=== PATIENT | female | born 2000 | race Caucasian/White ===

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

== ENCOUNTER 2020-01-07 01:17 | Outpatient (CLI) | payer MEDICAID, SELFPAY ==
[2020-01-07 11:06] LABS: Kit/Specimen SENT
[2020-01-07 11:24] LABS: Abs Immature Grans 0.01 k/cumm (0.0-0.09); Absolute Basophil Count 0.01 k/cumm (0.0-0.2); Absolute Lymphocyte Count 1.28 k/cumm (1.2-3.4); Absolute Monocyte Count 0.81 k/cumm (0.11-0.7); Absolute Neutrophil Count 5.24 k/cumm (1.2-6.7); Basophils % 0.1; Eosinophils % 1.3; HCT 38.6 % (36.0-46.0); HGB 13.1 g/dL (12.0-15.5); Immature Grans % 0.1 %; Lymphocytes % 17.2; Mean Corp. HGB Concentration 33.9 g/dL (32.0-36.0); Mean Corpuscular Hemoglobin 32.7 pg (27.0-33.0); Mean Corpuscular Volume 96.3 fL (80-95); Mean Platelet Volume 10.6 fL (8.0-11.0); Monocytes % 10.9; Neutrophils % 70.4; Platelet Count 256 x1000/uL (130-400); RBC 4.01 m/cumm (4.00-5.20); RBC Distribution Width 11.5 % (11.7-14.6); White Blood Cell Count 7.45 k/cumm (4.4-10.8)
[2020-01-07 12:25] LABS: TSH (W/Ref FT4) 0.54 uIU/mL (0.52-4.13)
[2020-01-08 09:24] LABS: Hepatitis B Surface Ag Negative (Negative)
[2020-01-08 10:00] LABS: HIV-1/2 Ag & Ab Screen Negative (Negative)
[2020-01-08 10:25] LABS: Varicella IgG Antibody Positive (See Note)
[2020-01-08 10:30] LABS: Rubella IgG Ab (UVM) Positive (See Note)
[2020-01-08 10:47] LABS: Hepatitis C Ab w Rflx HCV PCR Negative (Negative)
[2020-01-09 16:10] LABS: Syphilis Total Ab w/Reflex Nonreactive (Nonreactive)
[2020-01-14 15:17] LABS: Specimen WB Whole Blood
== END 2020-01-07 01:37 ==
PROVIDERS: PCP Pediatrics; Visit Provider Advanced Practice Midwife
DX: Z34.91 Encounter for supervision of normal pregnancy, unspecified, first trimester (principal); Z36.89 Encounter for other specified antenatal screening; Z11.4 Encounter for screening for human immunodeficiency virus [HIV]; Z11.59 Encounter for screening for other viral diseases; Z01.84 Encounter for antibody response examination
CPT/HCPCS: 36415; 80307; 86787; 86803; 86850; 86900; 86901; 87340; 87389; 87491; 87591; 81220; 84443; 85025; 86762; 86780

== ENCOUNTER 2020-01-07 13:06 | Outpatient (REF) | payer MEDICAID, SELFPAY ==
[2020-01-07 14:02] LABS: *AMPHETAMINES SCREEN URINE Negative (Negative); *BARBITURATES SCREEN URINE Negative (Negative); *BENZODIAZEPINES SCREEN URINE Negative (Negative); Cannabinoids THC POSITIVE (Negative); Cocaine Screen,Urine Negative (Negative); METHADONE URINE SCREEN Negative (Negative); OPIATES URINE SCREEN Negative (Negative)
[2020-01-07 14:03] LABS: Tricyclic Antidepressants Negative (Negative)
[2020-01-08 15:16] LABS: Chlamydia Result Negative (Negative); GC Result Negative (Negative)
[2020-01-13 10:20] LABS: Buprenorphine Negative; Norbuprenorphine Negative
== END 2020-01-07 13:26 ==
LOC: LBN 13:06
PROVIDERS: PCP Pediatrics; Visit Provider Advanced Practice Midwife
DX: Z34.91 Encounter for supervision of normal pregnancy, unspecified, first trimester (principal); N89.8 Other specified noninflammatory disorders of vagina; Z11.3 Encounter for screening for infections with a predominantly sexual mode of transmission
CPT/HCPCS: 80307; 87491; 87591; 87086; 87480; 87510; 87660

== ENCOUNTER 2020-01-15 09:45 | Emergency (ER) | payer MEDICAID, SELFPAY ==
[2020-01-15] VITALS (12 sets, daily range): BP systolic 109–120; BP diastolic 51–72; PULSE 53–78; RESP 14–20; TEMP 36.6–36.7; O2SAT 99–100
--- NOTE | 2020-01-15 10:09 | ED.GENADUL_ITS ---
Discharge Plan Disposition Patient Disposition: HOME Condition: Improving Discharge Details Chief Complaint: Nausea/Vomit/Diar Clinical Impression: Nausea and vomiting during prior to 22 weeks gestation, Chronic abdominal pain Primary Care Provider: Reena Del Angel V ED Provider: Salud Bonner Home Meds and New Rx's Prescriptions: Continued PrePlus 27 mg iron- 1 mg tablet 1 tab PO DAILY Qty: 90 RF: 4 famotidine 40 mg tablet 40 mg PO BID Qty: 60 RF: 2 pantoprazole [Protonix] 20 mg tablet,delayed release (DR/EC) 20 mg PO DAILY Qty: 30 RF: 3 sucralfate [Carafate] 1 gram tablet 1 gm PO BID Qty: 60 RF: 0 alum-mag hydroxide-simeth [Mylanta Maximum Strength] 400-400-40 mg/5 mL Suspension 5 ml PO PRN PRNRF: 0 metoclopramide HCl [Reglan] 10 mg tablet 10 mg PO Q6H PRN (Reason: nausea and vomiting) Qty: 30 RF: 1 Discharge Instructions Instructions: Nausea and Vomiting in (ED), Hyperemesis Gravidarum (ED) Additional Instructions: Take your medication that you have for nausea and pain as directed. Follow-up with your next scheduled appointment with women's wellness. Return to the emergency department if you develop any worsening or new con cerning symptoms. Discharge Data Discharge Date/Time-TO BE ENTERED AT DEPARTURE: 01/15/20 13:03 Discharge Physician: Salud Bonner Medical Decision Making 1000 -- 19-year-old female G1, P0 at 11w6d w/ TAIWO 07/30/20 presents for nausea, vomiting and abdominal pain for the past several weeks, worse this morning. She took her Protonix this morning. She had an ultrasound at 6 weeks confirming single IUP. She has been here multiple times recently for similar complaints. Vitals within normal limits. Abdomen soft nontender. She is crying and irritable and states I just need a fucking IV and meds to take this fucking pain away. Review of [facility] records note that patient has had a lot of stress throughout this as it has been unplanned and she is unsure of the father between 2 different men. She has been treated with Zofran, Reglan, Protonix and Carafate with relief at times. IV, screening labs, urinalysis and give bolus IV fluids and Zofran. Will discuss with pharmacy whether GI cocktail appropriate. 1235 --labs reviewed. Potassium 3.3 which was repleted. Urinalysis notes 3-5 WBCs and trace leukocyte esterase. Dr. Wilson from OB came to evaluate patient at bedside. heart tones 150s. She is well familiar with patient and she has been seen multiple times for similar complaints. Lab results discussed with Dr. Wilson and recommends to hold on antibiotics for urinalysis pending urine culture results. Dr. Wilson agreed with plan for GI cocktail versus Carafate. Patient had also inquired about a recent intravaginal cream she received from the pharmacy and was unclear for what. This was also discussed with Dr. Wilson states it was MetroGel for BV and she is stating that patient does not need to start treatment for this as it may cause worsening nausea and vomiting. Patient reassessed and she feels much better and requesting to go home. She was given a refill for her Reglan. Advised to follow-up with her scheduled appointment with women's wellness next month. Insert return precautions Medical Records Medical records reviewed: Yes I reviewed the patient's medical records. Imaging Data Radiologic Study: Radiologist's impression: US First Trimester and US , Transvaginal Exam date and time: 12/07/2019 9:34 AM Age: 19 years old Clinical indication: Lmp October 27 . gestational age (in weeks): 5 weeks 5 days. TAIWO August 03; Other: + preg test, abd pain/nausea; TECHNIQUE: Imaging protocol: Real-time transabdominal obstetrical ultrasound of the maternal pelvis and a first trimester with image documentation. Exam performed for nuchal lucency measurement. COMPARISON: CT ABDOMEN PELVIS W 07/17/2019 7:37 PM FINDINGS: Other findings: Left ovary 3.3 x 1.4 x 2.5 cm; Right ovary 2.8 x 1.7 x 1.8 cm; Peak systolic velocity right ovary 13 cm/s GESTATION: Gestation: Single intrauterine Heart rate: Heart rate 114 bpm. Abdomen: Right kidney measures 11.2 cm. No hydronephrosis Left kidney 11.1 cm. No hydronephrosis BIOMETRY: Estimated gestational age: Gestational age by ultrasound 6 weeks 2 days. Estimated due date: TAIWO July 30. [place] length: Corresponds to 6 weeks 2 days MATERNAL: Uterus: Uterus measures 7.4 x 4.3 x 5.1 cm Intraperitoneal: Mild free fluid in the cul-de-sac IMPRESSION: 1. Gestational age by ultrasound 6 weeks 2 days. 2. TAIWO July 30. 3. Heart rate 114 bpm. Lab Data Lab results reviewed: Yes I reviewed the patient's lab results. Labs: 01/15/20 11:20 Urine - Reflex from Ua Urine Culture - Preliminary Gram Positive Josefina,Mixed Laboratory Tests Range/Units 01/15/20 01/15/20 01/15/20 10:00 10:00 10:00 WBC (4.4-10.8) k/cumm 7.48 RBC (4.00-5.20) m/cumm 4.46 Hgb (12.0-15.5) g/dL 14.5 Hct (36.0-46.0) % 42.8 MCV (80-95) fL 96.0 H MCH (27.0-33.0) pg 32.5 MCHC (32.0-36.0) g/dL 33.9 RDW (11.7-14.6) % 11.7 Plt Count (130-400) x1000/uL 223 MPV (8.0-11.0) fL 10.2 Immature Gran % % 0.1 Neutrophils % 78.0 Lymphocytes % 12.6 Monocytes % 8.8 Eosinophils % 0.4 Basophils % 0.1 Absolute Neutrophils (1.2-6.7) k/cumm 5.83 Absolute Lymphocytes (1.2-3.4) k/cumm 0.94 L Absolute Monocytes (0.11-0.7) k/cumm 0.66 Absolute Eosinophils (0.0-0.7) k/cumm 0.03 Absolute Basophils (0.0-0.2) k/cumm 0.01 Sodium (136-145) mmol/L 135 L Potassium (3.5-5.1) mmol/L 3.3 L Chloride (98-107) mmol/L 99 Carbon Dioxide (21.0-32.0) mmol/L 26.8 Anion Gap (3-11) mmol/L 9.2 BUN (7-18) mg/dL 9 Creatinine (0.55-1.02) mg/dL 0.56 Estimated GFR/1.73 m2 (mL/min/1.73m2) >= 60.00 Glucose (74-106) mg/dL 84 Calcium (8.5-10.1) mg/dL 9.3 Total Bilirubin (0.2-1.0) mg/dL 0.5 AST (15-37) U/L 15 ALT (14-59) U/L 15 Alkaline Phosphatase (46-116) U/L 54 Total Protein (6.4-8.2) g/dL 8.0 Albumin (3.4-5.0) g/dL 4.2 Lipase (73-393) U/L 132 Urine Color (Yellow) Urine Clarity (Clear) Urine pH (5-8) Ur Specific [place] (1.005-1.025) Urine Protein (Negative) mg/dL Urine Ketones (Negative) mg/dL Urine Blood (Negative) Urine Nitrite (Negative) Urine Bilirubin (Negative) Urine Urobilinogen (Up TO 0.2) EU/dL Ur Leukocyte Esterase (Negative) Urine RBC (0-2) HPF Urine WBC (0-5) HPF Ur Epithelial Cells (Negative) HPF Urine Crystals (Negative) HPF Urine Bacteria (Negative) HPF Urine Casts (Negative) LPF Urine Mucus (Negative) Ur Culture Indicated? Urine Glucose (Negative) mg/dL Range/Units 01/15/20 11:20 WBC (4.4-10.8) k/cumm RBC (4.00-5.20) m/cumm Hgb (12.0-15.5) g/dL Hct (36.0-46.0) % MCV (80-95) fL MCH (27.0-33.0) pg MCHC (32.0-36.0) g/dL RDW (11.7-14.6) % Plt Count (130-400) x1000/uL MPV (8.0-11.0) fL Immature Gran % % Neutrophils % Lymphocytes % Monocytes % Eosinophils % Basophils % Absolute Neutrophils (1.2-6.7) k/cumm Absolute Lymphocytes (1.2-3.4) k/cumm Absolute Monocytes (0.11-0.7) k/cumm Absolute Eosinophils (0.0-0.7) k/cumm Absolute Basophils (0.0-0.2) k/cumm Sodium (136-145) mmol/L Potassium (3.5-5.1) mmol/L Chloride (98-107) mmol/L Carbon Dioxide (21.0-32.0) mmol/L Anion Gap (3-11) mmol/L BUN (7-18) mg/dL Creatinine (0.55-1.02) mg/dL Estimated GFR/1.73 m2 (mL/min/1.73m2) Glucose (74-106) mg/dL Calcium (8.5-10.1) mg/dL Total Bilirubin (0.2-1.0) mg/dL AST (15-37) U/L ALT (14-59) U/L Alkaline Phosphatase (46-116) U/L Total Protein (6.4-8.2) g/dL Albumin (3.4-5.0) g/dL Lipase (73-393) U/L Urine Color (Yellow) Yellow Urine Clarity (Clear) Cloudy Urine pH (5-8) 7.5 Ur Specific [place] (1.005-1.025) 1.020 Urine Protein (Negative) mg/dL 30 H Urine Ketones (Negative) mg/dL >=160 H Urine Blood (Negative) Trace-intact H Urine Nitrite (Negative) Negative Urine Bilirubin (Negative) Negative Urine Urobilinogen (Up TO 0.2) EU/dL 1.0 H Ur Leukocyte Esterase (Negative) Trace H Urine RBC (0-2) HPF 0-2 Urine WBC (0-5) HPF 3-5 Ur Epithelial Cells (Negative) HPF Few Urine Crystals (Negative) HPF Few amorphous Urine Bacteria (Negative) HPF Few Urine Casts (Negative) LPF Negative Urine Mucus (Negative) Moderate Ur Culture Indicated? Yes Urine Glucose (Negative) mg/dL Negative HPI General Mode of arrival: ambulatory . Date/Time Provider Initiated Documentation: 01/15/20 09:50 . Limitations to Documentation: no limitations . Information obtained by: patient . HPI Narrative: Patient is a 19-year-old female G1, P0 at 11 weeks and 2 days presents for nausea, vomiting and abdominal pain for the past several weeks, worse this morning. She states she vomited 10 times within the last 24 hours. She states the vomit has mainly been bile but states she vomited blood this morning. She quantifies the amount of blood as half a cup. She had a normal bowel movement yesterday. She describes her pain is intermittent, crampy and diffuse. She last had similar abdominal pain 1 month ago. She had an ultrasound at 6 weeks confirming a single IUP. She has been seen here multiple times recently for the same complaint and has been prescribed Reglan, Zofran, Protonix and Carafate. She called OB this morning and they advised her to come here for further evaluation. She denies any fever, urinary symptoms or vaginal bleeding. Related Data Home Medications Medication Instructions Recorded Confirmed pantoprazole [Protonix] 20 mg PO DAILY #30 tab 12/08/19 01/15/20 vitamin with calcium 1 tab PO DAILY #90 tab 12/10/19 01/15/20 no.72-iron 27 mg-folic acid 1 mg tablet sucralfate [Carafate] 1 gm PO BID #60 tab 12/23/19 01/15/20 famotidine 40 mg tablet 40 mg PO BID #60 tab 12/24/19 01/15/20 alum-mag hydroxide-simeth [Mylanta 5 ml PO PRN PRN 01/15/20 01/15/20 Maximum Strength] metoclopramide HCl [Reglan] 10 mg PO Q6H PRN #30 tab 01/15/20 Previous Rx's Medication Instructions Recorded pantoprazole [Protonix] 20 mg PO DAILY #30 tab 12/08/19 vitamin with calcium 1 tab PO DAILY #90 tab 12/10/19 no.72-iron 27 mg-folic acid 1 mg tablet sucralfate [Carafate] 1 gm PO BID #60 tab 12/23/19 famotidine 40 mg tablet 40 mg PO BID #60 tab 12/24/19 metoclopramide HCl [Reglan] 10 mg PO Q6H PRN #30 tab 01/15/20 Allergies Allergy/AdvReac Type Severity Reaction Status Date / Time diphenhydramine AdvReac Hyperactivi Unverified 01/15/20 09:53 ty General Stated Complaint: Nausea/Vomit/Diar JARED: 3 Review of Systems All systems reviewed & are unremarkable except as noted in HPI and below Constitutional Constitutional: Reports as per HPI, Denies chills and Denies fever(s) Eyes Eyes: Denies blurry vision ENT Ears, Nose, Mouth, and Throat: Denies dizziness, Denies sore throat and Denies throat swelling Cardiovascular Cardiovascular: Denies chest pain and Denies dyspnea Respiratory Respiratory: Denies cough and Denies dyspnea Gastrointestinal Gastrointestinal: Reports abdominal pain, Denies diarrhea and Reports vomiting Genitourinary Genitourinary: Denies hematuria and Denies dysuria Musculoskeletal Musculoskeletal: Denies back pain and Denies numbness Integumentary/Breasts Skin/Breast: Denies lesions and Denies rash Neurologic Neurologic: Denies dizziness, Denies localized weakness and Denies numbness Allergic/Immunologic Allergic/Immunologic: Denies throat swelling [facility] Medical History (Updated 01/15/20 @ 12:38 by Salud Bonner DO) Abnormal electroencephalogram (Resolved 12/21/11) Anxiety disorder 9 month inpatient care [place] contraception (Inactive 03/20/16) started 04/08 for menorragia control Depression (Resolved) Eating disorder (Resolved 03/18/14) Encounter for Depo-Provera contraception (Inactive 12/05/16) Fracture of left radius (Resolved 11/07/08) Hyperemesis gravidarum (Inactive) Infection due to Chlamydia species (Resolved 08/21/17) Major depressive disorder, single episode, severe, with psychotic behavior (Resolved 03/18/14) Pediatric body mass index (BMI) of 5th percentile to less than 85th percentile for age (Resolved 02/15/16) Suicidal ideation (Inactive) Social History Smoking/Tobacco Use Status: Former Tobacco Use Quit Date: 12/03/19 Counseling given: other Alcohol Intake: former Year quit: Thou Details: Stop 12/03/2019 with positive UPT Drug use: Current Sobriety Substance use type: marijuana Details: HX daily marijuana use--stopped due to it makes me sick Household members: family and other Details: Lives with her parents. 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 Do you feel safe at home: Yes Do you feel safe in your relationship?: Yes History History 1 Para 0 Hx # Term Pregnancies 0 Multiple births 0 Hx # Pregnancies 0 Ectopic pregnancies 0 AB induced 0 Hx Number of Living Children 0 AB spontaneous 0 Exam Const General: cooperative, healthy appearing and other (tearful, crying) Orientation: alert, awake and oriented x3 [facility] Head: normal to inspection Face and sinus: normal facial exam Eyes General: appearance normal, both eyes and all related structures EOM: EOM intact bilaterally Neck Neck: normal visual inspection and No submandibular swelling Lymphatic: no lymphadenopathy noted Chest Chest: normal inspection of the chest and no tenderness Resp Effort & Inspection: normal respiratory effort and able to speak in complete sentences Auscultation: clear to auscultation bilaterally Cardio Rate: regular rate Rhythm: regular rhythm GI Inspection: normal to inspection Palpation: soft, not firm, not rigid and nontender Auscultation: normal bowel sounds Back/Spine/Pelvis Thoracic/Lumbar Spine: thoracic and lumbar spine normal to inspection Skin General skin exam: no rashes or lesions noted Neuro General: patient alert, patient awake and patient oriented x3 Cognition: normal cognition Speech: speech normal Motor: muscle tone normal throughout Sensory Exam: no sensory deficits noted Extrem General: normal to inspection, full ROM, capillary refill normal, no calf tenderness bilaterally and no edema Psych Appearance: grossly normal Mental Status: mental status grossly normal Speech and Movement: speech and movement normal Mood: irritable mood Affect: irritable affect and other (tearful, crying) Thought Process: normal Insight: insight good Course Vital Signs Vital signs: Vital Signs Temperature 98.1 F 01/15/20 09:48 Pulse 78 01/15/20 09:48 Respiratory Rate 14 01/15/20 09:48 Blood Pressure 120/72 01/15/20 09:48 Pulse Oximetry 100 01/15/20 09:48 Temperature 98.1 F 01/15/20 09:48 Temperature Source Skin 01/15/20 09:48 Pulse 78 01/15/20 09:48 Respiratory Rate 14 01/15/20 09:48 Respiratory Effort 01/15/20 09:59 Blood Pressure 120/72 01/15/20 09:48 Blood Pressure Position Sitting 01/15/20 09:48 Pulse Oximetry 100 01/15/20 09:48 Oxygen Delivery Method Room Air 01/15/20 09:48 Oxygen Flow Rate 0 01/15/20 09:48 Pain Level 4 01/15/20 09:48
[2020-01-15 10:20] LABS: Abs Immature Grans 0.01 k/cumm (0.0-0.09); Absolute Basophil Count 0.01 k/cumm (0.0-0.2); Absolute Eosinophil Count 0.03 k/cumm (0.0-0.7); Absolute Lymphocyte Count 0.94 k/cumm (1.2-3.4); Absolute Monocyte Count 0.66 k/cumm (0.11-0.7); Absolute Neutrophil Count 5.83 k/cumm (1.2-6.7); Basophils % 0.1; Eosinophils % 0.4; HCT 42.8 % (36.0-46.0); HGB 14.5 g/dL (12.0-15.5); Immature Grans % 0.1 %; Lymphocytes % 12.6; Mean Corp. HGB Concentration 33.9 g/dL (32.0-36.0); Mean Corpuscular Hemoglobin 32.5 pg (27.0-33.0); Mean Platelet Volume 10.2 fL (8.0-11.0); Monocytes % 8.8; Platelet Count 223 x1000/uL (130-400); RBC 4.46 m/cumm (4.00-5.20); RBC Distribution Width 11.7 % (11.7-14.6); White Blood Cell Count 7.48 k/cumm (4.4-10.8)
[2020-01-15 10:40] LABS: ALT 15 U/L (14-59); AST 15 U/L (15-37); Albumin 4.2 g/dL (3.4-5.0); Alkaline Phosphatase 54 U/L (46-116); Anion Gap 9.2 mmol/L (3-11); BUN 9 mg/dL (7-18); Bilirubin, Total 0.5 mg/dL (0.2-1.0); CO2 26.8 mmol/L (21.0-32.0); CREATININE 0.56 mg/dL (0.55-1.02); Calcium 9.3 mg/dL (8.5-10.1); Chloride 99 mmol/L (98-107); Glucose 84 mg/dL (74-106); Potassium 3.3 mmol/L (3.5-5.1); Sodium 135 mmol/L (136-145)
[2020-01-15] MEDS: Ondansetron 4 MG/2 ML VIAL IVP (10:53)
[2020-01-15] MEDS: Normal Saline 1,000 ML 1000 ML IV (10:53)
[2020-01-15 10:59] LABS: Lipase 132 U/L (73-393)
[2020-01-15] MEDS: Potassium Chloride 20 MEQ TABCR 40 MEQ PO (11:14)
[2020-01-15 11:28] LABS: Bilirubin Negative (Negative); Blood Trace-intact (Negative); Clarity Cloudy (Clear); Glucose Negative (Negative); Ketones >=160 mg/dL (Negative); Leukocyte Esterase Trace (Negative); Nitrite Negative (Negative); pH 7.5 (5-8)
[2020-01-15 11:39] LABS: Bacteria Few HPF (Negative); C & S Indicated? Yes; Casts Negative LPF (Negative); Crystals Few Amorphous HPF (Negative); Epithelial Cells Few HPF (Negative); Mucus Moderate (Negative); RBC 0-2 HPF (0-2)
== END 2020-01-15 13:03 | disposition home or self-care (01) ==
PROVIDERS: Emergency Provider Physician Assistant; PCP Pediatrics
DX: O21.0 Mild hyperemesis gravidarum (principal); O26.891 Other specified pregnancy related conditions, first trimester; Z3A.11 11 weeks gestation of pregnancy; G89.29 Other chronic pain
CPT/HCPCS: 36415; 80053; 83690; 96361; 96374; 99284; 81003; 81015; 85025; 87086; J2405

== ENCOUNTER 2020-01-27 06:40 | Emergency (ER) | payer MEDICAID, SELFPAY ==
[2020-01-27 06:45] VITALS: PULSE 90; RESP 18; TEMP 36.5; O2SAT 98
--- NOTE | 2020-01-27 06:50 | ED.GENADUL_ITS ---
Discharge Plan Disposition Patient Disposition: HOME Condition: Stable Discharge Details Chief Complaint: Nausea/Vomit/Diar Clinical Impression: Nausea and vomiting during prior to 22 weeks gestation Primary Care Provider: Reena Del Angel V ED Provider: Kulwinder Arreguin Home Meds and New Rx's Prescriptions: Continued PrePlus 27 mg iron- 1 mg tablet 1 tab PO DAILY Qty: 90 RF: 4 famotidine 40 mg tablet 40 mg PO BID Qty: 60 RF: 2 pantoprazole [Protonix] 20 mg tablet,delayed release (DR/EC) 20 mg PO DAILY Qty: 30 RF: 3 sucralfate [Carafate] 1 gram tablet 1 gm PO BID Qty: 60 RF: 0 alum-mag hydroxide-simeth [Mylanta Maximum Strength] 400-400-40 mg/5 mL Suspension 5 ml PO PRN PRNRF: 0 metoclopramide HCl [Reglan] 10 mg tablet 10 mg PO Q6H PRN (Reason: nausea and vomiting) Qty: 30 RF: 1 Discharge Instructions Instructions: Nausea and Vomiting in (ED) Additional Instructions: follow up as scheduled with your kitchen supervisor/obgyn provider try to drink fluids to stay hydrated if you feel more ill, have severe worsening pain or persistent vomit return to the emergency department Medical Decision Making <Gene Lima DO - Last Filed: 01/27/20 08:25> This is a 19-year-old female who is a G1, P0 at 13w w/ TAIWO 07/30/20 who unfortunately has had multiple issues with vomiting and abdominal pain during this . Pain seems to be associated with vomiting and gastritis. She presents today with 24 hours of vomiting. She has had multiple episodes, but no hematemesis. She denies any fever or chills. She has tried taking Zofran but this is come up immediately. She denies any new foods or spicy foods. She admits to pain being in the epigastric region. She denies any diarrhea, vaginal discharge or pelvic pain. No other complaints at this time. No other modifying factors. Physical exam demonstrates epigastric tenderness, no signs of an acute surgical abdomen, vital signs stable. Signs and symptoms appear consistent with hyperemesis gravidarum, will treat with medications that have worked well for her in her recent visits. Will give Zofran and Reglan fluids GI cocktail Carafate. No indication for emergent imaging at this time. Will check heart tones. 8:25 AM Patient signed out to my colleague Dr. Kulwinder Arreguin for reassessment after co mplete fluid administration. Patient remained stable, laboratory work-up unremarkable. Suspect hyperemesis gravidarum with dehydration. <Kulwinder Arreguin MD - Last Filed: 01/27/20 09:04> pt feeling better and has no abdominal tenderness, labs reassuring and she is tolerating PO and is comfortable with d/c and outpatient kitchen supervisor f/u. She has antiemetics already at home and return precautions given Lab Data Lab results reviewed: Yes I reviewed the patient's lab results. HPI <Gene Lima DO - Last Filed: 01/27/20 08:25> General Date/Time Provider Initiated Documentation: 01/27/20 06:42 . HPI Narrative: This is a 19-year-old female who is a G1, P0 at 13w w/ TAIWO 07/30/20 who unfortunately has had multiple issues with vomiting and abdominal pain during this . Pain seems to be associated with vomiting and gastritis. She presents today with 24 hours of vomiting. She has had multiple episodes, but no hematemesis. She denies any fever or chills. She has tried taking Zofran but this is come up immediately. She denies any new foods or spicy foods. She admits to pain being in the epigastric region. She denies any diarrhea, vaginal discharge or pelvic pain. No other complaints at this time. No other modifying factors. Related Data Home Medications Medication Instructions Recorded Confirmed pantoprazole [Protonix] 20 mg PO DAILY #30 tab 12/08/19 01/27/20 vitamin with calcium 1 tab PO DAILY #90 tab 12/10/19 01/27/20 no.72-iron 27 mg-folic acid 1 mg tablet sucralfate [Carafate] 1 gm PO BID #60 tab 12/23/19 01/27/20 famotidine 40 mg tablet 40 mg PO BID #60 tab 12/24/19 01/27/20 alum-mag hydroxide-simeth [Mylanta 5 ml PO PRN PRN 01/15/20 01/27/20 Maximum Strength] metoclopramide HCl [Reglan] 10 mg PO Q6H PRN #30 tab 01/15/20 01/27/20 Previous Rx's Medication Instructions Recorded pantoprazole [Protonix] 20 mg PO DAILY #30 tab 12/08/19 vitamin with calcium 1 tab PO DAILY #90 tab 12/10/19 no.72-iron 27 mg-folic acid 1 mg tablet sucralfate [Carafate] 1 gm PO BID #60 tab 12/23/19 famotidine 40 mg tablet 40 mg PO BID #60 tab 12/24/19 metoclopramide HCl [Reglan] 10 mg PO Q6H PRN #30 tab 01/15/20 Allergies Allergy/AdvReac Type Severity Reaction Status Date / Time diphenhydramine AdvReac Hyperactivi Unverified 01/27/20 07:07 ty General Stated Complaint: Nausea/Vomit/Diar JARED: 3 Review of Systems <Gene Lima DO - Last Filed: 01/27/20 08:25> All systems reviewed & are unremarkable except as noted in HPI and below PFSH <Gene Lima DO - Last Filed: 01/27/20 08:25> Medical History Abnormal electroencephalogram (Resolved 12/21/11) Anxiety disorder 9 month inpatient care [place] contraception (Inactive 03/20/16) started 04/08 for menorragia control Depression (Resolved) Eating disorder (Resolved 03/18/14) Encounter for Depo-Provera contraception (Inactive 12/05/16) Fracture of left radius (Resolved 11/07/08) Hyperemesis gravidarum (Inactive) Infection due to Chlamydia species (Resolved 08/21/17) Major depressive disorder, single episode, severe, with psychotic behavior (R esolved 03/18/14) Pediatric body mass index (BMI) of 5th percentile to less than 85th percentile for age (Resolved 02/15/16) Suicidal ideation (Inactive) Family History Father Hepatitis B Substance abuse HIV (human immunodeficiency virus infection) Mother No problems noted. Other Diabetes pat aunt Essential hypertension MGF Personal history of malignant neoplasm MGM-breast Heart disease MGF Hyperlipidemia MGF Mental disorder PGM-anxiety/depression Myocardial infarction MGF Stroke MGF Brother Alcohol abuse Social History Smoking/Tobacco Use Status: Former Tobacco Use Quit Date: 12/03/19 Counseling given: other Alcohol Intake: former Year quit: Thou Details: Stop 12/03/2019 with positive UPT Drug use: Current Sobriety Substance use type: marijuana Details: HX daily marijuana use--stopped due to it makes me sick Household members: family and other Details: Lives with her parents. 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 3.ENT: Atraumatic external nose and ears. Notably dry MM. Neck: Symmetric, trachea midline, No thyromegaly. 4.CVS: +S1/S2, No murmurs or gallops. Peripheral pulses 2+ and equal in all extremities. Brisk capillary refill in all extremities. 5.RESP: Unlabored respiratory effort. Clear to auscultation bilaterally. No wheezes rales or rhonchi 6.GI: Soft, nondistended, mild epigastric tenderness, no signs of an acute surgical abdomen currently. No pelvic or suprapubic tenderness. 7.MSK: Normocephalic/Atraumatic, Extremities w/o deformity or ttp No cyanosis or clubbing, Normal movement of all extremities 8.Skin: Warm, Dry. No rashes or lesions. 9.Neuro: logistics lead II-XII grossly intact. Sensation grossly intact, no focal neurologic deficits. 10.Psych: (AAO) x3. Appropriate mood and affect Course <Gene Lima DO - Last Filed: 01/27/20 08:25> Vital Signs Vital signs: Vital Signs Temperature 36.5 C 01/27/20 06:45 Pulse 90 01/27/20 06:45 Respiratory Rate 18 01/27/20 06:45 Pulse Oximetry 98 01/27/20 06:45 Temperature 36.5 C 01/27/20 06:45 Temperature Source Temporal Artery Scan 01/27/20 06:45 Pulse 90 01/27/20 06:45 Respiratory Rate 18 01/27/20 06:45 Respiratory Effort 01/27/20 06:48 Blood Pressure Position Sitting 01/27/20 06:45 Pulse Oximetry 98 01/27/20 06:45 Oxygen Delivery Method Room Air 01/27/20 06:45 Oxygen Flow Rate 0 01/27/20 06:45 Pain Level 10 01/27/20 06:45 Sign Out <Gene Lima DO - Last Filed: 01/27/20 08:25> Sign Out Data: Sign Out Comment: Pending reassessment after fluids Last updated by Gene Lima DO at 01/27/20 08:27
[2020-01-27] MEDS: Ondansetron 4 MG/2 ML VIAL IVP (06:59)
[2020-01-27] MEDS: Normal Saline 1,000 ML 1000 ML IV ×2 (06:59→07:37)
[2020-01-27 07:07] LABS: Abs Immature Grans 0.05 10^3/uL (0.0-0.06); Absolute Eosinophil Count 0.01 10^3/uL (0.0-0.7); Absolute Monocyte Count 0.63 10^3/uL (0.1-0.8); Absolute Neutrophil Count 12.15 10^3/uL (1.2-6.7); Basophils % 0.1; Eosinophils % 0.1; HGB 14.6 g/dL (11.2-15.7); Immature Grans % 0.4; Lymphocytes % 7.9; MCH 32.7 pg (27.0-33.0); MCV 96.4 fL (80-95); MPV 10.5 fL (8.0-11.0); Monocytes % 4.5; Platelet Count 261 10^3/uL (130-400); RBC 4.46 10^6/uL (3.93-5.22); RDW 11.3 % (11.7-14.6); RDW-SD 40.2 fL; WBC 13.97 10^3/uL (4.4-10.8)
[2020-01-27 07:11] LABS: Absolute Basophil Count 0.01 10^3/uL (0.0-0.2)
[2020-01-27] MEDS: Metoclopramide 10 MG/2 ML VIAL IVP (07:11)
[2020-01-27 07:12] VITALS: BP 116/72; PULSE 88; RESP 20; O2SAT 98
[2020-01-27 07:23] LABS: ALT 25 U/L (14-59); AST 21 U/L (15-37); Albumin 4.4 g/dL (3.4-5.0); Alkaline Phosphatase 61 U/L (46-116); Anion Gap 11.9 mmol/L (3-11); BUN 11 mg/dL (7-18); Bilirubin, Total 0.4 mg/dL (0.2-1.0); CO2 27.1 mmol/L (21.0-32.0); CREATININE 0.71 mg/dL (0.55-1.02); Calcium 10.2 mg/dL (8.5-10.1); Chloride 98 mmol/L (98-107); Glucose 108 mg/dL (74-106); Lipase 108 U/L (73-393); Magnesium 1.7 mg/dL (1.8-2.4); Potassium 3.5 mmol/L (3.5-5.1); Sodium 137 mmol/L (136-145); Total Protein 8.5 g/dL (6.4-8.2)
[2020-01-27] MEDS: Sucralfate 1 GM TAB PO (07:31)
[2020-01-27 09:05] VITALS: BP 97/54; PULSE 74; RESP 14; TEMP 36.6; O2SAT 98
[2020-01-27 09:10] VITALS: BP 97/54; PULSE 74; RESP 14; O2SAT 98
--- NOTE | 2020-02-01 12:00 | NUR.NOTE ---
Nursing Note: Received a request from [facility] to renew [id number] sucralfate by Dr. Lima. I got the PCP name and faxed back to them to contact PCP, Susan Ocampo
== END 2020-01-27 09:30 | disposition home or self-care (01) ==
PROVIDERS: Student in an Organized Health Care Education/Training Program; Emergency Provider Emergency Medicine; PCP Pediatrics
DX: O21.1 Hyperemesis gravidarum with metabolic disturbance (principal); O26.892 Other specified pregnancy related conditions, second trimester; E86.0 Dehydration; Z3A.13 13 weeks gestation of pregnancy; R10.13 Epigastric pain
CPT/HCPCS: 36415; 80053; 83690; 96361; 96374; 96375; 99284; 83735; 85025; J2405; J2765

== ENCOUNTER 2020-03-03 01:08 | Outpatient (CLI) | payer MEDICAID, SELFPAY ==
--- NOTE | 2020-03-03 07:00 | DI.US_ITS ---
EXAM: US OB 2-3 TRIMESTER CLINICAL HISTORY: ,Z34.90. TECHNIQUE: Transabdominal obstetrical ultrasound performed. COMPARISON: US US OB TRANSVAGINAL from 12/07/2019 FINDINGS:: Sonographic images demonstrate a single intrauterine gestation in variable position. Placenta:Posterior and low lying. The tip of the placenta measures 1.5 cm from the os. Predicted gestational age: 19+ 1 weeks Estimated date of delivery 03 August 2020: heart rate motion is Dopplered at: 140 BPM. BPD: 43mm = 19+ 1 weeks HC: 166mm = 19+ 2 weeks AC: 139mm = 19+ 2 weeks FL: 30mm = 19+ 1 weeks Sonographically assessed composite gestational age: 19+ 2 weeks Estimated date of delivery based on this ultrasound is: 26 July 2020 Amniotic fluid: Amount of fluid is visually within normal limits. anatomic survey: No abnormalities are identified. IMPRESSION: survey is within normal limits. The placenta is low lying. DATA REPOSITORY:
== END 2020-03-03 01:28 ==
PROVIDERS: PCP Pediatrics; Visit Provider Advanced Practice Midwife
DX: Z34.92 Encounter for supervision of normal pregnancy, unspecified, second trimester (principal); O44.42 Low lying placenta NOS or without hemorrhage, second trimester
CPT/HCPCS: 76805

== ENCOUNTER 2020-03-09 00:29 | Outpatient (CLI) | payer MEDICAID, SELFPAY ==
--- NOTE | 2020-03-09 06:45 | DI.US_ITS ---
EXAM: US OB F/U FACIAL/LVOT/RVOT CLINICAL HISTORY: ? cleft palate on anatomy screen,Z34.90 TECHNIQUE: Ultrasound performed using standard protocol. COMPARISON: US US OB 2-3 TRIMESTER from 03/03/2020 FINDINGS: Today's ultrasound was performed to attempt further evaluation of the palate due to questionable abno rmality identified on prior study of March 03. On today's examination position is subopti mal for evaluation of the palate and again the findings are indeterminate although no definite gross defect is seen. Repeat scan recommended. IMPRESSION: DATA REPOSITORY:
[2020-03-11 11:54] LABS: AFP 51.7 ng/mL; Calculated age at EDD 20 years; Cigarette smoking status non-Smoker; GA used in risk estimate Dates estimate; IVF Pregnancy No; Initial or repeat testing Initial testing; Insulin dependent diabetes No; Maternal Weight 133 lbs; Number of Fetuses 1; Prev Pregnancy w/NTD No; RECOMMENDED FOLLOW UP None.; Results Summary Normal risk
== END 2020-03-09 00:49 ==
PROVIDERS: Advanced Practice Midwife; PCP Pediatrics; Visit Provider Advanced Practice Midwife
DX: Z34.92 Encounter for supervision of normal pregnancy, unspecified, second trimester (principal); Z3A.19 19 weeks gestation of pregnancy; O28.3 Abnormal ultrasonic finding on antenatal screening of mother
CPT/HCPCS: 36415; 76815; 82105

== ENCOUNTER 2020-04-27 03:37 | Outpatient (CLI) | payer MEDICAID, SELFPAY ==
[2020-04-27 15:24] LABS: Glucose,1 Hr (Glucola) 88 mg/dL (80-140)
[2020-04-27 15:30] LABS: HCT 35.5 % (36.0-46.0); HGB 11.9 g/dL (11.2-15.7); MCH 33.1 pg (27.0-33.0); MCHC 33.5 % (32.0-36.0); MCV 98.9 fL (80-95); MPV 10.4 fL (8.0-11.0); Platelet Count 241 10^3/uL (130-400); RBC 3.59 10^6/uL (3.93-5.22); RDW 11.9 % (11.7-14.6); WBC 11.04 10^3/uL (4.4-10.8)
== END 2020-04-27 03:57 ==
PROVIDERS: PCP Pediatrics; Visit Provider Advanced Practice Midwife
DX: Z34.92 Encounter for supervision of normal pregnancy, unspecified, second trimester (principal); Z3A.26 26 weeks gestation of pregnancy; Z01.84 Encounter for antibody response examination
CPT/HCPCS: 82950; 85027; 86850; 90384

== ENCOUNTER 2020-05-07 03:33 | Outpatient (CLI) | payer MEDICAID, SELFPAY ==
[2020-03-31 15:20] VITALS: O2SAT 98
--- NOTE | 2020-05-07 07:45 | DI.US_ITS ---
EXAM: US OB F/U FACIAL/LVOT/RVOT CLINICAL HISTORY: f/u low lying placenta. TECHNIQUE: Transabdominal obstetrical ultrasound performed. COMPARISON: US US OB F/U FACIAL/LVOT/RVOT from 03/09/2020 FINDINGS: Transabdominal obstetrical ultrasound performed. FINDINGS: Number of fetuses: One. position: Cephalic. Placental location: Posterior. No evidence of a low-lying placenta or placenta previa. The tip of th e placenta lies greater than 4.8 cm from the internal os. Heart Rate: 150BPM IMPRESSION: 1. Single live intrauterine gestation as above. 2. No evidence of a low-lying placenta or placenta previa. DATA REPOSITORY:
== END 2020-05-07 03:53 ==
PROVIDERS: PCP Pediatrics; Visit Provider Advanced Practice Midwife
DX: Z34.93 Encounter for supervision of normal pregnancy, unspecified, third trimester (principal)
CPT/HCPCS: 76815

== ENCOUNTER 2020-05-08 03:46 | Emergency (ER) | payer MEDICAID, SELFPAY ==
[2020-03-31 15:20] VITALS: O2SAT 98
[2020-05-08 03:52] VITALS: BP 115/73; PULSE 93; RESP 20; TEMP 37; O2SAT 97
--- NOTE | 2020-05-08 03:52 | ED.GENADUL_ITS ---
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 Details Clinical Impression: Nausea and vomiting, Primary Care Provider: Reena Del Angel V ED Provider: Matias Maxwell Meds and New Rx's Prescriptions: Continued ondansetron HCl 4 mg tablet 4 mg PO Q8H Qty: 30 RF: 4 Discharge Instructions Instructions: Acute Nausea and Vomiting (ED) Additional Instructions: Please take it easy over the weekend. Zofran as necessary. Clear liquid/bland diet for today. Contact your providers on L&D if any further issues over the weekend. Return to ED if problems. Referrals: [facility] [Provider Group] Medical Decision Making Patient presenting with acute onset of vomiting with associated epigastric/chest pain that she describes as burning. Similar episodes in the past. She is 28 weeks . ultrasound on the was fine. Will place IV and give fluids, promethazine, famotidine. Check labs. Check heart rate. Discussed with OB. Patient felt much better after promethazine and famotidine. Initial labs reported sodium of 125 which seemed erroneous given she had only been vomiting short period of time. Repeat lytes were normal. heart rate around 140. Baby very active. Nausea started to come back and she was given Zofran. Feeling much better and would like to go home. Discussed with OB, Dr. Wilson. Given no cramping, contractions, bleeding, fluid leakage patient okay to go without evaluation on L&D. Discussed with patient to take it easy the rest of the weekend. Contact [facility] [employer] [facility] if any issues over the weekend. Medical Records Medical records reviewed: Yes I reviewed the patient's medical records. Lab Data Lab results reviewed: Yes I reviewed the patient's lab results. HPI General Mode of arrival: ambulatory . Date/Time Provider Initiated Documentation: 05/08/20 03:47 . Limitations to Documentation: no limitations . Information obtained by: patient, RN notes reviewed and old records reviewed . HPI Narrative: Patient presents to ED with acute onset of nausea/vomiting with associated burning in her chest. Patient is 28 weeks . She has intermittently had problems with vomiting and reflux previously. She reports waking up about 60 to 90 minutes ago vomiting and has been unable to stop since. She denies any vaginal bleeding, pelvic pain, contractions, fluid drainage. She was well when she went to bed tonight. She had ultrasound and OB telehealth visit yesterday which was fine. She denies fever, cough, shortness of breath. She did not try taking her Zofran at home that she was not able to stop vomiting long enough to do so. Related Data Home Medications Medication Instructions Recorded Confirmed ondansetron HCl 4 mg tablet 4 mg PO Q8H #30 tab 02/04/20 05/08/20 Previous Rx's Medication Instructions Recorded ondansetron HCl 4 mg tablet 4 mg PO Q8H #30 tab 02/04/20 Allergies Allergy/AdvReac Type Severity Reaction Status Date / Time diphenhydramine AdvReac Hyperactivi Unverified 05/08/20 03:57 ty General JARED: 3 Review of Systems Narrative: As documented in HPI otherwise negative as below. Const: no fever, chills, weakness Resp: no cough, SOB, pleuritic pain CV: no diaphoresis, edema, syncope GI: no diarrhea Neuro: no headache, numbness, focal weakness, confusion PFSH Medical History Abnormal electroencephalogram (12/21/11) Anxiety disorder 9 month inpatient care [place] Chronic constipation Depot contraception (03/20/16) started 04/08 for menorragia control Depression Eating disorder (03/18/14) bulemia Encounter for Depo-Provera contraception (12/05/16) Fracture of left radius (11/07/08) Hyperemesis gravidarum Infection due to Chlamydia species (08/21/17) Major depressive disorder, single episode, severe, with psychotic behavior (03/18/14) Pediatric body mass index (BMI) of 5th percentile to less than 85th percentile for age (02/15/16) Suicidal ideation Family History Father Hepatitis B Substance abuse HIV (human immunodeficiency virus infection) Mother No problems noted. Other Diabetes pat aunt Essential hypertension MGF Personal history of malignant neoplasm MGM-breast Heart disease MGF Hyperlipidemia MGF Mental disorder PGM-anxiety/depression Myocardial infarction MGF Stroke MGF Brother Alcohol abuse Social History Smoking/Tobacco Use Status: Former Tobacco Use Quit Date: 12/03/19 Counseling given: other Smoking risk assessment performed?: Yes Alcohol Intake: former Year quit: Thou Details: Stop 12/03/2019 with positive UPT Drug use: Current Sobriety Substance use type: marijuana Details: HX daily marijuana use--currently using marijuana. 28 weeks gestation. Household members: family and other Details: Lives with her parents. 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 HEENT: NC/AT. Normal facial exam. Eyes: Normal conjunctiva and sclera. Neck: Supple. Trachea midline. Lungs: Normal respiratory effort. Lungs are clear. Cor: RRR without murmur/gallop. Good radial pulses. GI: Soft. Gravid. Mild epigastric tenderness. Neuro: A+O x 3. Normal speech, mentation, gait. Cranial nerves II - XII grossly intact. No gross motor or sensory deficit. Ext: No C/C/E. Skin: Warm and dry without rash.
[2020-05-08] MEDS: Lactated Ringers 1,000 ML 1000 ML IV (04:25)
[2020-05-08] MEDS: FAMOTIDINE 20 MG/50 ML BAG 100 MG IVPB (04:25)
[2020-05-08 05:09] LABS: ALT 23 U/L (14-59); AST 20 U/L (15-37); Albumin 3.2 g/dL (3.4-5.0); Alkaline Phosphatase 77 U/L (46-116); Anion Gap 4.2 mmol/L (3-11); BUN 8 mg/dL (7-18); Bilirubin, Total 0.2 mg/dL (0.2-1.0); CO2 24.8 mmol/L (21.0-32.0); CREATININE 0.58 mg/dL (0.55-1.02); Calcium 8.8 mg/dL (8.5-10.1); Chloride 96 mmol/L (98-107); Glucose 87 mg/dL (74-106); Lipase 131 U/L (73-393); Potassium 3.2 mmol/L (3.5-5.1); Sodium 125 mmol/L (136-145); Total Protein 6.6 g/dL (6.4-8.2)
[2020-05-08 05:28] LABS: Abs Immature Grans 0.09 10^3/uL (0.0-0.06); Absolute Eosinophil Count 0.19 10^3/uL (0.0-0.7); Absolute Monocyte Count 1.06 10^3/uL (0.1-0.8); Basophils % 0.3; Eosinophils % 1.6; HCT 33.9 % (36.0-46.0); HGB 11.9 g/dL (11.2-15.7); Immature Grans % 0.8; Lymphocytes % 18.8; MCH 34.9 pg (27.0-33.0); MCHC 35.1 % (32.0-36.0); MCV 99.4 fL (80-95); MPV 10.8 fL (8.0-11.0); Monocytes % 8.9; Neutrophils % 69.6; Nucleated RBC 0 %; Platelet Count 232 10^3/uL (130-400); RBC 3.41 10^6/uL (3.93-5.22); RDW 11.9 % (11.7-14.6); RDW-SD 42.5 fL; WBC 11.89 10^3/uL (4.4-10.8)
[2020-05-08 06:09] LABS: Absolute Basophil Count 0.04 10^3/uL (0.0-0.2); Absolute Lymphocyte Count 2.24 10^3/uL (1.2-3.4); Absolute Neutrophil Count 8.28 10^3/uL (1.2-6.7)
[2020-05-08 06:19] LABS: Anion Gap 9.5 mmol/L (3-11); CO2 24.5 mmol/L (21.0-32.0); Chloride 104 mmol/L (98-107); Potassium 3.9 mmol/L (3.5-5.1); Sodium 138 mmol/L (136-145)
[2020-05-08] MEDS: Ondansetron 4 MG/2 ML VIAL IVP (06:22)
[2020-05-08 06:38] VITALS: BP 103/62; PULSE 78; RESP 14; TEMP 36.8; O2SAT 97
[2020-05-08 06:46] VITALS: BP 103/62; PULSE 78; RESP 14; TEMP 36.8; O2SAT 97
== END 2020-05-08 06:53 | disposition home or self-care (01) ==
LOC: ER 06:46
PROVIDERS: Emergency Provider Emergency Medicine; PCP Pediatrics
DX: O21.2 Late vomiting of pregnancy (principal); O99.613 Diseases of the digestive system complicating pregnancy, third trimester; Z3A.28 28 weeks gestation of pregnancy; O99.323 Drug use complicating pregnancy, third trimester; F12.10 Cannabis abuse, uncomplicated
CPT/HCPCS: 36415; 80051; 80053; 83690; 96361; 96365; 96368; 96375; 99284; 85025; J2405

== ENCOUNTER 2020-05-14 03:20 | Inpatient (IN) | payer MEDICAID, SELFPAY ==
[2020-03-31 15:20] VITALS: O2SAT 98
[2020-05-14] VITALS (7 sets, daily range): BP systolic 100–131; BP diastolic 57–88; PULSE 68–127; RESP 16–20; TEMP 36.5–37.3; O2SAT 95–99
--- NOTE | 2020-05-14 | DI.US_ITS ---
EXAM: US ABDOMEN CLINICAL HISTORY: epigastric pain, RUQ pain, GERD, nausea, vomiting, 29 weeks . TECHNIQUE: Ultrasound abdomen performed using standard protocol. COMPARISON: CT CT ABDOMEN PELVIS W from 07/17/2019 US US OB F/U FACIAL/LVOT/RVOT from 05/07/2020 FINDINGS: LIVER: Normal size and echogenicity. No focal liver lesions are seen.. GALLBLADDER: No evidence of cholelithiasis. Small amount of sludge is seen. No evidence of wall thi ckening. No pericholecystic fluid identified. SOLIS'S SIGN: Negative. BILIARY SYSTEM: No intrahepatic or extrahepatic biliary ductal dilation. KIDNEYS: Kidneys are symmetric in size. No evidence of renal calculi. Mild bilateral hydronephrosis c onsistent with gravid state. No renal mass or cyst identified. PANCREAS: Trace amount of fluid near the head of the pancreas. No evidence of a pseudocyst or defini te pancreatic inflammation. SPLEEN: Not enlarged. ABDOMINAL AORTA AND IVC: Visualized portions normal caliber. ASCITES: None seen. IMPRESSION: Mild bilateral hydronephrosis secondary to gravid state. Mild amount of fluid around the head of the pancreas could represent pancreatitis. There is no drainable collection. DATA REPOSITORY:
--- NOTE | 2020-05-14 03:24 | ED.GENADUL_ITS ---
Discharge Plan Disposition Patient Disposition: [facility] IN[facility] Condition: Fair Discharge Details Clinical Impression: Nausea and vomiting, Primary Care Provider: Reena Del Angel V ED Provider: Matias Maxwell Home Meds and New Rx's Prescriptions: No Action ondansetron HCl 4 mg tablet 4 mg PO Q8H Qty: 30 RF: 4 Medical Decision Making Patient presenting with recurrent nausea/vomiting. She is in her third trimester of . heart rate found to be 135 here. Patient complaining of pelvic and vaginal pressure. Will place IV and start saline. Will give dose of Phenergan. BMP sent. Case discussed with OB, Dr. Wilson. Patient to be sent up to labor and delivery for monitoring. HPI General Mode of arrival: ambulatory . Date/Time Provider Initiated Documentation: 05/14/20 03:21 . Limitations to Documentation: no limitations . Information obtained by: patient, RN notes reviewed and old records reviewed . HPI Narrative: Patient presents to ED with nausea vomiting since 8 PM tonight. States that it started after she was smoking marijuana. She is now almost 29 weeks . She was seen by me last week for similar complaints. Epigastric discomfort with associated nausea and vomiting. However tonight she is also having pelvic pressure and vaginal pressure. She has had no fluid leakage or bleeding. She continues to feel the baby move. Related Data Home Medications Medication Instructions Recorded Confirmed ondansetron HCl 4 mg tablet 4 mg PO Q8H #30 tab 02/04/20 05/08/20 Previous Rx's Medication Instructions Recorded ondansetron HCl 4 mg tablet 4 mg PO Q8H #30 tab 02/04/20 Allergies Allergy/AdvReac Type Severity Reaction Status Date / Time diphenhydramine AdvReac Hyperactivi Unverified 05/08/20 03:57 ty General JARED: 3 Review of Systems Narrative: As documented in HPI otherwise negative as below. Const: no fever, chills, weakness Resp: no cough, SOB CV: no CP, syncope GI: no diarrhea Neuro: no headache, numbness, focal weakness, confusion PFSH Medical History Abnormal electroencephalogram (12/21/11) Anxiety disorder 9 month inpatient care [place] Chronic constipation Depot contraception (03/20/16) started 04/08 for menorragia control Depression Eating disorder (03/18/14) bulemia Encounter for Depo-Provera contraception (12/05/16) Fracture of left radius (11/07/08) Hyperemesis gravidarum Infection due to Chlamydia species (08/21/17) Major depressive disorder, single episode, severe, with psychotic behavior (03/18/14) Pediatric body mass index (BMI) of 5th percentile to less than 85th percentile for age (02/15/16) Suicidal ideation Family History Father Hepatitis B Substance abuse HIV (human immunodeficiency virus infection) Mother No problems noted. Other Diabetes pat aunt Essential hypertension MGF Personal history of malignant neoplasm MGM-breast Heart disease MGF Hyperlipidemia MGF Mental disorder PGM-anxiety/depression Myocardial infarction MGF Stroke MGF Brother Alcohol abuse Social History Smoking/Tobacco Use Status: Former Tobacco Use Quit Date: 12/03/19 Counseling given: other Smoking risk assessment performed?: Yes Alcohol Intake: former Year quit: Thou Details: Stop 12/03/2019 with positive UPT Drug use: Current Sobriety Substance use type: marijuana Details: HX daily marijuana use--currently using marijuana. 28 weeks gestation. Household members: family and other Details: Lives with her parents. 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 HEENT: NC/AT. Normal facial exam. Eyes: Normal conjunctiva and sclera. Neck: Supple. Trachea midline. Lungs: Normal respiratory effort. Cor: Good radial pulses. GI: Gravid. movement present. Nontender. Neuro: A+O x 3. Normal speech, mentation. Cranial nerves II - XII grossly intact. No gross motor or sensory deficit. Ext: No C/C/E. Skin: Warm and dry without rash.
[2020-05-14] MEDS: Normal Saline 1,000 ML 1000 ML IV (03:52)
[2020-05-14 04:16] LABS: BUN 10 mg/dL (7-18); CREATININE 0.57 mg/dL (0.55-1.02); Calcium 9.6 mg/dL (8.5-10.1); Chloride 103 mmol/L (98-107); Glucose 105 mg/dL (74-106); Potassium 4.5 mmol/L (3.5-5.1); Sodium 137 mmol/L (136-145)
[2020-05-14] MEDS: Ondansetron 4 MG/2 ML VIAL IVP (04:25)
[2020-05-14] MEDS: Ondansetron O.D.T. 4 MG TABEF 8 MG PO (06:56)
--- NOTE | 2020-05-14 07:12 | HPE_ITS ---
Date of service: 05/14/20 Time of Service: 07:13 Assessment and Plan Assessment and plan (1) 29 weeks gestation of : Status: Acute Assessment and plan: No evidence of labor. No uterine contractions noted and eDrrick denies pelvic discomfort (2) Vomiting affecting : Status: Acute Assessment and plan: Zofran 8 mg ODT was given which Derrick tolerated well. She continues to complain of severe heartburn and she reports that she has had good effect in the past from IV famotidine. This has been ordered. Pelvic exam is deferred and Susie Ray CHAROAylin will be assuming care at 0800. UDS ordered. OB-HPI Labor/Delivery History of Present Illness Reason for Visit: VOMITING Chief Complaint: Other (nausea and vomiting at 29 weeks). TAIWO Calculator Estimated Delivery Date Method Current WG Current Estimate 07/30/20 Ultrasound #1 29w 2d Comments: Derrick was evaluated in the ED for nausea and vomiting. She was treated with phenergan and IV zofran 4 mg at the ED. She was sent to the Center for evaluation and rule out labor. Derrick has experienced nausea and vomiting through out her and has been treated in the past with zofran, reglan, caraate, protonix and famotidine. She was complaining of persistent nausea when she arrived at the center and she was admitted to observation. Medical history is sigificant for bulemia and GERD. She is a marijuana user. History of Present Expected Delivery Route/Plan - CNM FOB - paternity uncertain, lives with boyfrnicholas Mario & his family BB undecided about circ- [place] Specific Issues/Plan 1. Unplanned , uncertain paternity (either Fabiano or Arnaud), source of stress for pt 2. CF & [place] drawn 01/06 2a. 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 Will discuss with pt 2b. [place] WNL - Discussed with patient - paternal testing is not possible at this time due to uncertain paternity. 2c. Desires AFP - drawn 03/09, low risk for NTD 3. Hx teen depression w/sucide attempt age [age], was inpt @ [facility] 3a. states no self harm for over 2 yrs, no meds, no need for therapy, feeling well, declines ref to [facility] 3b. Denies hx of childhood sexual abuse or trauma 3c. Plan to check in with pt every visit on her mood and coping level 4. Undecided about @ initial OB, will consider trying it might be too intimate 5. Daily MJ use for anxiety and sleep, counseled to decrease or even cease use 6. Stopped smoking cig when became , denies ETOH use 7. Rh neg, RhoGam @ 28 wks; done 04/27/20 8. Hyperemesis - Taking Reglan, Protonix, famotidine, carafate. ED admission 01/26- zofran script written 02/03 to use with other medications. 9. Chronic constipation - fiber supplements and colace prescribed daily. 10. Low lying placenta - Repeat US at 28 weeks - done 05/07, placenta is >4 cm away from os, low lie is resolved 11. Referred to [facility] for level 2 sono and MFM consult for possible cleft palate (undetermined at sono 03/09) 11a. [facility] genetics telehealth done 03/11, [facility] sono 03/15: intact lips & palate, no f/up needed 12. Admitted for pancreatitis, gallbladder sludge, vomiting, pain 05/14/20 Review of Systems Gastrointestinal Gastrointestinal: Reports as per HPI, Reports nausea and Reports vomiting Genitourinary Genitourinary: Reports as per HPI [facility] Medical History (Updated 05/16/20 @ 05:59 by Susie Ray) 19 weeks gestation of 26 weeks gestation of Abnormal electroencephalogram (12/21/11) Abnormal ultrasound Anxiety disorder 9 month inpatient care [place] Chronic constipation Depot contraception (03/20/16) started 04/08 for menorragia control Depression Eating disorder (03/18/14) bulemia Encounter for Depo-Provera contraception (12/05/16) Fracture of left radius (11/07/08) Hyperemesis gravidarum Infection due to Chlamydia species (08/21/17) Low lying placenta nos or without hemorrhage, third trimester Major depressive disorder, single episode, severe, with psychotic behavior (03/18/14) Pediatric body mass index (BMI) of 5th percentile to less than 85th percentile for age (02/15/16) Suicidal ideation Family History Father Hepatitis B Substance abuse HIV (human immunodeficiency virus infection) Mother No problems noted. Other Diabetes pat aunt Essential hypertension MGF Personal history of malignant neoplasm MGM-breast Heart disease MGF Hyperlipidemia MGF Mental disorder PGM-anxiety/depression Myocardial infarction MGF Stroke MGF Brother Alcohol abuse Social History Smoking/Tobacco Use Status: Former Tobacco Use Quit Date: 12/03/19 Counseling given: other Smoking risk assessment performed?: Yes Alcohol Intake: former Year quit: Thou Details: Stop 12/03/2019 with positive UPT Drug use: Current Sobriety Substance use type: marijuana Details: HX daily marijuana use--currently using marijuana. 28 weeks gestation. Household members: family and other Details: Lives with her parents. 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 Do you feel safe at home: Yes Do you feel safe in your relationship?: Yes History History 1 Para 0 Hx # Term Pregnancies 0 Multiple births 0 Hx # Pregnancies 0 Ectopic pregnancies 0 AB induced 0 Hx Number of Living Children 0 AB spontaneous 0 Meds Home Medications and Allergies Home Medications Medication Instructions Recorded Confirmed Type ondansetron HCl 4 mg tablet 4 mg PO Q8H #30 tab 02/04/20 05/15/20 Rx famotidine 20 mg tablet 20 mg PO BID #30 tab 05/14/20 05/15/20 Rx Allergies Allergy/AdvReac Type Severity Reaction Status Date / Time diphenhydramine AdvReac Hyperactivi Unverified 05/08/20 03:57 ty Exam Physical Exam Vital signs: Temp Pulse Resp BP Pulse Ox 97.9 F 74 16 110/62 99 05/14/20 03:26 05/14/20 04:44 05/14/20 04:44 05/14/20 04:44 05/14/20 04:44 Vital Signs Reviewed: Yes Constitutional Constitutional: mild distress (sleeping frequently) and thin Detailed Labor and Delivery Exam Eller Score: Cervical Points Exam 0 1 2 3 Dilation Closed 1-2cm 3-4 cm 5-6cm Effacement 0-30% 40-50% 60-70% 80% Consistency Firm Medium Soft Station -3 -2 -1,0 +1,+2 Position Posterior Mid Anterior Amniotic Membrane Status: Intact Fetus A Heart Rate Baseline: 140 Monitor Accelerations: 15 X 15 Monitor Decelerations: None Variability: Moderate (6-25 BPM) Presentation: Cephalic Categories: Category I Results Results Group Beta Strep: N/A Blood Type: A- Rubella Status: Immune Varicella Immunity: Immune Risk Assessment Risk for Shoulder Dystocia Historical/Initial OB: NEGATIVE FOR: Pelvic Abnormality, Pre- BMI>30, Previous Shoulder Dystocia or Previous Macrosomia Risk for Pre-Eclampsia Yes, if one or more: NEGATIVE FOR: Hx Pre-E/Gest HTN, Chronic HTN, Multiple Gestation, Pre-gestational DM, Renal Disease, Systemic Lupus or APA Syndrome Yes, if 2 or more: POSITIVE FOR: Nulliparity; NEGATIVE FOR: Age>= 35 yrs, >10yr btwn pregnancies, BMI>30, ethinicty, Mother/Sister w/ Pre-E or Previous IUGR Risk for Post- Hemorrhage Initial: NEGATIVE FOR: Multiple Gestation, Previous PPH, Known Clotting Deficiency, Grand Multiparity or Anticoagulation Risks Reviewed Risks Reviewed Upon Admission: Yes
[2020-05-14] MEDS: FAMOTIDINE 20 MG/50 ML BAG 200 MG IVPB (07:36)
[2020-05-14] MEDS: Lactated Ringers 1,000 ML 150 ML IV ×2 (08:36→15:12)
[2020-05-14] MEDS: Lidocaine 2% Viscous 15 ML CUP PO ×4 (09:08→22:45)
[2020-05-14] MEDS: Mylanta Suspension 30 ML CUP PO ×4 (09:09→22:45)
[2020-05-14 10:01] LABS: *AMPHETAMINES SCREEN URINE Negative (Negative); *BARBITURATES SCREEN URINE Negative (Negative); *BENZODIAZEPINES SCREEN URINE Negative (Negative); Cannabinoids THC POSITIVE (Negative); Cocaine Screen,Urine Negative (Negative); METHADONE URINE SCREEN Negative (Negative); OPIATES URINE SCREEN Negative (Negative)
[2020-05-14 10:05] LABS: Tricyclic Antidepressants Negative (Negative)
--- NOTE | 2020-05-14 12:24 | W.PM.OBHPL1 ---
Date of service: 05/14/20 Time of Service: 08:24 Assessment and Plan Assessment and plan (1) Vomiting affecting : Status: Acute Assessment and plan: A: 19 yo G1 @ 29 wks, no labor, wellbeing verified Chronic pre-existing GERD and GI concerns prior to PMH noted for hx bulemia and depression Dehydration, GERD, heartburn, r/o gastritis, Repeated ED visits for same At home under-treating for condition P: Pt rec'ed NS hydration in ED, Rx'ed Zofran 12 mg, phenergan 12.5 mg IV and famotidine 20 mg IV transferred to for NST (reactive) and observation IVF LR @ 150 ml/hr Consult with Dr. Torrez for plan of care accomplished this morning Begin Solumedrol 16 mg q8 hrs IV x 24-48 hrs Reglan 10 mg IV q6 hrs Continue famotidine 20 mg PO BID Begin predisone taper after 24 hrs and when tolerating PO intake Mylanta 30 ml with 10 ml viscous lidocaine PO q 2 hrs prn pain Plan discharge from observation tomorrow when tolerating PO intake, Solumedrol is d/c'ed, and medications are changed to PO. (2) Marijuana use: Status: Acute Assessment and plan: Pt has been counseled to cease use of MJ during . Plan of Safe Care for the [place] will be completed. (3) 29 weeks gestation of : Status: Acute (4) Gastroesophageal reflux disease: Status: Acute OB-HPI Labor/Delivery History of Present Illness Reason for Visit: VOMITING Chief Complaint: Other (intractable nausea and vomiting, severe heartburn, gastric pain). TAIWO Calculator Estimated Delivery Date Method Current WG Current Estimate 07/30/20 Ultrasound #1 29w 0d Comments: Pt currently taking Zofran 4 mg tabs PO as needed for nausea, does not take regularly, has no other current medications prescribed. Severe pain and vomiting began last night, pt reported to the ED early this morning. History of Present Expected Delivery Route/Plan - CNM FOB - paternity uncertain, lives with redd Mario & his family BB undecided about circ- jose antonio Specific Issues/Plan 1. Unplanned , uncertain paternity (either Fabiano or Arnaud), source of stress for pt 2. CF & [place] drawn 01/06 2a. 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 Will discuss with pt 2b. [place] WNL - Discussed with patient - paternal testing is not possible at this time due to uncertain paternity. 2c. Desires AFP - drawn 03/09, low risk for NTD 3. Hx teen depression w/sucide attempt age [age], was inpt @ [facility] 3a. states no self harm for over 2 yrs, no meds, no need for therapy, feeling well, declines ref to [facility] 3b. Denies hx of childhood sexual abuse or trauma 3c. Plan to check in with pt every visit on her mood and coping level 4. Undecided about @ initial OB, will consider trying it might be too intimate 5. Daily MJ use for anxiety and sleep, counseled to decrease or even cease use 6. Stopped smoking cig when became , denies ETOH use 7. Rh neg, RhoGam @ 28 wks; done 04/27/20 8. Hyperemesis - Taking Reglan, Protonix, famotidine, carafate. ED admission 01/26- zofran script written 02/03 to use with other medications. 9. Chronic constipation - fiber supplements and colace prescribed daily. 10. Low lying placenta - Repeat US at 28 weeks - done 05/07, placenta is >4 cm away from os, low lie is resolved 11. [place] [facility] [place] 2 [place] and MFM consult for possible cleft palate (undetermined at sono 03/09) 11a. [facility] [place] done 03/11, [facility] [place] 03[place]15: intact lips & palate, no f/up needed Review of Systems All systems reviewed & are unremarkable except as noted in HPI and below Constitutional Constitutional: Reports system reviewed and no additional complaints, except as documented ENT Ears, Nose, Mouth, and Throat: Reports system reviewed and no additional complaints, except as documented and Reports odynophagia Cardiovascular Cardiovascular: Reports as per HPI Respiratory Respiratory: Reports as per HPI Gastrointestinal Gastrointestinal: Reports as per HPI, Reports abdominal pain, Reports belching, Reports dyspepsia, Reports heartburn, Reports diarrhea, Reports nausea, Reports odynophagia, Reports vomiting and Reports hematemesis Comments: nml BM today, has recent hx of diarrhea, PMH noted for constipation Genitourinary Genitourinary: Reports as per HPI Psychiatric Psychiatric: Reports system reviewed and no additional complaints, except as documented and Reports change in appetite PFSH Medical History (Updated 05/14/20 @ 08:28 by Susie Ray) 19 weeks gestation of 26 weeks gestation of Abnormal electroencephalogram (12/21/11) Anxiety disorder 9 month inpatient care [facility] Chronic constipation Depot contraception (03/20/16) started 04/08 for menorragia control Depression Eating disorder (03/18/14) bulemia Encounter for Depo-Provera contraception (12/05/16) Fracture of left radius (11/07/08) Hyperemesis gravidarum Infection due to Chlamydia species (08/21/17) Low lying placenta nos or without hemorrhage, third trimester Major depressive disorder, single episode, severe, with psychotic behavior (03/18/14) Pediatric body mass index (BMI) of 5th percentile to less than 85th percentile for age (02/15/16) Suicidal ideation Family History Father Hepatitis B Substance abuse HIV (human immunodeficiency virus infection) Mother No problems noted. Other Diabetes pat aunt Essential hypertension MGF Personal history of malignant neoplasm MGM-breast Heart disease MGF Hyperlipidemia MGF Mental disorder PGM-anxiety/depression Myocardial infarction MGF Stroke MGF Brother Alcohol abuse Social History Smoking/Tobacco Use Status: Former Tobacco Use Quit Date: 12/03/19 Counseling given: other Smoking risk assessment performed?: Yes Alcohol Intake: former Year quit: Thou Details: Stop 12/03/2019 with positive UPT Drug use: Current Sobriety Substance use type: marijuana Details: HX daily marijuana use--currently using marijuana. 28 weeks gestation. Household members: family and other Details: Lives with her parents. 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 Do you feel safe at home: Yes Do you feel safe in your relationship?: Yes History History 1 Para 0 Hx # Term Pregnancies 0 Multiple births 0 Hx # Pregnancies 0 Ectopic pregnancies 0 AB induced 0 Hx Number of Living Children 0 AB spontaneous 0 Meds Home Medications and Allergies Home Medications Medication Instructions Recorded Confirmed Type ondansetron HCl 4 mg tablet 4 mg PO Q8H #30 tab 02/04/20 05/08/20 Rx Allergies Allergy/AdvReac Type Severity Reaction Status Date / Time diphenhydramine AdvReac Hyperactivi Unverified 05/08/20 03:57 ty Exam Physical Exam Vital signs: Temp Pulse Resp BP Pulse Ox 97.9 F 74 18 110/62 99 05/14/20 03:26 05/14/20 04:44 05/14/20 06:55 05/14/20 04:44 05/14/20 04:44 Vital Signs Reviewed: Yes Constitutional Constitutional: moderate distress, thin and cooperative Fetus A Heart Rate Baseline: 145 Monitor Accelerations: 10 X 10 Monitor Decelerations: None Variability: Moderate (6-25 BPM) Categories: Category I HEENT Exam HEENT Exam: Normal Neck Exam Neck Exam: Normal Chest/Brest/Axilla Exam Chest Exam: Normal Breast Exam Breast Exam: Not Done Respiratory Exam Respiratory Exam: Normal Cardiovascular Exam Cardiovascular Exam: Normal Abdominal Exam Abdominal Exam: Normal (gravid, 29 wks, S=D) Rectal Exam Rectal Exam: Not Done Exam Exam: Not Done Extremities Exam Extremities Exam: Normal Back/Spine/Pelvis Exam Back Exam: Normal Skin Exam Skin Exam: Normal Neurological Exam Neurological Exam: Normal Psychiatric Exam Psychiatric Exam: Normal Results Results Group Beta Strep: N/A Blood Type: A- Rubella Status: Immune Varicella Immunity: Immune Abnormal Lab Findings: Abnormal Labs 05/14/20 09:15 Ur THC Screen Positive A Risk Assessment Risk for Shoulder Dystocia Historical/Initial OB: NEGATIVE FOR: Pelvic Abnormality, Pre- BMI>30, Previous Shoulder Dystocia or Previous Macrosomia Risk for Pre-Eclampsia Yes, if one or more: NEGATIVE FOR: Hx Pre-E/Gest HTN, Chronic HTN, Multiple Gestation, Pre-gestational DM, Renal Disease, Systemic Lupus or APA Syndrome Yes, if 2 or more: POSITIVE FOR: Nulliparity; NEGATIVE FOR: Age>= 35 yrs, >10yr btwn pregnancies, BMI>30, ethinicty, Mother/Sister w/ Pre-E or Previous IUGR Risk for Post- Hemorrhage Initial: NEGATIVE FOR: Multiple Gestation, Previous PPH, Known Clotting Deficiency, Grand Multiparity or Anticoagulation Risks Reviewed Risks Reviewed Upon Admission: Yes
[2020-05-14] MEDS: methylPREDNISolone SUCC 40 MG VIAL 16 MG IVP ×2 (12:46→20:05)
[2020-05-14] MEDS: Metoclopramide 10 MG/2 ML VIAL IVP ×3 (12:46→23:48)
--- NOTE | 2020-05-14 18:46 | NUR.NOTE ---
Nursing Note: Pt vomited 400 ml mucousy/bile emesis after eating only 3 bites of cheerios. Unable to tolerate solids. PRN lidocaine/mylanta given with scheduled IV reglan. CNM notified of emesis. No changes in orders at this time. Pt given aqua k lucio for comfort as she is complaining of severe burning and pain to epigastric area and esophagus. States it feels like there is something stuck in her throat.
--- NOTE | 2020-05-14 20:05 | W.PM.PROGNOT ---
Date of Service Date of service: 05/14/20 Time of Service: 20:05 Assessment and Plan Assessment and plan (1) Vomiting affecting : Status: Acute Assessment and plan: A: 19 yo G1 @ 29 wks, no labor chronic nausea, vomiting, heartburn, GERD r/o gastritis, r/o gallbladder pain, r/o pancreatitis P: Consult with Dr. Torrez: Continue LR @ 125 ml/hr Continue SoluMedrol 16 mg q8 hrs IV Continue Reglan 10 mg q6 hrs IV Add Zofran 8 mg q 8 hrs IV discontinue famotidine, start Protonix 40 mg q 12 hrs IV Labs: CBC, CMP, lipase, amylase Plan internal medicine consult and RUQ abd ultrasound tonight NPO with sips of water (2) Gastroesophageal reflux disease: Status: Acute (3) Nausea and vomiting: Status: Acute (4) 29 weeks gestation of : Status: Acute Subjective Subjective Patient reports: still having pain, nausea and vomiting Interval history since last seen: At 1800 pt stated she was feeling much better, had no more abd or heartburn pain, denied nausea, desired discharge to home. I explained to pt that her treatment was not complete, she had more doses of steroids and Reglan IV to be given and had not yet eaten solid food without vomiting. Pt began to cry saying she couldn't stay here alone, I encouraged her to call her boyfriend to come stay with her, and to delay discharge until at least after 1999 when she would have had 2nd doses of IV medications and a chance to eat. Pt denied feeling hungry but ordered some breakfast foods. After eating cereal, she vomited 400 ml and reported increased heartburn pain once again. Objective Last Vital Signs Temp 98.1 F 05/14/20 16:09 Pulse 83 05/14/20 16:09 Resp 20 05/14/20 16:09 BP 105/61 05/14/20 16:09 Pulse Ox 95 05/14/20 16:09 Laboratory Results - last 24 hr 05/14/20 05/14/20 03:42 09:15 Sodium 137 Potassium 4.5 Chloride 103 Carbon Dioxide 23.0 Anion Gap 11.0 BUN 10 Creatinine 0.57 Estimated GFR/1.73 m2 >= 60.00 Glucose 105 Calcium 9.6 Urine Opiates Screen Negative Urine Methadone Screen Negative Ur Barbiturates Screen Negative Ur Tricyclics Screen Negative Ur Amphetamines Screen Negative U Benzodiazepines Scrn Negative Urine Cocaine Screen Negative Ur THC Screen Positive A Reviewed Pertinent PMH: Yes Objective Narrative Objective Narrative: Pt slept most of the day after getting relief from heartburn and vomiting, tolerating sips of water PO Received SoluMedrol 16 mg IV, Reglan 10 mg IV, and Mylanta/viscous lidocaine PO prn At 1800 pt requested discharge home stating she felt well though denied any appetite or interest in food Attempted to eat cheerios @ 1930, vomited and heartburn pain re-started. Emesis appears green/bileous, no visible blood, then pt had a nose bleed from continuing vomiting. Afebrile, normotensive. Pt increasingly upset with heartburn pain, crying, also reporting pain at IV access site Consultation by phone with Dr. Torrez regarding r/o gastritis, medication & lab orders received
[2020-05-14] MEDS: Ondansetron 4 MG/2 ML VIAL 8 MG IVP ×2 (20:49→21:25)
[2020-05-14 21:11] LABS: Abs Immature Grans 0.19 10^3/uL (0.0-0.06); Basophils % 0.2; Eosinophils % 0.1; HCT 36.1 % (36.0-46.0); HGB 12.4 g/dL (11.2-15.7); Lymphocytes % 10.6; MCH 33.3 pg (27.0-33.0); MCHC 34.3 % (32.0-36.0); MPV 10.5 fL (8.0-11.0); Monocytes % 5.6; Neutrophils % 82.5; Nucleated RBC 0 %; Platelet Count 279 10^3/uL (130-400); RBC 3.72 10^6/uL (3.93-5.22); RDW 11.9 % (11.7-14.6); RDW-SD 42.6 fL
[2020-05-14 21:13] LABS: Absolute Basophil Count 0.04 10^3/uL (0.0-0.2); Absolute Eosinophil Count 0.02 10^3/uL (0.0-0.7); Absolute Lymphocyte Count 2.11 10^3/uL (1.2-3.4); Absolute Monocyte Count 1.11 10^3/uL (0.1-0.8); Absolute Neutrophil Count 16.42 10^3/uL (1.2-6.7)
[2020-05-14 21:23] LABS: ALT 21 U/L (14-59); AST 19 U/L (15-37); Albumin 3.6 g/dL (3.4-5.0); Alkaline Phosphatase 95 U/L (46-116); Amylase 126 U/L (25-115); BUN 9 mg/dL (7-18); Bilirubin, Total 0.6 mg/dL (0.2-1.0); CREATININE 0.63 mg/dL (0.55-1.02); Calcium 9.2 mg/dL (8.5-10.1); Chloride 101 mmol/L (98-107); Glucose 93 mg/dL (74-106); Lipase 965 U/L (73-393); Potassium 3.7 mmol/L (3.5-5.1); Sodium 136 mmol/L (136-145); Total Protein 7.3 g/dL (6.4-8.2)
[2020-05-14] MEDS: Pantoprazole 40 MG VIAL IVP (21:25)
--- NOTE | 2020-05-14 22:04 | W.PM.PROGNOT ---
Date of Service Date of service: 05/14/20 Time of Service: 22:04 Assessment and Plan Assessment and plan (1) Vomiting affecting : Status: Acute Assessment and plan: A: differential: pancreatitis vs gallstone vs GERD/hyperemesis gravidarium obstetrically stable P: Await ultrasound result Collaborative management at this time with Hospitalist and Dr. Torrez Plan sedation through the night, continue current medications, sips/chips Objective Last Vital Signs Temp 99.1 F 05/14/20 20:30 Pulse 68 05/14/20 20:30 Resp 18 05/14/20 20:30 BP 131/88 05/14/20 20:30 Pulse Ox 99 05/14/20 20:30 Laboratory Results - last 24 hr 05/14/20 05/14/20 05/14/20 03:42 09:15 21:05 WBC RBC Hgb Hct MCV MCH MCHC RDW Plt Count MPV Immature Gran % Neutrophils % Lymphocytes % Monocytes % Eosinophils % Basophils % Nucleated RBC % Absolute Neutrophils Absolute Lymphocytes Absolute Monocytes Absolute Eosinophils Absolute Basophils Sodium 137 136 Potassium 4.5 3.7 Chloride 103 101 Carbon Dioxide 23.0 24.0 Anion Gap 11.0 11.0 BUN 10 9 Creatinine 0.57 0.63 Estimated GFR/1.73 m2 >= 60.00 >= 60.00 Glucose 105 93 Calcium 9.6 9.2 Total Bilirubin 0.6 AST 19 ALT 21 Alkaline Phosphatase 95 Total Protein 7.3 Albumin 3.6 Amylase 126 H Lipase 965 H Urine Opiates Screen Negative Urine Methadone Screen Negative Ur Barbiturates Screen Negative Ur Tricyclics Screen Negative Ur Amphetamines Screen Negative U Benzodiazepines Scrn Negative Urine Cocaine Screen Negative Ur THC Screen Positive A 05/14/20 21:05 WBC 19.90 H RBC 3.72 L Hgb 12.4 Hct 36.1 MCV 97.0 H MCH 33.3 H MCHC 34.3 RDW 11.9 Plt Count 279 MPV 10.5 Immature Gran % 1.0 Neutrophils % 82.5 Lymphocytes % 10.6 Monocytes % 5.6 Eosinophils % 0.1 Basophils % 0.2 Nucleated RBC % 0 Absolute Neutrophils 16.42 H Absolute Lymphocytes 2.11 Absolute Monocytes 1.11 H Absolute Eosinophils 0.02 Absolute Basophils 0.04 Sodium Potassium Chloride Carbon Dioxide Anion Gap BUN Creatinine Estimated GFR/1.73 m2 Glucose Calcium Total Bilirubin AST ALT Alkaline Phosphatase Total Protein Albumin Amylase Lipase Urine Opiates Screen Urine Methadone Screen Ur Barbiturates Screen Ur Tricyclics Screen Ur Amphetamines Screen U Benzodiazepines Scrn Urine Cocaine Screen Ur THC Screen Reviewed Pertinent PMH: Yes Objective Narrative Objective Narrative: Consultation with Hospitalist on phone, pt hx, medications and current tx reviewed. Elevated lipase, amylase, and WBC results noted, pt to ultrasound this evening. Dr. Torrez updated on pt status Pt stopped vomiting and became drowsy, reported slight nausea remains after Zofran dose infused
--- NOTE | 2020-05-14 22:52 | W.PM.PROGNOT ---
Date of Service Date of service: 05/14/20 Time of Service: 22:52 Assessment and Plan Assessment and plan (1) Pancreatitis: Status: Chronic Assessment and plan: A: pancreatitis suggested by lab and ultrasound findings P: NPO with sips/chips Continue all current medications & IVF Tigan 200 mg IM q [address] Daria Mcdowell 5 mg PO hs PRN Dilaudid 2 mg PO q 4 hrs as needed Repeat labs in the morning Qualifiers: Chronicity: acute Pancreatitis type: unspecified pancreatitis type Acute pancreatitis complication: no infection or necrosis Qualified Code(s): K85.90 - Acute pancreatitis without necrosis or infection, unspecified Subjective Subjective Patient reports: pain is less and nausea Objective Objective Narrative Objective Narrative: Pt has returned from ultrasound Findings are suggestive of pancreatitis (free fluid, thickening), GB sludge noted by sono tech, no stones of obstruction Sono report reviewed with Dr.'s Bolaños
[2020-05-14] MEDS: Lactated Ringers 1,000 ML 125 ML IV (22:53)
--- NOTE | 2020-05-14 23:04 | DI.VRAD_ITS ---
PROCEDURE INFORMATION: Exam: US Abdomen Complete Exam date and time: 05/14/2020 9:32 PM Age: 19 years old Clinical indication: Pain; Other: Ruq, epigastric, and cp. ; Patient HX: PT is 29 weeks . PT C/O severe burning in chest, gerd, nausea and vomiting. Elevated wbc, lipase, and amylase. TECHNIQUE: Imaging protocol: Real-time ultrasound of the abdomen with image documentation. COMPARISON: CT ABDOMEN PELVIS W 07/17/2019 7:37 PM FINDINGS: Liver: Normal liver echogenicity and size. Gallbladder: Mild sludge. No stones are noted. Gallbladder wall is 2 mm. Negative sonographic [place] sign. Common bile duct: Common bile duct is 4 mm. Pancreas: No laurent pancreatic edema. No pancreatic enlargement. No cyst or mass. Minor free fluid adjacent to the pancreas extending into the region of the mark hepatis. Right kidney: Right kidney is 9.2 x 4.9 x 4.8 cm. Minor hydronephrosis likely related to the patient's known intrauterine gestation. No mass or calculus. Left kidney: Left kidney is 11.6 x 5.8 x 4.5 cm. Mild related hydronephrosis. No calculi. Spleen: Normal. No splenomegaly. Aorta: Normal. No aneurysm. Inferior vena cava: Normal. IMPRESSION: 1. Mild fluid adjacent to the pancreas may represent findings of acute pancreatitis. No laurent pancreatic edema. No cyst, mass, or abscess evident. 2. Gallbladder sludge. No gallstones. No biliary ductal dilatation. 3. Minor bilateral hydronephrosis likely related to the patient's . No calculi evident. Dictated and Authenticated by: Maximino Reyes MD. Ordering:YOSELIN Richards MD
--- NOTE | 2020-05-14 23:06 | NUR.NOTE ---
Nursing Note: Patient brought to radiology for abdominal ultrasound accompanied by RN. Off Center at 2140. Returned to Center 2235.
[2020-05-14] MEDS: Zolpidem 10 MG TAB 5 MG PO (23:46)
[2020-05-14] MEDS: Trimethobenzamide 200 MG/2 ML VIAL IM (23:49)
[2020-05-15] MEDS: methylPREDNISolone SUCC 40 MG VIAL 16 MG IVP (04:10)
[2020-05-15 05:29] LABS: Abs Immature Grans 0.13 10^3/uL (0.0-0.06); Absolute Basophil Count 0.02 10^3/uL (0.0-0.2); Absolute Eosinophil Count 0.02 10^3/uL (0.0-0.7); Basophils % 0.1; Eosinophils % 0.1; HCT 30.1 % (36.0-46.0); HGB 10.2 g/dL (11.2-15.7); Immature Grans % 0.7; Lymphocytes % 10.5; MCH 33.2 pg (27.0-33.0); MCHC 33.9 % (32.0-36.0); MPV 10.7 fL (8.0-11.0); Monocytes % 6.5; Neutrophils % 82.1; Nucleated RBC 0 %; Platelet Count 210 10^3/uL (130-400); RBC 3.07 10^6/uL (3.93-5.22); RDW 11.9 % (11.7-14.6); RDW-SD 42.3 fL; WBC 17.47 10^3/uL (4.4-10.8)
[2020-05-15 05:33] LABS: Absolute Lymphocyte Count 1.83 10^3/uL (1.2-3.4); Absolute Monocyte Count 1.14 10^3/uL (0.1-0.8); Absolute Neutrophil Count 14.34 10^3/uL (1.2-6.7)
[2020-05-15 05:44] LABS: ALT 17 U/L (14-59); AST 19 U/L (15-37); Albumin 2.8 g/dL (3.4-5.0); Alkaline Phosphatase 76 U/L (46-116); Anion Gap 8.8 mmol/L (3-11); BUN 9 mg/dL (7-18); Bilirubin, Total 0.5 mg/dL (0.2-1.0); CO2 23.2 mmol/L (21.0-32.0); CREATININE 0.47 mg/dL (0.55-1.02); Calcium 8.4 mg/dL (8.5-10.1); Chloride 103 mmol/L (98-107); Glucose 87 mg/dL (74-106); Lipase 191 U/L (73-393); Potassium 3.7 mmol/L (3.5-5.1); Sodium 135 mmol/L (136-145); Total Protein 5.8 g/dL (6.4-8.2)
[2020-05-15] MEDS: Metoclopramide 10 MG/2 ML VIAL IVP ×2 (06:02→12:08)
[2020-05-15] MEDS: Lactated Ringers 1,000 ML 125 ML IV (06:27)
[2020-05-15] MEDS: Mylanta Suspension 30 ML CUP PO (07:33)
[2020-05-15] MEDS: Lidocaine 2% Viscous 15 ML CUP PO (07:33)
[2020-05-15] MEDS: Ondansetron 4 MG/2 ML VIAL 8 MG IVP (07:34)
[2020-05-15] MEDS: HYDROmorphone 2 MG TAB PO (07:35)
[2020-05-15] MEDS: Normal Saline Flush 10 ML SYR IVP ×2 (07:35→12:08)
[2020-05-15 07:46] VITALS: BP 116/78; PULSE 77; RESP 18; TEMP 36.7; O2SAT 98
--- NOTE | 2020-05-15 08:19 | PGE_ITS ---
Date of Service Date of service: 05/15/20 Time of Service: 08:19 Assessment and Plan Assessment and plan (1) Pancreatitis: Status: Chronic Assessment and plan: A: G1 @ 29 wks, likely pancreatitis, GERD, chronic severe heartburn No labor, obstetrically stable P: Continue current meds Graduate from sips/chips to clear liquids Dr.'s Torrez and Daria to see pt Pt will be counseled on MJ use and increased nausea/vomiting Qualifiers: Chronicity: acute Pancreatitis type: unspecified pancreatitis type Acute pancreatitis complication: no infection or necrosis Qualified Code(s): K8 5.90 - Acute pancreatitis without necrosis or infection, unspecified Subjective Subjective Patient reports: pain is less and nausea Interval history since last seen: Slept fitfully even after taking Ambien because she felt uncomfortable, no vomiting. Took first Dilaudid 2 mg tab at 0800 with good response, pt states her substernal pain and epigastric pain improved, nausea minimal Requesting apple juice or flat gingerale Exam Const General: cooperative and no acute distress Nutritional Appearance: thin Orientation: alert, awake and oriented x3 HENMT Head: normal to inspection Chest Chest: normal inspection of the chest Breast inspection: normal inspection of the breasts Resp Effort & Inspection: normal respiratory effort Cardio Rate: regular rate Rhythm: regular rhythm GI Inspection: normal to inspection Palpation: soft, no hepatosplenomegaly and tender in the epigastrum Auscultation: normal bowel sounds Skin General skin exam: no rashes or lesions noted Extrem General: normal to inspection and full ROM Objective Last Vital Signs Temp 98.1 F 05/15/20 07:46 Pulse 77 05/15/20 07:46 Resp 18 05/15/20 07:46 BP 116/78 05/15/20 07:46 Pulse Ox 98 05/15/20 07:46 Laboratory Results - last 24 hr 05/14/20 05/14/20 05/14/20 09:15 21:05 21:05 WBC 19.90 H RBC 3.72 L Hgb 12.4 Hct 36.1 MCV 97.0 H MCH 33.3 H MCHC 34.3 RDW 11.9 Plt Count 279 MPV 10.5 Immature Gran % 1.0 Neutrophils % 82.5 Lymphocytes % 10.6 Monocytes % 5.6 Eosinophils % 0.1 Basophils % 0.2 Nucleated RBC % 0 Absolute Neutrophils 16.42 H Absolute Lymphocytes 2.11 Absolute Monocytes 1.11 H Absolute Eosinophils 0.02 Absolute Basophils 0.04 Sodium 136 Potassium 3.7 Chloride 101 Carbon Dioxide 24.0 Anion Gap 11.0 BUN 9 Creatinine 0.63 Estimated GFR/1.73 m2 >= 60.00 Glucose 93 Calcium 9.2 Total Bilirubin 0.6 AST 19 ALT 21 Alkaline Phosphatase 95 Total Protein 7.3 Albumin 3.6 Amylase 126 H Lipase 965 H Urine Opiates Screen Negative Urine Methadone Screen Negative Ur Barbiturates Screen Negative Ur Tricyclics Screen Negative Ur Amphetamines Screen Negative U Benzodiazepines Scrn Negative Urine Cocaine Screen Negative Ur THC Screen Positive A 05/15/20 05/15/20 05:15 05:15 WBC 17.47 H RBC 3.07 L Hgb 10.2 L D Hct 30.1 L MCV 98.0 H MCH 33.2 H MCHC 33.9 RDW 11.9 Plt Count 210 MPV 10.7 Immature Gran % 0.7 Neutrophils % 82.1 Lymphocytes % 10.5 Monocytes % 6.5 Eosinophils % 0.1 Basophils % 0.1 Nucleated RBC % 0 Absolute Neutrophils 14.34 H Absolute Lymphocytes 1.83 Absolute Monocytes 1.14 H Absolute Eosinophils 0.02 Absolute Basophils 0.02 Sodium 135 L Potassium 3.7 Chloride 103 Carbon Dioxide 23.2 Anion Gap 8.8 BUN 9 Creatinine 0.47 L Estimated GFR/1.73 m2 >= 60.00 Glucose 87 Calcium 8.4 L Total Bilirubin 0.5 AST 19 ALT 17 Alkaline Phosphatase 76 Total Protein 5.8 L Albumin 2.8 L Amylase Lipase 191 Urine Opiates Screen Urine Methadone Screen Ur Barbiturates Screen Ur Tricyclics Screen Ur Amphetamines Screen U Benzodiazepines Scrn Urine Cocaine Screen Ur THC Screen Reviewed Pertinent PMH: Yes Objective Narrative Objective Narrative: No vomiting through the night, drowsy this morning Current meds: SoluMedrol 16 mg IV q8 hrs Zofran 8 mg IV q8 hrs Reglan 10 mg IV q6 hrs Protonix 40 mg IV q24 hrs Dilaudid 2 mg PO prn pain q4 hrs Ambien 5 mg PO hs x1 prn sleep Tigan 200 mg IM prn nausea/vomiting q8 hrs Mylanta 30 ml/viscous lidocaine 15 ml PO prn heartburn pain q2 hrs NPO with sips/chips Labs repeated, results as noted. Lipase down to 191, WBC 17 Afebrile, normotensive NST this morning is reactive, SVE done and cvx is closed, no presenting parts in pelvis, intact membranes
[2020-05-15 08:39] VITALS: BP 116/78; PULSE 77; TEMP 36.7
[2020-05-15 09:26] LABS: Bilirubin Negative (Negative); Blood Negative (Negative); Clarity Clear (Clear); Glucose Negative (Negative); Ketones >=160 mg/dL (Negative); Leukocyte Esterase Negative (Negative); Nitrite Negative (Negative); Specific Gravity >= 1.030 (1.005-1.025); Urobilinogen 0.2 EU/dL (Up TO 0.2); pH 6.5 (5-8)
--- NOTE | 2020-05-15 10:29 | W.GYNCONSULT ---
Date of service: 05/15/20 Time of Service: 10:29 Assessment and Plan Assessment and plan (1) Pancreatitis: Status: Chronic Qualifiers: Chronicity: acute Pancreatitis type: unspecified pancreatitis type Acute pancreatitis complication: no infection or necrosis Qualified Code(s): K85.90 - Acute pancreatitis without necrosis or infection, unspecified (2) 29 weeks gestation of : Status: Acute Assessment and plan: I discussed the expected clinical course with pancreatitis. We discussed a referral to general surgery to discuss possible cholecystectomy. Will advance diet slowly with clears today and low fat meals thereafter. Will continue to manage symptoms with antiemetics and by tomorrow if doing well will consider discharge home. I do not feel that there is a need for parenteral nutrition at this time. Taper solumedrol over the next 24 hours to discontinue. History of Present Illness History of Present Illness Chief Complaint: Pancreatitis during Narrative: 19 year old at 29.1 weeks presented with intractable nausea and vomiting. She has had difficulty with hyperemesis throughout the and symptoms became acutely worse this week. She was found to have an elevated Amylase and Lipase and an ultrasound showing fluid around the pancreas both suggestive of pancreatitis. In addition gallbladder sludge was noted. She was managed with antiemetics, IV solumedrol and dilaudid for pain management. An internal medicine consult was also ordered. Today she is clinically improved particularly after restriction of diet and management of pain. Review of Systems All systems reviewed & are unremarkable except as noted in HPI and below [facility] Medical History (Updated 05/14/20 @ 22:58 by Susie Ray) 19 weeks gestation of 26 weeks gestation of Abnormal electroencephalogram (12/21/11) Abnormal ultrasound Anxiety disorder 9 month inpatient care [place] Chronic constipation Depot contraception (03/20/16) started 04/08 for menorragia control Depression Eating disorder (03/18/14) bulemia Encounter for Depo-Provera contraception (12/05/16) Fracture of left radius (11/07/08) Hyperemesis gravidarum Infection due to Chlamydia species (08/21/17) Low lying placenta nos or without hemorrhage, third trimester Major depressive disorder, single episode, severe, with psychotic behavior (03/18/14) Pediatric body mass index (BMI) of 5th percentile to less than 85th percentile for age (02/15/16) Suicidal ideation Family History Father Hepatitis B Substance abuse HIV (human immunodeficiency virus infection) Mother No problems noted. Other Diabetes pat aunt Essential hypertension MGF Personal history of malignant neoplasm MGM-breast Heart disease MGF Hyperlipidemia MGF Mental disorder PGM-anxiety/depression Myocardial infarction MGF Stroke MGF Brother Alcohol abuse Social History Smoking/Tobacco Use Status: Former Tobacco Use Quit Date: 12/03/19 Counseling given: other Smoking risk assessment performed?: Yes Alcohol Intake: former Year quit: Thou Details: Stop 12/03/2019 with positive UPT Drug use: Current Sobriety Substance use type: marijuana Details: HX daily marijuana use--currently using marijuana. 28 weeks gestation. Household members: family and other Details: Lives with her parents. 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 Do you feel safe at home: Yes Do you feel safe in your relationship?: Yes History History 1 Para 0 Hx # Term Pregnancies 0 Multiple births 0 Hx # Pregnancies 0 Ectopic pregnancies 0 AB induced 0 Hx Number of Living Children 0 AB spontaneous 0 Results Last Vital Signs Temp 98.1 F 05/15/20 07:46 Pulse 77 05/15/20 07:46 Resp 18 05/15/20 07:46 BP 116/78 05/15/20 07:46 Pulse Ox 98 05/15/20 07:46 Labs Result diagrams: 05/15/20 05:15 05/15/20 05:15 Labs: Laboratory Results - last 24 hr 05/14/20 05/14/20 05/15/20 21:05 21:05 05:15 WBC 19.90 H RBC 3.72 L Hgb 12.4 Hct 36.1 MCV 97.0 H MCH 33.3 H MCHC 34.3 RDW 11.9 Plt Count 279 MPV 10.5 Immature Gran % 1.0 Neutrophils % 82.5 Lymphocytes % 10.6 Monocytes % 5.6 Eosinophils % 0.1 Basophils % 0.2 Nucleated RBC % 0 Absolute Neutrophils 16.42 H Absolute Lymphocytes 2.11 Absolute Monocytes 1.11 H Absolute Eosinophils 0.02 Absolute Basophils 0.04 Sodium 136 135 L Potassium 3.7 3.7 Chloride 101 103 Carbon Dioxide 24.0 23.2 Anion Gap 11.0 8.8 BUN 9 9 Creatinine 0.63 0.47 L Estimated GFR/1.73 m2 >= 60.00 >= 60.00 Glucose 93 87 Calcium 9.2 8.4 L Total Bilirubin 0.6 0.5 AST 19 19 ALT 21 17 Alkaline Phosphatase 95 76 Total Protein 7.3 5.8 L Albumin 3.6 2.8 L Amylase 126 H Lipase 965 H 191 Urine Color Urine Clarity Urine pH Ur Specific [place] Urine Protein Urine Ketones Urine Blood Urine Nitrite Urine Bilirubin Urine Urobilinogen Ur Leukocyte Esterase Urine Glucose 05/15/20 05/15/20 05:15 09:07 WBC 17.47 H RBC 3.07 L Hgb 10.2 L D Hct 30.1 L MCV 98.0 H MCH 33.2 H MCHC 33.9 RDW 11.9 Plt Count 210 MPV 10.7 Immature Gran % 0.7 Neutrophils % 82.1 Lymphocytes % 10.5 Monocytes % 6.5 Eosinophils % 0.1 Basophils % 0.1 Nucleated RBC % 0 Absolute Neutrophils 14.34 H Absolute Lymphocytes 1.83 Absolute Monocytes 1.14 H Absolute Eosinophils 0.02 Absolute Basophils 0.02 Sodium Potassium Chloride Carbon Dioxide Anion Gap BUN Creatinine Estimated GFR/1.73 m2 Glucose Calcium Total Bilirubin AST ALT Alkaline Phosphatase Total Protein Albumin Amylase Lipase Urine Color Yellow Urine Clarity Clear Urine pH 6.5 Ur Specific [place] >= 1.030 H Urine Protein Negative Urine Ketones >=160 H Urine Blood Negative Urine Nitrite Negative Urine Bilirubin Negative Urine Urobilinogen 0.2 Ur Leukocyte Esterase Negative Urine Glucose Negative
[2020-05-15] MEDS: methylPREDNISolone SUCC 40 MG VIAL 8 MG IVP (12:07)
--- NOTE | 2020-05-15 13:05 | NUR.NOTE ---
Pt called RN to room, states I want to go home. Explained to patient that due to her pancreatitis both the SCOTT and suggested she stay until at least tomorrow to continue treatment plan, and be seen by hospitalist. SCOTT and MD paged and notified. Both Susie Ray CNM, and Heri Torrez MD state that pt should not be discharged but she may sign out AMA if she chooses. Pt counseled on plan of care and risks of leaving AMA. She verbalized understanding and states she wants to leave AMA. Willingly signed AMA paperwork. Dr. Torrez, Susie Ray CNM, and hospitalist Dr. Grullon notified. Nursing Note:
[2020-05-15 16:25] LABS: COVID-19 RT-PCR UVMMC Result Negative (Negative)
--- NOTE | 2020-05-16 05:59 | PGE_ITS ---
Date of Service Date of service: 05/16/20 Time of Service: 13:34 Assessment and Plan Assessment and plan (1) Left against medical advice: Start date: 05/15/20 Start time: 13:34 Status: Acute Assessment and plan: A: Pancreatitis @ 29 wks Condition stable since last night, pt more comfortable, no vomiting for 12 hrs Limited PO fluid intake thus far, IVF hydration, PPI and antiemetics being given Morning UA showed ketonuria and concentrated urine indicating need for increased fluids and calories P: Plan for SoluMedrol taper per Dr. Torrez and cautious advancement of diet Discussed w/pt possibility of ultrasound for size/fluid tomorrow or early in the week Diagnosis and plan of care explained to pt, questions answered Anticipated discharge to home tomorrow pending tolerance of PO intake At 1300 pt decided she wanted to go home. It was explained to pt that treatment was not complete, high likelihood of recurrence of symptoms Pt chose to leave AMA, signed forms witnessed by RN, IV access removed, pt departed the unit Objective Last Vital Signs Temp 98.1 F 05/15/20 07:46 Pulse 77 05/15/20 07:46 Resp 18 05/15/20 07:46 BP 116/78 05/15/20 07:46 Pulse Ox 98 05/15/20 07:46 Laboratory Results - last 24 hr 05/14/20 05/15/20 00:00 09:07 Urine Color Yellow Urine Clarity Clear Urine pH 6.5 Ur Specific [place] >= 1.030 H Urine Protein Negative Urine Ketones >=160 H Urine Blood Negative Urine Nitrite Negative Urine Bilirubin Negative Urine Urobilinogen 0.2 Ur Leukocyte Esterase Negative Urine Glucose Negative COVID-19 PCR Negative Nasopharyn COVID-19 PCR Not Applicable Ref Test Perform Site [facility]
--- NOTE | 2020-05-16 06:19 | W.OBNST ---
Date of service: 05/15/20 Time of Service: 09:20 NST Evaluation Reason for NST Reasons for Nonstress Test: OTHER, SEE COMMENT Reason for NST Other: vomiting, pancreatitis Gestational Age Gestational Age in Weeks and Days: 29 Weeks and 1Days Test and Monitor Explained Test/Monitor Explained: Test Explained, Monitor Explained and Patient Verbalized Understanding Vital Signs Blood Pressure: 116/78 Pulse: 77 Temperature: 98.1 F NST Information Date on Monitor: 05/15/20 Time on Monitor: 08:32 Date off Monitor: 05/15/20 Time off Monitor: 08:56 Total Time on Monitor: 24 NST Interventions: None NST Evaluation Patient States Movement: Present FHR Baseline: 135 Variability: Moderate 6-25 bpm Accelerations: 15x15 Decelerations: None NST Results: Reactive Note NST Note NST Reviewed and Verified by: Susie Ray
[2020-05-16 06:20] VITALS: BP 116/78; PULSE 77; TEMP 36.7
--- NOTE | 2020-05-16 06:22 | W.OBNST ---
Date of service: 05/14/20 Time of Service: 08:23 NST Evaluation Reason for NST Reasons for Nonstress Test: OTHER, SEE COMMENT Reason for NST Other: vomiting, dehydration Gestational Age Gestational Age in Weeks and Days: 29 Weeks and 1Days Test and Monitor Explained Test/Monitor Explained: Test Explained, Monitor Explained and Patient Verbalized Understanding Vital Signs Blood Pressure: 116/78 Pulse: 77 Temperature: 98.1 F NST Information Time on Monitor: 06:32 Date off Monitor: 05/14/20 Time off Monitor: 07:56 NST Interventions: None NST Evaluation Patient States Movement: Present FHR Baseline: 135 Variability: Moderate 6-25 bpm Accelerations: 15x15 Decelerations: None NST Results: Reactive Note NST Note NST Reviewed and Verified by: Susie Ray
[2020-05-16 06:23] VITALS: BP 116/78; PULSE 77; TEMP 36.7
[2020-05-21 09:22] LABS: Buprenorphine Negative
== END 2020-05-15 13:19 | disposition left against medical advice (07) | DRG 831 ==
LOC: ER 03:55 → OBS 08:13
PROVIDERS: Advanced Practice Midwife; Admitting Provider Obstetrics & Gynecology; Emergency Provider Emergency Medicine; PCP Pediatrics; Visit Provider Obstetrics & Gynecology
DX: O99.613 Diseases of the digestive system complicating pregnancy, third trimester (principal); K85.90 Acute pancreatitis without necrosis or infection, unspecified; E86.0 Dehydration; Z3A.29 29 weeks gestation of pregnancy; Z53.29 Procedure and treatment not carried out because of patient's decision for other reasons; O99.323 Drug use complicating pregnancy, third trimester; F12.10 Cannabis abuse, uncomplicated; K21.9 Gastro-esophageal reflux disease without esophagitis
CPT/HCPCS: 36415; 59025; 80048; 80053; 80307; 83690; 96360; 96361; 96365; 96375; 99226; 99232; 99253; 99285; U0003; 76700; 81003; 82150; 85025; 99284; G0378; J2405; J2765

== ENCOUNTER 2020-05-20 05:38 | Observation (INO) | payer MEDICAID, SELFPAY ==
[2020-03-31 15:20] VITALS: O2SAT 98
[2020-05-20] MEDS: Lactated Ringers 1,000 ML 500 ML IV (06:30)
[2020-05-20] MEDS: Ondansetron 4 MG/2 ML VIAL 8 MG IVP ×2 (06:30→22:29)
[2020-05-20 06:39] VITALS: BP 127/83; PULSE 78; RESP 16; TEMP 36.6
[2020-05-20 07:09] LABS: Abs Immature Grans 0.14 10^3/uL (0.0-0.06); Absolute Basophil Count 0.04 10^3/uL (0.0-0.2); Absolute Monocyte Count 0.84 10^3/uL (0.1-0.8); Basophils % 0.3; Eosinophils % 0.4; HCT 32.2 % (36.0-46.0); HGB 11.3 g/dL (11.2-15.7); Lymphocytes % 9.6; MCH 33.5 pg (27.0-33.0); MCHC 35.1 % (32.0-36.0); MCV 95.5 fL (80-95); MPV 10.4 fL (8.0-11.0); Monocytes % 6.3; Neutrophils % 82.4; Nucleated RBC 0 %; Platelet Count 229 10^3/uL (130-400); RBC 3.37 10^6/uL (3.93-5.22); RDW 12.3 % (11.7-14.6); RDW-SD 42.5 fL; WBC 13.37 10^3/uL (4.4-10.8)
[2020-05-20 07:20] LABS: Absolute Eosinophil Count 0.05 10^3/uL (0.0-0.7); Absolute Lymphocyte Count 1.28 10^3/uL (1.2-3.4); Absolute Neutrophil Count 11.02 10^3/uL (1.2-6.7)
[2020-05-20 07:27] VITALS: BP 127/83; PULSE 78
--- NOTE | 2020-05-20 07:32 | HPE_ITS ---
Date of service: 05/20/20 Time of Service: 07:32 Assessment and Plan Assessment and plan (1) Pancreatitis: Status: Chronic Qualifiers: Chronicity: acute Pancreatitis type: unspecified pancreatitis type Acute pancreatitis complication: no infection or necrosis Qualified Code(s): K85.90 - Acute pancreatitis without necrosis or infection, unspecified (2) Vomiting affecting : Status: Acute Assessment and plan: Derrick was admitted to the Center for observation. Labs were ordered and are pending including lipase, amylase, CBC with diff and CMP. An I.V. bolus of LR was given followed by 250 cc/hr. Zofran 8 mg I.V. was given. I discussed Derrick's staus with Dr. Tressa Leon ho is the covering book canvasser and she will assume her care (3) 29 weeks gestation of : Status: Acute (4) Gastroesophageal reflux disease: Status: Acute (5) Hydronephrosis: Status: Acute OB-HPI Labor/Delivery History of Present Illness Reason for Visit: VOMITING Chief Complaint: Other (nausea and vomiting at 29 weeks and 6 days, pancreatitis, gallbladder sludge, bilateral hydronephrosis. GERD history.). TAIWO Calculator Estimated Delivery Date Method Current WG Current Estimate 07/30/20 Ultrasound #1 29w 6d Comments: [facility] called at 0530 with a recurrence of nausea and vomiting. She was hospitalized 05/14 with nausea, vomiting and abdominal pain and was treated with IV antiemetics and solu-medrol. An abdominal US shows acute pancreatitis, gallbladder sludge and mild bilateral hydronephrosis. She felt better after receiving the solumedrol and signed out of the hospital A.M.A. I called her yesterday afternoon and she said she was feeling great. She has had no weight gain during this . She was instructed to come to the Center. She vomited on arrival, emesis with dark coffee ground apearance. History of Present Expected Delivery Route/Plan - CNM FOB - paternity uncertain, lives with redd Mario & his family BB undecided about circ- [place] Specific Issues/Plan 1. Unplanned , uncertain paternity (either Fabiano or Arnaud), source of stress for pt 2. CF & [place] drawn 01/06 2a. 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 Will discuss with pt 2b. [place] WNL - Discussed with patient - paternal testing is not possible at this time due to uncertain paternity. 2c. Desires AFP - drawn 03/09, low risk for NTD 3. Hx teen depression w/sucide attempt age [age], was inpt @ [facility] 3a. states no self harm for over 2 yrs, no meds, no need for therapy, feeling well, declines ref to [facility] 3b. Denies hx of childhood sexual abuse or trauma 3c. Plan to check in with pt every visit on her mood and coping level 4. Undecided about @ initial OB, will consider trying it might be too intimate 5. Daily MJ use for anxiety and sleep, counseled to decrease or even cease use 6. Stopped smoking cig when became , denies ETOH use 7. Rh neg, RhoGam @ 28 wks; done 04/27/20 8. Hyperemesis - Taking Reglan, Protonix, famotidine, carafate. ED admission 01/26- zofran script written 02/03 to use with other medications. 9. Chronic constipation - fiber supplements and colace prescribed daily. 10. Low lying placenta - Repeat US at 28 weeks - done 05/07, placenta is >4 cm away from os, low lie is resolved 11. Referred to [facility] for level 2 sono and MFM consult for possible cleft palate (undetermined at sono 03/09) 11a. [facility] genetics telehealth done 03/11, [facility] sono 03/15: intact lips & palate, no f/up needed 12. Admitted for pancreatitis, gallbladder sludge, vomiting, pain 05/14/20. Left AMA on 05/15/20 Review of Systems Gastrointestinal Gastrointestinal: Reports coffee ground emesis, Reports dyspepsia, Reports nausea and Reports vomiting [facility] Medical History (Updated 05/20/20 @ 07:41 by Lesa Flor CNM) 19 weeks gestation of 26 weeks gestation of Abnormal electroencephalogram (12/21/11) Abnormal ultrasound Anxiety disorder 9 month inpatient care [place] Chronic constipation Depot contraception (03/20/16) started 04/08 for menorragia control Depression Eating disorder (03/18/14) bulemia Encounter for Depo-Provera contraception (12/05/16) Fracture of left radius (11/07/08) Hyperemesis gravidarum Infection due to Chlamydia species (08/21/17) Low lying placenta nos or without hemorrhage, third trimester Major depressive disorder, single episode, severe, with psychotic behavior (03/18/14) Pediatric body mass index (BMI) of 5th percentile to less than 85th percentile for age (02/15/16) Suicidal ideation Family History Father Hepatitis B Substance abuse HIV (human immunodeficiency virus infection) Mother No problems noted. Other Diabetes pat aunt Essential hypertension MGF Personal history of malignant neoplasm MGM-breast Heart disease MGF Hyperlipidemia MGF Mental disorder PGM-anxiety/depression Myocardial infarction MGF Stroke MGF Brother Alcohol abuse Social History Smoking/Tobacco Use Status: Former Tobacco Use Quit Date: 12/03/19 Counseling given: other Smoking risk assessment performed?: Yes Alcohol Intake: former Year quit: Thou Details: Stop 12/03/2019 with positive UPT Drug use: Current Sobriety Substance use type: marijuana Details: HX daily marijuana use--currently using marijuana. 28 weeks gestation. Household members: family and other Details: Lives with her parents. 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 Do you feel safe at home: Yes Do you feel safe in your relationship?: Yes History History 1 Para 0 Hx # Term Pregnancies 0 Multiple births 0 Hx # Pregnancies 0 Ectopic pregnancies 0 AB induced 0 Hx Number of Living Children 0 AB spontaneous 0 Meds Home Medications and Allergies Home Medications Medication Instructions Recorded Confirmed Type ondansetron HCl 4 mg tablet 4 mg PO Q8H #30 tab 02/04/20 05/20/20 Rx famotidine 20 mg tablet 20 mg PO BID #30 tab 05/14/20 05/20/20 Rx Allergies Allergy/AdvReac Type Severity Reaction Status Date / Time diphenhydramine AdvReac Hyperactivi Unverified 05/08/20 03:57 ty Exam Physical Exam Vital signs: Temp Pulse Resp BP 97.9 F 78 16 127/83 05/20/20 06:39 05/20/20 06:39 05/20/20 06:39 05/20/20 06:39 Detailed Labor and Delivery Exam Eller Score: Cervical Points Exam 0 1 2 3 Dilation Closed 1-2cm 3-4 cm 5-6cm Effacement 0-30% 40-50% 60-70% 80% Consistency Firm Medium Soft Station -3 -2 -1,0 +1,+2 Position Posterior Mid Anterior Results Abnormal Lab Findings: Abnormal Labs 05/20/20 06:55 WBC 13.37 H RBC 3.37 L Hct 32.2 L MCV 95.5 H MCH 33.5 H Absolute Neutrophils 11.02 H Absolute Monocytes 0.84 H Risk Assessment Risk for Shoulder Dystocia Historical/Initial OB: NEGATIVE FOR: Pelvic Abnormality, Pre- BMI>30, Previous Shoulder Dystocia or Previous Macrosomia Risk for Pre-Eclampsia Yes, if one or more: NEGATIVE FOR: Hx Pre-E/Gest HTN, Chronic HTN, Multiple Gestation, Pre-gestational DM, Renal Disease, Systemic Lupus or APA Syndrome Yes, if 2 or more: POSITIVE FOR: Nulliparity; NEGATIVE FOR: Age>= 35 yrs, >10yr btwn pregnancies, BMI>30, ethinicty, Mother/Sister w/ Pre-E or Previous IUGR Risk for Post- Hemorrhage Initial: NEGATIVE FOR: Multiple Gestation, Previous PPH, Known Clotting Deficiency, Grand Multiparity or Anticoagulation At Risk?: No Risks Reviewed Risks Reviewed Upon Admission: Yes
[2020-05-20 07:39] LABS: ALT 28 U/L (14-59); AST 25 U/L (15-37); Albumin 3.2 g/dL (3.4-5.0); Alkaline Phosphatase 81 U/L (46-116); Amylase 125 U/L (25-115); BUN 8 mg/dL (7-18); Bilirubin, Total 0.3 mg/dL (0.2-1.0); CREATININE 0.48 mg/dL (0.55-1.02); Calcium 8.9 mg/dL (8.5-10.1); Chloride 104 mmol/L (98-107); Glucose 102 mg/dL (74-106); Lipase 749 U/L (73-393); Potassium 3.8 mmol/L (3.5-5.1); Sodium 136 mmol/L (136-145); Total Protein 6.6 g/dL (6.4-8.2)
[2020-05-20] MEDS: Lactated Ringers 1,000 ML 250 ML IV ×5 (08:56→23:31)
--- NOTE | 2020-05-20 08:57 | NUR.NOTE ---
After assessment of pt by MD Leon, [facility] will be consulted for plan moving forward. Nursing Note:
--- NOTE | 2020-05-20 09:33 | W.PM.HP.N ---
Date of service: 05/20/20 Time of Service: 09:33 Assessment and Plan Assessment and plan (1) Pancreatitis: Status: Chronic Assessment and plan: Admit patient for vigorous IV hydration and antiemetics with pain control as needed. No plans for transfer to tertiary care center at this time. Will obtain hospitalist consult for recommendations about other diagnostic modalities if needed. Qualifiers: Chronicity: acute Pancreatitis type: idiopathic Acute pancreatitis complication: no infection or necrosis Qualified Code(s): K85.00 - Idiopathic acute pancreatitis without necrosis or infection (2) 29 weeks gestation of : Status: Acute (3) Vomiting affecting : Status: Acute History of Present Illness History of Present Illness Chief Complaint: Nausea vomiting Narrative: Patient is a 19-year-old G1 female with estimated date of delivery of 07/30/2020 currently 29 weeks 6 days EGA who was admitted to the center on 05/14/2020 with nausea vomiting and pancreatitis it on laboratory findings. She received antiemetics and Dilaudid for symptom relief and a dose of Solu-Medrol and started on a prednisone taper. By hospital day 2 her symptoms had improved and her lipase normalized and she left AMA. She returned to the place on 05/17/2020 and had a reactive NST and stated her GI symptoms were stable. Evening should be came nauseated developed emesis that became intractable and was instructed to present to the center. Review of Systems All systems reviewed & are unremarkable except as noted in HPI and below Constitutional Constitutional: Denies fever(s), Reports headache(s) and Reports lethargy ENT Ears, Nose, Mouth, and Throat: Reports headache(s) and Reports odynophagia (Secondary to emesis) Cardiovascular Cardiovascular: Reports system reviewed and no additional complaints, except as documented Gastrointestinal Gastrointestinal: Reports abdominal pain (Left upper quadrant and cramping), Reports belching, Reports nausea and Reports vomiting Genitourinary Genitourinary: Reports system reviewed and no additional complaints, except as documented Musculoskeletal Musculoskeletal: Reports system reviewed and no additional complaints, except as documented Integumentary/Breasts Skin/Breast: Reports system reviewed and no additional complaints, except as documented Neurologic Neurologic: Reports headache(s) Psychiatric Psychiatric: Reports anxiety [facility] Medical History (Updated 05/20/20 @ 09:53 by Tressa Leon MD) Abnormal electroencephalogram (12/21/11) Abnormal ultrasound Anxiety disorder 9 month inpatient care [facility] Chronic constipation Depot contraception (03/20/16) started 04/08 for menorragia control Depression Eating disorder (03/18/14) bulemia Encounter for Depo-Provera contraception (12/05/16) Fracture of left radius (11/07/08) Hyperemesis gravidarum Infection due to Chlamydia species (08/21/17) Low lying placenta nos or without hemorrhage, third trimester Major depressive disorder, single episode, severe, with psychotic behavior (03/18/14) Pediatric body mass index (BMI) of 5th percentile to less than 85th percentile for age (02/15/16) Suicidal ideation Family History Father Hepatitis B Substance abuse HIV (human immunodeficiency virus infection) Mother No problems noted. Other Diabetes pat aunt Essential hypertension MGF Personal history of malignant neoplasm MGM-breast Heart disease MGF Hyperlipidemia MGF Mental disorder PGM-anxiety/depression Myocardial infarction MGF Stroke MGF Brother Alcohol abuse Social History Smoking/Tobacco Use Status: Former Tobacco Use Quit Date: 12/03/19 Counseling given: other Smoking risk assessment performed?: Yes Alcohol Intake: former Year quit: Th Details: Stop 12/03/2019 with positive UPT Drug use: Current Sobriety Substance use type: marijuana Details: HX daily marijuana use--currently using marijuana. 28 weeks gestation. Household members: family and other Details: Lives with her parents. 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 Do you feel safe at home: Yes Do you feel safe in your relationship?: Yes History History 1 Para 0 Hx # Term Pregnancies 0 Multiple births 0 Hx # Pregnancies 0 Ectopic pregnancies 0 AB induced 0 Hx Number of Living Children 0 AB spontaneous 0 Meds Home Medications and Allergies Home Medications Medication Instructions Recorded Confirmed Type ondansetron HCl 4 mg tablet 4 mg PO Q8H #30 tab 02/04/20 05/20/20 Rx famotidine 20 mg tablet 20 mg PO BID #30 tab 05/14/20 05/20/20 Rx Allergies Allergy/AdvReac Type Severity Reaction Status Date / Time diphenhydramine AdvReac Hyperactivi Unverified 05/08/20 03:57 ty Exam Narrative Exam Narrative: Patient was admitted to the center IV hydration was initiated and labs obtained. Amylase and lipase are once again elevated with otherwise normal electrolytes. WBC elevated 13. I consulted with Dr. Perlita PEREZ at [facility] and reviewed her ultrasound and lab findings. She recommended supportive measures for pain control IV hydration and antiemetics. Const General: ill appearing Nutritional Appearance: average body habitus Orientation: alert, awake and oriented x3 (Drowsy but easily arousable) Resp Effort & Inspection: normal respiratory effort Auscultation: no rales, no rhonchi and wheezes (Expiratory wheezes bilaterally) Cardio Rate: regular rate Rhythm: regular rhythm GI Inspection: normal to inspection (Gravid) Palpation: soft and tender (No focal right or left upper quadrant tenderness) Other: heart rate obtained at the time of admission. General: deferred OB/External & Speculum: other (Abdomen gravid, no focal uterine tenderness) Skin General skin exam: pallor Extrem General: normal to inspection Psych Appearance: other (Sitting in bed semi-Fowlers position with face towel over her eyes) Mental Status: mental status grossly normal Speech and Movement: slowed movement (Patient has been medicated for nausea) Mood: other (Unable to assess mood at this time) Affect: blunted (Secondary to medications given upon arrival) Results Labs Result diagrams: 05/20/20 06:55 05/20/20 06:55 Labs: Laboratory Results - last 24 hr 05/20/20 05/20/20 06:55 06:55 WBC 13.37 H RBC 3.37 L Hgb 11.3 Hct 32.2 L MCV 95.5 H MCH 33.5 H MCHC 35.1 RDW 12.3 Plt Count 229 MPV 10.4 Immature Gran % 1.0 Neutrophils % 82.4 Lymphocytes % 9.6 Monocytes % 6.3 Eosinophils % 0.4 Basophils % 0.3 Nucleated RBC % 0 Absolute Neutrophils 11.02 H Absolute Lymphocytes 1.28 Absolute Monocytes 0.84 H Absolute Eosinophils 0.05 Absolute Basophils 0.04 Sodium 136 Potassium 3.8 Chloride 104 Carbon Dioxide 24.0 Anion Gap 8.0 BUN 8 Creatinine 0.48 L Estimated GFR/1.73 m2 >= 60.00 Glucose 102 Calcium 8.9 Total Bilirubin 0.3 AST 25 ALT 28 Alkaline Phosphatase 81 Total Protein 6.6 Albumin 3.2 L Amylase 125 H Lipase 749 H Last Vital Signs Temp 97.9 F 05/20/20 06:39 Pulse 78 05/20/20 06:39 Resp 16 05/20/20 06:39 BP 127/83 05/20/20 06:39 COVID-19 Screening Have you, or household traveled for leisure in last 14 days?: No Recent travel in the [place] within the last 14 days?: No Recent out of the country travel within the last 14 days?: No Exposure or possible exposure to illness during travel?: No Had IN PERSON contact w/suspected or confirmed C-19 person: No Have you had the following symptoms in the past few days?: No Medical treatment received for symptoms/illness related to travel?: [id number] negative test results
[2020-05-20] MEDS: Pantoprazole 40 MG VIAL IVP (10:01)
[2020-05-20] MEDS: HYDROmorphone 2 MG/ML VIAL 1 MG IVP ×2 (10:10→14:50)
[2020-05-20] MEDS: Normal Saline Flush 10 ML SYR ×5 (10:12→17:58)
[2020-05-20] MEDS: Metoclopramide 10 MG/2 ML VIAL IVP (14:50)
[2020-05-20 15:12] VITALS: BP 110/61; PULSE 79
[2020-05-20 15:13] VITALS: BP 110/61; PULSE 79; RESP 16; TEMP 36.7; O2SAT 99
--- NOTE | 2020-05-20 16:20 | MCONE_ITS ---
Date of service: 05/20/20 Time of Service: 16:21 Assessment and Plan Assessment and plan (1) Pancreatitis: Status: Chronic Assessment and plan: Agree with current management plan including chronic analgesics and antiemetics along with aggressive IV fluid hydration. I would repeat her CMP and lipase in the morning. I would advance her diet in the morning as tolerated if she seems to be recovering from the pancreatitis. I think the pancreatitis is most likely due to the although I cannot exclude biliary disease given the signs of biliary sludge in her gallbladder previous ultrasound. However it was reassuring that there is no gallbladder wall thickening and no pericholecystic fluid and no evidence of pancreatic stones. I think that her symptoms will all resolve once she delivers the baby however if she continues to have symptoms referable to pancreatitis or biliary disease she should be referred for hepatobiliary scan with CCK and if there is evidence of biliary dyskinesia or if she has evidence of cholecystitis then she should consider cholecystectomy. However at this time there is no evidence of such and I think she should be treated conservatively with fluids and narcotics and antiemetics. Qualifiers: Chronicity: acute Pancreatitis type: idiopathic Acute pancreatitis complication: no infection or necrosis Qualified Code(s): K85.00 - Idiopathic acute pancreatitis without necrosis or infection (2) Gastroesophageal reflux disease: Status: Acute Assessment and plan: Prior to her the patient had GI symptoms of GERD and gastritis although she has not had a formal EGD. I think she should continue on H2 blockers and/or PPI agents as you are doing however I would also add sucralfate because the patient does give a history of some hematemesis as evidenced by some black coffee ground type emesis. The fact that she has gotten some significant relief with combination of antacids and viscous Xylocaine suggest that she may respond to sucralfate as well. After she delivers the baby she should be referred to a GI specialist to have an EGD as well as for further evaluation of her gallbladder. Qualifiers: Esophagitis presence: with esophagitis Esophagitis bleeding: unspecified whether hemorrhage Qualified Code(s): K21.00 - Gastro-esophageal reflux disease with esophagitis, without bleeding (3) Esophagitis: Status: Suspected Assessment and plan: As above (4) Gastritis: Status: Suspected Assessment and plan: As above Qualifiers: Gastritis type: unspecified gastritis Chronicity: chronic Gastritis bleeding: presence of bleeding unspecified Qualified Code(s): K29.50 - Unspecified chronic gastritis without bleeding History of Present Illness History of Present Illness Chief Complaint: Nausea vomiting, hematemesis Narrative: 19-year-old 1 para 0 female who is 29 weeks, 6 days EGA who presented to the hospital to the [facility] last night with acute onset of nausea and vomiting beginning yesterday evening associated with some hematemesis and chest pain. Patient was recently hospitalized in the OB department May 14, 2020 with similar symptoms and was found to have acute pancreatitis. Patient's had longstanding history consistent with GERD and/or peptic ulcer disease. Patient reportedly had been evaluated at [facility] prior to her she says she was told that she had peptic ulcer although she denies having had an EGD but thinks that she may have had esophagogastric barium study. Nevertheless during her most recent hospitalization she was found to have acute pancreatitis diagnosed by elevated lipase levels as well as abdominal ultrasound that showed peripancreatic fluid around the pancreatic head as well as gallbladder sludge but no evidence for acute cholecystitis. Patient responded to IV fluids and antiemetics requiring Reglan and Phenergan as well as Tigan and was given corticosteroids. Since admission last night she has been aggressively hydrated with IV fluids and again given antiemetics including Phenergan and Reglan and because of symptoms that s ound like esophagitis including burning chest discomfort along with some hematemesis as evidenced by black looking flecks of blood with her emesis she has been put on Mylanta with viscous Xylocaine. She is feeling better this afternoon denies any abdominal or chest pain. Her pain was treated with some IV Dilaudid. I have been asked to consult on the case to provide further recommendations of work-up and treatment. I have reviewed the chart including previous laboratory studies and her current lab studies as well as previous abdominal ultrasound. CBC on admission demonstrated mild leukocytosis of 13,000, hemoglobin 11.3 g, CMP that showed no electrolyte abnormalities normal renal function, normal transaminases and normal bilirubin but elevated amylase of 125 and a lipase of 749. Review of Systems All systems reviewed & are unremarkable except as noted in HPI and below Cardiovascular Cardiovascular: Reports chest pain Gastrointestinal Gastrointestinal: Reports coffee ground emesis, Reports constipation, Reports dyspepsia, Reports heartburn, Reports nausea and Reports vomiting [facility] Medical History Abnormal electroencephalogram (12/21/11) Abnormal ultrasound Anxiety disorder 9 month inpatient care [facility] Chronic constipation Depot contraception (03/20/16) started 04/08 for menorragia control Depression Eating disorder (03/18/14) bulemia Encounter for Depo-Provera contraception (12/05/16) Fracture of left radius (11/07/08) Hyperemesis gravidarum Infection due to Chlamydia species (08/21/17) Low lying placenta nos or without hemorrhage, third trimester Major depressive disorder, single episode, severe, with psychotic behavior () Pediatric body mass index (BMI) of 5th percentile to less than 85th percentile for age (02/15/16) Suicidal ideation Family History Father Hepatitis B Substance abuse HIV (human immunodeficiency virus infection) Mother No problems noted. Other Diabetes pat aunt Essential hypertension MGF Personal history of malignant neoplasm MGM-breast Heart disease MGF Hyperlipidemia MGF Mental disorder PGM-anxiety/depression Myocardial infarction MGF Stroke MGF Brother Alcohol abuse Social History Smoking/Tobacco Use Status: Former Tobacco Use Quit Date: 12/03/19 Counseling given: other Smoking risk assessment performed?: Yes Alcohol Intake: former Year quit: Thou Details: Stop 12/03/2019 with positive UPT Drug use: Current Sobriety Substance use type: marijuana Details: HX daily marijuana use--currently using marijuana. 28 weeks gestation. Household members: family and other Details: Lives with her parents. 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 Lungs are clear to auscultation Heart regular rate and rhythm. Abdomen is very gravid with palpable movement of the fetus. Normal bowel s ounds. Unable to assess for organomegaly to the gravid uterus. Results Last Vital Signs Temp 36.7 C 05/20/20 15:13 Pulse 79 05/20/20 15:13 Resp 16 05/20/20 15:13 BP 110/61 05/20/20 15:13 Pulse Ox 99 05/20/20 15:13 Labs Result diagrams: 05/20/20 06:55 05/20/20 06:55 Labs: Laboratory Results - last 24 hr 05/20/20 05/20/20 06:55 06:55 WBC 13.37 H RBC 3.37 L Hgb 11.3 Hct 32.2 L MCV 95.5 H MCH 33.5 H MCHC 35.1 RDW 12.3 Plt Count 229 MPV 10.4 Immature Gran % 1.0 Neutrophils % 82.4 Lymphocytes % 9.6 Monocytes % 6.3 Eosinophils % 0.4 Basophils % 0.3 Nucleated RBC % 0 Absolute Neutrophils 11.02 H Absolute Lymphocytes 1.28 Absolute Monocytes 0.84 H Absolute Eosinophils 0.05 Absolute Basophils 0.04 Sodium 136 Potassium 3.8 Chloride 104 Carbon Dioxide 24.0 Anion Gap 8.0 BUN 8 Creatinine 0.48 L Estimated GFR/1.73 m2 >= 60.00 Glucose 102 Calcium 8.9 Total Bilirubin 0.3 AST 25 ALT 28 Alkaline Phosphatase 81 Total Protein 6.6 Albumin 3.2 L Amylase 125 H Lipase 749 H
[2020-05-20] MEDS: Sucralfate 1 GM TAB PO ×2 (16:45→22:28)
[2020-05-20] MEDS: Trimethobenzamide 200 MG/2 ML VIAL IM (18:58)
[2020-05-20 20:00] VITALS: BP 122/63; PULSE 72; TEMP 36.7
--- NOTE | 2020-05-20 21:59 | W.PM.PROGNOT ---
Date of Service Date of service: 05/20/20 Time of Service: 21:59 Assessment and Plan Assessment and plan (1) Gastritis: Status: Suspected Assessment and plan: Carafate PO Q6hrs initiated. Qualifiers: Gastritis type: unspecified gastritis Chronicity: chronic Gastritis bleeding: presence of bleeding unspecified Qualified Code(s): K29.50 - Unspecified chronic gastritis without bleeding (2) Esophagitis: Status: Suspected (3) Pancreatitis: Status: Chronic Assessment and plan: Continue IV hydration and recheck labs in am. Hospitalist consult greatly appreciated. Qualifiers: Chronicity: acute Pancreatitis type: idiopathic Acute pancreatitis complication: no infection or necrosis Qualified Code(s): K85.00 - Idiopathic acute pancreatitis without necrosis or infection (4) Vomiting affecting : Status: Acute Assessment and plan: Pt did not require any PO antiemetics during day. Had additional dose of Phenergan 12.5mg IV this evening. Continue current med regime and continue NPO Subjective Subjective Patient reports: still having pain (more comfortable with PRN Dilaudid), no bowel movement (had BM yesterday.), vomiting (None during day, one episode this evening.) and afebrile Interval history since last seen: Hospitalist consult appreciated. Will continue to follow labs and sx. Sucrafate 1gm PO Q6hr added to regime. Exam Narrative Exam Narrative: Deferred. Objective Last Vital Signs Temp 98.1 F 05/20/20 20:00 Pulse 72 05/20/20 20:00 Resp 16 05/20/20 15:13 BP 122/63 05/20/20 20:00 Pulse Ox 99 05/20/20 15:13 Laboratory Results - last 24 hr 05/20/20 05/20/20 06:55 06:55 WBC 13.37 H RBC 3.37 L Hgb 11.3 Hct 32.2 L MCV 95.5 H MCH 33.5 H MCHC 35.1 RDW 12.3 Plt Count 229 MPV 10.4 Immature Gran % 1.0 Neutrophils % 82.4 Lymphocytes % 9.6 Monocytes % 6.3 Eosinophils % 0.4 Basophils % 0.3 Nucleated RBC % 0 Absolute Neutrophils 11.02 H Absolute Lymphocytes 1.28 Absolute Monocytes 0.84 H Absolute Eosinophils 0.05 Absolute Basophils 0.04 Sodium 136 Potassium 3.8 Chloride 104 Carbon Dioxide 24.0 Anion Gap 8.0 BUN 8 Creatinine 0.48 L Estimated GFR/1.73 m2 >= 60.00 Glucose 102 Calcium 8.9 Total Bilirubin 0.3 AST 25 ALT 28 Alkaline Phosphatase 81 Total Protein 6.6 Albumin 3.2 L Amylase 125 H Lipase 749 H
[2020-05-21] MEDS: Lactated Ringers 1,000 ML 250 ML IV ×2 (03:01→06:38)
[2020-05-21 07:15] LABS: Abs Immature Grans 0.07 10^3/uL (0.0-0.06); Absolute Basophil Count 0.01 10^3/uL (0.0-0.2); Absolute Eosinophil Count 0.04 10^3/uL (0.0-0.7); Absolute Monocyte Count 0.81 10^3/uL (0.1-0.8); Absolute Neutrophil Count 7.22 10^3/uL (1.2-6.7); Basophils % 0.1; Eosinophils % 0.4; HCT 28.7 % (36.0-46.0); HGB 9.9 g/dL (11.2-15.7); Immature Grans % 0.7; Lymphocytes % 16.4; MCH 33.3 pg (27.0-33.0); MCHC 34.5 % (32.0-36.0); MCV 96.6 fL (80-95); MPV 10.4 fL (8.0-11.0); Monocytes % 8.3; Neutrophils % 74.1; Nucleated RBC 0 %; Platelet Count 193 10^3/uL (130-400); RBC 2.97 10^6/uL (3.93-5.22); RDW 12.1 % (11.7-14.6); RDW-SD 42.6 fL; WBC 9.75 10^3/uL (4.4-10.8)
[2020-05-21 07:28] LABS: ALT 23 U/L (14-59); AST 23 U/L (15-37); Albumin 2.7 g/dL (3.4-5.0); Alkaline Phosphatase 70 U/L (46-116); Amylase 70 U/L (25-115); Anion Gap 7.9 mmol/L (3-11); BUN 5 mg/dL (7-18); Bilirubin, Total 0.5 mg/dL (0.2-1.0); CO2 24.1 mmol/L (21.0-32.0); Calcium 8.3 mg/dL (8.5-10.1); Chloride 102 mmol/L (98-107); Glucose 66 mg/dL (74-106); Lipase 174 U/L (73-393); Potassium 3.6 mmol/L (3.5-5.1); Sodium 134 mmol/L (136-145); Total Protein 5.6 g/dL (6.4-8.2)
[2020-05-21] MEDS: Sucralfate 1 GM TAB PO (07:54)
[2020-05-21] MEDS: Normal Saline Flush 10 ML SYR (07:55)
[2020-05-21] MEDS: Pantoprazole 40 MG VIAL IVP (07:55)
[2020-05-21 08:00] VITALS: BP 114/65; PULSE 67; RESP 14; TEMP 36.8; O2SAT 97
--- NOTE | 2020-05-21 10:09 | W.PM.DS.N ---
Date of service: 05/21/20 Time of Service: 10:09 DS: Diagnosis Discharge Diagnosis (1) Gastritis: Status: Suspected (2) Esophagitis: Status: Suspected (3) Pancreatitis: Status: Chronic (4) Vomiting affecting : Status: Acute Discharge Plan Disposition Patient Disposition: HOME Condition: Fair Discharge Details Reason For Visit: VOMITING Admit Date/Time: 05/20/20 05:38 Admit Provider: Lesa Flor Attending Provider: Lesa Flor Primary Care Provider: Reena Del Angel V Hospital Course Hospital Course: Pt currently 29+ W EGA readmitted 05/20/20 for recurrent N/V and elevated Lipase. Her ondansetron prescription had run out so she was without the medication for approximate 24 hours. While hospitalized on the center she received antiemetics, IV hydration for 24 hours and her symptoms lipase normalized. Patient had a similar event approximately week ago and was hospitalized for antiemetics and IV hydration with a diagnosis of pancreatitis. Medication she left AGAINST MEDICAL ADVICE after she felt better and similar to last admission she requested to be discharged today. Since her labs have normalized and her nausea and vomiting has resolved I have agreed to discharge her to home. She has a follow-up visit with the CNM service early next week and I have given her prescription for ondansetron 4 mg every 6 hours as needed number 90 tablets. She will also be given a prescription for Carafate 1 g every 6 hours as needed. Home Meds and New Rx's Prescriptions: No Action ondansetron HCl 4 mg tablet 4 mg PO Q8H Qty: 30 RF: 4 famotidine 20 mg tablet 20 mg PO BID Qty: 30 RF: 2 ondansetron HCl 4 mg tablet 4 mg PO Q6H PRN (Reason: nausea and vomiting) Qty: 90 RF: 2 Discharge Instructions Additional Instructions: Take your ondansetron as needed and your Carafate and famotidine as prescribed. Call Dr. Leon through the hospital reheat furnace operator if you began experiencing nausea and vomiting not controlled with the medication. Keep your appointment with the midwives next week. Eat small meals and stay hydrated. Activity:: Activity as Tolerated Equipment/Supplies:: No Equipment Needed Diet:: As Tolerated Discharge Orders Discharge Orders: Discharge Order (Routine); Ordered 05/21/20 Ordered By: Tressa Leon DS: Summary Status at Discharge Functional status at discharge: independent ambulation Overall status at discharge: patient is back to baseline Mental Status: mental status grossly normal Speech and Movement: speech and movement normal Mood: congruent mood Affect: normal affect (Reports anxiety this morning and requests to be discharged home) Exam Const General: comfortable and no acute distress Nutritional Appearance: average body habitus Orientation: alert, awake and oriented x3 Cardio Rate: regular rate Rhythm: regular rhythm General: deferred Skin General skin exam: no rashes or lesions noted (Multiple tattoos) Extrem General: normal to inspection Psych Appearance: grossly normal Mental Status: mental status grossly normal Speech and Movement: speech and movement normal Mood: congruent mood Affect: normal affect (Reports anxiety this morning and requests to be discharged home) Attitude: cooperative Thought Process: normal Thought Content: normal Insight: insight good Judgment: judgment good DS: Data Vitals/I&O Vitals and I&O: Vital Signs Temperature 98.2 F 05/21/20 08:00 Pulse 67 05/21/20 08:00 Pulse Rhythm Regular 05/21/20 08:00 Respiratory Rate 14 05/21/20 08:00 Blood Pressure 114/65 05/21/20 08:00 Blood Pressure Mean 81 05/21/20 08:00 Pulse Oximetry 97 05/21/20 08:00 Pain Level 0 05/21/20 08:00 Intake & Output 05/20/20 05/20/20 05/21/20 11:59 23:59 11:59 Intake Total 1883.833 / 7646.833 5763.000 / 7646.833 1999 Output Total 600 / 2400 1800 / 2400 1000 / 1000 Balance 1283.833 / 5246.833 3963.000 / 5246.833 1000 / 1000 Weight 134 lb Intake: IV 783.833 / 4546.833 3763.000 / 4546.833 1999 Other 1100 / 3100 2000 / 3100 0 / 0 Output: Urine 1500 / 1500 1000 / 1000 Emesis 600 / 900 300 / 900 Other: Urine Color Pale Yellow Emesis Description Retching Retching Coffee Grounds Blood Tinged Data Completed and Pending Labs on day of discharge: Labs from last 24 hours 05/21/20 05/21/20 05/20/20 07:00 07:00 20:15 WBC 9.75 RBC 2.97 L Hgb 9.9 L Hct 28.7 L MCV 96.6 H MCH 33.3 H MCHC 34.5 RDW 12.1 Plt Count 193 MPV 10.4 Immature Gran % 0.7 Neutrophils % 74.1 Lymphocytes % 16.4 Monocytes % 8.3 Eosinophils % 0.4 Basophils % 0.1 Nucleated RBC % 0 Absolute Neutrophils 7.22 H Absolute Lymphocytes 1.60 Absolute Monocytes 0.81 H Absolute Eosinophils 0.04 Absolute Basophils 0.01 Sodium 134 L Potassium 3.6 Chloride 102 Carbon Dioxide 24.1 Anion Gap 7.9 BUN 5 L Creatinine 0.40 L Estimated GFR/1.73 m2 >= 60.00 Glucose 66 L Calcium 8.3 L Total Bilirubin 0.5 AST 23 ALT 23 Alkaline Phosphatase 70 Total Protein 5.6 L Albumin 2.7 L Amylase 70 Lipase 174 Urine Opiates Screen Pending Urine Methadone Screen Pending Ur Barbiturates Screen Pending Ur Tricyclics Screen Pending Ur Amphetamines Screen Pending U Benzodiazepines Scrn Pending Urine Cocaine Screen Pending Ur THC Screen Pending [facility] Medical History Abnormal electroencephalogram (12/21/11) Abnormal ultrasound Anxiety disorder 9 month inpatient care [facility] Chronic constipation Depot contraception (03/20/16) started 04/08 for menorragia control Depression Eating disorder (03/18/14) bulemia Encounter for Depo-Provera contraception (12/05/16) Fracture of left radius (11/07/08) Hyperemesis gravidarum Infection due to Chlamydia species (08/21/17) Low lying placenta nos or without hemorrhage, third trimester Major depressive disorder, single episode, severe, with psychotic behavior (03/18/14) Pediatric body mass index (BMI) of 5th percentile to less than 85th percentile for age (02/15/16) Suicidal ideation Family History Father Hepatitis B Substance abuse HIV (human immunodeficiency virus infection) Mother No problems noted. Other Diabetes pat aunt Essential hypertension MGF Personal history of malignant neoplasm MGM-breast Heart disease MGF Hyperlipidemia MGF Mental disorder PGM-anxiety/depression Myocardial infarction MGF Stroke MGF Brother Alcohol abuse Social History Smoking/Tobacco Use Status: Former Tobacco Use Quit Date: 12/03/19 Counseling given: other Smoking risk assessment performed?: Yes Alcohol Intake: former Year quit: Thou Details: Stop 12/03/2019 with positive UPT Drug use: Current Sobriety Substance use type: marijuana Details: HX daily marijuana use--currently using marijuana. 28 weeks gestation. Household members: family and other Details: Lives with her parents. 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
== END 2020-05-21 10:45 | disposition home or self-care (01) ==
PROVIDERS: Internal Medicine; Admitting Provider Advanced Practice Midwife; PCP Pediatrics; Visit Provider Advanced Practice Midwife
DX: O99.613 Diseases of the digestive system complicating pregnancy, third trimester (principal); O99.891 Other specified diseases and conditions complicating pregnancy; O21.9 Vomiting of pregnancy, unspecified; K85.90 Acute pancreatitis without necrosis or infection, unspecified; N13.30 Unspecified hydronephrosis; O36.0930 Maternal care for other rhesus isoimmunization, third trimester, not applicable or unspecified; O26.613 Liver and biliary tract disorders in pregnancy, third trimester; O99.323 Drug use complicating pregnancy, third trimester; F12.90 Cannabis use, unspecified, uncomplicated; Z3A.29 29 weeks gestation of pregnancy; K83.8 Other specified diseases of biliary tract; K59.09 Other constipation
CPT/HCPCS: 36415; 80053; 80307; 83690; 96360; 96361; 99222; 99238; 99253; NC; 82150; 85025; G0378; J2405; J2765

== ENCOUNTER 2020-05-27 00:57 | Outpatient (CLI) | payer MEDICAID, SELFPAY ==
[2020-03-31 15:20] VITALS: O2SAT 98
--- NOTE | 2020-05-27 06:15 | DI.US_ITS ---
EXAM: US OB AUDI WEIGHT CLINICAL HISTORY: SIZE LESS THAN DATES,Z34.90. COMPARISON: US US OB F/U FACIAL/LVOT/RVOT from 05/07/2020 US US OB F/U FACIAL/LVOT/RVOT from 05/07/2020 US US ABDOMEN from 05/14/2020 TECHNIQUE: Transabdominal obstetrical ultrasound performed. FINDINGS: Sonographic images demonstrate a single intrauterine gestation in laurent breech position. Placenta:Posterior. No evidence of previa. Predicted gestational age: Unknown. Estimated date of delivery 30 weeks 6 days: heart rate motion is Dopplered at: 132 BPM. BPD: 80 mm = 31+ 6 weeks HC: 293mm = 32+2 weeks AC: 270mm = 31+1 weeks FL: 60mm = 30 1+3 weeks EFW: 1755 Grams = 56 % Sonographically assessed composite gestational age: 31+5 weeks Estimated date of delivery based on this ultrasound is: 24 July 2020 Amniotic fluid index: 13.3 cm. Amount of fluid is within normal limits. IMPRESSION: size and weight are within the expected range . DATA REPOSITORY:
== END 2020-05-27 01:17 ==
PROVIDERS: PCP Pediatrics; Visit Provider Advanced Practice Midwife
DX: Z34.93 Encounter for supervision of normal pregnancy, unspecified, third trimester (principal)
CPT/HCPCS: 76816

== ENCOUNTER 2020-06-24 02:22 | Outpatient (RCR) | payer MEDICAID, SELFPAY ==
[2020-03-31 15:20] VITALS: O2SAT 98
[2020-06-10] MEDS: Normal Saline Flush 10 ML SYR IVP (11:12)
[2020-06-10] MEDS: IRON SUCROSE COMPLEX 200 MG in Normal Saline 100 ML 440 MG IVPB (11:12)
[2020-06-24 11:04] LABS: HCT 34.8 % (36.0-46.0); HGB 11.8 g/dL (11.2-15.7)
[2020-06-24] MEDS: Normal Saline Flush 10 ML SYR IVP (11:10)
[2020-06-24] MEDS: IRON SUCROSE COMPLEX 200 MG in Normal Saline 100 ML 440 MG IVPB (11:10)
== END 2020-06-24 23:59 | disposition home or self-care (01) ==
LOC: INF 02:22
PROVIDERS: PCP Pediatrics; Visit Provider Advanced Practice Midwife
DX: O99.013 Anemia complicating pregnancy, third trimester (principal); D64.9 Anemia, unspecified; Z3A.29 29 weeks gestation of pregnancy
CPT/HCPCS: 36415; 96365; 85014; 85018; J1756

== ENCOUNTER 2020-06-27 05:20 | Emergency (ER) | payer MEDICAID, SELFPAY ==
[2020-03-31 15:20] VITALS: O2SAT 98
[2020-06-27 05:24] VITALS: BP 145/69; PULSE 91; RESP 16; TEMP 36.6; O2SAT 96
--- NOTE | 2020-06-27 05:30 | ED.GENADUL_ITS ---
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 Clinical Impression: Acute pancreatitis, , Acute dehydration Primary Care Provider: Reena Del Angel V ED Provider: Gene Lima Home Meds and New Rx's Prescriptions: No Action famotidine 20 mg tablet 20 mg PO BID Qty: 30 RF: 2 ondansetron HCl 4 mg tablet 4 mg PO Q6H PRN (Reason: nausea and vomiting) Qty: 90 RF: 2 sucralfate [Carafate] 100 mg/mL suspension 10 ml PO QACHS Qty: 200 RF: 4 Medical Decision Making This is a 20-year-old female who is a G1, P0 currently 36 weeks with an unfortunate prepregnancy history of notable gastritis and vomiting, which was significantly exacerbated during with multiple visits secondary to recurrent vomiting gastritis. She has home Zofran, unfortunately she just ran out yesterday, and because of the weekend has been unable to fill her prescription. This evening she has not been able to keep anything down, and she has also noticed a small amount of coffee grounds in her emesis just in the last few hours. She denies any significant bright red blood. She denies any other change in medication or habits. She has been noticing continued good movement with baby. She has no other complaints at this time. Physical exam demonstrates a nontender nonsurgical abdomen, appropriate movement of the baby. Mucous membranes are dry. We will give IV famotidine, IV Zofran, and oral Carafate. Will rehydrate evaluate for significant lab or electrolyte abnormality and reassess. 6:45 AM Laboratory work-up has returned, no signs of anemia, decrease in her hemoglobin of significance, electrolyte abnormality or renal dysfunction. Lipase is notably elevated at 1288, however this is also in the setting of a normal AST, ALT and bilirubin. Symptoms inconsistent with gallstone pancreatitis, cholecystitis, or ascending cholangitis. Patient is actually feeling much better after famotidine, Zofran, and Carafate. Her vomiting has stopped. Discussed the case with Sarah (nurse furnace tender) and Dr. Wilson. They both agree on plan for admission to the OB unit for nonstress test, continued fluids, continued management. I have extensively reviewed the treatment plan with the patient. I have addressed all patient concerns at this time. I have also discussed the plan with the admitting physician and they agree with the current assessment and plan and have agreed to assume responsibility for the patient. All parties demonstrate verbal understanding and agreement with our assessment and plan at this time. HPI General Date/Time Provider Initiated Documentation: 06/27/20 05:21 . HPI Narrative: This is a 20-year-old female who is a G1, P0 currently 36 weeks with an unfortunate prepregnancy history of notable gastritis and vomiting, which was significantly exacerbated during with multiple visits secondary to recurrent vomiting gastritis. She has home Zofran, unfortunately she just ran out yesterday, and because of the weekend has been unable to fill her prescription. This evening she has not been able to keep anything down, and she has also noticed a small amount of coffee grounds in her emesis just in the last few hours. She denies any significant bright red blood. She denies any other change in medication or habits. She has been noticing continued good movement with baby. She has no other complaints at this time. Related Data Home Medications Medication Instructions Recorded Confirmed famotidine 20 mg tablet 20 mg PO BID #30 tab 05/14/20 06/27/20 ondansetron HCl 4 mg tablet 4 mg PO Q6H PRN #90 tab 05/20/20 06/27/20 sucralfate 100 mg/mL oral 10 ml PO QACHS #200 ml 05/21/20 06/27/20 suspension Previous Rx's Medication Instructions Recorded famotidine 20 mg tablet 20 mg PO BID #30 tab 05/14/20 ondansetron HCl 4 mg tablet 4 mg PO Q6H PRN #90 tab 05/20/20 sucralfate 100 mg/mL oral 10 ml PO QACHS #200 ml 05/21/20 suspension Allergies Allergy/AdvReac Type Severity Reaction Status Date / Time diphenhydramine AdvReac Hyperactivi Unverified 06/27/20 05:28 ty General 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: 3 Review of Systems All systems reviewed & are unremarkable except as noted in HPI and below PFSH Medical History Abnormal electroencephalogram (12/21/11) Abnormal ultrasound Anxiety disorder 9 month inpatient care [facility] Chronic constipation Depot contraception (03/20/16) started 04/08 for menorragia control Depression Eating disorder (03/18/14) bulemia Encounter for Depo-Provera contraception (12/05/16) Fracture of left radius (11/07/08) Hyperemesis gravidarum Infection due to Chlamydia species (08/21/17) Low lying placenta nos or without hemorrhage, third trimester Major depressive disorder, single episode, severe, with psychotic behavior (03/18/14) Pediatric body mass index (BMI) of 5th percentile to less than 85th percentile for age (02/15/16) Suicidal ideation Family History Father Hepatitis B Substance abuse HIV (human immunodeficiency virus infection) Mother No problems noted. Other Diabetes pat aunt Essential hypertension MGF Personal history of malignant neoplasm MGM-breast Heart disease MGF Hyperlipidemia MGF Mental disorder PGM-anxiety/depression Myocardial infarction MGF Stroke MGF Brother Alcohol abuse Social History Smoking/Tobacco Use Status: Former Tobacco Use tobacco type: cigarettes Quit Date: 12/03/19 Counseling given: other Smoking risk assessment performed?: Yes Alcohol Intake: former Year quit: Thou Details: Stop 12/03/2019 with positive UPT Drug use: Current Sobriety Substance use type: marijuana Details: HX daily marijuana use--currently using marijuana. 28 weeks gestation. Household members: family and other Details: Lives with her parents. 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 3.ENT: Atraumatic external nose and ears. Moist MM. Neck: Symmetric, trachea midline, No thyromegaly. 4.CVS: +S1/S2, No murmurs or gallops. Peripheral pulses 2+ and equal in all extremities. Brisk capillary refill in all extremities. 5.RESP: Unlabored respiratory effort. Clear to auscultation bilaterally. No wheezes rales or rhonchi 6.GI: Soft, Nontender/Nondistended, appropriately gravid abdomen no hepato splenomegaly. No guarding or rebound. 7.MSK: Normocephalic/Atraumatic, Extremities w/o deformity or ttp No cyanosis or clubbing, Normal movement of all extremities 8.Skin: Warm, Dry. No rashes or lesions. 9.Neuro: environmental compliance officer II-XII grossly intact. Sensation grossly intact, no focal neurologic deficits. 10.Psych: (AAO) x3. Appropriate mood and affect Course Vital Signs Vital signs: Vital Signs Temperature 36.6 C 06/27/20 05:24 Pulse 91 H 06/27/20 05:24 Respiratory Rate 16 06/27/20 05:24 Blood Pressure 145/69 H 06/27/20 05:24 Pulse Oximetry 96 06/27/20 05:24 Temperature 36.6 C 06/27/20 05:24 Pulse 91 H 06/27/20 05:24 Respiratory Rate 16 06/27/20 05:24 Respiratory Effort Non-Labored 06/27/20 05:28 Blood Pressure 145/69 H 06/27/20 05:24 Pulse Oximetry 96 06/27/20 05:24
[2020-06-27] MEDS: Normal Saline 1,000 ML 1000 ML IV (05:56)
[2020-06-27] MEDS: FAMOTIDINE 20 MG/50 ML BAG 200 MG IVPB (05:56)
[2020-06-27] MEDS: Ondansetron 4 MG/2 ML VIAL IVP (05:56)
[2020-06-27 06:09] LABS: Abs Immature Grans 0.08 10^3/uL (0.0-0.06); Absolute Basophil Count 0.03 10^3/uL (0.0-0.2); Absolute Monocyte Count 0.92 10^3/uL (0.1-0.8); Basophils % 0.2; Eosinophils % 0.1; HGB 12.6 g/dL (11.2-15.7); Immature Grans % 0.6; Lymphocytes % 12.2; MCH 33.3 pg (27.0-33.0); MCHC 34.1 % (32.0-36.0); MCV 97.9 fL (80-95); MPV 11.3 fL (8.0-11.0); Monocytes % 6.9; Nucleated RBC 0 %; Platelet Count 238 10^3/uL (130-400); RBC 3.78 10^6/uL (3.93-5.22); RDW 12.7 % (11.7-14.6); RDW-SD 45.3 fL; WBC 13.39 10^3/uL (4.4-10.8)
[2020-06-27 06:10] LABS: Absolute Eosinophil Count 0.01 10^3/uL (0.0-0.7); Absolute Lymphocyte Count 1.63 10^3/uL (1.2-3.4); Absolute Neutrophil Count 10.71 10^3/uL (1.2-6.7)
[2020-06-27 06:18] LABS: Magnesium 1.9 mg/dL (1.8-2.4)
[2020-06-27 06:20] LABS: Lipase 1288 U/L (73-393)
[2020-06-27 06:22] LABS: ALT 20 U/L (14-59); AST 22 U/L (15-37); Albumin 3.4 g/dL (3.4-5.0); Alkaline Phosphatase 138 U/L (46-116); Anion Gap 8.7 mmol/L (3-11); BUN 12 mg/dL (7-18); Bilirubin, Total 0.4 mg/dL (0.2-1.0); CO2 26.3 mmol/L (21.0-32.0); CREATININE 0.58 mg/dL (0.55-1.02); Calcium 9.2 mg/dL (8.5-10.1); Chloride 103 mmol/L (98-107); Glucose 88 mg/dL (74-106); Potassium 3.7 mmol/L (3.5-5.1); Sodium 138 mmol/L (136-145); Total Protein 6.9 g/dL (6.4-8.2)
[2020-06-27] MEDS: Sucralfate 1 GM TAB PO (06:42)
[2020-06-27 23:07] LABS: COVID-19 RT-PCR UVMMC Result Negative (Negative)
== END 2020-06-27 07:15 | disposition short-term general hospital (02) ==
PROVIDERS: Emergency Provider Student in an Organized Health Care Education/Training Program; PCP Pediatrics
DX: O99.63 Diseases of the digestive system complicating the puerperium (principal); K85.80 Other acute pancreatitis without necrosis or infection; O26.893 Other specified pregnancy related conditions, third trimester; E86.0 Dehydration
CPT/HCPCS: 36415; 80053; 83690; 96361; 96365; 96375; 99285; U0003; 83735; 85025; 99284; J2405

== ENCOUNTER 2020-06-27 09:00 | Observation (INO) | payer MEDICAID, SELFPAY ==
[2020-03-31 15:20] VITALS: O2SAT 98
[2020-06-27] MEDS: Lactated Ringers 1,000 ML 250 ML IV (07:56)
[2020-06-27 08:06] VITALS: BP 124/66; PULSE 69; TEMP 36.9
[2020-06-27] MEDS: Ondansetron 4 MG/2 ML VIAL (08:30)
--- NOTE | 2020-06-27 11:30 | HPE_ITS ---
Date of service: 06/27/20 Time of Service: 11:30 Assessment and Plan Assessment and plan (1) Acute pancreatitis: Status: Acute Assessment and plan: Admit to Center. Comfort measures. Covid- [address] Wilson who recommended continuing the current IV at 250cc per hour and slow the next IV to 125 cc/hr. Continue to assess. Zofran 4 mg IV was given after Enoc complained of mild nausea. She has had no vomiting since her arrival. Plan is to continue to asses and repeat lipase with Amylase at 1400. Await results. Susie Ray will be assuming her care. (2) Acute dehydration: Status: Acute (3) Gastritis: Status: Suspected Qualifiers: Gastritis type: unspecified gastritis Chronicity: chronic Gastritis bleeding: presence of bleeding unspecified Qualified Code(s): K29.50 - Unspecified chronic gastritis without bleeding (4) Diarrhea: Status: Acute OB-HPI Labor/Delivery History of Present Illness Reason for Visit: NST Chief Complaint: Other (nausea and vomiting at 35 weeks gestation, history of pancreatitis. ). TAIWO Calculator Estimated Delivery Date Method Current WG Current Estimate 07/30/20 Ultrasound #1 35w 2d Comments: Derrick reports vomiting since 10 PM last night with hourly epidoses of vomiting. She had diarrhea a few times at 0300 and 0400, She was seen in ED and received IV hydration x 1 liter of NS. She recieved pepcid and zofran 4 mg IV. Her IV was switched to LR at 250cc/hr. Michelle choi was feeling well when she arrived at the center. No nausea, mild epigastric pain. Lipase was elevated at the ED. History of Present Expected Delivery Route/Plan - CNM FOB - paternity uncertain, lives with boyrafael Mario & his family BB undecided about circ- [place] Specific Issues/Plan 1. Unplanned , uncertain paternity (either Fabiano or Arnaud), source of stress for pt 2. CF & [place] drawn 01/06 2a. 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 Will discuss with pt 2b. [place] WNL - Discussed with patient - paternal testing is not possible at this time due to uncertain paternity. 2c. Desires AFP - drawn 03/09, low risk for NTD 3. Hx teen depression w/sucide attempt age [age], was inpt @ [facility] 3a. states no self harm for over 2 yrs, no meds, no need for therapy, feeling well, declines ref to [facility] 3b. Denies hx of childhood sexual abuse or trauma 3c. Plan to check in with pt every visit on her mood and coping level 4. Undecided about @ initial OB, will consider trying it might be too intimate 5. Daily MJ use for anxiety and sleep, counseled to decrease or even cease use 5a. pos THC at 29 weeks POSC 6. Stopped smoking cig when became , denies ETOH use 7. Rh neg, RhoGam @ 28 wks; done 04/27/20 8. Hyperemesis - Taking Reglan, Protonix, famotidine, carafate. ED admission 01/26- zofran script written 02/03 to use with other medications. 9. Chronic constipation - fiber supplements and colace prescribed daily. 10. Low lying placenta - Repeat US at 28 weeks - done 05/07, placenta is >4 cm away from os, low lie is resolved 11. Referred to [facility] for level 2 sono and MFM consult for possible cleft palate (undetermined at sono 03/09) 11a. [facility] genetics telehealth done 03/11, [facility] sono 03/15: intact lips & palate, no f/up needed 12. Admitted for pancreatitis, gallbladder sludge, vomiting, pain 05/14/20. Left AMA on 05/15/20 12a. Re-admitted 05/20 with recurrence of symptoms. 13. Bilateral mild hydronephrosis by US 05/14 Review of Systems Gastrointestinal Gastrointestinal: Reports coffee ground emesis, Reports diarrhea, Reports nausea and Reports vomiting [facility] Medical History Abnormal electroencephalogram (12/21/11) Abnormal ultrasound Anxiety disorder 9 month inpatient care [facility] Chronic constipation Depot contraception (03/20/16) started 04/08 for menorragia control Depression Eating disorder (03/18/14) bulemia Encounter for Depo-Provera contraception (12/05/16) Fracture of left radius (11/07/08) Hyperemesis gravidarum Infection due to Chlamydia species (08/21/17) Low lying placenta nos or without hemorrhage, third trimester Major depressive disorder, single episode, severe, with psychotic behavior (03/18/14) Pediatric body mass index (BMI) of 5th percentile to less than 85th percentile for age (02/15/16) Suicidal ideation Family History Father Hepatitis B Substance abuse HIV (human immunodeficiency virus infection) Mother No problems noted. Other Diabetes pat aunt Essential hypertension MGF Personal history of malignant neoplasm MGM-breast Heart disease MGF Hyperlipidemia MGF Mental disorder PGM-anxiety/depression Myocardial infarction MGF Stroke MGF Brother Alcohol abuse Social History Smoking/Tobacco Use Status: Former Tobacco Use tobacco type: cigarettes Quit Date: 12/03/19 Counseling given: other Smoking risk assessment performed?: Yes Alcohol Intake: former Year quit: Thou Details: Stop 12/03/2019 with positive UPT Drug use: Current Sobriety Substance use type: marijuana Details: HX daily marijuana use--currently using marijuana. 28 weeks gestation. Household members: family and other Details: Lives with her parents. 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 Do you feel safe at home: Yes Do you feel safe in your relationship?: Yes History History 1 Para 0 Hx # Term Pregnancies 0 Multiple births 0 Hx # Pregnancies 0 Ectopic pregnancies 0 AB induced 0 Hx Number of Living Children 0 AB spontaneous 0 Meds Home Medications and Allergies Home Medications Medication Instructions Recorded Confirmed Type famotidine 20 mg tablet 20 mg PO BID #30 tab 05/14/20 06/27/20 Rx ondansetron HCl 4 mg tablet 4 mg PO Q6H PRN #90 tab 05/20/20 06/27/20 Rx sucralfate 100 mg/mL oral 10 ml PO QACHS #200 ml 05/21/20 06/27/20 Rx suspension Allergies Allergy/AdvReac Type Severity Reaction Status Date / Time diphenhydramine AdvReac Hyperactivi Unverified 06/27/20 05:28 ty Exam Physical Exam Vital Signs Reviewed: Yes Constitutional Constitutional: mild distress Detailed Labor and Delivery Exam Eller Score: Cervical Points Exam 0 1 2 3 Dilation Closed 1-2cm 3-4 cm 5-6cm Effacement 0-30% 40-50% 60-70% 80% Consistency Firm Medium Soft Station -3 -2 -1,0 +1,+2 Position Posterior Mid Anterior Amniotic Membrane Status: Intact Contraction Frequency(min): every 3-4 minutes, Contraction Intensity: Mild Fetus A Heart Rate Baseline: 140 Monitor Accelerations: 15 X 15 Monitor Decelerations: None Variability: Moderate (6-25 BPM) Presentation: Vertex Categories: Category I Results Results Group Beta Strep: N/A Blood Type: A- Rubella Status: Immune Varicella Immunity: Immune Risk Assessment Risk for Shoulder Dystocia Historical/Initial OB: NEGATIVE FOR: Pelvic Abnormality, Pre- BMI>30, Previous Shoulder Dystocia or Previous Macrosomia 40 Weeks: NEGATIVE FOR: EFW> 4500 gms or Maternal Weight Gain >40lb Risk for Pre-Eclampsia Yes, if one or more: NEGATIVE FOR: Hx Pre-E/Gest HTN, Chronic HTN, Multiple G estation, Pre-gestational DM, Renal Disease, Systemic Lupus or APA Syndrome Yes, if 2 or more: POSITIVE FOR: Nulliparity; NEGATIVE FOR: Age>= 35 yrs, >10yr btwn pregnancies, BMI>30, ethinicty, Mother/Sister w/ Pre-E or Previous IUGR Risk for Post- Hemorrhage Initial: NEGATIVE FOR: Multiple Gestation, Previous PPH, Known Clotting Deficiency, Grand Multiparity or Anticoagulation At Risk?: No Risks Reviewed Risks Reviewed Upon Admission: Yes
[2020-06-27 14:40] LABS: Amylase 108 U/L (25-115); Lipase 322 U/L (73-393)
[2020-06-27] MEDS: Mylanta Suspension 30 ML CUP PO ×2 (14:53→21:08)
[2020-06-27] MEDS: Lidocaine 2% Viscous 15 ML CUP PO (14:53)
[2020-06-27] MEDS: DEXTROSE 5%-LACTATED RINGERS 1,000 ML 150 ML IV ×2 (14:55→21:08)
[2020-06-27 16:09] VITALS: BP 116/69; PULSE 63; RESP 16; TEMP 36.7; O2SAT 97
[2020-06-27 18:02] VITALS: BP 124/66; PULSE 69; TEMP 36.9
--- NOTE | 2020-06-27 18:02 | W.OBNST ---
Date of service: 06/27/20 Time of Service: 18:02 NST Evaluation Reason for NST Reasons for Nonstress Test: OTHER, SEE COMMENT Reason for NST Other: hyperemesis gravidarum, pancreatitis Gestational Age Gestational Age in Weeks and Days: 35 Weeks and 2Days Test and Monitor Explained Test/Monitor Explained: Test Explained and Patient Verbalized Understanding Vital Signs Blood Pressure: 124/66 Pulse: 69 Temperature: 98.4 F NST Information Date on Monitor: 06/27/20 Time on Monitor: 07:30 Date off Monitor: 06/27/20 Time off Monitor: 08:20 Total Time on Monitor: 50 NST Interventions: IV Fluids NST Evaluation Patient States Movement: Present FHR Baseline: 115 Variability: Moderate 6-25 bpm Accelerations: 15x15 Decelerations: None NST Results: Reactive Note NST Note NST Reviewed and Verified by: Susie Ray
--- NOTE | 2020-06-27 18:04 | W.PM.PROGNOT ---
Date of Service Date of service: 06/27/20 Time of Service: 18:04 Assessment and Plan Assessment and plan (1) : Status: Acute (2) Acute dehydration: Status: Acute (3) Pancreatitis: Status: Chronic Assessment and plan: A: G1 @ 35 wks, no labor, chronic intermittent pancreatitis Admitted for OBS on the after treatment in the ED Lipase/amylase levels normalizing, IV re-hydration in progress P: Discussed pt status and treatment plan with Dr. Wilson Continue D5LR @ 150 ml/hr until ketones are cleared then change to LR Change from NPO to light regular diet with slow advance Zofran 8 mg IV q 8 hrs Reglan 10 mg IV q 6 hrs Famotidine 20 mg PO BID Carafate 1gm PO Q AC & HS Mylanta 30 ml/viscous lidocaine 10 ml PO Q2 hrs prn Vistaril 75 mg PO hs prn sleep Plan for discharge in the morning if condition is stable & tolerates PO intake Discussed referral to [facility] with pt and she declines Qualifiers: Chronicity: acute Pancreatitis type: idiopathic Acute pancreatitis complication: no infection or necrosis Qualified Code(s): K85.00 - Idiopathic acute pancreatitis without necrosis or infection (4) Vomiting affecting : Status: Acute (5) Gastroesophageal reflux disease: Status: Acute Qualifiers: Esophagitis presence: with esophagitis Esophagitis bleeding: unspecified whether hemorrhage Qualified Code(s): K21.00 - Gastro-esophageal reflux disease with esophagitis, without bleeding Subjective Subjective Patient reports: pain is less and vomiting Interval history since last seen: Has been NPO except for sips and chips. Emesis at 1800 with no visible blood, first time since 0800, reports heartburn, nausea. Also states she is feeling sad and stressed. Wishes her boyfriend would come be with her in the hospital but he won't come since she is not in labor. Exam Const General: cooperative, in distress, anxious and frail appearing Nutritional Appearance: average body habitus Orientation: alert, awake and oriented x3 HENMT Head: normal to inspection Neck Neck: normal visual inspection Resp Effort & Inspection: normal respiratory effort Cardio Palpation: normal PMI Rate: regular rate GI Inspection: normal to inspection Palpation: soft Auscultation: normal bowel sounds Extrem General: normal to inspection and full ROM Objective Last Vital Signs Temp 98.1 F 06/27/20 16:09 Pulse 63 06/27/20 16:09 Resp 16 06/27/20 16:09 BP 116/69 06/27/20 16:09 Pulse Ox 97 06/27/20 16:09 Laboratory Results - last 24 hr 06/27/20 14:15 Amylase 108 Lipase 322
[2020-06-27] MEDS: Metoclopramide 10 MG/2 ML VIAL IVP (18:36)
[2020-06-27] MEDS: Ondansetron 4 MG/2 ML VIAL 8 MG IVP (18:36)
[2020-06-27 21:00] VITALS: BP 115/59; PULSE 81; RESP 15; TEMP 36.6; O2SAT 99
[2020-06-27] MEDS: hydrOXYzine PAMOATE 25 MG CAP 75 MG PO (21:15)
[2020-06-27] MEDS: Sucralfate 1 GM TAB PO (21:15)
[2020-06-27] MEDS: Famotidine 20 MG TAB PO (21:15)
[2020-06-28 06:00] VITALS: BP 101/65; PULSE 88; RESP 15; TEMP 36.7; O2SAT 99
[2020-06-28] MEDS: Metoclopramide 10 MG/2 ML VIAL IVP (06:41)
[2020-06-28] MEDS: Ondansetron 4 MG/2 ML VIAL 8 MG IVP (06:42)
[2020-06-28 07:40] VITALS: BP 102/58; PULSE 69; RESP 16; TEMP 36.5
[2020-06-28] MEDS: Sucralfate 1 GM TAB PO (07:48)
[2020-06-28] MEDS: Famotidine 20 MG TAB PO (08:33)
--- NOTE | 2020-06-28 09:01 | W.PM.DS.N ---
Date of service: 06/28/20 Time of Service: 09:01 DS: Diagnosis Discharge Diagnosis (1) : Status: Acute (2) Acute dehydration: Status: Acute (3) Pancreatitis: Status: Chronic (4) Vomiting affecting : Status: Acute (5) Gastroesophageal reflux disease: Status: Acute 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 Details Reason For Visit: 35 WKS, PANCREATITIS Admit Date/Time: 06/27/20 09:00 Admit Provider: Susie Ray Attending Provider: Susie Ray Primary Care Provider: Reena Del Angel V Hospital Course Hospital Course: 24 hours on BC after treatement in ED, IV hydration and medication Home Meds and New Rx's Prescriptions: No Action famotidine 20 mg tablet 20 mg PO BID Qty: 30 RF: 2 ondansetron HCl 4 mg tablet 4 mg PO Q6H PRN (Reason: nausea and vomiting) Qty: 90 RF: 2 sucralfate [Carafate] 100 mg/mL suspension 10 ml PO QACHS Qty: 200 RF: 4 Discharge Instructions Additional Instructions: Continue your regular medications of zofran, pepcid and carafate, be careful to eat previously recommended foods to avoid stomach upset, keep your next scheduled appt with the rn stars. report pancreatitis symptoms if they recur. Stand Alone Forms: Center Observation Activity:: Activity as Tolerated Equipment/Supplies:: No Equipment Needed Diet:: pancreatitis diet as previously instructed Discharge Orders Discharge Orders: Discharge Order (Routine); Ordered 06/28/20 Ordered By: Susie Ray DS: Summary Status at Discharge Functional status at discharge: independent ambulation Overall status at discharge: patient is back to baseline Mental Status: mental status grossly normal Speech and Movement: speech and movement normal and speech clear Mood: congruent mood Affect: normal affect Exam Const General: cooperative, in distress and anxious Nutritional Appearance: average body habitus Orientation: alert, awake and oriented x3 HENMT Head: normal to inspection Neck Neck: normal visual inspection Resp Effort & Inspection: normal respiratory effort Cardio Palpation: normal PMI Rate: regular rate GI Inspection: normal to inspection Palpation: soft Auscultation: normal bowel sounds Extrem General: normal to inspection and full ROM Psych Mental Status: mental status grossly normal Speech and Movement: speech and movement normal and speech clear Mood: congruent mood Affect: normal affect DS: Data Vitals/I&O Vitals and I&O: Vital Signs Temperature 97.7 F 06/28/20 07:40 Temperature Source Oral 06/28/20 07:40 Pulse 69 06/28/20 07:40 Pulse Rhythm Regular 06/28/20 07:40 Respiratory Rate 16 06/28/20 07:40 Respiratory Effort 06/28/20 07:40 Respiratory Depth Normal 06/28/20 07:40 Respiratory Pattern Normal 06/28/20 07:40 Blood Pressure 102/58 L 06/28/20 07:40 Blood Pressure Mean 77 06/27/20 21:00 Pulse Oximetry 99 06/28/20 06:00 Oxygen Delivery Method Room Air 06/28/20 07:40 Oxygen Flow Rate 0 06/28/20 07:40 Pain Level 0 06/28/20 06:00 Intake & Output 06/27/20 06/27/20 06/28/20 11:59 23:59 11:59 Intake Total 1182.5 / 1182.5 Output Total 500 / 500 600 / 600 Balance 682.5 / 682.5 -600 / -600 Intake: IV 1182.5 / 1182.5 Output: Urine 250 / 250 600 / 600 Emesis 250 / 250 Other: Urine Color Yellow Yellow Dark Stacey Urine Appearance Clear Clear Cloudy Urine Odor None None Strong Voiding Methods Toilet Toilet Data Completed and Pending Labs on day of discharge: Labs from last 24 hours 06/27/20 14:15 Amylase 108 Lipase 322 [facility] Medical History Abnormal electroencephalogram (12/21/11) Abnormal ultrasound Anxiety disorder 9 month inpatient care [place] Chronic constipation Depot contraception (03/20/16) started 04/08 for menorragia control Depression Eating disorder (03/18/14) bulemia Encounter for Depo-Provera contraception (12/05/16) Fracture of left radius (11/07/08) Hyperemesis gravidarum Infection due to Chlamydia species (08/21/17) Low lying placenta nos or without hemorrhage, third trimester Major depressive disorder, single episode, severe, with psychotic behavior (03/18/14) Pediatric body mass index (BMI) of 5th percentile to less than 85th percentile for age (02/15/16) Suicidal ideation Family History Father Hepatitis B Substance abuse HIV (human immunodeficiency virus infection) Mother No problems noted. Other Diabetes pat aunt Essential hypertension MGF Personal history of malignant neoplasm MGM-breast Heart disease MGF Hyperlipidemia MGF Mental disorder PGM-anxiety/depression Myocardial infarction MGF Stroke MGF Brother Alcohol abuse Social History Smoking/Tobacco Use Status: Former Tobacco Use tobacco type: cigarettes Quit Date: 12/03/19 Counseling given: other Smoking risk assessment performed?: Yes Alcohol Intake: former Year quit: Thou Details: Stop 12/03/2019 with positive UPT Drug use: Current Sobriety Substance use type: marijuana Details: HX daily marijuana use--currently using marijuana. 28 weeks gestation. Household members: family and other Details: Lives with her parents. 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
== END 2020-06-28 09:30 | disposition home or self-care (01) ==
LOC: OBS 18:04 → BCD 18:06 → OBS 18:11
PROVIDERS: Admitting Provider Advanced Practice Midwife; PCP Pediatrics; Visit Provider Advanced Practice Midwife
DX: O99.613 Diseases of the digestive system complicating pregnancy, third trimester (principal); O26.613 Liver and biliary tract disorders in pregnancy, third trimester; O21.1 Hyperemesis gravidarum with metabolic disturbance; K21.00 Gastro-esophageal reflux disease with esophagitis, without bleeding; Z3A.35 35 weeks gestation of pregnancy; K85.90 Acute pancreatitis without necrosis or infection, unspecified; K29.50 Unspecified chronic gastritis without bleeding; O36.0930 Maternal care for other rhesus isoimmunization, third trimester, not applicable or unspecified; O99.323 Drug use complicating pregnancy, third trimester; F12.90 Cannabis use, unspecified, uncomplicated; O99.343 Other mental disorders complicating pregnancy, third trimester; F41.8 Other specified anxiety disorders
CPT/HCPCS: 36415; 59025; 83690; 96360; 96361; 82150; G0378; J2405; J2765

== ENCOUNTER 2020-07-07 16:35 | Outpatient (REF) | payer MEDICAID, SELFPAY ==
[2020-07-07 09:52] VITALS: O2SAT 98
[2020-07-07 15:03] LABS: *AMPHETAMINES SCREEN URINE Negative (Negative); *BARBITURATES SCREEN URINE Negative (Negative); *BENZODIAZEPINES SCREEN URINE Negative (Negative); Cannabinoids THC POSITIVE (Negative); Cocaine Screen,Urine Negative (Negative); METHADONE URINE SCREEN Negative (Negative); OPIATES URINE SCREEN Negative (Negative)
[2020-07-07 15:08] LABS: Tricyclic Antidepressants Negative (Negative)
[2020-07-13 11:58] LABS: Buprenorphine Negative; Norbuprenorphine Negative
== END 2020-07-07 16:55 ==
LOC: LBN 16:35
PROVIDERS: PCP Pediatrics; Visit Provider Advanced Practice Midwife
DX: Z34.93 Encounter for supervision of normal pregnancy, unspecified, third trimester (principal); Z36.85 Encounter for antenatal screening for Streptococcus B
CPT/HCPCS: 80307; 87081

== ENCOUNTER 2020-07-14 02:00 | Outpatient (CLI) | payer MEDICAID, SELFPAY ==
--- NOTE | 2020-07-14 07:15 | DI.US_ITS ---
EXAM: US OB AUDI WEIGHT CLINICAL HISTORY: size less than dates, low weight gain,Z34.90. TECHNIQUE: Transabdominal obstetrical ultrasound performed. COMPARISON: US US OB AUDI WEIGHT from 05/27/2020 FINDINGS: Transabdominal obstetrical ultrasound performed. FINDINGS: Number of fetuses: One. position: Cephalic. Placental location: Posterior. No evidence of previa. BIOMETRIC DATA: EFW: 3005 grms 33% Composite Age: 37 weeks 4 days EDC: 07/31/2020 Heart Rate: 123BPM Amniotic fluid index: 19.4 cm. Visually, amount of fluid is within normal limits. IMPRESSION: 1. Single live intrauterine gestation as above. 2. Estimated weight is 3005gms. 3. Amniotic fluid index is 19.4 cm. Visually within normal limits. DATA REPOSITORY:
== END 2020-07-14 02:20 ==
PROVIDERS: PCP Pediatrics; Visit Provider Advanced Practice Midwife
DX: O36.5913 Maternal care for other known or suspected poor fetal growth, first trimester, fetus 3; O26.13 Low weight gain in pregnancy, third trimester
CPT/HCPCS: 76816

== ENCOUNTER 2020-07-19 11:41 | Outpatient (CLI) | payer MEDICAID, SELFPAY ==
[2020-07-19 12:07] VITALS: BP 106/56; PULSE 77; TEMP 36.9
[2020-07-19 12:12] VITALS: BP 106/56; PULSE 77
--- NOTE | 2020-07-19 13:40 | W.OBNST ---
Date of service: 07/19/20 Time of Service: 13:40 NST Evaluation Reason for NST Reasons for Nonstress Test: DECREASED MOVEMENT Gestational Age Gestational Age in Weeks and Days: 38 Weeks and 3Days Test and Monitor Explained Test/Monitor Explained: Test Explained, Monitor Explained and Patient Verbalized Understanding Vital Signs Blood Pressure: 106/56 Pulse: 77 Temperature: 98.4 F NST Information Date on Monitor: 07/19/20 Time on Monitor: 12:07 Date off Monitor: 07/19/20 Time off Monitor: 12:29 Total Time on Monitor: 22 NST Interventions: PO Hydration and Reposition Patient NST Evaluation Patient States Movement: Present FHR Baseline: 110 Variability: Moderate 6-25 bpm Accelerations: 15x15 Decelerations: None NST Results: Reactive Note NST Note Note: Reactive NST with baseline 110. RTO 2/1 for IOL. Frequent painless contractions. Signs of labor reviewed NST Reviewed and Verified by: Lesa Flor
[2020-07-19 13:41] VITALS: BP 106/56; PULSE 77; TEMP 36.9
== END 2020-07-19 12:33 | disposition home or self-care (01) ==
LOC: BCD 11:54 → OBS 12:01
PROVIDERS: PCP Pediatrics; Visit Provider Advanced Practice Midwife
DX: O36.8130 Decreased fetal movements, third trimester, not applicable or unspecified (principal); Z3A.38 38 weeks gestation of pregnancy
CPT/HCPCS: 59025

== ENCOUNTER 2020-07-26 08:00 | Inpatient (IN) | payer MEDICAID, SELFPAY ==
[2020-07-26] VITALS (44 sets, daily range): BP systolic 99–152; BP diastolic 58–80; PULSE 53–132; RESP 18–20; TEMP 36.6–37.2; O2SAT 97–100
--- NOTE | 2020-07-26 13:50 | W.PM.OBHPL1 ---
Date of service: 07/26/20 Time of Service: 13:50 Assessment and Plan Assessment and plan (1) Acute pancreatitis: Start date: 07/26/20 Start time: 14:17 Status: Acute Assessment and plan: 07/26/20 1400 labs and IV hydration and plan to induced, method to be determined by SANDRA (2) : Start date: 07/26/20 Start time: 14:17 Status: Acute Assessment and plan: G1 at 39w3d IOL for pancreatitis GBS neg RH neg bradycardia for baseline but tracing otherwise reassuring and reactive, reviewed wtih Dr. Wilson and will start induction after IV bolus per MD. OB-HPI Labor/Delivery History of Present Illness Reason for Visit: TERM , EPISODIC PANCREATITIS Chief Complaint: Scheduled Induction of Labor Indication for Induction: Other (pancreatitis, per MD consult). TAIWO Calculator Estimated Delivery Date Method Current WG Current Estimate 07/30/20 Ultrasound #1 39w 3d Comments: CYNTHIA presents for scheduled IOL secondary to pancreatitis complicating . She has no complaints today. Last PO intake 1330. History of Present Expected Delivery Route/Plan - CNM FOB - paternity uncertain, lives with redd Mario & his family BB undecided about circ- [place] GBS negative IOL for pancreatitis, 07/26 at noon Specific Issues/Plan 1. Unplanned , uncertain paternity (either Fabiano or Arnaud), source of stress for pt 2. CF & Gibson drawn 01/06 2a. 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 Will discuss with pt 2b. Gibson WNL - Discussed with patient - paternal testing is not possible at this time due to uncertain paternity. 2c. Desires AFP - drawn 03/09, low risk for NTD 3. Hx teen depression w/sucide attempt age [age], was inpt @ [facility] 3a. states no self harm for over 2 yrs, no meds, no need for therapy, feeling well, declines ref to [facility] 3b. Denies hx of childhood sexual abuse or trauma 3c. Plan to check in with pt every visit on her mood and coping level 4. Undecided about @ initial OB, will consider trying it might be too intimate 5. Daily MJ use for anxiety and sleep, counseled to decrease or even cease use 5a. pos THC at 29 weeks, POSC has been done 6. Stopped smoking cig when became , denies ETOH use 7. Rh neg, RhoGam @ 28 wks; done 04/27/20 8. Hyperemesis - Taking Reglan, Protonix, famotidine, carafate. ED admission 01/26- zofran script written 02/03 to use with other medications. 9. Chronic constipation - fiber supplements and colace prescribed daily. 10. Low lying placenta - Repeat US at 28 weeks - done 05/07, placenta is >4 cm away from os, low lie is resolved 11. Referred to [facility] for level 2 sono and M consult for possible cleft palate (undetermined at sono 03/09) 11a. [facility] genetics telehealth done 03/11, [facility] sono 03/15: intact lips & palate, no f/up needed 12. Admitted for pancreatitis, gallbladder sludge, vomiting, pain 05/14/20. Left AMA on 05/15/20 12a. Re-admitted 05/20 with recurrence of symptoms. 12b. offer 39 week induction of labor 13. Bilateral mild hydronephrosis by US 05/14 Assessment: History Reviewed & Current Informed Consent Informed Consent: Induction of Labor (will obtain once method of induction is identified.KH) and Risk,Benefits,Alternatives Discussed Review of Systems All systems reviewed & are unremarkable except as noted in HPI and below PFSH Medical History Abnormal electroencephalogram (12/21/11) Abnormal ultrasound Anxiety disorder 9 month inpatient care [place] Chronic constipation Depot contraception (03/20/16) started 04/08 for menorragia control Depression Eating disorder (03/18/14) bulemia Encounter for Depo-Provera contraception (12/05/16) Fracture of left radius (11/07/08) Hyperemesis gravidarum Infection due to Chlamydia species (08/21/17) Low lying placenta nos or without hemorrhage, third trimester Major depressive disorder, single episode, severe, with psychotic behavior (03/18/14) Pediatric body mass index (BMI) of 5th percentile to less than 85th percentile for age (02/15/16) Suicidal ideation Family History Father Hepatitis B Substance abuse HIV (human immunodeficiency virus infection) Mother No problems noted. Other Diabetes pat aunt Essential hypertension MGF Personal history of malignant neoplasm MGM-breast Heart disease MGF Hyperlipidemia MGF Mental disorder PGM-anxiety/depression Myocardial infarction MGF Stroke MGF Brother Alcohol abuse Social History Smoking/Tobacco Use Status: Former Tobacco Use tobacco type: cigarettes Quit Date: 12/03/19 Tobacco: How many years used: 4 Counseling given: other Smoking risk assessment performed?: Yes Alcohol Intake: former Year quit: Thou Details: Stop 12/03/2019 with positive UPT Drug use: Current Sobriety Substance use type: marijuana Details: HX daily marijuana use--currently using marijuana. 28 weeks gestation. Household members: family and other Details: Lives with her parents. 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 Do you feel safe at home: Yes Do you feel safe in your relationship?: Yes History History 1 Para 0 Hx # Term Pregnancies 0 Multiple births 0 Hx # Pregnancies 0 Ectopic pregnancies 0 AB induced 0 Hx Number of Living Children 0 AB spontaneous 0 Meds Home Medications and Allergies Home Medications Medication Instructions Recorded Confirmed Type ondansetron HCl 4 mg tablet 4 mg PO Q6H PRN #90 tab 05/20/20 07/14/20 Rx sucralfate 100 mg/mL oral 10 ml PO QACHS #200 ml 05/21/20 07/14/20 Rx suspension famotidine 40 mg tablet 40 mg PO BID #30 tab 07/22/20 Rx Allergies Allergy/AdvReac Type Severity Reaction Status Date / Time diphenhydramine AdvReac Hyperactivi Unverified 07/14/20 11:14 ty Exam Physical Exam Vital signs: Temp Pulse Resp BP Pulse Ox 99.0 F 84 20 99/63 L 97 07/26/20 13:21 07/26/20 13:36 07/26/20 13:21 07/26/20 13:25 07/26/20 13:36 Vital Signs Reviewed: Yes Narrative: VS WNL.KH Constitutional Constitutional: no acute distress Detailed Labor and Delivery Exam Dilation: 0.5 Effacement (%): 80 station: -1 Position: BEENA Cervix position: posterior Consistency: medium Interiano Score: Cervical Points Exam 0 1 2 3 Dilation Closed 1-2cm 3-4 cm 5-6cm Effacement 0-30% 40-50% 60-70% 80% Consistency Firm Medium Soft Station -3 -2 -1,0 +1,+2 Position Posterior Mid Anterior INTERIANO Score(Cervical Ripeness Score): 6 Amniotic Membrane Status: Intact Monitor Mode: External Contraction Frequency(min): irregular Contraction Duration(sec): mild, patient unaware of them Contraction Intensity: Mild Fetus A Heart Rate Baseline: 100 Monitor Accelerations: 15 X 15 Monitor Decelerations: None Variability: Moderate (6-25 BPM) Presentation: Cephalic Categories: Category I Est. Weight: 6 lb 6 oz Assessment Note: Tracing evaluated by CNAylin and Dr. Wilson, baseline low on admission in 90's improved to 100's with IV hydration. Overall reassuring. HEENT Exam HEENT Exam: Normal Neck Exam Neck Exam: Normal Chest/Brest/Axilla Exam Chest Exam: Normal Breast Exam Breast Exam: Normal Respiratory Exam Respiratory Exam: Normal Cardiovascular Exam Cardiovascular Exam: Normal Abdominal Exam Abdominal Exam: Normal Rectal Exam Rectal Exam: Not Done Exam Exam: Normal Extremities Exam Extremities Exam: Normal Back/Spine/Pelvis Exam Back Exam: Normal Skin Exam Skin Exam: Normal Neurological Exam Neurological Exam: Normal DetailedPsychiatric Exam Psychiatric: Present normal affect, normal thought process, cooperative and good judgment Results Results Group Beta Strep: Negative Blood Type: A- Rubella Status: Immune Varicella Immunity: Immune H&P: Quality AMI Clinical Trial Participant: No Risk Assessment Risk for Shoulder Dystocia Historical/Initial OB: NEGATIVE FOR: Pelvic Abnormality, Pre- BMI>30, Previous Shoulder Dystocia or Previous Macrosomia 40 Weeks: NEGATIVE FOR: EFW> 4500 gms or Maternal Weight Gain >40lb Increased Risk?: No Date/Initial: 07/26/20 Delivery Plan @ 40 wks: IOL due to pancreatitis Risk for Pre-Eclampsia Daily Dose ASA Indicated: No Date Initiated/Initials: 07/26/20 Yes, if one or more: NEGATIVE FOR: Hx Pre-E/Gest HTN, Chronic HTN, Multiple Gestation, Pre-gestational DM, Renal Disease, Systemic Lupus or APA Syndrome Yes, if 2 or more: POSITIVE FOR: Nulliparity; NEGATIVE FOR: Age>= 35 yrs, >10yr btwn pregnancies, BMI>30, ethinicty, Mother/Sister w/ Pre-E or Previous IUGR Risk for Post- Hemorrhage Initial: NEGATIVE FOR: Multiple Gestation, Previous PPH, Known Clotting Deficiency, Grand Multiparity or Anticoagulation At Risk?: No Counseled re: Active Management: Yes Date/Initials: 07/26/20KH Risks Reviewed Risks Reviewed Upon Admission: Yes
[2020-07-26] MEDS: Lactated Ringers 1,000 ML 1000 ML IV (14:00)
--- NOTE | 2020-07-26 14:08 | OBCE_ITS ---
Date of service: 07/26/20 Time of Service: 14:09 History of Present Illness Narrative: Currently asked to evaluate patient by the artificial flowers starcher service due to low heart rate baseline. Patient is here for scheduled induction at term due to chronic pancreatitis. On initial presentation, heart rate tracing revealed a heart rate baseline in the 90s with moderate variability and accelerations. She had irregular contractions approximately every 5 to 8 minutes which she does not appreciate significantly. Due to low baseline, recommendation was for IV fluid bolus and continued monitoring. This was discussed with the patient and her partner. I would anticipate proceeding with induction as scheduled in the near future. MD service available as needed. [facility] Medical History Abnormal electroencephalogram (12/21/11) Abnormal ultrasound Anxiety disorder 9 month inpatient care [place] Chronic constipation Depot contraception (03/20/16) started 04/08 for menorragia control Depression Eating disorder (03/18/14) bulemia Encounter for Depo-Provera contraception (12/05/16) Fracture of left radius (11/07/08) Hyperemesis gravidarum Infection due to Chlamydia species (08/21/17) Low lying placenta nos or without hemorrhage, third trimester Major depressive disorder, single episode, severe, with psychotic behavior ( 03/18/14) Pediatric body mass index (BMI) of 5th percentile to less than 85th percentile for age (02/15/16) Suicidal ideation Family History Father Hepatitis B Substance abuse HIV (human immunodeficiency virus infection) Mother No problems noted. Other Diabetes pat aunt Essential hypertension MGF Personal history of malignant neoplasm MGM-breast Heart disease MGF Hyperlipidemia MGF Mental disorder PGM-anxiety/depression Myocardial infarction MGF Stroke MGF Brother Alcohol abuse Social History Smoking/Tobacco Use Status: Former Tobacco Use tobacco type: cigarettes Quit Date: 12/03/19 Counseling given: other Smoking risk assessment performed?: Yes Alcohol Intake: former Year quit: Thou Details: Stop 12/03/2019 with positive UPT Drug use: Current Sobriety Substance use type: marijuana Details: HX daily marijuana use--currently using marijuana. 28 weeks gestation. Household members: family and other Details: Lives with her parents. 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
[2020-07-26 14:54] LABS: HGB 12.1 g/dL (11.2-15.7); MCH 32.4 pg (27.0-33.0); MCHC 33.6 % (32.0-36.0); MCV 96.3 fL (80-95); MPV 12.1 fL (8.0-11.0); Platelet Count 161 10^3/uL (130-400); RBC 3.74 10^6/uL (3.93-5.22); RDW-SD 45.4 fL; WBC 10.46 10^3/uL (4.4-10.8)
--- NOTE | 2020-07-26 15:00 | W.PM.OBNL1 ---
Date of service: 07/26/20 Time of Service: 15:00 Informed Consent Informed Consent: Induction of Labor (will obtain once method of induction is identified.LEE) and Risk,Benefits,Alternatives Discussed Assessment and Plan Assessment and plan (1) : Status: Acute Assessment and plan: will give Cytotec 25 mcg per request of Susie Ray CNM as tracing is CAT I Objective Abnormal lab results 07/26/20 Range/Units 14:35 RBC 3.74 L (3.93-5.22) 10^6/uL MCV 96.3 H (80-95) fL MPV 12.1 H (8.0-11.0) fL Temp Pulse Resp BP Pulse Ox 99.0 F 84 20 99/63 L 97 07/26/20 13:21 07/26/20 13:36 07/26/20 13:21 07/26/20 13:25 07/26/20 13:36 Laboratory Results WBC 10.46 10^3/uL (4.4-10.8) 07/26/20 14:35 RBC 3.74 10^6/uL (3.93-5.22) L 07/26/20 14:35 Hgb 12.1 g/dL (11.2-15.7) 07/26/20 14:35 Hct 36.0 % (36.0-46.0) 07/26/20 14:35 MCV 96.3 fL (80-95) H 07/26/20 14:35 MCH 32.4 pg (27.0-33.0) 07/26/20 14:35 MCHC 33.6 % (32.0-36.0) 07/26/20 14:35 RDW 13.0 % (11.7-14.6) 07/26/20 14:35 Plt Count 161 10^3/uL (130-400) 07/26/20 14:35 MPV 12.1 fL (8.0-11.0) H 07/26/20 14:35 Subjective Patient Reports: No new Complaints Interval history since last seen: conventional mortgage underwriter has done consult with and SCOTT covering patient. Will give cytotec as long as tracing is CAT I. Results Hemoglobin/Hematocrit: Hgb 12.1 g/dL (11.2-15.7) 07/26/20 14:35 Hct 36.0 % (36.0-46.0) 07/26/20 14:35 Abnormal Lab Findings: Abnormal Labs 07/26/20 14:35 RBC 3.74 L MCV 96.3 H MPV 12.1 H
[2020-07-26 15:08] LABS: Amylase 49 U/L (25-115); Lipase 106 U/L (73-393)
[2020-07-26] MEDS: miSOPROStol 25 MCG TAB PO (15:36)
[2020-07-26] MEDS: Lactated Ringers 1,000 ML 125 ML IV (15:56)
--- NOTE | 2020-07-26 16:29 | W.PM.OBNL1 ---
Date of service: 07/26/20 Time of Service: 16:29 Informed Consent Informed Consent: Induction of Labor (IOL via cervical ripening, will initiate misoprostel guidelines) and Risk,Benefits,Alternatives Discussed Pelvic Exam Dilation: 1 Effacement (%): 80 station: -1 Cervix Position: posterior Consistency: soft Vaginal Exam Presentation: Cephalic Contractions Monitor Mode: External Contraction Frequency(min): irregular Intensity: Mild Fetus A Monitor: External (US) Heart Rate Baseline: 100 Presentation: Cephalic Variability: Moderate (6-25 BPM) Categories: Category I Accelerations: 15 X 15 Decelerations: None Amniotic Membrane Status: Intact Assessment Note: Baseline initially upon admission to at 80-95, 500 ml bolus IVF given, baseline since then 95-110 bpm Assessment and Plan Assessment and plan (1) 39 weeks gestation of : Status: Acute Assessment and plan: A: Primipara, 39 wks, IOL for episodic chronic pancreatitis Received hand-off from SCOTT Bucio Category 1 tracing with low baseline resolved after 500 ml IVF bolus Low risk for SD and PPH, GBS negative Pt plans for regional anesthesia, 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 Wilson consulting Anticipate (2) Pancreatitis: Status: Chronic Qualifiers: Chronicity: acute Pancreatitis type: idiopathic Acute pancreatitis complication: no infection or necrosis Qualified Code(s): K85.00 - Idiopathic acute pancreatitis without necrosis or infection Objective Abnormal lab results 07/26/20 Range/Units 14:35 RBC 3.74 L (3.93-5.22) 10^6/uL MCV 96.3 H (80-95) fL MPV 12.1 H (8.0-11.0) fL Temp Pulse Resp BP Pulse Ox 99.0 F 64 20 112/60 97 07/26/20 13:21 07/26/20 15:54 07/26/20 13:21 07/26/20 15:54 07/26/20 13:36 Laboratory Results WBC 10.46 10^3/uL (4.4-10.8) 07/26/20 14:35 RBC 3.74 10^6/uL (3.93-5.22) L 07/26/20 14:35 Hgb 12.1 g/dL (11.2-15.7) 07/26/20 14:35 Hct 36.0 % (36.0-46.0) 07/26/20 14:35 MCV 96.3 fL (80-95) H 07/26/20 14:35 MCH 32.4 pg (27.0-33.0) 07/26/20 14:35 MCHC 33.6 % (32.0-36.0) 07/26/20 14:35 RDW 13.0 % (11.7-14.6) 07/26/20 14:35 Plt Count 161 10^3/uL (130-400) 07/26/20 14:35 MPV 12.1 fL (8.0-11.0) H 07/26/20 14:35 Amylase 49 U/L (25-115) 07/26/20 14:35 Lipase 106 U/L (73-393) 07/26/20 14:35 Patient ABO/Rh A Negative 07/26/20 14:35 Antibody Screen Negative 07/26/20 14:35 Vital Signs Reviewed: Yes Subjective Patient Reports: No new Complaints Results Abnormal Lab Findings: Procedure Procedures: Cervical Ripening Cervical Ripening: Misoprostol
--- NOTE | 2020-07-26 20:05 | W.PM.OBNL1 ---
Date of service: 07/26/20 Time of Service: 20:05 Pelvic Exam Dilation: 3 Effacement (%): 90 station: -1 Cervix Position: mid Consistency: soft Vaginal Exam Presentation: Cephalic Contractions Monitor Mode: External Contraction Frequency(min): every 204 minutes Intensity: Moderate Fetus A Monitor: External (US) Heart Rate Baseline: 110 Presentation: Cephalic Variability: Moderate (6-25 BPM) Categories: Category I Accelerations: 15 X 15 Decelerations: None Amniotic Membrane Status: Intact Assessment and Plan Assessment and plan (1) 39 weeks gestation of : Status: Acute Assessment and plan: A: IOL via cervical ripening primipara, early labor P: hold misoprostel expectant management IV Zofran and IV famotidine regional anesthesia when pt desires (2) Pancreatitis: Status: Chronic Qualifiers: Chronicity: acute Pancreatitis type: idiopathic Acute pancreatitis complication: no infection or necrosis Qualified Code(s): K85.00 - Idiopathic acute pancreatitis without necrosis or infection Objective afebrile, normotensive increasingly uncomfortable since initial dose of misoprostel nausea and vomiting x1 category 1 tracing Subjective Interval history since last seen: feeling painful contractions, vaginal pressure, abd tightness, nausea and vomiting
[2020-07-26] MEDS: Ondansetron 4 MG/2 ML VIAL 8 MG IVP (20:12)
--- NOTE | 2020-07-26 21:15 | W.PM.OBNL1 ---
Date of service: 07/26/20 Time of Service: 21:15 Informed Consent Informed Consent: Regional Anesthesia and Risk,Benefits,Alternatives Discussed Pelvic Exam Dilation: 5 Effacement (%): 100 station: 0 Cervix Position: mid Consistency: soft Vaginal Exam Presentation: Cephalic Fetus A Monitor: External (US) Heart Rate Baseline: 100 Presentation: Cephalic Variability: Moderate (6-25 BPM) Categories: Category I Accelerations: 15 X 15 Decelerations: None Amniotic Membrane Status: Intact Assessment and Plan Assessment and plan (1) 39 weeks gestation of : Status: Acute Assessment and plan: A: active labor, intact membranes P: regional anesthesia monitor for further labor progression anticipate (2) Pancreatitis: Status: Chronic Qualifiers: Chronicity: acute Pancreatitis type: idiopathic Acute pancreatitis complication: no infection or necrosis Qualified Code(s): K85.00 - Idiopathic acute pancreatitis without necrosis or infection Objective Vital Signs Reviewed: Yes Objective Narrative Objective Narrative: Pt has been out of bed, using the physioball, ambulating, nausea continues and occasional emesis. 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
[2020-07-26] MEDS: fentaNYL 100 MCG/2 ML VIAL EP (22:38)
--- NOTE | 2020-07-26 22:59 | W.PM.OBNL1 ---
Date of service: 07/26/20 Time of Service: 22:59 Pelvic Exam Dilation: 7 Effacement (%): 100 station: +1 Cervix Position: mid Consistency: soft Vaginal Exam Presentation: Cephalic Contractions Monitor Mode: External Contraction Frequency(min): every 2-3 minutes Contraction Duration(sec): 60 -90 seconds Intensity: Moderate/Strong Fetus A Monitor: External (US) Heart Rate Baseline: 100 Presentation: Cephalic Variability: Moderate (6-25 BPM) Categories: Category I Characteristics: Normal Accelerations: 15 X 15 Decelerations: Early Amniotic Membrane Status: Ruptured Rupture Method: Artifical Amniotic Fluid: Clear Amount: moderate, FSE placed Date of Membrane Rupture: 07/26/20 Time of Membrane Rupture: 22:24 Assessment and Plan Assessment and plan (1) 39 weeks gestation of : Status: Acute Assessment and plan: A: epidural placed, tolerated well pt reports relief from abd pain though vaginal discomfort remains clear fluid, category 1 per FSE active labor with progression P: Anticipate (2) Pancreatitis: Status: Chronic Qualifiers: Chronicity: acute Pancreatitis type: idiopathic Acute pancreatitis complication: no infection or necrosis Qualified Code(s): K85.00 - Idiopathic acute pancreatitis without necrosis or infection Objective Vital Signs Reviewed: Yes Objective Narrative Objective Narrative: Immediately after epidural induction, FHT's deceled to 70's, SVE 6/100% vtx 0 station, AROM for clear fluid, FSE placed FHT's then stabilized at previously noted low baseline 95-110, moderate variability and accels noted for category 1 tracing overall Maternal BP stable at 120's over 70's, maternal HR 55-65 Pt states her abd pain is gone, vaginal pressure and discomfort is increasing, moving legs equally Pt positioned in semifowlers with RLP tilt Subjective Interval history since last seen: epidural placed with some relief, reporting increasing vaginal pressure Results Abnormal Lab Findings:
[2020-07-26] MEDS: Bupivacaine 0.25% Pres-Free 10 ML VIAL EP (23:02)
[2020-07-26] MEDS: FentaNYL/ROPIvacaine 2 mcg/ml and 0.1% 200 ML CADD Cassette EP (23:02)
[2020-07-27] MEDS: Oxytocin/Normal Saline 30 UNIT/500 ML BAG 167 UNITS IV (00:20)
--- NOTE | 2020-07-27 00:47 | OBVDS_ITS ---
Date of service: 07/27/20 Time of Service: 00:47 OB Labor/ Delivery Information Baby A Delivery Delivery Method: Spontaneaous Presentation: Cephalic Cephalic Position: Vertex Vertex Position: Left Occipital Anterior Breech Position: N/A Cord Description-Baby A: 3 Vessels and Other (nuchal hand) Amniotic Fluid: Clear Estimated Blood Loss: 350 Delivery Outcome: Liveborn Transferred: Remains with Mother Note: After epidural placement, pt progressed rapidly to complete dilation with descent to +3, 2nd stage huddle completed, coached pushing for less than an hour resulted in of vigorous male infant, nuchal hand noted. directly to mother's arms, pitocin IV infusion begun, cord ceased pulsations and clamped then cut by mother, cord blood collected, [place] placenta intact with 3VC. 2nd degree vaginal/perineal laceration repaired with 3.0 Vicryl, perineal lac edges are bruised and edematous but well approximated with repair. Excellent mother/infant bonding observed, apgars 9/9, weight 3310 gms Providers Nurse Private Client Advisor: Susie Ray Nurse: Chloe Overton Nurse: Nithin Hinds Labor/Delivery Information Steroids Given: None Group Beta Strep: Negative Rubella Status: Immune Blood Type: A- Varicella Immunity: Immune Maternal Complications: None Shoulder Dystocia: No Stages of Labor Onset of Labor Date: 07/26/20 Onset of Labor Time: 16:00 Complete Dilatation Date: 07/26/20 Complete Dilatation Time: 23:17 Labor - Stage 1 Duration: 0 minutes ROM Baby A: 07/26/20 ROM Baby A: 22:24 Infant Delivery Date-Baby A: 07/27/20 Delivery Time-Baby A: 00:17 Labor Stage 2 Duration: 1 hours and 0 minutes Placenta Delivery Date-Baby A: 07/27/20 Placenta Delivery Time-Baby A: 00:30 Labor-Stage 3 Duration: 13 minutes Total Length of Labor-Baby A: 8 hours and 17 minutes Placenta Status: Delivered Baby A Gender: Male Gestational Status: Term (39-41.6 wks) Gestational Age in Weeks/Days: 39 Weeks and 4 Days weight: 7 lb 4.757 oz Weight Comment: 3310 gms Score-1 Minute Interval(Baby A) Heart Rate-1 minute: 100 BPM or Greater Respiratory Effort- 1 minute: Spontaneous/Strong Cry Muscle Tone-1 minute: Active Movement Reflex Response-1 minute: Prompt Response Color-1 minute: Bluish Hands or Feet Score-5 Minute Interval(Baby A) Heart Rate- 5 minute: 100 BPM or Greater Respiratory Effort-5 minute: Spontaneous/Strong Cry Muscle Tone-5 minute: Active Movement Reflex Response-5 minute: Prompt Response Color-5 minute: Bluish Hands or Feet Procedure Procedures: Cord Blood Collection Interventions Repair of Laceration Type: Perineal , Laceration Extension: Second Degree . Sponge Count Correct: Yes , Sharp Count Correct: Yes . Laceration Repair Note: 3.0 Vicryl used to repair lac under epidural anesthesia
[2020-07-27 00:49] VITALS: BP 119/56; PULSE 72
[2020-07-27] MEDS: Ibuprofen 600 MG TAB PO ×3 (00:53→19:34)
[2020-07-27] MEDS: Acetaminophen 325 MG TAB (00:53)
[2020-07-27 01:19] VITALS: BP 110/63; PULSE 74
[2020-07-27 01:22] LABS: COVID-19 RT-PCR UVMMC Result Negative (Negative)
[2020-07-27 02:00] VITALS: BP 126/73; PULSE 72; RESP 18; TEMP 36.7
[2020-07-27 04:04] VITALS: BP 102/64; PULSE 61; RESP 18; TEMP 36.7
[2020-07-27 08:00] VITALS: BP 109/68; PULSE 68; RESP 14; TEMP 37.2
[2020-07-27] MEDS: Acetaminophen 325 MG TAB 650 MG PO ×2 (09:04→19:35)
[2020-07-27] MEDS: Famotidine 20 MG TAB PO (09:05)
[2020-07-27] MEDS: Docusate Sodium 100 MG CAP PO ×2 (09:05→19:37)
[2020-07-27] MEDS: Sucralfate 1 GM TAB PO (11:21)
--- NOTE | 2020-07-27 12:35 | W.PM.OBPNV1 ---
Date of service: 07/27/20 Time of Service: 12:36 Subjective Subjective Interval history: Has not slept since baby was born but otherwise doing well. States she has tenderness at perineal laceration site. Patient comments: Tolerating diet Patient's Mood: appropriate [place] baby status: Doing well, Nursing well, Rooming in and Strong Bonding Observed feeding status: Exclusively breast feeding Narrative: S) feels proud of her delivery. only concern is perineal laceration edema and discomfort with moving in an out of bed as well as walking. O) VS stable Alert and oriented times 3, speech clear and appropriate, steady gait when out of bed Breasts normal/ nipples intact Fundus firm less than U Small lochia Perineum edematous, soft to touch, no ecchymosis A) DOD NVD with 2 degree perineal laceration repaired Lactating Mother P) Continue present management, will give tylenol #3 for discomfort not covered by ibuprofen Sitz bath ordered Undecided on circ. encouraged patient to decide today Will reassess in morning or prn .KH Exam Physical Exam Vital signs: Temp Pulse Resp BP Pulse Ox 99.0 F 68 14 109/68 98 07/27/20 08:00 07/27/20 08:00 07/27/20 08:00 07/27/20 08:00 07/26/20 23:44 Results Hemoglobin/Hematocrit: Hgb 12.1 g/dL (11.2-15.7) 07/26/20 14:35 Hct 36.0 % (36.0-46.0) 07/26/20 14:35 Abnormal Lab Findings: Abnormal Labs 07/26/20 14:35 RBC 3.74 L MCV 96.3 H MPV 12.1 H Progress Note: Quality AMI Clinical Trial Participant: No
[2020-07-27 15:35] VITALS: BP 115/77; PULSE 69; RESP 14; TEMP 36.6; O2SAT 98
--- NOTE | 2020-07-27 19:35 | W.PM.OBDISCH ---
Date of service: 07/27/20 Time of Service: 19:35 DS: Diagnosis Discharge Diagnosis (1) 39 weeks gestation of : Status: Acute (2) Pancreatitis: Status: Chronic (3) care following vaginal delivery: Start date: 07/27/20 Start time: 19:36 Status: Acute Asessment and Plan: Patient requesting discharge to [facility] as she feels she needs to go outside to smoke. Is aware that [facility] is smoke free and that she is able to be discharged with plan to return to be with baby as border baby. She is also aware that she is not able to be medicated or treated upon her return and continues to desire discharge. Discharge Plan Disposition Patient Disposition: HOME Condition: Stable Discharge Details Reason For Visit: induction of labor Admit Date/Time: 07/26/20 08:00 Admit Provider: Susie Ray Attending Provider: Susie Ray Primary Care Provider: Reena Del Angel V Hospital Course Hospital Course: IOL for pancreatitis, cytotec 25 mcg oral with good response, NVD with 2nd degree perineal laceration which was repaired. Live male child. Stable PP course. Home Meds and New Rx's Prescriptions: No Action ondansetron HCl 4 mg tablet 4 mg PO Q6H PRN (Reason: nausea and vomiting) Qty: 90 RF: 2 sucralfate [Carafate] 100 mg/mL suspension 10 ml PO QACHS Qty: 200 RF: 4 famotidine 40 mg tablet 40 mg PO BID Qty: 30 RF: 2 Discharge Instructions Instructions: Vaginal Delivery (DC) Additional Instructions: to be seen at 2 weeks by telehealth visit and then at 6 weeks for PP visit and Depo Provera per patient request. Activity:: no sexual activity Equipment/Supplies:: No Equipment Needed Diet:: As Tolerated Discharge Orders Discharge Orders: Discharge Order (Routine); Ordered 07/27/20 Ordered By: Lesa Bucio Discharge Data Discharge Date/Time-TO BE ENTERED AT DEPARTURE: 07/27/20 19:44 OB:DS Summary Summary Vaginal Delivery Method: Spontaneaous Laceration Description: Perineal Laceration Extension: Second Degree Contraception Discussed Contraception Discussed: Yes (Plans depo at 6 week PP visit.LEE), Gender-Baby A: Male weight: 7 lb 4.757 oz Status at Discharge Functional status at discharge: independent ambulation Overall status at discharge: patient is back to baseline Mental Status: mental status grossly normal Speech and Movement: speech and movement normal Mood: irritable mood (related to desire to smoke, declines nicotine patch, desires discharge.) Affect: irritable affect Quality: AMI Clinical Trial Participant: No Exam Physical Exam Vital signs: Temp Pulse Resp BP Pulse Ox 97.9 F 69 14 115/77 98 07/27/20 15:35 07/27/20 15:35 07/27/20 15:35 07/27/20 15:35 07/27/20 15:35 Vital Signs Reviewed: Yes Constitutional Constitutional: no acute distress HEENT Exam HEENT Exam: Normal Neck Exam Neck Exam: Not Done Breast Exam normal: Breast Exam: Normal Nipple Exam: Normal Respiratory Exam Respiratory Exam: Normal Cardiovascular Exam Cardiovascular Exam: Normal Abdominal Exam Comments: normal abd. exam Fundal Exam Fundus: Below Umbilicus Rectal Exam Rectal Exam: Not Done Exam Perineum: Edematous (softly edematous, less than previously today, voiding well.) Extremities Exam Extremity Exam: Normal Back/Spine/Pelvis Exam Back Exam: Normal Skin Exam Skin Exam: Normal Neurological Exam Neurological Exam: Normal Psychiatric Exam Psychiatric Exam: Normal [facility] Medical History Abnormal electroencephalogram (12/21/11) Abnormal ultrasound Anxiety disorder 9 month inpatient care [place] Chronic constipation Depot contraception (03/20/16) started 04/08 for menorragia control Depression Eating disorder (03/18/14) bulemia Encounter for Depo-Provera contraception (12/05/16) Fracture of left radius (11/07/08) Hyperemesis gravidarum Infection due to Chlamydia species (08/21/17) Low lying placenta nos or without hemorrhage, third trimester Major depressive disorder, single episode, severe, with psychotic behavior (03/18/14) Pediatric body mass index (BMI) of 5th percentile to less than 85th percentile for age (02/15/16) Suicidal ideation Family History Father Hepatitis B Substance abuse HIV (human immunodeficiency virus infection) Mother No problems noted. Other Diabetes pat aunt Essential hypertension MGF Personal history of malignant neoplasm MGM-breast Heart disease MGF Hyperlipidemia MGF Mental disorder PGM-anxiety/depression Myocardial infarction MGF Stroke MGF Brother Alcohol abuse Social History Smoking/Tobacco Use Status: Former Tobacco Use tobacco type: cigarettes Quit Date: 12/03/19 Tobacco: How many years used: 4 Counseling given: other Smoking risk assessment performed?: Yes Alcohol Intake: former Year quit: Thou Details: Stop 12/03/2019 with positive UPT Drug use: Current Sobriety Substance use type: marijuana Details: HX daily marijuana use--currently using marijuana. 28 weeks gestation. Household members: family and other Details: Lives with her parents. 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 Do you feel safe at home: Yes Do you feel safe in your relationship?: Yes History History 1 Para 0 Hx # Term Pregnancies 0 Multiple births 0 Hx # Pregnancies 0 Ectopic pregnancies 0 AB induced 0 Hx Number of Living Children 0 AB spontaneous 0 DS: Data Vitals/I&O Vitals and I&O: Vital Signs Temperature 97.9 F 07/27/20 15:35 Pulse 69 07/27/20 15:35 Pulse Rhythm Regular 07/27/20 15:35 Respiratory Rate 14 07/27/20 15:35 Blood Pressure 115/77 07/27/20 15:35 Blood Pressure Mean 89 07/27/20 15:35 Pulse Oximetry 98 07/27/20 15:35 Oxygen Delivery Method Room Air 07/26/20 13:21 Oxygen Flow Rate 0 07/26/20 13:21 Pain Level 6 07/27/20 19:35 Intake & Output 07/26/20 07/27/20 07/27/20 23:59 11:59 23:59 Intake Total 120 / 120 2603.5 / 2603.5 Output Total 1250 / 1250 975 / 1375 400 / 1375 Balance -1130 / -1130 1628.5 / 1228.5 -400 / 1228.5 Weight 141 lb Intake: IV 2483.5 / 2483.5 Oral 120 / 120 120 / 120 Output: Urine 550 / 550 975 / 1375 400 / 1375 Emesis 700 / 700 Other: Urine Color Pale Yellow Yellow Data Completed and Pending Labs on day of discharge: Labs from last 24 hours 07/27/20 07/26/20 07/26/20 07:13 15:25 14:35 SARS-CoV-2 (PCR) Negative Nasopharyn COVID-19 PCR Not Applicable Ref Test Perform Site [facility] lab Screen Cancelled Unit Expiration Date Cancelled Product Lot # Cancelled
== END 2020-07-27 19:44 | disposition home or self-care (01) | DRG 805 ==
PROVIDERS: Advanced Practice Midwife; Admitting Provider Advanced Practice Midwife; PCP Pediatrics; Visit Provider Advanced Practice Midwife
DX: O99.62 Diseases of the digestive system complicating childbirth (principal); K85.00 Idiopathic acute pancreatitis without necrosis or infection; Z37.0 Single live birth; O36.0930 Maternal care for other rhesus isoimmunization, third trimester, not applicable or unspecified; Z3A.39 39 weeks gestation of pregnancy; O99.324 Drug use complicating childbirth; F12.90 Cannabis use, unspecified, uncomplicated; O99.344 Other mental disorders complicating childbirth; F41.8 Other specified anxiety disorders; O70.1 Second degree perineal laceration during delivery
CPT/HCPCS: 36415; 83690; 85027; 85461; 86850; 86900; 86901; 99252; U0003; 82150; J2405; J3010; J3490

== ENCOUNTER 2020-07-29 21:32 | Emergency (ER) | payer MEDICAID, SELFPAY ==
[2020-07-29 21:38] VITALS: BP 142/87; PULSE 90; TEMP 36.5; O2SAT 98
--- NOTE | 2020-07-29 22:05 | W.ED.GENAD ---
Discharge Plan Disposition Patient Disposition: HOME Condition: Stable Discharge Details Clinical Impression: Dysuria Primary Care Provider: Reena Del Angel V ED Provider: Sabrina Edwards Home Meds and New Rx's Prescriptions: No Action ondansetron HCl 4 mg tablet 4 mg PO Q6H PRN (Reason: nausea and vomiting) Qty: 90 RF: 2 sucralfate [Carafate] 100 mg/mL suspension 10 ml PO QACHS Qty: 200 RF: 4 famotidine 40 mg tablet 40 mg PO BID Qty: 30 RF: 2 Discharge Instructions Instructions: Perineal Care (DC), Dysuria (ED) Additional Instructions: Keep your women's wellness appointment as previously scheduled tomorrow. Continue using peribottle and anesthetic spray they were given, use ice packs. Return to the ED for any fever, vomiting, diarrhea. Please take Tylenol or Ibuprofen with food every 4-6 hours as needed for pain and swelling. Referrals: Reena Del Angel MD [Primary Care Provider] - Discharge Data Discharge Date/Time-TO BE ENTERED AT DEPARTURE: 07/29/20 22:40 Medical Decision Making 20-year-old female presents to the ED with chief complaint of dysuria she is to days status post vaginal delivery of 39-week baby. She is breast-feeding. She did obtain a second-degree labial tear with delivery which was sutured, she does report that she is not having any significant worsened vaginal bleeding, she does report mild bilateral flank pain. She did have history of pancreatitis while being and had mild hydronephrosis noted on an ultrasound which was consistent with gravidarum. She denies any fever, vomiting, abdominal pain. Urinalysis shows squamous contamination which would be expected 2 days . At this time will not treat for UTI, I would recommend obtaining another line cleaner catch urine sample to confirm no UTI. At this time I do feel that this is normal healing and macy-pain related to vaginal and labial tear. I did provide some encouragement and home care teaching about using peribottle with every urination, applying ice packs, taking Tylenol and/or ibuprofen as needed for pain, patient does have an appointment with women's wellness tomorrow and I encouraged her to keep that appointment. Patient was given 2 ice packs from labor and delivery to take home discussed home care and strict return instructions, patient verbalized understanding. HPI General Mode of arrival: ambulatory. Date/Time Provider Initiated Documentation: 07/29/20 21:44. Limitations to Documentation: no limitations. Information obtained by: patient. HPI Narrative: 20-year-old female presents to the ED with chief complaint of dysuria she is to days status post vaginal delivery of 39-week baby. She is breast-feeding. She did obtain a second-degree labial tear with delivery which was sutured, she does report that she is not having any significant worsened vaginal bleeding, she does report mild bilateral flank pain. She did have history of pancreatitis while being and had mild hydronephrosis noted on an ultrasound which was consistent with gravidarum. She denies any fever, vomiting, abdominal pain. Related Data Home Medications Medication Instructions Recorded Confirmed ondansetron HCl 4 mg tablet 4 mg PO Q6H PRN #90 tab 05/20/20 07/26/20 sucralfate 100 mg/mL oral 10 ml PO QACHS #200 ml 05/21/20 07/26/20 suspension famotidine 40 mg tablet 40 mg PO BID #30 tab 07/22/20 07/26/20 Previous Rx's Medication Instructions Recorded ondansetron HCl 4 mg tablet 4 mg PO Q6H PRN #90 tab 05/20/20 sucralfate 100 mg/mL oral 10 ml PO QACHS #200 ml 05/21/20 suspension famotidine 40 mg tablet 40 mg PO BID #30 tab 07/22/20 Allergies Allergy/AdvReac Type Severity Reaction Status Date / Time diphenhydramine AdvReac Hyperactivi Unverified 07/29/20 21:58 ty General Stated Complaint: Urinary JARED: 3 Review of Systems Narrative: Constitutional: Negative for weight loss, alert and oriented, well groomed, normal body habitus, appears comfortable. HEENT: Denies trauma, headaches, blurry vision, nasal discharge, sore throat, trouble swallowing. Chest: Denies chest pain, palpitations, irregular rhythm, hypertension. Respiratory: Denies Shortness of breath, cough, hemoptysis. GI: Denies abdominal pain, nausea, vomiting, diarrhea, constipation. : Denies hematuria, rectal bleeding. Positive dysuria. Pain mild bilateral flank pain Neuro: Denies dizziness, blurry vision, weakness, syncope, headache or facial numbness. Hematologic: Denies easy bruising, intolerance to heat or cold, hair loss. [facility] Medical History Abnormal electroencephalogram (12/21/11) Abnormal ultrasound Anxiety disorder 9 month inpatient care [facility] Chronic constipation Depot contraception (03/20/16) started 04/08 for menorragia control Depression Eating disorder (03/18/14) bulemia Encounter for Depo-Provera contraception (12/05/16) Fracture of left radius (11/07/08) Hyperemesis gravidarum Infection due to Chlamydia species (08/21/17) Low lying placenta nos or without hemorrhage, third trimester Major depressive disorder, single episode, severe, with psychotic behavior (03/18/14) Pediatric body mass index (BMI) of 5th percentile to less than 85th percentile for age (02/15/16) Suicidal ideation Family History Father Hepatitis B Substance abuse HIV (human immunodeficiency virus infection) Mother No problems noted. Other Diabetes pat aunt Essential hypertension MGF Personal history of malignant neoplasm MGM-breast Heart disease MGF Hyperlipidemia MGF Mental disorder PGM-anxiety/depression Myocardial infarction MGF Stroke MGF Brother Alcohol abuse Social History Smoking/Tobacco Use Status: Former Tobacco Use tobacco type: cigarettes Quit Date: 12/03/19 Tobacco: How many years used: 4 Counseling given: other Smoking risk assessment performed?: Yes Alcohol Intake: former Year quit: Thou Details: Stop 12/03/2019 with positive UPT Drug use: Current Sobriety Substance use type: marijuana Details: HX daily marijuana use--currently using marijuana. 28 weeks gestation. Household members: family and other Details: Lives with her parents. 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 Appears stated age. Normal body habitus. Head: Normocephalic, no trauma. Eyes: Pupils PERRLA, Red reflex noted, EOM's intact. Eyelids symmetrical without lesions, discharge, or swelling. ENT: Bilateral TM's WNL, External ear normal to inspection, no mastoid TTP, swelling, or erythema, Nasal turbinates WNL, no nasal discharge. Normal dentition, Posterior pharynx WNL, no exudate. Chest: RRR, Normal S1, S2, distal pulses intact. Resp: Lungs clear to auscultation bilaterally, no wheezes, rales, or rhonchi. Abdominal: Soft, nontender to palpation all 4 quadrants. No CVA tenderness. Musculoskeletal: Normal gait, 5/5 strength to all four extremities. Skin: No suspicious rashes or lesions. Capillary refill less than 2 sec. Neurologic: Cranial nerves II-XII intact. Alert and oriented x 3. DTR's intact. Hematologic/Lymphatic: No ecchymosis, no lymphadenopathy. Course Vital Signs Vital signs: Vital Signs Temperature 36.5 C 07/29/20 21:38 Pulse 90 07/29/20 21:38 Blood Pressure 142/87 H 07/29/20 21:38 Pulse Oximetry 98 07/29/20 21:38 Temperature 36.5 C 07/29/20 21:38 Temperature Source Temporal Artery Scan 07/29/20 21:38 Pulse 90 07/29/20 21:38 Respiratory Effort Non-Labored 07/29/20 21:46 Blood Pressure 142/87 H 07/29/20 21:38 Blood Pressure Position Sitting 07/29/20 21:38 Pulse Oximetry 98 07/29/20 21:38 Oxygen Delivery Method Room Air 07/29/20 21:38 Oxygen Flow Rate 0 07/29/20 21:38 Pain Level 8 07/29/20 21:50
[2020-07-29 22:16] LABS: Bilirubin Small (Negative); Blood Large (Negative); Clarity Clear (Clear); Glucose Negative (Negative); Ketones Negative (Negative); Leukocyte Esterase Trace (Negative); Nitrite Negative (Negative); Specific Gravity >= 1.030 (1.005-1.025); pH 6.5 (5-8)
[2020-07-29 22:22] LABS: Bacteria Moderate HPF (Negative); Epithelial Cells Many HPF (Negative); RBC >50 HPF (0-2); WBC >50 HPF (0-5)
[2020-07-29 22:23] LABS: C & S Indicated? No/Sq. Contamination; Casts Negative LPF (Negative); Crystals Negative HPF (Negative); Mucus Negative (Negative)
== END 2020-07-29 22:40 | disposition home or self-care (01) ==
PROVIDERS: Emergency Provider Registered Nurse Emergency; PCP Pediatrics
DX: O99.893 Other specified diseases and conditions complicating puerperium (principal); R30.0 Dysuria
CPT/HCPCS: 99282; 81003; 81015; 99283

== ENCOUNTER 2020-09-07 16:26 | Outpatient (REF) | payer MEDICAID, SELFPAY | END 2020-09-07 16:27 | disposition home or self-care (01) | LOC: LBN 16:26 | PROVIDERS: PCP Pediatrics; Visit Provider Advanced Practice Midwife | DX: N89.8 Other specified noninflammatory disorders of vagina (principal) | CPT/HCPCS: 87480; 87510; 87660 ==

== ENCOUNTER 2021-03-18 20:30 | Outpatient (REF) | payer MEDICAID, SELFPAY ==
[2021-03-21 15:07] LABS: Chlamydia Result Negative (Negative); GC Result Negative (Negative)
== END 2021-03-18 20:31 | disposition home or self-care (01) ==
LOC: LBN 20:30
PROVIDERS: Visit Provider Physician Assistant Medical
DX: Z11.3 Encounter for screening for infections with a predominantly sexual mode of transmission (principal)
CPT/HCPCS: 87491; 87591; 87480; 87510; 87660

== ENCOUNTER 2021-04-16 09:28 | Emergency (ER) | payer MEDICAID, SELFPAY ==
[2021-04-16 09:31] VITALS: BP 133/85; PULSE 79; RESP 18; TEMP 36.8; O2SAT 98
--- NOTE | 2021-04-16 09:44 | ED.GENADUL_ITS ---
Discharge Plan Disposition Patient Disposition: HOME Condition: Stable Discharge Details Clinical Impression: Dental infection Primary Care Provider: Aleida,Local ED Provider: Radha Anguiano Home Meds and New Rx's Prescriptions: Continued medroxyprogesterone [Depo-Provera] 150 mg/mL syringe 150 mg IM [id number] Qty: 1 RF: 4 metronidazole 500 mg tablet 500 mg PO BID Qty: 14 RF: 0 amoxicillin 500 mg tablet 500 mg PO DAILY RF: 0 Discharge Instructions Instructions: Dental Abscess (ED) Additional Instructions: Please encourage hydration. You may continue with Tylenol and/or ibuprofen as needed for discomfort. The dental block you received here today should last next 6 to 8 hours. Please continue the antibiotics as prescribed by your dentist. Please double check the dosing recommendations on the bottle. If you develop swelling, fever/chills, sweating of pain or other new/worsening symptoms please seek care urgently once again. Otherwise, you will need definitive care with your dentist, please keep appointment but if you get on a waiting list for sooner appointment. Medical Decision Making Patient is a pleasant 20-year-old female presented with chief complaint of left lower dental pain. States this began yesterday. Pain has progressively been increasing. States that she took Tylenol this morning with minimal relief. Patient was prescribed amoxicillin by her dentist to begin the morning. Denies any fevers or chills. States that initially the pain was very much located in the region of the #17 tooth that it has gotten writing and states that it feels like upper jaw as well now. On exam, patient appears uncomfortable. She appears nontoxic. She is afebrile. She has pain with palpation along the lingual and buccal side of the #72. No significant swelling, no area of fluctuance. No swelling of the tongue. Po sterior oropharynx is without abnormality. Handling secretions well, breathing comfortably and unlabored. We will augment the patient's Tylenol with ibuprofen. Patient I discussed with/benefits as well as expected procedural steps associated with a dental block. She voiced understanding and wishes to proceed. Please see procedure note. Patient tolerated this well. Had immediate relief of her discomfort. She will continue with the antibiotics as prescribed by her dentist. I advised that she try to get a sooner appointment, she is scheduled for an appointment in May. I advised that she will need to pursue definitive treatment even if pain improves from the antibiotic to rarely. Return precautions were discussed. All of her questions and concerns were addressed and she is agreement this plan HPI General Mode of arrival: ambulatory . Date/Time Provider Initiated Documentation: 04/16/21 09:44 . Limitations to Documentation: no limitations . Information obtained by: patient and RN notes reviewed . History of Present Illness 20 year old F presents to the emergency department with the chief complaint of left lower dental pain, described as severe, with intensity rated at 10. Quality is described as sharp, and is localized to the mouth. Patient reports no radiation. Patient started experiencing this day(s) (1) and it has been constant. No relieving factors improve symptom(s), No exacerbating factors reported . Patient notes no other symptoms.. Patient did receive the following treatments prior to arrival, other (tylenol, began amoxicillin this AM) Related Data Home Medications Medication Instructions Recorded Confirmed medroxyprogesterone 150 mg/mL 150 mg IM [id number] #1 ml 08/09/20 04/16/21 intramuscular syringe metronidazole 500 mg tablet 500 mg PO BID #14 tab 09/07/20 09/07/20 amoxicillin 500 mg PO DAILY 04/16/21 04/16/21 Previous Rx's Medication Instructions Recorded medroxyprogesterone 150 mg/mL 150 mg IM [id number] #1 ml 08/09/20 intramuscular syringe metronidazole 500 mg tablet 500 mg PO BID #14 tab 09/07/20 Allergies Allergy/AdvReac Type Severity Reaction Status Date / Time diphenhydramine AdvReac Hyperactivi Unverified 04/16/21 09:34 ty General Stated Complaint: DentalOral JARED: 4 Review of Systems Constitutional Constitutional: Reports as per HPI, Denies chills, Denies fatigue, Denies fever(s), Denies headache(s) and Denies poor appetite ENT Ears, Nose, Mouth, and Throat: Reports as per HPI, Reports dental pain, Denies dysphagia, Denies dizziness, Denies dry mouth, Denies otalgia, Denies facial pain, Denies headache(s), Denies hoarseness, Denies lip swelling, Denies nasal congestion, Denies odynophagia and Denies sore throat Cardiovascular Cardiovascular: Denies dyspnea Respiratory Respiratory: Reports as per HPI, Denies cough and Denies dyspnea Gastrointestinal Gastrointestinal: Reports as per HPI, Denies dysphagia, Denies nausea, Denies odynophagia and Denies vomiting Integumentary/Breasts Skin/Breast: Reports as per HPI, Denies erythema and Denies rash Neurologic Neurologic: Reports as per HPI, Denies dizziness and Denies headache(s) Endocrine Endocrine: Denies fatigue Allergic/Immunologic Allergic/Immunologic: Denies lip swelling [facility] Medical History (Updated 04/16/21 @ 10:48 by ANTONY Verma) 39 weeks gestation of Abnormal electroencephalogram (12/21/11) Abnormal ultrasound Anxiety disorder 9 month inpatient care [facility] Chronic constipation Depot contraception (03/20/16) started 04/08 for menorragia control Depression Dysuria Eating disorder (03/18/14) bulemia Encounter for Depo-Provera contraception (12/05/16) Fracture of left radius (11/07/08) Hyperemesis gravidarum Infection due to Chlamydia species (08/21/17) Low lying placenta nos or without hemorrhage, third trimester Major depressive disorder, single episode, severe, with psychotic behavior (03/18/14) Pediatric body mass index (BMI) of 5th percentile to less than 85th percentile for age (02/15/16) Rh negative state in antepartum period Small for gestational age fetus Suicidal ideation Vomiting affecting Family History Father Hepatitis B Substance abuse HIV (human immunodeficiency virus infection) Mother No problems noted. Other Diabetes pat aunt Essential hypertension MGF Personal history of malignant neoplasm MGM-breast Heart disease MGF Hyperlipidemia MGF Mental disorder PGM-anxiety/depression Myocardial infarction MGF Stroke MGF Brother Alcohol abuse Social History Smoking/Tobacco Use Status: Former Tobacco Use tobacco type: cigarettes Quit Date: 12/03/19 Tobacco: How many years used: 4 Counseling given: other Smoking risk assessment performed?: Yes Alcohol Intake: former Year quit: Thou Details: Stop 12/03/2019 with positive UPT Drug use: Current Sobriety Substance use type: marijuana Details: HX daily marijuana use--currently using marijuana. 28 weeks gestation. Household members: family and other Details: Lives with her parents. 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 Date GA/Weeks # Outcome Route Wgt Sex Labor Lgth Anesthes ia Location Prov Complic 07/27/20 39 No Successful vaginal 3316.894 g Male 8 hrs 17 min [facility] Delivery Date: 07/27/20 2nd degree laceration w/repair; [facility] Exam Const General: cooperative, healthy appearing, uncomfortable, no acute distress, well developed and well groomed Nutritional Appearance: average body habitus and well nourished Orientation: alert and awake [facility] Head: normal to inspection, normocephalic and atraumatic Ears: hearing grossly normal bilaterally, external ears normal and TM's normal bilaterally General nose exam: external nose normal and nares normal Face and sinus: normal facial exam, sinuses nontender and face symmetric Mouth: oral mucosae normal, lip normal, tongue normal, moist mucous membranes, no trismus and No restricted motion Teeth and gingiva: poor dentition (pain maximally near #17 tooth) Throat: posterior oropharynx normal, tonsils normal and uvula midline Eyes General: appearance normal, both eyes and all related structures Neck Neck: normal visual inspection, full ROM, no lymphadenopathy, supple and no anterior neck swelling Resp Effort & Inspection: normal respiratory effort, able to speak in complete sentences and no respiratory distress Auscultation: no rales Cardio Rate: regular rate Rhythm: regular rhythm Skin General skin exam: no rashes or lesions noted Trauma: no lacerations or abrasions Neuro General: patient alert and patient awake Cognition: normal cognition Speech: speech normal Gait: normal gait Psych Appearance: grossly normal and well kempt Mental Status: mental status grossly normal Speech and Movement: speech and movement normal Course Vital Signs Vital signs: Vital Signs Temperature 36.8 C 04/16/21 09:31 Pulse 791 H 04/16/21 09:31 Respiratory Rate 18 04/16/21 09:31 Blood Pressure 133/85 04/16/21 09:31 Pulse Oximetry 98 04/16/21 09:31 Temperature 36.8 C 04/16/21 09:31 Temperature Source Temporal Artery Scan 04/16/21 09:31 Pulse 791 H 04/16/21 09:31 Respiratory Rate 18 04/16/21 09:31 Respiratory Effort Non-Labored 04/16/21 09:35 Blood Pressure 133/85 04/16/21 09:31 Blood Pressure Position Sitting 04/16/21 09:31 Pulse Oximetry 98 04/16/21 09:31 Oxygen Delivery Method Room Air 04/16/21 09:31 Oxygen Flow Rate 0 04/16/21 09:31 Pain Level 10 04/16/21 09:36 Procedures Nerve Block Nerve Block 1: Time out performed: Yes Local Anesthetic: Lidocaine 1% and Bupivicaine 0.5% Amount of anesthesia used (mL): 1.5 Side: left Intraoral Nerve Block: supraperiosteal Procedure Successful: Yes Patient Tolerated Procedure: well and no complications Complications: none
[2021-04-16] MEDS: Ibuprofen 600 MG TAB PO (10:08)
[2021-04-16] MEDS: Benzocaine 20% Gel 30 GM JAR MM (10:38)
[2021-04-16] MEDS: Bupivacaine 0.5% Pres-Free 30 ML VIAL IJ (10:41)
[2021-04-16] MEDS: Lidocaine 1% Pres-Free 5 ML VIAL (10:41)
[2021-04-16 10:55] VITALS: BP 122/62; PULSE 60; RESP 16; O2SAT 100
== END 2021-04-16 11:07 | disposition home or self-care (01) ==
PROVIDERS: Emergency Provider Physician Assistant
DX: K04.7 Periapical abscess without sinus (principal)
CPT/HCPCS: 64400; 81025; J3490

== ENCOUNTER 2021-04-16 20:17 | Emergency (ER) | payer MEDICAID, SELFPAY ==
[2021-04-16 20:21] VITALS: BP 130/56; PULSE 74; RESP 18; TEMP 36.6; O2SAT 98
--- NOTE | 2021-04-16 20:33 | ED.GENADUL_ITS ---
Discharge Plan Disposition Patient Disposition: HOME Condition: Stable Discharge Details Clinical Impression: Pain, dental Primary Care Provider: AleidaLocal ED Provider: Kulwinder Arreguin Home Meds and New Rx's Prescriptions: New lidocaine HCl [Lidocaine Viscous] 2 % solution 1 applic mucous membrane TID PRN (Reason: pain) Qty: 100 RF: 0 gabapentin 300 mg capsule 300 mg PO TID Qty: 20 RF: 0 Continued medroxyprogesterone [Depo-Provera] 150 mg/mL syringe 150 mg IM [id number] Qty: 1 RF: 4 amoxicillin 500 mg tablet 500 mg PO DAILY RF: 0 Discharge Instructions Instructions: Toothache (ED) Additional Instructions: You can take 1000mg tylenol and 600mg ibuprofen every 6 hours as needed follow up with your dentist as soon as possible if you develop difficulty swallowing liquids, difficulty breathing, fevers or feel more ill return to the emergency department Medical Decision Making 20 yo female comes in with left lower posterior tooth pain. She states it started yesterday and her dentist started her on amoxicillin. She was seen earlier this morning and had a dental block with pain relief but pain has returned. She has not had fevers, dyspnea, neck pain, or difficulty swallowing. She localizes the pain to the posterior left lower molar. Has no swelling, no drainable abscess. Has no submandibular swelling, no pain over the hyoid, normal posterior pharynx with midline uvula and no restricted neck movements. She does have some erosion of the tooth enamel which is likely causing the pain. No findings on exam to suggest ludwigs, epiglottitis, pharyngitis, retropharyngeal abscess or periotonsilar abscess. Will try topical lidocaine and gabapentin and reassess. Do not feel repeat dental block would be of benefit given how quickly it went away pt feels significantly better and has no pain after lidocaine. Will d/c and have her f/u with dentist, return precautions given Differential Diagnosis Differential Diagnosis: dental pain, pulpitis, caries HPI General Mode of arrival: ambulatory . Date/Time Provider Initiated Documentation: 04/16/21 20:20 . Limitations to Documentation: no limitations . Information obtained by: patient . History of Present Illness 20 year old F presents to the emergency department with the chief complaint of left lower dental pain, described as moderate, Quality is described as aching, and is localized to the mouth. Patient reports no radiation. Patient started experiencing this day(s) (1) and it has been constant. No relieving factors improve symptom(s), No exacerbating factors reported . Patient notes no other symptoms.. Patient did receive the following treatments prior to arrival, NSAID Related Data Home Medications Medication Instructions Recorded Confirmed medroxyprogesterone 150 mg/mL 150 mg IM [id number] #1 ml 08/09/20 04/16/21 intramuscular syringe amoxicillin 500 mg PO DAILY 04/16/21 04/16/21 gabapentin 300 mg PO TID #20 cap 04/16/21 lidocaine HCl [Lidocaine Viscous] 1 applic MUCOUS MEMBRANE TID PRN 04/16/21 #100 ml Previous Rx's Medication Instructions Recorded medroxyprogesterone 150 mg/mL 150 mg IM [id number] #1 ml 08/09/20 intramuscular syringe gabapentin 300 mg PO TID #20 cap 04/16/21 lidocaine HCl [Lidocaine Viscous] 1 applic MUCOUS MEMBRANE TID PRN 04/16/21 #100 ml Allergies Allergy/AdvReac Type Severity Reaction Status Date / Time diphenhydramine AdvReac Hyperactivi Unverified 04/16/21 09:34 ty General Stated Complaint: DentalOral JARED: 5 Review of Systems All systems reviewed & are unremarkable except as noted in HPI and below Constitutional Constitutional: Denies chills, Denies fever(s) and Denies weakness Cardiovascular Cardiovascular: Denies chest pain and Denies dyspnea Respiratory Respiratory: Denies cough and Denies dyspnea Gastrointestinal Gastrointestinal: Denies abdominal pain, Denies nausea and Denies vomiting Musculoskeletal Musculoskeletal: Denies joint swelling Neurologic Neurologic: Denies weakness [facility] Medical History (Updated 04/16/21 @ 20:37 by Kulwinder Arreguin MD) 39 weeks gestation of Abnormal electroencephalogram (12/21/11) Abnormal ultrasound Anxiety disorder 9 month inpatient care [place] Chronic constipation Depot contraception (03/20/16) started 04/08 for menorragia control Depression Dysuria Eating disorder (03/18/14) bulemia Encounter for Depo-Provera contraception (12/05/16) Fracture of left radius (11/07/08) Hyperemesis gravidarum Infection due to Chlamydia species (08/21/17) Low lying placenta nos or without hemorrhage, third trimester Major depressive disorder, single episode, severe, with psychotic behavior (03/18/14) Pediatric body mass index (BMI) of 5th percentile to less than 85th percentile for age (02/15/16) Rh negative state in antepartum period Small for gestational age fetus Suicidal ideation Vomiting affecting Family History Father Hepatitis B Substance abuse HIV (human immunodeficiency virus infection) Mother No problems noted. Other Diabetes pat aunt Essential hypertension MGF Personal history of malignant neoplasm MGM-breast Heart disease MGF Hyperlipidemia MGF Mental disorder PGM-anxiety/depression Myocardial infarction MGF Stroke MGF Brother Alcohol abuse Social History Smoking/Tobacco Use Status: Current every day Tobacco Type: cigarettes Tobacco: How many years used: 4 Counseling given: other Smoking risk assessment performed?: Yes Alcohol Intake: former Year quit: Thou Details: Stop 12/03/2019 with positive UPT Drug use: Current Sobriety Substance use type: marijuana Details: HX daily marijuana use--currently using marijuana. 28 weeks gestation. Household members: family and other Details: Lives with her parents. 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 Date GA/Weeks # Outcome Route Wgt Sex Labor Lgth Anesthes ia Location [facility] 07/27/20 39 No Successful vaginal 3316.894 g Male 8 hrs 17 min SCOTT Gomes Delivery Date: 07/27/20 2nd degree laceration w/repair; Gabi Pitts Exam Const General: no acute distress Orientation: alert HENMT Head: normal to inspection Ears: external ears normal General nose exam: external nose normal Mouth: moist mucous membranes Eyes General: appearance normal, both eyes and all related structures Neck Neck: normal visual inspection Resp Effort & Inspection: normal respiratory effort and able to speak in complete sentences Cardio Rate: regular rate Skin General skin exam: no rashes or lesions noted Neuro General: patient alert and patient oriented x3 Extrem General: normal to inspection Psych Mental Status: mental status grossly normal Course Vital Signs Vital signs: Vital Signs Temperature 36.6 C 04/16/21 20:21 Pulse 74 04/16/21 20:21 Respiratory Rate 18 04/16/21 20:21 Blood Pressure 130/56 L 04/16/21 20:21 Pulse Oximetry 98 04/16/21 20:21 Temperature 36.6 C 04/16/21 20:21 Temperature Source Skin 04/16/21 20:21 Pulse 74 04/16/21 20:21 Respiratory Rate 18 04/16/21 20:21 Respiratory Effort Non-Labored 04/16/21 20:24 Blood Pressure 130/56 L 04/16/21 20:21 Pulse Oximetry 98 04/16/21 20:21 Pain Level 6 04/16/21 20:24
[2021-04-16] MEDS: Gabapentin 300 MG CAP PO (20:37)
[2021-04-16] MEDS: Lidocaine 2% Viscous 15 ML CUP PO ×2 (20:38→21:11)
== END 2021-04-16 21:17 | disposition home or self-care (01) ==
PROVIDERS: Emergency Provider Emergency Medicine
DX: R68.84 Jaw pain (principal)
CPT/HCPCS: 99283

== ENCOUNTER 2021-05-10 15:00 | Outpatient (REF) | payer MEDICAID, SELFPAY ==
[2021-05-11 14:50] LABS: Chlamydia Result Negative (Negative); GC Result Negative (Negative)
== END 2021-05-10 15:01 | disposition home or self-care (01) ==
LOC: LBN 15:00
PROVIDERS: Visit Provider Nurse Practitioner Family
DX: Z11.3 Encounter for screening for infections with a predominantly sexual mode of transmission (principal)
CPT/HCPCS: 87491; 87591

== ENCOUNTER 2021-09-06 07:27 | Emergency (ER) | payer MEDICAID, SELFPAY ==
[2021-09-06] VITALS (17 sets, daily range): BP systolic 104–134; BP diastolic 59–84; PULSE 50–91; RESP 12–26; TEMP 36.1–36.7; O2SAT 96–99
--- NOTE | 2021-09-06 07:58 | W.ED.GENAD ---
Discharge Plan Disposition Patient Disposition: HOME Condition: Improving Discharge Details Clinical Impression: Abdominal pain, vomiting, and diarrhea Primary Care Provider: Unknown,Unknown ED Provider: Salud Bonner Home Meds and New Rx's Prescriptions: New promethazine 25 mg tablet 25 mg PO TID PRN (Reason: nausea and vomiting) Qty: 7 0RF Discharge Instructions Instructions: Acute Nausea and Vomiting (ED), Acute Diarrhea (ED), Abdominal Pain (ED) Additional Instructions: Your lab work today is reassuring and shows no evidence of acute concerning or significant findings. Drink plenty of fluids and get plenty of rest. Take the Phenergan as needed and directed for nausea and vomiting. Follow-up with your primary care doctor in 1 week. Return to the emergency department with any worsening or new concerning symptoms. Discharge Data Discharge Date/Time-TO BE ENTERED AT DEPARTURE: 09/06/21 12:00 Discharge Physician: Salud Bonner Medical Decision Making 0815 -- 21-year-old female well-known to the emergency department for multiple visits for nausea and vomiting presents with vomiting, diarrhea and epigastric pain since last night. Vitals within normal limits. Patient appears uncomfortable and that she is sitting up and dry heaving at times. She otherwise appears nontoxic. Her abdomen is soft but is tender in the epigastrium. There is no rigidity or guarding. Differential diagnosis includes hyper emesis cannabinoid syndrome, gastroenteritis, viral illness, UTI, etc. We will place an IV, bolus IV fluids, screening labs, Zofran, Pepcid and once able to tolerate p.o. we will give GI cocktail and Carafate. 0845 -- Patient vomiting again, will give a dose of Phenergan IV. Labs reviewed. Normal white blood cell count. Normal electrolytes. Urinalysis negative for infection but notes findings likely with dehydration and not eating. 1020 -- patient reassessed and she feels better and willing to try p.o. meds and attempt to drink. 1125 --patient reassessed and she is able to take p.o. and feels comfortable going home. She denies any abdominal pain so with reassuring labs, do not see an indication for imaging at this time and pt is agreeable. She was given Phenergan to go as well as a prescription. Advised to follow up with the primary care doctor for re-evaluation. Usual and customary return precautions given prior to discharge. Medical Records Medical records reviewed: Yes I reviewed the patient's medical records. Lab Data Lab results reviewed: Yes I reviewed the patient's lab results. Labs: Laboratory Tests Range/Units 09/06/21 09/06/21 09/06/21 07:50 07:50 07:50 WBC (4.4-10.8) 10^3/uL 10.42 RBC (3.93-5.22) 10^6/uL 4.64 Hgb (11.2-15.7) g/dL 15.0 Hct (36.0-46.0) % 43.9 MCV (80-95) fL 94.6 MCH (27.0-33.0) pg 32.3 MCHC (32.0-36.0) % 34.2 RDW (11.7-14.6) % 11.9 Plt Count (130-400) 10^3/uL 221 MPV (8.0-11.0) fL 10.4 Immature Gran % 0.4 Neutrophils % 88.3 Lymphocytes % 7.7 Monocytes % 3.4 Eosinophils % 0.1 Basophils % 0.1 Nucleated RBC % % 0 Absolute Neutrophils (1.2-6.7) 10^3/uL 9.21 H Absolute Lymphocytes (1.2-3.4) 10^3/uL 0.80 L Absolute Monocytes (0.1-0.8) 10^3/uL 0.35 Absolute Eosinophils (0.0-0.7) 10^3/uL 0.01 Absolute Basophils (0.0-0.2) 10^3/uL 0.01 Sodium (136-145) mmol/L 138 Potassium (3.5-5.1) mmol/L 3.8 Chloride (98-107) mmol/L 105 Carbon Dioxide (21.0-32.0) mmol/L 21.7 Anion Gap (3-11) mmol/L 11.3 H BUN (7-18) mg/dL 17 Creatinine (0.55-1.02) mg/dL 0.7 Estimated GFR/1.73 m2 (mL/min/1.73m2) >= 60.00 Glucose (74-106) mg/dL 137 H Calcium (8.5-10.1) mg/dL 9.0 Total Bilirubin (0.2-1.0) mg/dL 0.8 AST (15-37) U/L 18 ALT (14-59) U/L 22 Alkaline Phosphatase (46-116) U/L 95 Total Protein (6.4-8.2) g/dL 7.6 Albumin (3.4-5.0) g/dL 4.2 Lipase (73-393) U/L 125 Urine Color (Yellow) Urine Clarity (Clear) Urine pH (5-8) Ur Specific [place] (1.005-1.025) Urine Protein (Negative) mg/dL Urine Ketones (Negative) mg/dL Urine Blood (Negative) Urine Nitrite (Negative) Urine Bilirubin (Negative) Urine Urobilinogen (Up TO 0.2) EU/dL Ur Leukocyte Esterase (Negative) Urine RBC (0-2) HPF Urine WBC (0-5) HPF Ur Epithelial Cells (Negative) HPF Urine Crystals (Negative) HPF Urine Bacteria (Negative) HPF Urine Casts (Negative) LPF Urine Mucus (Negative) Ur Culture Indicated? Urine Glucose (Negative) mg/dL Ethyl Alcohol (<10) mg/dL < 3.0 Range/Units 09/06/21 09:50 WBC (4.4-10.8) 10^3/uL RBC (3.93-5.22) 10^6/uL Hgb (11.2-15.7) g/dL Hct (36.0-46.0) % MCV (80-95) fL MCH (27.0-33.0) pg MCHC (32.0-36.0) % RDW (11.7-14.6) % Plt Count (130-400) 10^3/uL MPV (8.0-11.0) fL Immature Gran % Neutrophils % Lymphocytes % Monocytes % Eosinophils % Basophils % Nucleated RBC % % Absolute Neutrophils (1.2-6.7) 10^3/uL Absolute Lymphocytes (1.2-3.4) 10^3/uL Absolute Monocytes (0.1-0.8) 10^3/uL Absolute Eosinophils (0.0-0.7) 10^3/uL Absolute Basophils (0.0-0.2) 10^3/uL Sodium (136-145) mmol/L Potassium (3.5-5.1) mmol/L Chloride (98-107) mmol/L Carbon Dioxide (21.0-32.0) mmol/L Anion Gap (3-11) mmol/L BUN (7-18) mg/dL Creatinine (0.55-1.02) mg/dL Estimated GFR/1.73 m2 (mL/min/1.73m2) Glucose (74-106) mg/dL Calcium (8.5-10.1) mg/dL Total Bilirubin (0.2-1.0) mg/dL AST (15-37) U/L ALT (14-59) U/L Alkaline Phosphatase (46-116) U/L Total Protein (6.4-8.2) g/dL Albumin (3.4-5.0) g/dL Lipase (73-393) U/L Urine Color (Yellow) Yellow Urine Clarity (Clear) Clear Urine pH (5-8) 8.5 H Ur Specific [place] (1.005-1.025) 1.020 Urine Protein (Negative) mg/dL 30 H Urine Ketones (Negative) mg/dL >=160 H Urine Blood (Negative) Negative Urine Nitrite (Negative) Negative Urine Bilirubin (Negative) Negative Urine Urobilinogen (Up TO 0.2) EU/dL 0.2 Ur Leukocyte Esterase (Negative) Negative Urine RBC (0-2) HPF 0-2 Urine WBC (0-5) HPF 0-2 Ur Epithelial Cells (Negative) HPF Moderate Urine Crystals (Negative) HPF Negative Urine Bacteria (Negative) HPF Rare Urine Casts (Negative) LPF Negative Urine Mucus (Negative) Moderate Ur Culture Indicated? No Urine Glucose (Negative) mg/dL Negative Ethyl Alcohol (<10) mg/dL HPI General Mode of arrival: ambulatory. Date/Time Provider Initiated Documentation: 09/06/21 07:30. Limitations to Documentation: no limitations. Information obtained by: patient. HPI Narrative: Pt is a 21yo F who is [facility] [place] [facility] and vomiting who presents to the ED with a complaint of vomiting, diarrhea and abdominal pain since last night. She states she has vomited 20+ times which is mainly been clear, spit up and sometimes bile. She states she has had 2 episodes of watery brown diarrhea but denies any rectal bleeding. She states her abdominal pain is mainly in the epigastrium and occurs after vomiting. She states the pain does feel similar to when she has had pancreatitis in the past but states that she has had other episodes of vomiting and diarrhea which this feels similar to. She states she does smoke marijuana daily. She denies regular alcohol use but did drink a few beers last night. She denies any other drug use. She is not vaccinated for COVID and denies any known exposure to coronavirus. She denies any recent travel, sick contacts or recent antibiotics. Related Data Home Medications Medication Instructions Recorded Confirmed promethazine 25 mg tablet 25 mg PO TID PRN #7 tab 09/06/21 Previous Rx's Medication Instructions Recorded promethazine 25 mg tablet 25 mg PO TID PRN #7 tab 09/06/21 Allergies Allergy/AdvReac Type Severity Reaction Status Date / Time diphenhydramine AdvReac Hyperactivi Unverified 04/26/21 10:23 ty General Stated Complaint: Nausea/Vomit/Diar JARED: 3 Review of Systems All systems reviewed & are unremarkable except as noted in HPI and below Constitutional Constitutional: Reports as per HPI, Denies chills, Denies excessive sweating, Denies fatigue and Denies fever(s) Eyes Eyes: Denies blurry vision ENT Ears, Nose, Mouth, and Throat: Denies dizziness, Denies sore throat and Denies throat swelling Cardiovascular Cardiovascular: Denies chest pain and Denies dyspnea Respiratory Respiratory: Denies cough and Denies dyspnea Gastrointestinal Gastrointestinal: Reports abdominal pain, Reports diarrhea and Reports vomiting Genitourinary Genitourinary: Denies hematuria and Denies dysuria Musculoskeletal Musculoskeletal: Denies back pain and Denies numbness Integumentary/Breasts Skin/Breast: Denies lesions and Denies rash Neurologic Neurologic: Denies behavioral changes, Denies confusion, Denies dizziness, Denies localized weakness and Denies numbness Psychiatric Psychiatric: Denies behavioral changes, Denies confusion and Denies depression Endocrine Endocrine: Denies excessive sweating and Denies fatigue Hematologic/Lymphatic Hematologic/Lymphatic: Denies easy bruising and Denies lymphadenopathy Allergic/Immunologic Allergic/Immunologic: Denies throat swelling PFSH All Active Problems (Updated 09/06/21 @ 11:28 by Salud Bonner DO) Abdominal pain, vomiting, and diarrhea (Acute) Dental infection (Acute) Pain, dental (Acute) Vaginal discharge (Acute) care following vaginal delivery (Acute) Anemia (Chronic) iron infusions Hydronephrosis (Acute) Pancreatitis (Chronic) Marijuana use (Acute) Chronic constipation (Acute) Gastroesophageal reflux disease (Acute) Substance abuse (Acute 04/22/14) smoker with pot and alcohol use Nausea and vomiting (Acute 08/07/17) Chronic. Seen by [facility]. Suspect constipation. cleanout ordered and then she is to follow up withthem. if no improvement consider PPI trial/ further evaluation. Generalized anxiety disorder (Acute 03/18/14) Pt reports significant anxiety in early/mid teens. Anxiety has improved but still struggles at times. Not interested in counseling or medication. Medical History (Updated 09/06/21 @ 11:28 by Salud Bonner DO) 39 weeks gestation of Abnormal electroencephalogram (12/21/11) Abnormal ultrasound Anxiety disorder 9 month inpatient care [place] Depot contraception (03/20/16) started 04/08 for menorragia control Depression Dysuria Eating disorder (03/18/14) bulemia Encounter for Depo-Provera contraception (12/05/16) Fracture of left radius (11/07/08) Hyperemesis gravidarum Infection due to Chlamydia species (08/21/17) Low lying placenta nos or without hemorrhage, third trimester Major depressive disorder, single episode, severe, with psychotic behavior (03/18/14) Pediatric body mass index (BMI) of 5th percentile to less than 85th percentile for age (02/15/16) Rh negative state in antepartum period Small for gestational age fetus Suicidal ideation Vomiting affecting Family History Father Hepatitis B Substance abuse HIV (human immunodeficiency virus infection) Mother No problems noted. Other Diabetes pat aunt Essential hypertension MGF Personal history of malignant neoplasm MGM-breast Heart disease MGF Hyperlipidemia MGF Mental disorder PGM-anxiety/depression Myocardial infarction MGF Stroke MGF Brother Alcohol abuse Social History Smoking/Tobacco Use Status: Current every day Tobacco Type: cigarettes Tobacco: How many years used: 4 Counseling given: other Smoking risk assessment performed?: Yes Alcohol Intake: former Year quit: Thou Details: Stop 12/03/2019 with positive UPT Drug use: Current Sobriety Substance use type: marijuana Details: HX daily marijuana use--currently using marijuana. 28 weeks gestation. Household members: family and other Details: Lives with her parents. 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 Date GA/Weeks # Outcome Route Wgt Sex Labor Lgth Anesthesia Location Prov Complic 07/27/20 39 No Successful vaginal 3316.894 g Male 8 hrs 17 min [facility] Gomes Delivery Date: 07/27/20 Last Updated by: Gabi Lucio LPN 2nd degree laceration w/repair; Marito Ding Exam Const General: cooperative, healthy appearing and in distress mild (dry heaving, sitting up, restless at times) Orientation: alert, awake and oriented x3 HENMT Head: normal to inspection Ears: hearing grossly normal bilaterally, external ears normal and TM's normal bilaterally General nose exam: external nose normal Face and sinus: normal facial exam Mouth: oral mucosae normal Teeth and gingiva: dentition normal Throat: posterior oropharynx normal Eyes General: appearance normal, both eyes and all related structures Eyelids: eyelids normal Pupils: PERRL EOM: EOM intact bilaterally Neck Neck: normal visual inspection Lymphatic: no lymphadenopathy noted Chest Chest: normal inspection of the chest Resp Effort & Inspection: normal respiratory effort and able to speak in complete sentences Auscultation: clear to auscultation bilaterally Cardio Rate: regular rate Rhythm: regular rhythm GI Inspection: normal to inspection Palpation: soft, not firm, no guarding, no hepatosplenomegaly, no masses and tender in the epigastrum Auscultation: hypoactive bowel sounds Back/Spine/Pelvis Thoracic/Lumbar Spine: thoracic and lumbar spine normal to inspection Skin General skin exam: no rashes or lesions noted Neuro General: patient alert and patient awake Cognition: normal cognition Speech: speech normal Gait: normal gait Motor: muscle tone normal throughout Sensory Exam: no sensory deficits noted Extrem General: normal to inspection, full ROM and capillary refill normal Psych Appearance: grossly normal Mental Status: mental status grossly normal Speech and Movement: speech and movement normal Affect: normal affect Thought Process: normal Course Vital Signs Vital signs: Vital Signs Temperature 97.0 F L 09/06/21 07:33 Pulse 91 H 09/06/21 07:33 Respiratory Rate 12 09/06/21 07:33 Blood Pressure 132/74 09/06/21 07:33 Pulse Oximetry 97 09/06/21 07:33 Temperature 97.0 F L 09/06/21 07:33 Temperature Source Temporal Artery Scan 09/06/21 07:33 Pulse 91 H 09/06/21 07:33 Respiratory Rate 12 09/06/21 07:33 Respiratory Effort Non-Labored 09/06/21 07:49 Blood Pressure 132/74 09/06/21 07:33 Blood Pressure Position Sitting 09/06/21 07:33 Pulse Oximetry 97 09/06/21 07:33 Oxygen Delivery Method Room Air 09/06/21 07:33 Oxygen Flow Rate 0 09/06/21 07:33 PAWSS Have you Been Recently Intoxicated or Drunk Within the Last 30 days?: No Have you Ever Experienced Previous Episodes of Alcohol Withdrawal?: No Have you ever Experienced Withdrawal Seizures?: No Have you ever Experienced Delirium Tremens(DT)s?: No Have you ever undergone Alcohol Rehabilitation Treatment (i.e, inpt ot outpatient treatment programs)?: No Have you ever Experienced Blackouts?: No Have you ever Combined Alcohol with other Downers within the last 90 days?: No Have you ever Combined Alcohol with any other Substance of Abuse during the last 90 days?: No Positive Blood Alcohol level on Presentation? [PCS.BAL]: No Evidence of Increased Autonomic Activity (i.e. HR>120, tremor, sweating, agitation, nausea)?: No Result: 0
[2021-09-06] MEDS: Normal Saline 1,000 ML 1000 ML IV (08:04)
[2021-09-06] MEDS: Famotidine 20 MG/2 ML VIAL IVP (08:04)
[2021-09-06] MEDS: Ondansetron 4 MG/2 ML VIAL IVP (08:04)
[2021-09-06 08:07] LABS: Abs Immature Grans 0.04 10^3/uL (0.0-0.06); Absolute Basophil Count 0.01 10^3/uL (0.0-0.2); Absolute Eosinophil Count 0.01 10^3/uL (0.0-0.7); Absolute Monocyte Count 0.35 10^3/uL (0.1-0.8); Absolute Neutrophil Count 9.21 10^3/uL (1.2-6.7); Basophils % 0.1; Eosinophils % 0.1; HCT 43.9 % (36.0-46.0); Immature Grans % 0.4; Lymphocytes % 7.7; MCH 32.3 pg (27.0-33.0); MCHC 34.2 % (32.0-36.0); MCV 94.6 fL (80-95); MPV 10.4 fL (8.0-11.0); Monocytes % 3.4; Neutrophils % 88.3; Nucleated RBC 0 %; Platelet Count 221 10^3/uL (130-400); RBC 4.64 10^6/uL (3.93-5.22); RDW 11.9 % (11.7-14.6); RDW-SD 41.3 fL; WBC 10.42 10^3/uL (4.4-10.8)
[2021-09-06 08:29] LABS: ALT 22 U/L (14-59); AST 18 U/L (15-37); Albumin 4.2 g/dL (3.4-5.0); Alkaline Phosphatase 95 U/L (46-116); Anion Gap 11.3 mmol/L (3-11); BUN 17 mg/dL (7-18); Bilirubin, Total 0.8 mg/dL (0.2-1.0); CO2 21.7 mmol/L (21.0-32.0); CREATININE 0.7 mg/dL (0.55-1.02); Chloride 105 mmol/L (98-107); Glucose 137 mg/dL (74-106); Lipase 125 U/L (73-393); Potassium 3.8 mmol/L (3.5-5.1); Sodium 138 mmol/L (136-145); Total Protein 7.6 g/dL (6.4-8.2)
[2021-09-06 08:41] LABS: ETHANOL BLOOD < 3.0 mg/dL (<10)
[2021-09-06 10:10] LABS: Bilirubin Negative (Negative); Blood Negative (Negative); Clarity Clear (Clear); Glucose Negative (Negative); Ketones >=160 mg/dL (Negative); Leukocyte Esterase Negative (Negative); Nitrite Negative (Negative); Urobilinogen 0.2 EU/dL (Up TO 0.2); pH 8.5 (5-8)
[2021-09-06 10:17] LABS: WBC 0-2 HPF (0-5)
[2021-09-06 10:18] LABS: Bacteria Rare HPF (Negative); C & S Indicated? No; Casts Negative LPF (Negative); Crystals Negative HPF (Negative); Epithelial Cells Moderate HPF (Negative); Mucus Moderate (Negative); RBC 0-2 HPF (0-2)
[2021-09-06] MEDS: Sucralfate 1 GM TAB PO (10:34)
== END 2021-09-06 12:00 | disposition home or self-care (01) ==
PROVIDERS: Emergency Provider Physician Assistant
DX: R10.13 Epigastric pain (principal); R11.2 Nausea with vomiting, unspecified; R19.7 Diarrhea, unspecified
CPT/HCPCS: 80053; 81025; 83690; 96361; 96365; 96375; 99284; 80320; 81003; 81015; 85025; 99283; J2405

== ENCOUNTER 2021-09-13 16:21 | Outpatient (REF) | payer MEDICAID, SELFPAY | END 2021-09-13 16:22 | disposition home or self-care (01) | LOC: LBN 16:21 | PROVIDERS: Visit Provider Nurse Practitioner Family | DX: N90.89 Other specified noninflammatory disorders of vulva and perineum (principal) | CPT/HCPCS: 87070; 87205 ==

== ENCOUNTER 2021-11-08 07:37 | Emergency (ER) | payer MEDICAID, SELFPAY ==
[2021-11-08 07:41] VITALS: BP 112/53; PULSE 55; RESP 16; TEMP 36.6; O2SAT 100
--- NOTE | 2021-11-08 07:54 | W.ED.GENAD ---
Discharge Plan Disposition Patient Disposition: STILL A PATIENT Condition: Improving Discharge Details Chief Complaint: Abd Prob Clinical Impression: Vomiting Primary Care Provider: Unknown,Unknown ED Provider: Gene Lima Home Meds and New Rx's Prescriptions: No Action promethazine 25 mg tablet 25 mg PO TID PRN (Reason: nausea and vomiting) Qty: 7 0RF Medical Decision Making This is a 21-year-old female with a past medical history of marijuana use, multiple episodes of vomiting and reflux, as well as fairly severe hyperemesis gravidarum, who presents today for vomiting. Patient just found out that she is . She states that starting last night she began vomiting and has vomited 10-15 times already. She denies seeing any blood in her vomitus lately. She has not taken any medications. She admits to a reflux-like sensation and burning in the epigastric region. She denies any lower abdominal pain. No vaginal discharge. No diarrhea. No other complaints at this time. No other medications. She has not yet seen obstetrics. physical examemonstrates dry mucous membranes, mild tenderness in the epigastrium. Symptoms appear consistent with hyperemesis gravidarum. We will rehydrate, treat with antiemetics and antacids. Monitor closely and reassess. Patient will be signed out to my colleague for follow-up on labs and reassessment. HPI General Date/Time Provider Initiated Documentation: 11/08/21 07:46. HPI Narrative: This is a 21-year-old female with a past medical history of marijuana use, multiple episodes of vomiting and reflux, as well as fairly severe hyperemesis gravidarum, who presents today for vomiting. Patient just found out that she is . She states that starting last night she began vomiting and has vomited 10-15 times already. She denies seeing any blood in her vomitus lately. She has not taken any medications. She admits to a reflux-like sensation and burning in the epigastric region. She denies any lower abdominal pain. No vaginal discharge. No diarrhea. No other complaints at this time. No other medications. She has not yet seen obstetrics. Related Data Home Medications Medication Instructions Recorded Confirmed promethazine 25 mg tablet 25 mg PO TID PRN nausea and 09/06/21 vomiting #7 tabs Previous Rx's Medication Instructions Recorded promethazine 25 mg tablet 25 mg PO TID PRN nausea and 09/06/21 vomiting #7 tabs Allergies Allergy/AdvReac Type Severity Reaction Status Date / Time diphenhydramine AdvReac Hyperactivi Unverified 11/08/21 07:45 ty General Stated Complaint: Abd Prob JARED: 3 Review of Systems All systems reviewed & are unremarkable except as noted in HPI and below PFSH All Active Problems (Updated 11/08/21 @ 07:59 by Gene Lima DO) Vomiting (Acute) Dental infection (Acute) Pain, dental (Acute) Vaginal discharge (Acute) care following vaginal delivery (Acute) Anemia (Chronic) iron infusions Hydronephrosis (Acute) Pancreatitis (Chronic) Marijuana use (Acute) Chronic constipation (Acute) Gastroesophageal reflux disease (Acute) Substance abuse (Acute 04/22/14) smoker with pot and alcohol use Nausea and vomiting (Acute 08/07/17) Chronic. [place] [facility] [place]. cleanout ordered and then she is to follow up withthem. if no improvement consider PPI trial/ further evaluation. Generalized anxiety disorder (Acute 03/18/14) Pt reports significant anxiety in early/mid teens. Anxiety has improved but still struggles at times. Not interested in counseling or medication. Medical History 39 weeks gestation of Abnormal electroencephalogram (12/21/11) Abnormal ultrasound Anxiety disorder 9 month inpatient care [place] contraception (03/20/16) started 04/08 for menorragia control Depression Dysuria Eating disorder (03/18/14) bulemia Encounter for Depo-Provera contraception (12/05/16) Fracture of left radius (11/07/08) Hyperemesis gravidarum Infection due to Chlamydia species (08/21/17) Low lying placenta nos or without hemorrhage, third trimester Major depressive disorder, single episode, severe, with psychotic behavior (03/18/14) Pediatric body mass index (BMI) of 5th percentile to less than 85th percentile for age (02/15/16) Rh negative state in antepartum period Small for gestational age fetus Suicidal ideation Vomiting affecting Family History Father Hepatitis B Substance abuse HIV (human immunodeficiency virus infection) Mother No problems noted. Other Diabetes pat aunt Essential hypertension MGF Personal history of malignant neoplasm MGM-breast Heart disease MGF Hyperlipidemia MGF Mental disorder PGM-anxiety/depression Myocardial infarction MGF Stroke MGF Brother Alcohol abuse Social History Smoking/Tobacco Use Status: Never Tobacco: How many years used: 4 Counseling given: other Smoking risk assessment performed?: Yes Alcohol Intake: current Alcohol Intake frequency: 3 or more drinks per day Details: Stop 12/03/2019 with positive UPT Drug use: Current Sobriety Substance use type: marijuana Details: HX daily marijuana use--currently using marijuana. 28 weeks gestation. Household members: family and other Details: Lives with her parents. 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 Date GA/Weeks # Outcome Route Wgt Sex Labor Lgth Anesthesia Location Prov Complic 07/27/20 39 No Successful vaginal 3316.894 g Male 8 hrs 17 min [facility] Delivery Date: 07/27/20 Last Updated by: Gabi Lucio LPN 2nd degree laceration w/repair; Marito Ding Exam Narrative Exam Narrative: 1.Const: Well-nourished, Well-developed, appearing stated age 2.Eyes: PERRL, no conjunctival injection, and symmetrical lids. 3.ENT: Atraumatic external nose and ears. Notably dry MM. Neck: Symmetric, trachea midline, No thyromegaly. 4.CVS: +S1/S2, No murmurs or gallops. Peripheral pulses 2+ and equal in all extremities. Brisk capillary refill in all extremities. 5.RESP: Unlabored respiratory effort. Clear to auscultation bilaterally. No wheezes rales or rhonchi 6.GI: Soft, Nontender/Nondistended, No hepatosplenomegaly. No guarding or rebound. No pain or McBurney's point. Negative Atwood sign. Mild achiness in the epigastric region. 7.MSK: Normocephalic/Atraumatic, Extremities w/o deformity or ttp No cyanosis or clubbing, Normal movement of all extremities 8.Skin: Warm, Dry. No rashes or lesions. 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 Sensation grossly intact, no focal neurologic deficits. 10.Psych: (AAO) x3. Appropriate mood and affect Course Vital Signs Vital signs: Vital Signs Temperature 36.6 C 11/08/21 07:41 Pulse 55 L 11/08/21 07:41 Respiratory Rate 16 11/08/21 07:41 Blood Pressure 112/53 L 11/08/21 07:41 Pulse Oximetry 100 11/08/21 07:41 Temperature 36.6 C 11/08/21 07:41 Pulse 55 L 11/08/21 07:41 Respiratory Rate 16 11/08/21 07:41 Respiratory Effort 11/08/21 07:46 Blood Pressure 112/53 L 11/08/21 07:41 Pulse Oximetry 100 11/08/21 07:41 Pain Level 5 11/08/21 07:46
[2021-11-08] MEDS: Ondansetron 4 MG/2 ML VIAL IVP ×2 (08:07→10:30)
[2021-11-08] MEDS: Famotidine 20 MG/2 ML VIAL IVP (08:07)
[2021-11-08] MEDS: Normal Saline 50 ML ×2 (08:08→08:21)
[2021-11-08] MEDS: Normal Saline 1,000 ML 1000 ML IV (08:08)
[2021-11-08 08:15] LABS: Abs Immature Grans 0.04 10^3/uL (0.0-0.06); Absolute Basophil Count 0.01 10^3/uL (0.0-0.2); Absolute Lymphocyte Count 1.28 10^3/uL (1.2-3.4); Absolute Monocyte Count 0.61 10^3/uL (0.1-0.8); Basophils % 0.1; Eosinophils % 0.3; HCT 43.4 % (36.0-46.0); HGB 14.6 g/dL (11.2-15.7); Immature Grans % 0.3; Lymphocytes % 11.1; MCH 32.6 pg (27.0-33.0); MCHC 33.6 % (32.0-36.0); MCV 97 fL (80-95); Monocytes % 5.3; Neutrophils % 82.9; Platelet Count 273 10^3/uL (130-400); RBC 4.48 10^6/uL (3.93-5.22); RDW 12.1 % (11.7-14.6); RDW-SD 43.7 fL
[2021-11-08] MEDS: Metoclopramide 10 MG/2 ML VIAL IVP (08:21)
--- NOTE | 2021-11-08 08:21 | NUR.NOTE ---
pt is actively vomitting in room, holding off on PO med until she stops vomitting. OZZY
[2021-11-08 08:22] LABS: Absolute Eosinophil Count 0.03 10^3/uL (0.0-0.7); Absolute Neutrophil Count 9.53 10^3/uL (1.2-6.7)
--- NOTE | 2021-11-08 08:25 | W.EDPROG ---
Date of service: 11/08/21 Time of Service: 08:00 Medical Decision Making 0800 --please see Dr. Lima's note for initial presentation, exam and plan. Case endorsed to follow-up on labs and final disposition. Patient on her side leaning over the bed spitting up clear liquid into vomit bag on my entry to room. Her vitals are within normal limits. She states she started vomiting clear multiple times this morning and then became red-tinged. She denies fever, abdominal pain, diarrhea or vaginal bleeding. Patient has been seen many times before for vomiting syndrome. She states she took several home test a few days ago which have been positive. She has received the IV medications but has not yet taken the oral medications ordered. We will continue to monitor. 1015 --labs reviewed. White blood cell count 11. Normal electrolytes. Lipase within normal limits. Beta quant 5628. Patient was able to swallow pill here. She denies any abdominal pain but does admit to some nausea. She was given additional dose of Zofran. Her abdomen is soft and nontender. Do not see [facility] for OB US as presentation does not appears consisent with ectopic at this time. Patient does feel comfortable going home. Attempted to perform bedside ultrasound but patient with dry heaving and she is declining any further attempts. She is declining any further medication. She states she would rather go home at this time. Based on her LMP of 09/23/2021, she is approximately 6 weeks . She was placed on care management list to arrange for a follow-up appointment with women's wellness for her first appointment for this for dating ultrasound. Prescriptions for Zofran and Reglan sent electronically to her pharmacy. She was advised to try either of those for her symptoms of nausea and vomiting. She was advised to return here immediately if she develops any abdominal pain and for consideration of OB ultrasound at that time or she develops persistent vomiting. Medical Records Medical records reviewed: Yes I reviewed the patient's medical records. Lab Data Lab results reviewed: Yes I reviewed the patient's lab results. Labs: Laboratory Tests Range/Units 11/08/21 11/08/21 11/08/21 08:10 08:10 08:16 WBC (4.4-10.8) 10^3/uL 11.50 H RBC (3.93-5.22) 10^6/uL 4.48 Hgb (11.2-15.7) g/dL 14.6 Hct (36.0-46.0) % 43.4 MCV (80-95) fL 97 H MCH (27.0-33.0) pg 32.6 MCHC (32.0-36.0) % 33.6 RDW (11.7-14.6) % 12.1 Plt Count (130-400) 10^3/uL 273 MPV (8.0-11.0) fL 10.0 Immature Gran % 0.3 Neutrophils % 82.9 Lymphocytes % 11.1 Monocytes % 5.3 Eosinophils % 0.3 Basophils % 0.1 Nucleated RBC % (0.0-0.3) % 0.0 Absolute Neutrophils (1.2-6.7) 10^3/uL 9.53 H Absolute Lymphocytes (1.2-3.4) 10^3/uL 1.28 Absolute Monocytes (0.1-0.8) 10^3/uL 0.61 Absolute Eosinophils (0.0-0.7) 10^3/uL 0.03 Absolute Basophils (0.0-0.2) 10^3/uL 0.01 Sodium (136-145) mmol/L 140 Potassium (3.5-5.1) mmol/L 3.7 Chloride (98-107) mmol/L 104 Carbon Dioxide (21.0-32.0) mmol/L 26.2 Anion Gap (3-11) mmol/L 9.8 BUN (7-18) mg/dL 16 Creatinine (0.55-1.02) mg/dL 0.6 Estimated GFR/1.73 m2 (mL/min/1.73m2) >= 60.00 Glucose (74-106) mg/dL 137 H Calcium (8.5-10.1) mg/dL 8.7 Total Bilirubin (0.2-1.0) mg/dL 0.8 AST (15-37) U/L 14 L ALT (14-59) U/L 18 Alkaline Phosphatase (46-116) U/L 90 Total Protein (6.4-8.2) g/dL 7.9 Albumin (3.4-5.0) g/dL 4.5 Lipase (73-393) U/L 205 Beta HCG, Quant (1-3) mIU/mL 5628 H Sign Out Sign Out Data: Sign Out Comment: Vomiting, new . Follow-up on labs and reassess after rehydration Last updated by Gene Lima DO at 11/08/21 08:00 Discharge Plan Disposition Patient Disposition: HOME Condition: Improving Discharge Details Clinical Impression: Vomiting, Nausea and vomiting in prior to 22 weeks gestation Primary Care Provider: Unknown,Unknown ED Provider: Salud Bonner Home Meds and New Rx's Prescriptions: New ondansetron 4 mg tablet,disintegrating 4 mg PO TID PRN (Reason: nausea and vomiting) Qty: 6 0RF metoclopramide HCl [Reglan] 10 mg tablet 10 mg PO Q6H PRN (Reason: nausea and vomiting) Qty: 7 1RF Continued promethazine 25 mg tablet 25 mg PO TID PRN (Reason: nausea and vomiting) Qty: 7 0RF Discharge Instructions Instructions: Nausea and Vomiting in (ED) Additional Instructions: If your last menstrual period is accurate, you may be around 6 weeks . You have been placed on care management list to arrange for a follow-up appointment with women's wellness for your first obstetrics appointment and for scheduling of a dating ultrasound. Drink plenty of fluids and get plenty of rest. Prescriptions for Zofran and Reglan have been sent electronically to your pharmacy. Take either of these as needed and directed for your nausea and vomiting. Return immediately to the emergency department if you develop any worsening or new concerning symptoms persistent vomiting, abdominal pain or any other concerns. Discharge Data Discharge Physician: Salud Bonner
[2021-11-08 08:30] LABS: ALT 18 U/L (14-59); AST 14 U/L (15-37); Albumin 4.5 g/dL (3.4-5.0); Alkaline Phosphatase 90 U/L (46-116); Anion Gap 9.8 mmol/L (3-11); BUN 16 mg/dL (7-18); Bilirubin, Total 0.8 mg/dL (0.2-1.0); CO2 26.2 mmol/L (21.0-32.0); CREATININE 0.6 mg/dL (0.55-1.02); Calcium 8.7 mg/dL (8.5-10.1); Chloride 104 mmol/L (98-107); Glucose 137 mg/dL (74-106); Lipase 205 U/L (73-393); Potassium 3.7 mmol/L (3.5-5.1); Sodium 140 mmol/L (136-145); Total Protein 7.9 g/dL (6.4-8.2)
[2021-11-08 09:19] LABS: HCG Quant, Pregnancy 5628 mIU/mL (1-3)
[2021-11-08] MEDS: Sucralfate 1 GM TAB PO (09:45)
--- NOTE | 2021-11-08 09:51 | NUR.NOTE ---
pts epigastric pain has decreased, vomitting subsided enough to have some water and take PO med. will recheck on pt shortly.JM
[2021-11-08 11:33] VITALS: BP 122/64; PULSE 72; RESP 16; O2SAT 99
--- NOTE | 2021-11-08 11:58 | NUR.NOTE ---
Nursing Note: Referral faxed to [facility] for first OB appt, within 1 week. JAMES
== END 2021-11-08 11:33 | disposition home or self-care (01) ==
PROVIDERS: Student in an Organized Health Care Education/Training Program; Emergency Provider Physician Assistant
DX: O21.8 Other vomiting complicating pregnancy (principal)
CPT/HCPCS: 36415; 80053; 81025; 83690; 96361; 96374; 96375; 96376; 99284; 84702; 85025; 99283; J2405; J2765

== ENCOUNTER 2021-11-17 17:22 | Emergency (ER) | payer MEDICAID, SELFPAY ==
[2021-11-17] VITALS (7 sets, daily range): BP systolic 124–144; BP diastolic 72–92; PULSE 76–100; RESP 14–25; TEMP 36.7–37; O2SAT 97–98
[2021-11-17 17:55] LABS: Abs Immature Grans 0.03 10^3/uL (0.0-0.06); Absolute Basophil Count 0.03 10^3/uL (0.0-0.2); Absolute Eosinophil Count 0.03 10^3/uL (0.0-0.7); Absolute Lymphocyte Count 1.92 10^3/uL (1.2-3.4); Absolute Monocyte Count 1.15 10^3/uL (0.1-0.8); Basophils % 0.2; Eosinophils % 0.2; HCT 39.6 % (36.0-46.0); HGB 13.7 g/dL (11.2-15.7); Immature Grans % 0.2; MCH 32.3 pg (27.0-33.0); MCHC 34.6 % (32.0-36.0); MCV 93 fL (80-95); MPV 9.7 fL (8.0-11.0); Neutrophils % 75.4; Platelet Count 265 10^3/uL (130-400); RBC 4.24 10^6/uL (3.93-5.22); RDW 11.8 % (11.7-14.6); RDW-SD 40.1 fL; WBC 12.77 10^3/uL (4.4-10.8)
[2021-11-17] MEDS: Normal Saline 1,000 ML 1000 ML IV (17:56)
[2021-11-17] MEDS: Ondansetron 4 MG/2 ML VIAL IVP ×2 (17:57→20:21)
[2021-11-17 18:06] LABS: Lipase 340 U/L (73-393)
[2021-11-17 18:08] LABS: ALT 19 U/L (14-59); AST 14 U/L (15-37); Absolute Neutrophil Count 9.63 10^3/uL (1.2-6.7); Albumin 4.4 g/dL (3.4-5.0); Alkaline Phosphatase 79 U/L (46-116); Anion Gap 9.4 mmol/L (3-11); BUN 13 mg/dL (7-18); CO2 26.6 mmol/L (21.0-32.0); CREATININE 0.6 mg/dL (0.55-1.02); Calcium 9.2 mg/dL (8.5-10.1); Chloride 97 mmol/L (98-107); Glucose 95 mg/dL (74-106); Magnesium 2.2 mg/dL (1.8-2.4); Sodium 133 mmol/L (136-145); Total Protein 7.8 g/dL (6.4-8.2)
[2021-11-17 18:13] LABS: Potassium 2.9 mmol/L (3.5-5.1)
[2021-11-17] MEDS: POTASSIUM CHLORIDE 10 MEQ/100 ML BAG 100 MEQ IVPB ×2 (18:24→21:27)
[2021-11-17 18:36] LABS: Bilirubin Negative (Negative); Blood Trace-intact (Negative); Clarity Clear (Clear); Glucose Negative (Negative); Ketones >=160 mg/dL (Negative); Leukocyte Esterase Negative (Negative); Nitrite Negative (Negative)
[2021-11-17 18:39] LABS: Bacteria Few HPF (Negative); C & S Indicated? No/Sq. Contamination; Casts Negative LPF (Negative); Crystals Negative HPF (Negative); Epithelial Cells Many HPF (Negative); Mucus Moderate (Negative); RBC 0-2 HPF (0-2)
[2021-11-17] MEDS: DEXTROSE 5%-0.9% SALINE 1,000 ML 1000 ML IV (19:14)
[2021-11-17] MEDS: methylPREDNISolone SUCC 40 MG VIAL 16 MG IVP (20:19)
[2021-11-17] MEDS: Mylanta Suspension 30 ML CUP PO (20:39)
--- NOTE | 2021-11-17 21:36 | ED.GENADUL_ITS ---
Discharge Plan Disposition Patient Disposition: HOME Condition: Fair Discharge Details Clinical Impression: Nausea and vomiting in prior to 22 weeks gestation Primary Care Provider: Unknown,Unknown ED Provider: Darvin Giles Home Meds and New Rx's Prescriptions: Continued promethazine 25 mg tablet 25 mg PO TID PRN (Reason: nausea and vomiting) Qty: 7 0RF No Action Bonjesta 20-20 mg tablet,IR,delayed rel,biphasic 1 tab PO BID Qty: 30 0RF promethazine 25 mg tablet 25 mg PO Q6H PRNQty: 10 0RF Discharge Instructions Instructions: Hyperemesis Gravidarum (ED) Additional Instructions: As discussed he may return for reassessment and consideration of admission if yo u continue to not be able to tolerate any p.o. fluids, cannot take your medications, or have any worsening symptoms. Otherwise it is recommended that you call your OB tomorrow for arrangement of follow-up appointment. Referrals: [facility] [Provider Group] Discharge Data Discharge Date/Time-TO BE ENTERED AT DEPARTURE: 11/17/21 22:29 Medical Decision Making Patient presenting to the emergency department for chief complaint of nausea and vomiting. She states she is approximately 7 weeks and for the past 2 days has had persistent uncontrollable vomiting. Patient has been taking promethazine at home with little to no benefit and states no food intake over the last couple days due to extreme nausea and vomiting. She does state that this happened during her last a couple years ago. Patient denies any pain or discomfort fever chills. Physical exam is unremarkable for any acute worrisome findings but given patient's complaint will check on CBC CMP and urinalysis. Pending results we will give patient Zofran and 1L NS. Review of CBC shows a mild leukocytosis with white count of 12.77 which I feel is more reactive to vomiting than acute infection. CMP does show low sodium of 133, potassium 2.9, chloride of 97. Labs otherwise nondiagnostic. Did check patient's lipase due to her stating some pancreatitis with last and lipase is 340 and otherwise appropriate especially given that patient has no abdominal tenderness. Urinalysis does show urine protein, ketones, and trace blood with urobilinogen present. No signs of acute infection. Given ketones in urine we will plan on giving additional liter of NS with D5. Along with 10 mEq of potassium due to hypokalemia. Reassessed patient after finishing 1 L NS and potassium and she does state slight improvement. Will trial with a couple crackers before attempting oral repletion of potassium. Patient developed more nausea and states esophageal discomfort. We will plan on giving patient steroids, additional dose of Zofran, 10 MEQ of potassium and some Mylanta. Reassessed patient and she still states that she feels nauseous but prefers to go home. Did discuss with patient consideration of admission to the unit for further fluids and observation. Again she deferred admission at this time. We will plan on giving patient p.o. potassium to take tomorrow morning with breakfast and patient does state clear understanding to return for any new or worsening symptoms. After discussion of diagnosis and plan of care patient has no further needs, questions, or concerns and states clear understanding to return to the emergency department for any worsening symptoms. Lab Data Lab results reviewed: Yes I reviewed the patient's lab results. Labs: Laboratory Tests Range/Units 11/17/21 11/17/21 11/17/21 17:50 17:50 17:50 WBC (4.4-10.8) 10^3/uL 12.77 H RBC (3.93-5.22) 10^6/uL 4.24 Hgb (11.2-15.7) g/dL 13.7 Hct (36.0-46.0) % 39.6 MCV (80-95) fL 93 MCH (27.0-33.0) pg 32.3 MCHC (32.0-36.0) % 34.6 RDW (11.7-14.6) % 11.8 Plt Count (130-400) 10^3/uL 265 MPV (8.0-11.0) fL 9.7 Immature Gran % 0.2 Neutrophils % 75.4 Lymphocytes % 15.0 Monocytes % 9.0 Eosinophils % 0.2 Basophils % 0.2 Nucleated RBC % (0.0-0.3) % 0.0 Absolute Neutrophils (1.2-6.7) 10^3/uL 9.63 H Absolute Lymphocytes (1.2-3.4) 10^3/uL 1.92 Absolute Monocytes (0.1-0.8) 10^3/uL 1.15 H Absolute Eosinophils (0.0-0.7) 10^3/uL 0.03 Absolute Basophils (0.0-0.2) 10^3/uL 0.03 Sodium (136-145) mmol/L 133 L Potassium (3.5-5.1) mmol/L 2.9 L Chloride (98-107) mmol/L 97 L Carbon Dioxide (21.0-32.0) mmol/L 26.6 Anion Gap (3-11) mmol/L 9.4 BUN (7-18) mg/dL 13 Creatinine (0.55-1.02) mg/dL 0.6 Estimated GFR/1.73 m2 (mL/min/1.73m2) >= 60.00 Glucose (74-106) mg/dL 95 Calcium (8.5-10.1) mg/dL 9.2 Magnesium (1.8-2.4) mg/dL 2.2 Total Bilirubin (0.2-1.0) mg/dL 1.0 AST (15-37) U/L 14 L ALT (14-59) U/L 19 Alkaline Phosphatase (46-116) U/L 79 Total Protein (6.4-8.2) g/dL 7.8 Albumin (3.4-5.0) g/dL 4.4 Lipase (73-393) U/L 340 Urine Color (Yellow) Urine Clarity (Clear) Urine pH (5-8) Ur Specific [place] (1.005-1.025) Urine Protein (Negative) mg/dL Urine Ketones (Negative) mg/dL Urine Blood (Negative) Urine Nitrite (Negative) Urine Bilirubin (Negative) Urine Urobilinogen (Up TO 0.2) EU/dL Ur Leukocyte Esterase (Negative) Urine RBC (0-2) HPF Urine WBC (0-5) HPF Ur Epithelial Cells (Negative) HPF Urine Crystals (Negative) HPF Urine Bacteria (Negative) HPF Urine Casts (Negative) LPF Urine Mucus (Negative) Ur Culture Indicated? Urine Glucose (Negative) mg/dL Range/Units 11/17/21 18:15 WBC (4.4-10.8) 10^3/uL RBC (3.93-5.22) 10^6/uL Hgb (11.2-15.7) g/dL Hct (36.0-46.0) % MCV (80-95) fL MCH (27.0-33.0) pg MCHC (32.0-36.0) % RDW (11.7-14.6) % Plt Count (130-400) 10^3/uL MPV (8.0-11.0) fL Immature Gran % Neutrophils % Lymphocytes % Monocytes % Eosinophils % Basophils % Nucleated RBC % (0.0-0.3) % Absolute Neutrophils (1.2-6.7) 10^3/uL Absolute Lymphocytes (1.2-3.4) 10^3/uL Absolute Monocytes (0.1-0.8) 10^3/uL Absolute Eosinophils (0.0-0.7) 10^3/uL Absolute Basophils (0.0-0.2) 10^3/uL Sodium (136-145) mmol/L Potassium (3.5-5.1) mmol/L Chloride (98-107) mmol/L Carbon Dioxide (21.0-32.0) mmol/L Anion Gap (3-11) mmol/L BUN (7-18) mg/dL Creatinine (0.55-1.02) mg/dL Estimated GFR/1.73 m2 (mL/min/1.73m2) Glucose (74-106) mg/dL Calcium (8.5-10.1) mg/dL Magnesium (1.8-2.4) mg/dL Total Bilirubin (0.2-1.0) mg/dL AST (15-37) U/L ALT (14-59) U/L Alkaline Phosphatase (46-116) U/L Total Protein (6.4-8.2) g/dL Albumin (3.4-5.0) g/dL Lipase (73-393) U/L Urine Color (Yellow) Yellow Urine Clarity (Clear) Clear Urine pH (5-8) 6.0 Ur Specific [place] (1.005-1.025) 1.020 Urine Protein (Negative) mg/dL 30 H Urine Ketones (Negative) mg/dL >=160 H Urine Blood (Negative) Trace-intact H Urine Nitrite (Negative) Negative Urine Bilirubin (Negative) Negative Urine Urobilinogen (Up TO 0.2) EU/dL 1.0 H Ur Leukocyte Esterase (Negative) Negative Urine RBC (0-2) HPF 0-2 Urine WBC (0-5) HPF 3-5 Ur Epithelial Cells (Negative) HPF Many Urine Crystals (Negative) HPF Negative Urine Bacteria (Negative) HPF Few Urine Casts (Negative) LPF Negative Urine Mucus (Negative) Moderate Ur Culture Indicated? No/Sq. Contamination Urine Glucose (Negative) mg/dL Negative HPI General Mode of arrival: ambulatory . Date/Time Provider Initiated Documentation: 11/17/21 17:34 . Limitations to Documentation: no limitations . Information obtained by: patient . History of Present Illness 21 year old F presents to the emergency department with the chief complaint of Nausea/vomitting , described as similar to prior episodes, Quality is described as other (denies pain), Patient started experiencing this day(s) (2) and it has been constant. No relieving factors improve symptom(s), No exacerbating factors reported . Patient notes no other symptoms.. Patient did receive the following treatments prior to arrival, other (promethazine) Related Data Home Medications Medication Instructions Recorded Confirmed promethazine 25 mg tablet 25 mg PO TID PRN nausea and 11/15/21 11/19/21 vomiting #7 tabs doxylamine 20 mg-pyridoxine 20 mg 1 tab PO BID #30 tabs 11/19/21 tablet,immediate and delayed release (Bonjesta) promethazine 25 mg tablet 25 mg PO Q6H PRN #10 tabs 11/19/21 Previous Rx's Medication Instructions Recorded promethazine 25 mg tablet 25 mg PO TID PRN nausea and 11/15/21 vomiting #7 tabs doxylamine 20 mg-pyridoxine 20 mg 1 tab PO BID #30 tabs 11/19/21 tablet,immediate and delayed release (Bonjesta) promethazine 25 mg tablet 25 mg PO Q6H PRN #10 tabs 11/19/21 Allergies Allergy/AdvReac Type Severity Reaction Status Date / Time diphenhydramine AdvReac Hyperactivi Unverified 11/19/21 10:04 ty General Stated Complaint: Nausea/Vomit/Diar JARED: 3 Review of Systems Constitutional Constitutional: Denies chills, Denies fever(s) and Reports poor appetite Cardiovascular Cardiovascular: Denies chest pain and Denies dyspnea Respiratory Respiratory: Denies cough and Denies dyspnea Gastrointestinal Gastrointestinal: Reports as per HPI, Denies abdominal pain, Denies melena, Denies change in bowel habits, Denies constipation, Denies diarrhea, Reports [place] and Reports vomiting Genitourinary Genitourinary: Denies hematuria, Denies urinary incontinence, Denies urinary hesitancy and Denies urinary urgency Integumentary/Breasts Skin/Breast: Denies rash PFSH All Active Problems (Updated 11/20/21 @ 17:10 by ANTONY Quinn) (Acute) Vomiting (Acute) Nausea and vomiting in prior to 22 weeks gestation (Acute) Marijuana use (Acute) Chronic constipation (Acute) Gastroesophageal reflux disease (Acute) Substance abuse (Acute 04/22/14) smoker with pot and alcohol use Generalized anxiety disorder (Acute 03/18/14) Pt reports significant anxiety in early/mid teens. Anxiety has improved but still struggles at times. Not interested in counseling or medication. Medical History 39 weeks gestation of Abnormal electroencephalogram (12/21/11) Anemia iron infusions Anxiety disorder 9 month inpatient care [place] Dental infection Depression Dysuria Eating disorder (03/18/14) bulemia Fracture of left radius (11/07/08) Hyperemesis gravidarum Low lying placenta nos or without hemorrhage, third trimester Major depressive disorder, single episode, severe, with psychotic behavior (03/18/14) Pain, dental Pancreatitis Pediatric body mass index (BMI) of 5th percentile to less than 85th percentile for age (02/15/16) Rh negative state in antepartum period Suicidal ideation Family History Father Hepatitis B Substance abuse HIV (human immunodeficiency virus infection) Mother No problems noted. Other Diabetes pat aunt Essential hypertension MGF Personal history of malignant neoplasm MGM-breast Heart disease MGF Hyperlipidemia MGF Mental disorder PGM-anxiety/depression Myocardial infarction MGF Stroke MGF Brother Alcohol abuse Social History Smoking/Tobacco Use Status: Former Tobacco Use tobacco type: cigarettes Quit Date: 12/03/19 Tobacco: How many years used: 4 Counseling given: other Smoking risk assessment performed?: Yes Alcohol Intake: former Year quit: Thou Details: Stop 12/03/2019 with positive UPT Drug use: Occasionally Substance use type: marijuana Household members: family and other Details: Lives with her parents. 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 Date GA/Weeks # Outcome Route Wgt Sex Labor Lgth Anesthes ia Location Prov Complic 07/27/20 39 No Successful vaginal 3316.894 g Male 8 hrs 17 min [facility] Delivery Date: 07/27/20 Last Updated by: Gabi Lucio LPN 2nd degree laceration w/repair; Marito Ding Exam Const General: cooperative Orientation: alert, awake and oriented x3 Resp Effort & Inspection: normal respiratory effort and able to speak in complete sentences Auscultation: clear to auscultation bilaterally Cardio Rate: regular rate Rhythm: regular rhythm Heart Sounds: S1 normal and S2 normal GI Palpation: soft, no hepatosplenomegaly, not firm, no guarding, no masses, no pulsatile masses, not rigid, no splenomegaly and nontender Auscultation: hypoactive bowel sounds Back/Spine/Pelvis Back: no CVA tenderness Neuro General: patient alert, patient awake, patient oriented x3, gait normal and moves all extremities Course Vital Signs Vital signs: Vital Signs Temperature 36.7 C 11/17/21 17:25 Pulse 91 H 11/17/21 17:25 Respiratory Rate 14 11/17/21 17:25 Blood Pressure 124/77 11/17/21 17:25 Pulse Oximetry 97 11/17/21 17:25 Temperature 37 C 11/17/21 20:19 Temperature Source Skin 11/17/21 20:19 Pulse 87 11/17/21 20:30 Pulse 100 H 11/17/21 20:31 Respiratory Rate 17 11/17/21 20:31 Respiratory Effort 11/17/21 17:34 Blood Pressure 133/79 11/17/21 20:30 Blood Pressure Mean 91 11/17/21 20:30 Blood Pressure Position Sitting 11/17/21 17:25 Pulse Oximetry 98 11/17/21 20:31 Oxygen Delivery Method Room Air 05/26/22 20:19 Oxygen Flow Rate 0 11/17/21 20:19 Pain Level 6 11/17/21 20:39 Lab/Test Results Lab/Test Results: Laboratory Tests Range/Units 11/17/21 11/17/21 11/17/21 17:50 17:50 17:50 WBC (4.4-10.8) 10^3/uL 12.77 H RBC (3.93-5.22) 10^6/uL 4.24 Hgb (11.2-15.7) g/dL 13.7 Hct (36.0-46.0) % 39.6 MCV (80-95) fL 93 MCH (27.0-33.0) pg 32.3 MCHC (32.0-36.0) % 34.6 RDW (11.7-14.6) % 11.8 Plt Count (130-400) 10^3/uL 265 MPV (8.0-11.0) fL 9.7 Immature Gran % 0.2 Neutrophils % 75.4 Lymphocytes % 15.0 Monocytes % 9.0 Eosinophils % 0.2 Basophils % 0.2 Nucleated RBC % (0.0-0.3) % 0.0 Absolute Neutrophils (1.2-6.7) 10^3/uL 9.63 H Absolute Lymphocytes (1.2-3.4) 10^3/uL 1.92 Absolute Monocytes (0.1-0.8) 10^3/uL 1.15 H Absolute Eosinophils (0.0-0.7) 10^3/uL 0.03 Absolute Basophils (0.0-0.2) 10^3/uL 0.03 Sodium (136-145) mmol/L 133 L Potassium (3.5-5.1) mmol/L 2.9 L Chloride (98-107) mmol/L 97 L Carbon Dioxide (21.0-32.0) mmol/L 26.6 Anion Gap (3-11) mmol/L 9.4 BUN (7-18) mg/dL 13 Creatinine (0.55-1.02) mg/dL 0.6 Estimated GFR/1.73 m2 (mL/min/1.73m2) >= 60.00 Glucose (74-106) mg/dL 95 Calcium (8.5-10.1) mg/dL 9.2 Magnesium (1.8-2.4) mg/dL 2.2 Total Bilirubin (0.2-1.0) mg/dL 1.0 AST (15-37) U/L 14 L ALT (14-59) U/L 19 Alkaline Phosphatase (46-116) U/L 79 Total Protein (6.4-8.2) g/dL 7.8 Albumin (3.4-5.0) g/dL 4.4 Lipase (73-393) U/L 340 Urine Color (Yellow) Urine Clarity (Clear) Urine pH (5-8) Ur Specific [place] (1.005-1.025) Urine Protein (Negative) mg/dL Urine Ketones (Negative) mg/dL Urine Blood (Negative) Urine Nitrite (Negative) Urine Bilirubin (Negative) Urine Urobilinogen (Up TO 0.2) EU/dL Ur Leukocyte Esterase (Negative) Urine RBC (0-2) HPF Urine WBC (0-5) HPF Ur Epithelial Cells (Negative) HPF Urine Crystals (Negative) HPF Urine Bacteria (Negative) HPF Urine Casts (Negative) LPF Urine Mucus (Negative) Ur Culture Indicated? Urine Glucose (Negative) mg/dL Range/Units 11/17/21 18:15 WBC (4.4-10.8) 10^3/uL RBC (3.93-5.22) 10^6/uL Hgb (11.2-15.7) g/dL Hct (36.0-46.0) % MCV (80-95) fL MCH (27.0-33.0) pg MCHC (32.0-36.0) % RDW (11.7-14.6) % Plt Count (130-400) 10^3/uL MPV (8.0-11.0) fL Immature Gran % Neutrophils % Lymphocytes % Monocytes % Eosinophils % Basophils % Nucleated RBC % (0.0-0.3) % Absolute Neutrophils (1.2-6.7) 10^3/uL Absolute Lymphocytes (1.2-3.4) 10^3/uL Absolute Monocytes (0.1-0.8) 10^3/uL Absolute Eosinophils (0.0-0.7) 10^3/uL Absolute Basophils (0.0-0.2) 10^3/uL Sodium (136-145) mmol/L Potassium (3.5-5.1) mmol/L Chloride (98-107) mmol/L Carbon Dioxide (21.0-32.0) mmol/L Anion Gap (3-11) mmol/L BUN (7-18) mg/dL Creatinine (0.55-1.02) mg/dL Estimated GFR/1.73 m2 (mL/min/1.73m2) Glucose (74-106) mg/dL Calcium (8.5-10.1) mg/dL Magnesium (1.8-2.4) mg/dL Total Bilirubin (0.2-1.0) mg/dL AST (15-37) U/L ALT (14-59) U/L Alkaline Phosphatase (46-116) U/L Total Protein (6.4-8.2) g/dL Albumin (3.4-5.0) g/dL Lipase (73-393) U/L Urine Color (Yellow) Yellow Urine Clarity (Clear) Clear Urine pH (5-8) 6.0 Ur Specific [place] (1.005-1.025) 1.020 Urine Protein (Negative) mg/dL 30 H Urine Ketones (Negative) mg/dL >=160 H Urine Blood (Negative) Trace-intact H Urine Nitrite (Negative) Negative Urine Bilirubin (Negative) Negative Urine Urobilinogen (Up TO 0.2) EU/dL 1.0 H Ur Leukocyte Esterase (Negative) Negative Urine RBC (0-2) HPF 0-2 Urine WBC (0-5) HPF 3-5 Ur Epithelial Cells (Negative) HPF Many Urine Crystals (Negative) HPF Negative Urine Bacteria (Negative) HPF Few Urine Casts (Negative) LPF Negative Urine Mucus (Negative) Moderate Ur Culture Indicated? No/Sq. Contamination Urine Glucose (Negative) mg/dL Negative
[2021-11-17] MEDS: Potassium Chloride 10 MEQ TABCR 40 MEQ PO (22:19)
--- NOTE | 2021-11-18 15:02 | PDOC.ERCMACT ---
- If Service Date Differs Date of service: 11/18/21 Time of Service: 15:02 Care Management Activity Note Michelle Velásquez presents in the ED for nausea and vomiting. At the request of ED provider, PATRICIA coordinates a referral to Natalya Duggan NP, of [facility], on-call provider, to assist Michelle Velásquez in obtaining a follow up appointment and in establishing care with a PCP. She has Medicaid for insurance.
== END 2021-11-17 22:29 | disposition home or self-care (01) ==
PROVIDERS: Emergency Provider Nurse Practitioner Family
DX: O21.8 Other vomiting complicating pregnancy (principal)
CPT/HCPCS: 36415; 80053; 83690; 96361; 96365; 96366; 96375; 96376; 99284; 81003; 81015; 83735; 85025; J2405; J3480; J7042

== ENCOUNTER 2021-11-18 14:21 | Emergency (ER) | payer MEDICAID, SELFPAY ==
[2021-11-18 14:23] VITALS: BP 126/76; PULSE 72; RESP 16; TEMP 36.7; O2SAT 98
== END 2021-11-18 15:20 ==
LOC: ER 14:23
PROVIDERS: Emergency Provider Physician Assistant
DX: Z53.29 Procedure and treatment not carried out because of patient's decision for other reasons (principal)

== ENCOUNTER 2021-11-18 17:32 | Emergency (ER) | payer MEDICAID, SELFPAY ==
[2021-11-18 17:35] VITALS: BP 127/62; PULSE 88; RESP 18; O2SAT 96
--- NOTE | 2021-11-18 18:09 | W.ED.GENAD ---
Discharge Plan Discharge Details Chief Complaint: Nausea/Vomit/Diar Primary Care Provider: Unknown,Unknown ED Provider: Kaden Solis Home Meds and New Rx's Prescriptions: No Action ondansetron 4 mg tablet,disintegrating 4 mg PO TID PRN (Reason: nausea and vomiting) Qty: 30 2RF promethazine 25 mg suppository 25 mg NV Q6H PRN (Reason: nausea and vomiting) Qty: 12 2RF promethazine 25 mg tablet 25 mg PO TID PRN (Reason: nausea and vomiting) Qty: 7 0RF metoclopramide HCl [Reglan] 10 mg tablet 10 mg PO Q6H PRN (Reason: nausea and vomiting) Qty: 14 1RF Medical Decision Making 21-year-old for semester with nausea vomiting. No active vomiting in the emergency department. Appears well-hydrated. HPI General Date/Time Provider Initiated Documentation: 11/18/21 18:01. HPI Narrative: 21-year-old, 7 weeks , presents to the emergency department chief complaint of nausea and intermittent vomiting. She was seen for the same yesterday. Full work-up revealed normal blood work as well as negative UA. She was treated for hyperemesis gravidarum adequate result in the emergency department. She was found to have multifocal ketonemia that was treated in the ED. She was sent home with some potassium. She admits that she has not been compliant with potassium supplementation provided to her. She has had no fevers no chills. She has been tolerating water and some arturo tono. Related Data Home Medications Medication Instructions Recorded Confirmed ondansetron 4 mg disintegrating 4 mg PO TID PRN nausea and 11/09/21 11/18/21 tablet vomiting #30 tabs metoclopramide HCl 10 mg tablet 10 mg PO Q6H PRN nausea and 11/15/21 11/18/21 (Reglan) vomiting #14 tabs promethazine 25 mg rectal 25 mg NV Q6H PRN nausea and 11/15/21 11/18/21 suppository vomiting #12 ea promethazine 25 mg tablet 25 mg PO TID PRN nausea and 11/15/21 11/18/21 vomiting #7 tabs Previous Rx's Medication Instructions Recorded ondansetron 4 mg disintegrating 4 mg PO TID PRN nausea and 11/09/21 tablet vomiting #30 tabs metoclopramide HCl 10 mg tablet 10 mg PO Q6H PRN nausea and 11/15/21 (Reglan) vomiting #14 tabs promethazine 25 mg rectal 25 mg NV Q6H PRN nausea and 11/15/21 suppository vomiting #12 ea promethazine 25 mg tablet 25 mg PO TID PRN nausea and 11/15/21 vomiting #7 tabs Allergies Allergy/AdvReac Type Severity Reaction Status Date / Time diphenhydramine AdvReac Hyperactivi Unverified 11/18/21 17:40 ty General Stated Complaint: Nausea/Vomit/Diar JARED: 4 Review of Systems Narrative: Negative for fever or chills. Positive fatigue no malaise HEENT negative Cardiovascular no palpitations no chest pain respiratory no cough no shortness of breath GI no abdominal pain. See HPI negative MSK no myalgias arthralgias Skin no rashes Neuro no MOORE pysych - negative hemato negative Constitutional Constitutional: Denies chills, Denies fever(s) and Reports poor appetite Cardiovascular Cardiovascular: Denies chest pain and Denies dyspnea Respiratory Respiratory: Denies cough and Denies dyspnea Gastrointestinal Gastrointestinal: Reports as per HPI, Denies abdominal pain, Denies melena, Denies change in bowel habits, Denies constipation, Denies diarrhea, Reports nausea and Reports vomiting Genitourinary Genitourinary: Denies hematuria, Denies urinary incontinence, Denies urinary hesitancy and Denies urinary urgency Integumentary/Breasts Skin/Breast: Denies rash PFSH All Active Problems (Updated 11/17/21 @ 22:11 by Darvin Giles NP) (Acute) Vomiting (Acute) Nausea and vomiting in prior to 22 weeks gestation (Acute) Marijuana use (Acute) Chronic constipation (Acute) Gastroesophageal reflux disease (Acute) Substance abuse (Acute 04/22/14) smoker with pot and alcohol use Generalized anxiety disorder (Acute 03/18/14) Pt reports significant anxiety in early/mid teens. Anxiety has improved but still struggles at times. Not interested in counseling or medication. Medical History 39 weeks gestation of Abnormal electroencephalogram (12/21/11) Anemia iron infusions Anxiety disorder 9 month inpatient care [place] Dental infection Depression Dysuria Eating disorder (03/18/14) bulemia Fracture of left radius (11/07/08) Hyperemesis gravidarum Low lying placenta nos or without hemorrhage, third trimester Major depressive disorder, single episode, severe, with psychotic behavior (03/18/14) Pain, dental Pancreatitis Pediatric body mass index (BMI) of 5th percentile to less than 85th percentile for age (02/15/16) Rh negative state in antepartum period Suicidal ideation Family History Father Hepatitis B Substance abuse HIV (human immunodeficiency virus infection) Mother No problems noted. Other Diabetes pat aunt Essential hypertension MGF Personal history of malignant neoplasm MGM-breast Heart disease MGF Hyperlipidemia MGF Mental disorder PGM-anxiety/depression Myocardial infarction MGF Stroke MGF Brother Alcohol abuse Social History Smoking/Tobacco Use Status: Former Tobacco Use tobacco type: cigarettes Quit Date: 12/03/19 Tobacco: How many years used: 4 Counseling given: other Smoking risk assessment performed?: Yes Alcohol Intake: current Alcohol Intake frequency: 3 or more drinks per day Details: Stop 12/03/2019 with positive UPT Drug use: Occasionally Substance use type: marijuana Details: HX daily marijuana use--currently using marijuana. 28 weeks gestation. Household members: family and other Details: Lives with her parents. 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 Date GA/Weeks # Outcome Route Wgt Sex Labor Lgth Anesthesia Location Prov Complic 07/27/20 39 No Successful vaginal 3316.894 g Male 8 hrs 17 min [facility] Delivery Date: 07/27/20 Last Updated by: Gabi Lucio LPN 2nd degree laceration w/repair; Marito Ding Exam Narrative Exam Narrative: Awake alert [place] x3, no acute distress pleasant cooperative Anicteric MMM Supple neck Chest with auscultation bilaterally Regular rhythm and rate mild bradycardia no m/r/g slkin- no rashes nornal cap refill neuro grossly intact ext no edema psych mild anxiety Course Vital Signs Vital signs: Vital Signs Pulse 88 11/18/21 17:35 Respiratory Rate 18 11/18/21 17:35 Blood Pressure 127/62 11/18/21 17:35 Pulse Oximetry 96 11/18/21 17:35 Pulse 88 11/18/21 17:35 Respiratory Rate 18 11/18/21 17:35 Respiratory Effort Non-Labored 11/18/21 17:40 Blood Pressure 127/62 11/18/21 17:35 Blood Pressure Position Sitting 11/18/21 17:35 Pulse Oximetry 96 11/18/21 17:35 Oxygen Delivery Method Room Air 11/18/21 17:35 Oxygen Flow Rate 0 11/18/21 17:35
[2021-11-18] MEDS: Ondansetron O.D.T. 4 MG TABEF 8 MG PO (18:14)
== END 2021-11-18 19:34 | disposition home or self-care (01) ==
PROVIDERS: Emergency Provider Emergency Medicine
DX: O21.8 Other vomiting complicating pregnancy (principal)
CPT/HCPCS: 99283

== ENCOUNTER 2021-11-18 22:57 | Emergency (ER) | payer MEDICAID, SELFPAY ==
[2021-11-18 23:09] VITALS: BP 141/80; PULSE 83; RESP 14; TEMP 36.7; O2SAT 95
--- NOTE | 2021-11-18 23:18 | W.ED.GENAD ---
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 Details Clinical Impression: Gastroesophageal reflux disease, Nausea and vomiting in prior to 22 weeks gestation Primary Care Provider: Unknown,Unknown ED Provider: Gene Lima Home Meds and New Rx's Prescriptions: Continued ondansetron 4 mg tablet,disintegrating 4 mg PO TID PRN (Reason: nausea and vomiting) Qty: 30 2RF promethazine 25 mg suppository 25 mg FL Q6H PRN (Reason: nausea and vomiting) Qty: 12 2RF promethazine 25 mg tablet 25 mg PO TID PRN (Reason: nausea and vomiting) Qty: 7 0RF metoclopramide HCl [Reglan] 10 mg tablet 10 mg PO Q6H PRN (Reason: nausea and vomiting) Qty: 14 1RF Discharge Instructions Instructions: GERD (Gastroesophageal Reflux Disease) (ED) Additional Instructions: Please continue to eat a diet rich in potassium. Take your Zofran as needed. Use Maalox to help coat your stomach, please take [id number] Pepcid to help settle the acid production in your stomach. If you notice any worsening of your symptoms, or any new symptoms such as vomiting, diarrhea, fever, chills, shortness of breath, chest pain, numbness, weakness, or fainting , please return immediately to the emergency department for reevaluation. Please follow up with your primary care provider as soon as possible for reassessment and reevaluation. As always, it was a pleasure participating in your medical care today. Medical Decision Making This is a 21-year-old female with a past medical history of marijuana use, multiple episodes of vomiting and reflux, as well as fairly severe hyperemesis gravidarum, who presents today for vomiting. Patient has had nausea and vomiting for the last 4 days. Patient states that she has been trying to take her home Zofran but she immediately vomits it back up. She has consistently been vomiting and has not been able to keep anything down. She has come here 3 times over the last 24 hours without significant improvement. On her last visit her potassium was slightly low at 2.9. She has not been able to take her oral potassium. She denies any hematemesis or coffee-ground emesis. She denies any diarrhea. No dietary changes otherwise. No other complaints at this time. She denies any abdominal pain, headache, or neck pain. Physical exam demonstrates dry mucous membranes, nontender nonsurgical abdomen. Differential is highest for her chronic gastroenteritis compounded by her hyperemesis gravidarum. We will establish an IV, give IV fluids, give some IV potassium, famotidine, GI cocktail, and Zofran. We will monitor closely and reassess. 12:53 AM Patient feeling much better on reassessment. Patient has received a liter of normal saline and supplemental potassium. Vomiting has stopped, nausea has resolved, patient feels well and would like to go home. Recommend continued Pepcid at home, fluids, and Zofran as needed. Discussed red flags for which to return. I have extensively reviewed the treatment plan and discharge instructions with the patient. I have addressed all patient concerns at this time. The patient was made aware of what symptoms to monitor for that would warrant a return to the emergency department. Discussed the plan with the patient, they demonstrate verbal understanding and agreement with our assessment and plan at this time. The documentation in this chart was dictated using [employer] dictation software. Please excuse any dictation errors. HPI General Date/Time Provider Initiated Documentation: 11/18/21 22:59. HPI Narrative: This is a 21-year-old female with a past medical history of marijuana use, multiple episodes of vomiting and reflux, as well as fairly severe hyperemesis gravidarum, who presents today for vomiting. Patient has had nausea and vomiting for the last 4 days. Patient states that she has been trying to take her home Zofran but she immediately vomits it back up. She has consistently been vomiting and has not been able to keep anything down. She has come here 3 times over the last 24 hours without significant improvement. On her last visit her potassium was slightly low at 2.9. She has not been able to take her oral potassium. She denies any hematemesis or coffee-ground emesis. She denies any diarrhea. No dietary changes otherwise. No other complaints at this time. She denies any abdominal pain, headache, or neck pain. Related Data Home Medications Medication Instructions Recorded Confirmed ondansetron 4 mg disintegrating 4 mg PO TID PRN nausea and 11/09/21 11/18/21 tablet vomiting #30 tabs metoclopramide HCl 10 mg tablet 10 mg PO Q6H PRN nausea and 11/15/21 11/18/21 (Reglan) vomiting #14 tabs promethazine 25 mg rectal 25 mg FL Q6H PRN nausea and 11/15/21 11/18/21 suppository vomiting #12 ea promethazine 25 mg tablet 25 mg PO TID PRN nausea and 11/15/21 11/18/21 vomiting #7 tabs Previous Rx's Medication Instructions Recorded ondansetron 4 mg disintegrating 4 mg PO TID PRN nausea and 11/09/21 tablet vomiting #30 tabs metoclopramide HCl 10 mg tablet 10 mg PO Q6H PRN nausea and 11/15/21 (Reglan) vomiting #14 tabs promethazine 25 mg rectal 25 mg FL Q6H PRN nausea and 11/15/21 suppository vomiting #12 ea promethazine 25 mg tablet 25 mg PO TID PRN nausea and 11/15/21 vomiting #7 tabs Allergies Allergy/AdvReac Type Severity Reaction Status Date / Time diphenhydramine AdvReac Hyperactivi Unverified 11/18/21 17:40 ty General Stated Complaint: Nausea/Vomit/Diar JARED: 4 Review of Systems All systems reviewed & are unremarkable except as noted in HPI and below PFSH All Active Problems (Updated 11/19/21 @ 00:52 by Gene Lima DO) (Acute) Vomiting (Acute) Nausea and vomiting in prior to 22 weeks gestation (Acute) Marijuana use (Acute) Chronic constipation (Acute) Gastroesophageal reflux disease (Acute) Substance abuse (Acute 04/22/14) smoker with pot and alcohol use Generalized anxiety disorder (Acute 03/18/14) Pt reports significant anxiety in early/mid teens. Anxiety has improved but still struggles at times. Not interested in counseling or medication. Medical History 39 weeks gestation of Abnormal electroencephalogram (12/21/11) Anemia iron infusions Anxiety disorder 9 month inpatient care [place] Dental infection Depression Dysuria Eating disorder (03/18/14) bulemia Fracture of left radius (11/07/08) Hyperemesis gravidarum Low lying placenta nos or without hemorrhage, third trimester Major depressive disorder, single episode, severe, with psychotic behavior (03/18/14) Pain, dental Pancreatitis Pediatric body mass index (BMI) of 5th percentile to less than 85th percentile for age (02/15/16) Rh negative state in antepartum period Suicidal ideation Family History Father Hepatitis B Substance abuse HIV (human immunodeficiency virus infection) Mother No problems noted. Other Diabetes pat aunt Essential hypertension MGF Personal history of malignant neoplasm MGM-breast Heart disease MGF Hyperlipidemia MGF Mental disorder PGM-anxiety/depression Myocardial infarction MGF Stroke MGF Brother Alcohol abuse Social History Smoking/Tobacco Use Status: Former Tobacco Use tobacco type: cigarettes Quit Date: 12/03/19 Tobacco: How many years used: 4 Counseling given: other Smoking risk assessment performed?: Yes Alcohol Intake: former Year quit: Thou Details: Stop 12/03/2019 with positive UPT Drug use: Occasionally Substance use type: marijuana Household members: family and other Details: Lives with her parents. 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 Date GA/Weeks # Outcome Route Wgt Sex Labor Lgth Anesthesia Location Prov [facility] 07/27/20 39 No Successful vaginal 3316.894 g Male 8 hrs 17 min [facility] Delivery Date: 07/27/20 Last Updated by: Gabi Lucio LPN 2nd degree laceration w/repair; Marito Ding Exam Narrative Exam Narrative: 1.Const: Well-nourished, Well-developed, appearing stated age 2.Eyes: PERRL, no conjunctival injection, and symmetrical lids. 3.ENT: Atraumatic external nose and ears. Dry MM. Neck: Symmetric, trachea midline, No thyromegaly. 4.CVS: +S1/S2, No murmurs or gallops. Peripheral pulses 2+ and equal in all extremities. Brisk capillary refill in all extremities. 5.RESP: Unlabored respiratory effort. Clear to auscultation bilaterally. No wheezes rales or rhonchi 6.GI: Soft, Nontender/Nondistended, No hepatosplenomegaly. No guarding or rebound. No pain or McBurney's point. Negative Atwood sign. 7.MSK: Normocephalic/Atraumatic, Extremities w/o deformity or ttp No cyanosis or clubbing, Normal movement of all extremities 8.Skin: Warm, Dry. No rashes or lesions. 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 Sensation grossly intact, no focal neurologic deficits. 10.Psych: (AAO) x3. Appropriate mood and affect Course Vital Signs Vital signs: Vital Signs Temperature 36.7 C 11/18/21 23:09 Pulse 83 11/18/21 23:09 Respiratory Rate 14 11/18/21 23:09 Blood Pressure 141/80 H 11/18/21 23:09 Pulse Oximetry 95 11/18/21 23:09 Temperature 36.7 C 11/18/21 23:09 Temperature Source Temporal Artery Scan 11/18/21 23:09 Pulse 83 11/18/21 23:09 Respiratory Rate 14 11/18/21 23:09 Respiratory Effort Non-Labored 11/18/21 23:11 Blood Pressure 141/80 H 11/18/21 23:09 Blood Pressure Position Sitting 11/18/21 23:09 Pulse Oximetry 95 11/18/21 23:09 Oxygen Delivery Method Room Air 11/18/21 23:09 Oxygen Flow Rate 0 11/18/21 23:09
[2021-11-18] MEDS: Ondansetron 4 MG/2 ML VIAL IVP (23:37)
[2021-11-18] MEDS: Sucralfate 1 GM TAB PO (23:38)
[2021-11-18] MEDS: POTASSIUM CHLORIDE 10 MEQ/100 ML BAG 100 MEQ IVPB (23:38)
[2021-11-18] MEDS: Lactated Ringers 1,000 ML 1000 ML IV (23:40)
== END 2021-11-19 00:59 | disposition home or self-care (01) ==
PROVIDERS: Emergency Provider Student in an Organized Health Care Education/Training Program
DX: O21.8 Other vomiting complicating pregnancy (principal); K21.9 Gastro-esophageal reflux disease without esophagitis; E87.6 Hypokalemia
CPT/HCPCS: 96361; 96365; 96375; 99284; 99283; J2405; J3480

== ENCOUNTER 2021-11-19 09:48 | Emergency (ER) | payer MEDICAID, SELFPAY ==
[2021-11-19 09:52] VITALS: BP 134/83; PULSE 84; RESP 22; O2SAT 98
[2021-11-19] MEDS: diphenhydrAMINE 50 MG/ML VIAL 25 MG IVP (10:27)
[2021-11-19] MEDS: Metoclopramide 10 MG/2 ML VIAL IVP (10:32)
[2021-11-19] MEDS: Normal Saline 50 ML (10:32)
[2021-11-19] MEDS: Lactated Ringers 1,000 ML 1000 ML IV (10:33)
[2021-11-19 10:38] LABS: Bilirubin Negative (Negative); Blood Negative (Negative); Clarity Sl Cloudy (Clear); Glucose Negative (Negative); Ketones 80 mg/dL (Negative); Leukocyte Esterase Negative (Negative); Nitrite Negative (Negative); Specific Gravity 1.025 (1.005-1.025); Urobilinogen 0.2 EU/dL (Up TO 0.2)
[2021-11-19 10:46] LABS: Bacteria Negative HPF (Negative); C & S Indicated? No; Casts 0-2 Hyaline LPF (Negative); Crystals Moderate Amorphous HPF (Negative); Epithelial Cells Few HPF (Negative); Mucus Moderate (Negative); RBC Negative HPF (0-2); WBC Negative HPF (0-5)
[2021-11-19 10:50] LABS: Anion Gap 10.5 mmol/L (3-11); BUN 9 mg/dL (7-18); CO2 24.5 mmol/L (21.0-32.0); CREATININE 0.6 mg/dL (0.55-1.02); Calcium 8.8 mg/dL (8.5-10.1); Chloride 103 mmol/L (98-107); Glucose 84 mg/dL (74-106); Potassium 3.4 mmol/L (3.5-5.1); Sodium 138 mmol/L (136-145)
--- NOTE | 2021-11-19 12:49 | ED.GENADUL_ITS ---
Discharge Plan Disposition Patient Disposition: HOME Condition: Stable Discharge Details Clinical Impression: Vomiting, Primary Care Provider: Unknown,Unknown ED Provider: Christen Croft Home Meds and New Rx's Prescriptions: New Bonjesta 20-20 mg tablet,IR,delayed rel,biphasic 1 tab PO BID Qty: 30 0RF promethazine 25 mg tablet 25 mg PO Q6H PRNQty: 10 0RF Continued promethazine 25 mg tablet 25 mg PO TID PRN (Reason: nausea and vomiting) Qty: 7 0RF Discontinued ondansetron 4 mg tablet,disintegrating 4 mg PO TID PRN (Reason: nausea and vomiting) Qty: 30 2RF promethazine 25 mg suppository 25 mg UT Q6H PRN (Reason: nausea and vomiting) Qty: 12 2RF metoclopramide HCl [Reglan] 10 mg tablet 10 mg PO Q6H PRN (Reason: nausea and vomiting) Qty: 14 1RF Discharge Instructions Additional Instructions: Eat small amounts of food every 1-2 hours to avoid an empty stomach or a full stomach stay away from very sweet food Please. Low-fat, bland diet or dry. Can be helpful like oyster crackers and saltine, popsicles Fluid 30 minutes prior to and after eating any solid food to minimize empty stomach or full stomach Fluids are better tolerated if close, clear, carbonated, or sour Avoid lying down after eating For any reason the pharmacy does not have the prescription Bonjesta, you may substitute doxylamine 10 mg and pyridoxine 10 mg, take these twice a day Try to stick to a brat diet with bananas, rice, applesauce, and toast You may also try arturo pills Follow-up with the [facility]OR [facility] and your primary care physician on Sunday Referrals: Laverne Paiz MD [ [facility] STAFF PHYSICIAN] - Discharge Data Discharge Date/Time-TO BE ENTERED AT DEPARTURE: 11/19/21 13:54 Medical Decision Making Patient appears well after her Reglan and Benadryl administration Given doxylamine prescription for home Able to tolerate p.o. Patient has prescription for potassium which she will continue to supplement with this, her potassium here is 3.4 Magnesium was stable on labs are improved from prior assessment Patient is stable for discharge home at this time Return precautions discussed and patient expressed understanding Medical Records Medical records reviewed: Yes I reviewed the patient's medical records. Lab Data Lab results reviewed: Yes I reviewed the patient's lab results. HPI General Date/Time Provider Initiated Documentation: 11/19/21 09:58 . HPI Narrative: This 21-year-old female with history of hyperemesis gravidarum presents approximately 8 week without visit established with nausea and vomiting. Denies any abdominal pain or vaginal bleeding. Does have an appointment scheduled with [facility] in 2-week. Denies any weakness or dizziness. Denies any abdominal pain. States she does have some epigastric pain which she attributes to vomiting. Related Data Home Medications Medication Instructions Recorded Confirmed promethazine 25 mg tablet 25 mg PO TID PRN nausea and 11/15/21 11/19/21 vomiting #7 tabs doxylamine 20 mg-pyridoxine 20 mg 1 tab PO BID #30 tabs 11/19/21 tablet,immediate and delayed release (Bonjesta) promethazine 25 mg tablet 25 mg PO Q6H PRN #10 tabs 11/19/21 Previous Rx's Medication Instructions Recorded promethazine 25 mg tablet 25 mg PO TID PRN nausea and 11/15/21 vomiting #7 tabs doxylamine 20 mg-pyridoxine 20 mg 1 tab PO BID #30 tabs 11/19/21 tablet,immediate and delayed release (Bonjesta) promethazine 25 mg tablet 25 mg PO Q6H PRN #10 tabs 11/19/21 Allergies Allergy/AdvReac Type Severity Reaction Status Date / Time diphenhydramine AdvReac Hyperactivi Unverified 11/19/21 10:04 ty General Stated Complaint: Nausea/Vomit/Diar JARED: 3 Review of Systems All systems reviewed & are unremarkable except as noted in HPI and below PFSH All Active Problems (Updated 11/20/21 @ 17:10 by ANTONY Quinn) (Acute) Vomiting (Acute) Nausea and vomiting in prior to 22 weeks gestation (Acute) Marijuana use (Acute) Chronic constipation (Acute) Gastroesophageal reflux disease (Acute) Substance abuse (Acute 04/22/14) smoker with pot and alcohol use Generalized anxiety disorder (Acute 03/18/14) Pt reports significant anxiety in early/mid teens. Anxiety has improved but still struggles at times. Not interested in counseling or medication. Medical History 39 weeks gestation of Abnormal electroencephalogram (12/21/11) Anemia iron infusions Anxiety disorder 9 month inpatient care [place] Dental infection Depression Dysuria Eating disorder (03/18/14) bulemia Fracture of left radius (11/07/08) Hyperemesis gravidarum Low lying placenta nos or without hemorrhage, third trimester Major depressive disorder, single episode, severe, with psychotic behavior (03/18/14) Pain, dental Pancreatitis Pediatric body mass index (BMI) of 5th percentile to less than 85th percentile for age (02/15/16) Rh negative state in antepartum period Suicidal ideation Family History Father Hepatitis B Substance abuse HIV (human immunodeficiency virus infection) Mother No problems noted. Other Diabetes pat aunt Essential hypertension MGF Personal history of malignant neoplasm MGM-breast Heart disease MGF Hyperlipidemia MGF Mental disorder PGM-anxiety/depression Myocardial infarction MGF Stroke MGF Brother Alcohol abuse Social History Smoking/Tobacco Use Status: Former Tobacco Use tobacco type: cigarettes Quit Date: 12/03/19 Tobacco: How many years used: 4 Counseling given: other Smoking risk assessment performed?: Yes Alcohol Intake: former Year quit: Thou Details: Stop 12/03/2019 with positive UPT Drug use: Occasionally Substance use type: marijuana Household members: family and other Details: Lives with her parents. 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 Date GA/Weeks # Outcome Route Wgt Sex Labor Lgth Anesthes ia Location Prov [facility] [address] 07/27/20 39 No Successful vaginal 3316.894 g Male 8 hrs 17 min [facility] Delivery Date: 07/27/20 Last Updated by: Gabi Lucio LPN 2nd degree laceration w/repair; Marito Ding Exam Const General: cooperative Orientation: alert and oriented x3 Resp Effort & Inspection: normal respiratory effort Cardio Rate: regular rate Rhythm: regular rhythm GI Inspection: normal to inspection Other: Mild tenderness of the epigastrium without rebound guarding, no CVA tenderness Skin General skin exam: no rashes or lesions noted Neuro General: patient alert and patient oriented x3 Extrem General: normal to inspection Course Vital Signs Vital signs: Vital Signs Pulse 84 11/19/21 09:52 Respiratory Rate 22 11/19/21 09:52 Blood Pressure 134/83 11/19/21 09:52 Pulse Oximetry 98 11/19/21 09:52 Pulse 84 11/19/21 09:52 Respiratory Rate 22 11/19/21 09:52 Respiratory Effort 11/19/21 10:45 Respiratory Depth Normal 11/19/21 11:10 Blood Pressure 134/83 11/19/21 09:52 Blood Pressure Position Sitting 11/19/21 09:52 Pulse Oximetry 98 11/19/21 09:52 Oxygen Delivery Method Room Air 11/19/21 09:52 Oxygen Flow Rate 0 11/19/21 09:52 Lab/Test Results Lab/Test Results: Laboratory Tests Range/Units 11/19/21 11/19/21 10:12 10:30 Sodium (136-145) mmol/L 138 Potassium (3.5-5.1) mmol/L 3.4 L Chloride (98-107) mmol/L 103 Carbon Dioxide (21.0-32.0) mmol/L 24.5 Anion Gap (3-11) mmol/L 10.5 BUN (7-18) mg/dL 9 Creatinine (0.55-1.02) mg/dL 0.6 Estimated GFR/1.73 m2 (mL/min/1.73m2) >= 60.00 Glucose (74-106) mg/dL 84 Calcium (8.5-10.1) mg/dL 8.8 Magnesium (1.8-2.4) mg/dL 2.0 Urine Color (Yellow) Yellow Urine Clarity (Clear) Sl Cloudy Urine pH (5-8) 7.0 Ur Specific Fults (1.005-1.025) 1.025 Urine Protein (Negative) mg/dL Trace H Urine Ketones (Negative) mg/dL 80 H Urine Blood (Negative) Negative Urine Nitrite (Negative) Negative Urine Bilirubin (Negative) Negative Urine Urobilinogen (Up TO 0.2) EU/dL 0.2 Ur Leukocyte Esterase (Negative) Negative Urine RBC (0-2) HPF Negative Urine WBC (0-5) HPF Negative Ur Epithelial Cells (Negative) HPF Few Urine Crystals (Negative) HPF Moderate Amorphous Urine Bacteria (Negative) HPF Negative Urine Casts (Negative) LPF 0-2 Hyaline Urine Mucus (Negative) Moderate Ur Culture Indicated? No Urine Glucose (Negative) mg/dL Negative
[2021-11-19 13:37] VITALS: PULSE 72; RESP 18; TEMP 36.8
== END 2021-11-19 13:54 | disposition home or self-care (01) ==
PROVIDERS: Emergency Provider Physician Assistant
DX: O21.8 Other vomiting complicating pregnancy (principal)
CPT/HCPCS: 80048; 96361; 96374; 96375; 99284; 81003; 81015; 83735; 99283; J1200; J2765

== ENCOUNTER 2021-12-08 10:34 | Emergency (ER) | payer MEDICAID, SELFPAY ==
[2021-12-08 10:38] VITALS: BP 140/86; PULSE 94; RESP 16; TEMP 36.4; O2SAT 96
--- NOTE | 2021-12-08 10:53 | ED.GENADUL_ITS ---
Discharge Plan Disposition Patient Disposition: HOME Condition: Improving Discharge Details Clinical Impression: Nausea and vomiting in prior to 22 weeks gestation, Acute pancreatitis Primary Care Provider: Unknown,Unknown ED Provider: Krishna Corbett Rangely Meds and New Rx's Prescriptions: New ondansetron 4 mg tablet,disintegrating 4 mg PO Q8H PRN3 Days Qty: 10 0RF promethazine 12.5 mg tablet 12.5 mg PO TID PRNQty: 10 0RF Continued ondansetron 4 mg tablet,disintegrating 4 mg PO Q6H Qty: 20 5RF gummy 1 gummy PO BID Qty: 60 0RF Bonjesta 20-20 mg tablet,IR,delayed rel,biphasic 1 tab PO BID Qty: 30 0RF Discharge Instructions Instructions: Hyperemesis Gravidarum (ED), Pancreatitis (ED) Additional Instructions: Your laboratory values reveal mild pancreatitis but otherwise are unremarkable. You responded nicely to the IV fluid and antiemetics. I have provided you a prescription for both Phenergan and Zofran. As we discussed please watch for new or worsening symptoms, if you are unable to tolerate oral intake and you will likely need to return to the ER for reevaluation and possible admission. Otherwise plenty of fluids to avoid dehydration, clear liquid diet, advance as tolerated. I would like you to contact both your [facility] team as well as your PCP later today or tomorrow to discuss your ER visit and need for outpatient reevaluation. Medical Decision Making This is a 21-year-old female, approximately 10 weeks , past medical history of GERD, anxiety, pancreatitis, presenting to the ER for nausea and vomiting over the past 12-24 hours not controlled by her Zofran and B6 at home, associated with epigastric and lower chest pain when vomiting. Patient states that she has been dealing with this most of her as well as her previous and this feels the same. She has Phenergan at home but did not take this medication. Patient is hoping to address this before symptoms become dramatically worse and she becomes dehydrated. She denies any vaginal bleeding or lower abdominal-pelvic pain. Clinically she appears well, nontoxic. Plan is to obtain IV access, give IV fluid, Zofran, Phenergan, GI cocktail and obtain routine screening laboratory values including a lipase given her history of pancreatitis Upon reevaluation patient patient reports significant improvement of her overall symptoms, denies nausea or pain. No vomiting while under my care. She feels well and is comfortable with discharge. She states that she is running low on her Zofran so I will prescribe both oral Phenergan and Zofran. She has Phenergan suppositories at home if needed. Laboratory values do not reveal any leukocytosis or anemia. Her electrolytes are unremarkable. GFR greater than 60. Lipase is elevated at 801, consistent with mild pancreatitis. Patient states that she feels well and believes that she can be safely discharged in her current condition but we did discuss pancreatitis in and have a low threshold to return to the ER as if she cannot tolerate p.o. intake she will likely need admission. Awaiting urinalysis. In the meantime patient will receive another liter of IV fluid Urinalysis reveals 40 ketones, otherwise unremarkable. Patient continues to report feeling improvement, requesting discharge. Standard discharge and return precautions were provided. Patient understands, is agreeable to this plan, and has no additional questions or concerns upon discharge. This documentation was generated using [employer] dictation system, please disregard any oddities of phrase or misspellings. Medical Records Medical records reviewed: Yes I reviewed the patient's medical records. Lab Data Lab results reviewed: Yes I reviewed the patient's lab results. Labs: Laboratory Tests Range/Units 12/08/21 12/08/21 12/08/21 10:51 10:51 11:58 WBC (4.4-10.8) 10^3/uL 8.99 RBC (3.93-5.22) 10^6/uL 4.07 Hgb (11.2-15.7) g/dL 13.1 Hct (36.0-46.0) % 38.7 MCV (80-95) fL 95 MCH (27.0-33.0) pg 32.2 MCHC (32.0-36.0) % 33.9 RDW (11.7-14.6) % 11.9 Plt Count (130-400) 10^3/uL 230 MPV (8.0-11.0) fL 9.7 Immature Gran % 0.3 Neutrophils % 72.6 Lymphocytes % 19.5 Monocytes % 7.0 Eosinophils % 0.4 Basophils % 0.2 Nucleated RBC % (0.0-0.3) % 0.0 Absolute Neutrophils (1.2-6.7) 10^3/uL 6.52 Absolute Lymphocytes (1.2-3.4) 10^3/uL 1.75 Absolute Monocytes (0.1-0.8) 10^3/uL 0.63 Absolute Eosinophils (0.0-0.7) 10^3/uL 0.04 Absolute Basophils (0.0-0.2) 10^3/uL 0.02 Sodium (136-145) mmol/L 139 Potassium (3.5-5.1) mmol/L 3.7 Chloride (98-107) mmol/L 105 Carbon Dioxide (21.0-32.0) mmol/L 25.1 Anion Gap (3-11) mmol/L 8.9 BUN (7-18) mg/dL 8 Creatinine (0.55-1.02) mg/dL 0.4 L Estimated GFR/1.73 m2 (mL/min/1.73m2) >= 60.00 Glucose (74-106) mg/dL 90 Calcium (8.5-10.1) mg/dL 9.1 Total Bilirubin (0.2-1.0) mg/dL 0.3 AST (15-37) U/L 13 L ALT (14-59) U/L 16 Alkaline Phosphatase (46-116) U/L 62 Total Protein (6.4-8.2) g/dL 7.3 Albumin (3.4-5.0) g/dL 4.0 Lipase (73-393) U/L 801 H Urine Color (Yellow) Yellow Urine Clarity (Clear) Clear Urine pH (5-8) 7.0 Ur Specific [place] (1.005-1.025) 1.025 Urine Protein (Negative) mg/dL Negative Urine Ketones (Negative) mg/dL 40 H Urine Blood (Negative) Negative Urine Nitrite (Negative) Negative Urine Bilirubin (Negative) Negative Urine Urobilinogen (Up TO 0.2) EU/dL 0.2 Ur Leukocyte Esterase (Negative) Negative Urine Glucose (Negative) mg/dL Negative HPI General Mode of arrival: ambulatory . Date/Time Provider Initiated Documentation: 12/08/21 10:35 . Limitations to Documentation: no limitations . Information obtained by: patient and family . History of Present Illness 21 year old F presents to the emergency department with the chief complaint of Nausea and vomiting, described as moderate, with intensity rated at 5. Quality is described as burning, and is localized to the chest and abdomen. Patient reports no radiation. Patient started experiencing this day(s) (1) and it has been intermittent. No relieving factors improve symptom(s), No e xacerbating factors reported . Patient notes chest pain and nausea/vomiting. Patient did receive the following treatments prior to arrival, other (Zofran and B6) Related Data Home Medications Medication Instructions Recorded Confirmed doxylamine 20 mg-pyridoxine 20 mg 1 tab PO BID #30 tabs 22 12/08/21 tablet,immediate and delayed release (Bonjesta) ondansetron 4 mg disintegrating 4 mg PO Q6H #20 tabs 11/29/21 12/08/21 tablet gummy 1 gummy PO BID #60 tabs 11/29/21 12/08/21 ondansetron 4 mg disintegrating 4 mg PO Q8H PRN 3 days #10 tabs 12/08/21 tablet promethazine 12.5 mg tablet 12.5 mg PO TID PRN #10 tabs 12/08/21 Previous Rx's Medication Instructions Recorded doxylamine 20 mg-pyridoxine 20 mg 1 tab PO BID #30 tabs 11/19/21 tablet,immediate and delayed release (Bonjesta) ondansetron 4 mg disintegrating 4 mg PO Q6H #20 tabs 11/29/21 tablet gummy 1 gummy PO BID #60 tabs 11/29/21 ondansetron 4 mg disintegrating 4 mg PO Q8H PRN 3 days #10 tabs 12/08/21 tablet promethazine 12.5 mg tablet 12.5 mg PO TID PRN #10 tabs 12/08/21 General Stated Complaint: Nausea/Vomit/Diar JARED: 3 Review of Systems Constitutional Constitutional: Denies fever(s) and Denies weakness ENT Ears, Nose, Mouth, and Throat: Denies neck pain Cardiovascular Cardiovascular: Reports chest pain (Lower, after vomiting) Respiratory Respiratory: Denies cough Gastrointestinal Gastrointestinal: Reports abdominal pain (Epigastric, after vomiting), Denies constipation, Denies diarrhea, Reports nausea and Reports vomiting Genitourinary Genitourinary: Denies abnormal vaginal bleeding and Denies dysuria Musculoskeletal Musculoskeletal: Denies back pain and Denies neck pain Integumentary/Breasts Skin/Breast: Denies rash Neurologic Neurologic: Denies weakness PFSH All Active Problems (Updated 12/08/21 @ 12:20 by ANTONY Resendez) Acute pancreatitis (Acute) (Acute) Vomiting (Acute) Nausea and vomiting in prior to 22 weeks gestation (Acute) Marijuana use (Acute) Chronic constipation (Acute) Gastroesophageal reflux disease (Acute) Substance abuse (Acute 04/22/14) smoker with pot and alcohol use Generalized anxiety disorder (Acute 03/18/14) Pt reports significant anxiety in early/mid teens. Anxiety has improved but still struggles at times. Not interested in counseling or medication. Medical History 39 weeks gestation of Abnormal electroencephalogram (12/21/11) Anemia iron infusions Anxiety disorder 9 month inpatient care [place] Dental infection Depression Dysuria Eating disorder (03/18/14) bulemia Fracture of left radius (11/07/08) Hyperemesis gravidarum Low lying placenta nos or without hemorrhage, third trimester Major depressive disorder, single episode, severe, with psychotic behavior (03/18/14) Pain, dental Pancreatitis Pediatric body mass index (BMI) of 5th percentile to less than 85th percentile for age (02/15/16) Rh negative state in antepartum period Suicidal ideation Family History Father Hepatitis B Substance abuse HIV (human immunodeficiency virus infection) Mother No problems noted. Other Diabetes pat aunt Essential hypertension MGF Personal history of malignant neoplasm MGM-breast Heart disease MGF Hyperlipidemia MGF Mental disorder PGM-anxiety/depression Myocardial infarction MGF Stroke MGF Brother Alcohol abuse Social History Smoking/Tobacco Use Status: Former Tobacco Use tobacco type: cigarettes Quit Date: 12/03/19 Tobacco: How many years used: 4 Counseling given: other Smoking risk assessment performed?: Yes Alcohol Intake: former Year quit: Thou Details: Stop 12/03/2019 with positive UPT Drug use: Occasionally Substance use type: marijuana Household members: family and other Details: Lives with her parents. 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 Date GA/Weeks # Outcome Route Wgt Sex Labor Lgth Anesthes ia Location Prov Complic 07/27/20 39 No Successful vaginal 3316.894 g Male 8 hrs 17 min laura deanna Gomes, [place] Delivery Date: 07/27/20 Last Updated by: Gabi Lucio LPN 2nd degree laceration w/repair; Marito Ding Exam Const General: cooperative, healthy appearing, comfortable and no acute distress Orientation: alert, awake and oriented x3 HENMT Head: normal to inspection, normocephalic and atraumatic Face and sinus: normal facial exam Mouth: moist mucous membranes Eyes General: appearance normal, both eyes and all related structures Conjunctivae: conjunctivae normal Neck Neck: normal visual inspection, full ROM, trachea midline and supple Resp Effort & Inspection: normal respiratory effort and able to speak in complete sentences Auscultation: clear to auscultation bilaterally Cardio Rate: regular rate Rhythm: regular rhythm GI Inspection: normal to inspection Palpation: soft, not firm, no guarding, no pulsatile masses and nontender Auscultation: normal bowel sounds Back/Spine/Pelvis Back: No back tenderness Skin General skin exam: no rashes or lesions noted Neuro General: patient alert, patient awake, moves all extremities and no focal motor deficits Cognition: normal cognition Speech: speech normal Gait: normal gait Motor: muscle tone normal throughout Sensory Exam: no sensory deficits noted Extrem General: normal to inspection, full ROM and capillary refill normal Psych Appearance: grossly normal Mental Status: mental status grossly normal Course Vital Signs Vital signs: Vital Signs Temperature 36.4 C L 12/08/21 10:38 Pulse 94 H 12/08/21 10:38 Respiratory Rate 12/08/21 10:38 Blood Pressure 140/86 12/08/21 10:38 Pulse Oximetry 96 12/08/21 10:38 Temperature 36.4 C L 12/08/21 10:38 Pulse 94 H 12/08/21 10:38 Respiratory Rate 12/08/21 10:38 Respiratory Effort 12/08/21 10:42 Blood Pressure 140/86 12/08/21 10:38 Pulse Oximetry 96 12/08/21 10:38 Pain Level 9 12/08/21 10:38
[2021-12-08] MEDS: Normal Saline 1,000 ML 1000 ML IV ×2 (10:55→11:57)
[2021-12-08 11:14] LABS: Abs Immature Grans 0.03 10^3/uL (0.0-0.06); Absolute Basophil Count 0.02 10^3/uL (0.0-0.2); Absolute Eosinophil Count 0.04 10^3/uL (0.0-0.7); Absolute Lymphocyte Count 1.75 10^3/uL (1.2-3.4); Absolute Monocyte Count 0.63 10^3/uL (0.1-0.8); Absolute Neutrophil Count 6.52 10^3/uL (1.2-6.7); Basophils % 0.2; Eosinophils % 0.4; HCT 38.7 % (36.0-46.0); HGB 13.1 g/dL (11.2-15.7); Immature Grans % 0.3; Lymphocytes % 19.5; MCH 32.2 pg (27.0-33.0); MCHC 33.9 % (32.0-36.0); MCV 95 fL (80-95); MPV 9.7 fL (8.0-11.0); Neutrophils % 72.6; Platelet Count 230 10^3/uL (130-400); RBC 4.07 10^6/uL (3.93-5.22); RDW 11.9 % (11.7-14.6); RDW-SD 41.2 fL; WBC 8.99 10^3/uL (4.4-10.8)
[2021-12-08] MEDS: Ondansetron 4 MG/2 ML VIAL IVP (11:18)
[2021-12-08 11:25] LABS: ALT 16 U/L (14-59); AST 13 U/L (15-37); Alkaline Phosphatase 62 U/L (46-116); Anion Gap 8.9 mmol/L (3-11); BUN 8 mg/dL (7-18); Bilirubin, Total 0.3 mg/dL (0.2-1.0); CO2 25.1 mmol/L (21.0-32.0); CREATININE 0.4 mg/dL (0.55-1.02); Calcium 9.1 mg/dL (8.5-10.1); Chloride 105 mmol/L (98-107); Glucose 90 mg/dL (74-106); Lipase 801 U/L (73-393); Potassium 3.7 mmol/L (3.5-5.1); Sodium 139 mmol/L (136-145); Total Protein 7.3 g/dL (6.4-8.2)
[2021-12-08 12:15] LABS: Bilirubin Negative (Negative); Blood Negative (Negative); Clarity Clear (Clear); Glucose Negative (Negative); Ketones 40 mg/dL (Negative); Leukocyte Esterase Negative (Negative); Nitrite Negative (Negative); Specific Gravity 1.025 (1.005-1.025); Urobilinogen 0.2 EU/dL (Up TO 0.2)
[2021-12-08 12:45] VITALS: BP 108/58; PULSE 77; RESP 16; TEMP 36.2; O2SAT 98
== END 2021-12-08 12:57 | disposition home or self-care (01) ==
PROVIDERS: Emergency Provider Physician Assistant
DX: O26.891 Other specified pregnancy related conditions, first trimester (principal); O99.611 Diseases of the digestive system complicating pregnancy, first trimester; K85.90 Acute pancreatitis without necrosis or infection, unspecified; Z3A.10 10 weeks gestation of pregnancy; R11.10 Vomiting, unspecified
CPT/HCPCS: 36415; 80053; 83690; 96361; 96365; 96375; 99284; 81003; 85025; J2405

== ENCOUNTER 2021-12-08 14:25 | Observation (INO) | payer MEDICAID, SELFPAY ==
--- NOTE | 2021-12-08 | DI.US_ITS ---
Exam(s) US ABDOMEN EXAM: US ABDOMEN CLINICAL HISTORY: N V, 10 wks preg, elevated Lipase, hx pancreatitis TECHNIQUE: Ultrasound of complete upper abdomen performed using standard protocol. COMPARISON: CT scan of 07/17/2019 was reviewed. FINDINGS: There is no ascites evident. LIVER: There are no hepatic lesions evident nor obvious dilatation of intrahepatic ducts. GALLBLADDER/BILIARY: There are no gallstones. No gallbladder wall edema nor pericholecystic fluid. The common hepatic duct isnot dilated, measuring 3-4mm at the level of mark hepatis. PANCREAS: There is no evidence of pancreatic mass nor dilatation of the pancreatic duct. SPLEEN: The spleen is not enlarged and there are no intrasplenic lesions evident. KIDNEYS:Kidneys exhibit normal size with no evidence of solid mass, calculus, nor hydronephrosis. No cortical cysts evident. ABDOMINAL AORTA: There is no evidence of abdominal aortic aneurysm. IVC: Normal diameter where visualized. IMPRESSION: 1. No evidence of cholelithiasis nor dilatation of the biliary tree. 2. No other significant ultrasound findings in the upper abdomen. 3. There is no ascites. Please note that this patient had abnormal uterine findings on CT scan 07/17/2019. Please see that r eport. May require repeat ultrasound. DATA REPOSITORY:
--- NOTE | 2021-12-08 14:32 | HPE_ITS ---
Date of service: 12/08/21 Time of Service: 14:32 Assessment and Plan Assessment and plan (1) Acute pancreatitis: Status: Acute Assessment and plan: Lipase is elevated, Amylase ordered Ultrasound of abdomen ordered NPO, IVF hydration (2) Nausea and vomiting in prior to 22 weeks gestation: Status: Acute Assessment and plan: A: 21 yo , 10 wks Acute pancreatitis, elevated lipase this morning in ED visit GERD, hyperemesis, dehydration, esophagitis Possible cannabinoid hyperemesis syndrome P: Obs status in BC LR rehydration, change to D5LR if ketonuric Repeat phenergan and zofran, protonix 40 mg IVP US of abd today, amylase added to labs NPO at this time, expect observation overnight Plan slow advance of diet in the morning (3) Marijuana use: Status: Acute Assessment and plan: Pt states she uses a bong (waterpipe) at least twice per day, every day. When she feels particularly nauseous and sick, she gets relief by taking very hot showers, a few times per week. Pt has been advised about the possibility of Cannabinoid Hyperemesis Syndrome in the past Reviewed signs and symptoms today, advised pt to reduce or ideally cease marijuana use Offer to pt made for Rx of anti-depressant or anti-anxiety medication to replace MJ use. Declines at this time. History of Present Illness History of Present Illness Chief Complaint: Abdominal pain, substernal pain and burning, nausea, intractable vomiting, Narrative: Pt has hx bulemia, depression, anxiety, pancreatitis during prior , GERD, nausea and vomiting prior to , hyperemesis with , dehydration, ketonuria, esophagitis, and marijuana abuse. Is currently 10 weeks , has had multiple visits to ED immediately prior to and during this , anti-emetics generally control her pain and vomiting for brief p eriods only. She was seen in the ED this morning, received 2 liters NS IV, phenergan 12.5 and Zofran 4 mg IVPB, was discharged to home. Pt re-presents only 2 hours later with recurring chest and abd discomfort, nausea. Review of Systems Narrative: ROS completed, noncontributory other then HPI Constitutional Constitutional: Reports as per HPI, Reports lethargy, Reports poor appetite, Reports weakness and Reports weight loss Cardiovascular Cardiovascular: Reports system reviewed and no additional complaints, except as documented Respiratory Respiratory: Reports system reviewed and no additional complaints, except as documented Gastrointestinal Gastrointestinal: Reports abdominal pain, Reports belching, Reports constipation, Reports dyspepsia, Reports heartburn, Reports nausea and Reports vomiting Genitourinary Genitourinary: Reports system reviewed and no additional complaints, except as documented Musculoskeletal Musculoskeletal: Reports system reviewed and no additional complaints, except as documented Integumentary/Breasts Skin/Breast: Reports system reviewed and no additional complaints, except as documented Neurologic Neurologic: Reports weakness Psychiatric Psychiatric: Reports anxiety and Reports depression PFSH All Active Problems (Updated 12/08/21 @ 16:25 by Sarah Ray) Cannabinoid hyperemesis syndrome (Acute) Acute pancreatitis (Acute) (Acute) Vomiting (Acute) Nausea and vomiting in prior to 22 weeks gestation (Acute) Marijuana use (Acute) Daily use, multiple times per day Chronic constipation (Acute) Gastroesophageal reflux disease (Acute) Generalized anxiety disorder (Acute 03/18/14) Pt reports significant anxiety in early/mid teens. Anxiety has improved but still struggles at times. Not interested in counseling or medication. Medical History (Updated 12/08/21 @ 16:25 by Sarah Ray) Abnormal electroencephalogram (12/21/11) Anemia iron infusions Anxiety disorder 9 month inpatient care [place] Dental infection Depression Dysuria Eating disorder (03/18/14) bulemia Fracture of left radius (11/07/08) Hyperemesis gravidarum Low lying placenta nos or without hemorrhage, third trimester Major depressive disorder, single episode, severe, with psychotic behavior (03/18/14) Pain, dental Pancreatitis Pediatric body mass index (BMI) of 5th percentile to less than 85th percentile for age (02/15/16) Rh negative state in antepartum period Substance abuse (04/22/14) smoker with pot and alcohol use Suicidal ideation Family History Father Hepatitis B Substance abuse HIV (human immunodeficiency virus infection) Mother No problems noted. Other Diabetes pat aunt Essential hypertension MGF Personal history of malignant neoplasm MGM-breast Heart disease MGF Hyperlipidemia MGF Mental disorder PGM-anxiety/depression Myocardial infarction MGF Stroke MGF Brother Alcohol abuse Social History Smoking/Tobacco Use Status: Former Tobacco Use tobacco type: cigarettes Quit Date: 12/03/19 Tobacco: How many years used: 4 Counseling given: other Smoking risk assessment performed?: Yes Alcohol Intake: former Year quit: Thou Details: Stop 12/03/2019 with positive UPT Drug use: Daily Substance use type: marijuana Household members: family and other Details: Lives with her parents. 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 Date GA/Weeks # Outcome Route Wgt Sex Labor Lgth Anesthes ia Location [facility] 07/27/20 39 No Successful vaginal 7 lb 5 oz Male 8 hrs 17 min reganuj Gomes, [place] Delivery Date: 07/27/20 Last Updated by: Gabi Lucio LPN 2nd degree laceration w/repair; Marito Lovell Allergies and Home Medications Allergies Allergy/AdvReac Type Severity Reaction Status Date / Time No Known Allergies Allergy Verified 12/08/21 14:50 Home Medications Medication Instructions Recorded Confirmed Type doxylamine 20 mg-pyridoxine 20 mg 1 tab PO BID #30 tabs 11/19/21 12/08/21 Rx tablet,immediate and delayed release (Bonjesta) gummy 1 gummy PO BID #60 tabs 11/29/21 12/08/21 Rx ondansetron 8 mg disintegrating 8 mg PO Q8H #20 tabs 12/08/21 Rx tablet pantoprazole 40 mg tablet,delayed 40 mg PO DAILY #30 tabs 12/08/21 Rx release (Protonix) promethazine 25 mg tablet 25 mg PO Q6H PRN nausea and 12/08/21 Rx vomiting #30 tabs Exam Const General: cooperative, in distress and ill appearing Chest Chest: normal inspection of the chest Resp Effort & Inspection: normal respiratory effort and able to speak in complete sentences Cardio Rate: regular rate Rhythm: regular rhythm GI Inspection: normal to inspection Palpation: soft General: deferred Skin General skin exam: no rashes or lesions noted and elasticity normal Extrem General: normal to inspection, full ROM and normal gait Psych Appearance: grossly normal Mental Status: mental status grossly normal Speech and Movement: speech and movement normal and speech clear Affect: normal affect (pt is uncomfortable)
[2021-12-08] MEDS: Lactated Ringers 500 ML 1000 ML IV (15:05)
[2021-12-08] MEDS: Normal Saline Flush 10 ML SYR IVP ×2 (15:06→23:10)
[2021-12-08] MEDS: Ondansetron 4 MG/2 ML VIAL IVP (15:06)
[2021-12-08 16:36] LABS: Amylase 114 U/L (25-115)
[2021-12-08] MEDS: Pantoprazole 40 MG VIAL IVP (16:49)
[2021-12-08] MEDS: DEXTROSE 5%-LACTATED RINGERS 1,000 ML 250 ML IV ×2 (16:50→21:32)
[2021-12-08 17:08] VITALS: BP 117/65; PULSE 94; RESP 14; TEMP 37.1
[2021-12-08 17:15] LABS: Source Nasal/Nares
[2021-12-08] MEDS: diphenhydrAMINE 50 MG/ML VIAL 25 MG IVP (18:43)
[2021-12-08 18:50] LABS: COVID-19 PCR Negative (Negative)
[2021-12-08] MEDS: Zolpidem 5 MG TAB PO (19:05)
--- NOTE | 2021-12-08 20:09 | W.PM.PROGNOT ---
Date of Service Date of service: 12/08/21 Time of Service: 20:09 Assessment and Plan Assessment and plan (1) Cannabinoid hyperemesis syndrome: Status: Acute (2) Acute pancreatitis: Status: Acute (3) Nausea and vomiting in prior to 22 weeks gestation: Status: Acute Assessment and plan: A: hyperemesis, CHS, dehydration, ketonuria, 10 wks stabilizing gradually with IVF, anti-emetics, antacids, antihistamine P: Continue D5LR until ketones are cleared Continue current medication regimen Add 100 mg thiamine IV daily Reassess effectiveness of treatment plan Repeat Lipase/amylase, CMP, CBC in morning Expecting to start clear liquids in AM Subjective Subjective Patient reports: nausea, vomiting and afebrile Interval history since last seen: Since admission to unit, pt has continued with episodes of dry heaves, retching, and spitting. She has complained of substernal pain and burning. Currently pt is now resting/sleeping after a dose of IV Benadryl 25 mg and retaining an Ambien 5 mg PO. Exam Resp Effort & Inspection: normal respiratory effort and able to speak in complete sentences Cardio Rate: regular rate Rhythm: regular rhythm GI Inspection: normal to inspection Palpation: soft Objective Last Vital Signs Temp 98.8 F 12/08/21 17:08 Pulse 94 H 12/08/21 17:08 Resp 14 12/08/21 17:08 BP 117/65 12/08/21 17:08 Laboratory Results - last 24 hr 12/08/21 12/08/21 14:27 16:45 Amylase 114 COVID-19 Source Nasal/Nares SARS-CoV-2 (PCR) Negative Objective Narrative Objective Narrative: Pt received 1 liter LR prior to voiding Large ketonuria noted, IVF changed to D5LR until ketones are cleared Mylanta/lidocaine PO given for heartburn, pt vomited it quickly Took a hot shower in order to control her nausea and dry heaving Declined Carafate 1 gm PO due to nausea and persistent retching In addition to phenergan and Zofran IV, benadryl 25 mg IV was given Phenergan 25 mg IV q6 hrs and Zofran 8 mg q8hrs to continue Protonix 40 mg QD, Benadryl 25 mg IV q6 hrs prn After shower, pt was able to tolerate Ambien 5 mg PO and is now sleeping Partner is at bedside to provide support Vital signs are nml, amylase level was nml, abdominal scan was negative/nml
[2021-12-08] MEDS: THIAMINE 100 MG in Normal Saline 100 ML 200 MG IVPB (21:31)
[2021-12-08] MEDS: Ondansetron 4 MG/2 ML VIAL 8 MG IVP (23:00)
[2021-12-08 23:23] VITALS: BP 124/82; PULSE 83; RESP 18; TEMP 36.9
--- NOTE | 2021-12-09 06:31 | W.PM.PROGNOT ---
Date of Service Date of service: 12/09/21 Time of Service: 06:31 Assessment and Plan Assessment and plan (1) Cannabinoid hyperemesis syndrome: Status: Acute (2) Acute pancreatitis: Status: Acute (3) Nausea and vomiting during prior to 22 weeks gestation: Status: Inactive Assessment and plan: A: Resolving/improving P: Continue meds IV as scheduled & PRN Diet advanced to clear liquids Urgency of ceasing all MJ use immediately to be emphasized to pt Labs this morning now pending If tolerates PO intake, plan for discharge today Subjective Subjective Interval history since last seen: Pt has generally slept through the night, awake to void or for lab draw. No documented vomiting. Objective Last Vital Signs Temp 98.4 F 12/08/21 23:23 Pulse 83 12/08/21 23:23 Resp 18 12/08/21 23:23 BP 124/82 12/08/21 23:23 Laboratory Results - last 24 hr 12/08/21 12/08/21 14:27 16:45 Amylase 114 COVID-19 Source Nasal/Nares SARS-CoV-2 (PCR) Negative Objective Narrative Objective Narrative: Vital signs stable, urine dilute and clear. Has received a total of 3 liters since admission, 2 were D5LR IVF rate of D5LR slowed to 125/hr. Scheduled IV meds: Zofran 8 mg Q8 (ordered for home Rx) Phenergan 25 mg Q6 (ordered for home Rx) Protonix 40 mg QD (ordered for home Rx) Thiamine 100 mg QD PRN meds: Mylanta/Lidocaine PO Benadryl 25 mg IV Ambien 5 mg PO (HS) Carafate was discontinued
[2021-12-09] MEDS: Ondansetron 4 MG/2 ML VIAL 8 MG IVP ×3 (06:41→22:28)
[2021-12-09] MEDS: Normal Saline Flush 10 ML SYR IVP ×2 (06:42→08:49)
[2021-12-09 06:43] LABS: HCT 37.3 % (36.0-46.0); HGB 12.9 g/dL (11.2-15.7); MCH 32.3 pg (27.0-33.0); MCHC 34.6 % (32.0-36.0); MCV 94 fL (80-95); MPV 9.7 fL (8.0-11.0); Platelet Count 233 10^3/uL (130-400); RBC 3.99 10^6/uL (3.93-5.22); RDW 11.4 % (11.7-14.6); RDW-SD 39.4 fL; WBC 12.08 10^3/uL (4.4-10.8)
[2021-12-09 07:12] LABS: ALT 12 U/L (14-59); AST 12 U/L (15-37); Albumin 3.6 g/dL (3.4-5.0); Alkaline Phosphatase 58 U/L (46-116); Amylase 120 U/L (25-115); Anion Gap 10.8 mmol/L (3-11); BUN 2 mg/dL (7-18); Bilirubin, Total 0.4 mg/dL (0.2-1.0); CO2 23.2 mmol/L (21.0-32.0); CREATININE 0.4 mg/dL (0.55-1.02); Calcium 8.8 mg/dL (8.5-10.1); Chloride 106 mmol/L (98-107); Glucose 164 mg/dL (74-106); Lipase 922 U/L (73-393); Potassium 3.4 mmol/L (3.5-5.1); Sodium 140 mmol/L (136-145); Total Protein 6.8 g/dL (6.4-8.2)
[2021-12-09 08:42] VITALS: BP 116/65; PULSE 84; RESP 16; TEMP 37.1
[2021-12-09] MEDS: Pantoprazole 40 MG VIAL IVP (08:49)
[2021-12-09] MEDS: THIAMINE 100 MG in Normal Saline 100 ML 200 MG IVPB (09:10)
[2021-12-09 10:55] VITALS: RESP 20; O2SAT 98
[2021-12-09] MEDS: Metoclopramide 10 MG/2 ML VIAL IVP ×2 (11:46→17:35)
[2021-12-09] MEDS: LORazepam 2 MG/ML VIAL 1 MG IVP (12:40)
[2021-12-09] MEDS: Lactated Ringers 1,000 ML 125 ML IV ×2 (14:55→22:28)
--- NOTE | 2021-12-09 15:29 | PGE_ITS ---
Date of Service Date of service: 12/09/21 Time of Service: 15:29 Assessment and Plan Assessment and plan (1) Cannabinoid hyperemesis syndrome: Status: Acute Assessment and plan: Good results with ativan. Will continue to assess response to medications. Stopping marijuana use was recommended previously by Susie Ray CNM (2) Hyperemesis gravidarum: Status: Acute Assessment and plan: I discussed switching her medication to reglan and Enoc was agreeable to trying that. Phenergan is discontinued at this time and will administer PRN. When I returned to see her she was sitting up and eating a popsicle. She also agreed to try ativan as she expressed a desire to sleep and reported that she had not slept well during the night. I also discussed referral to [facility] for further treatment and she declines, saying that she had been transferred to [facility] and did not receive relief of her symptoms there during her previous . She received ativan 1 mg and Tanja, her nurse reported that she slept well and was requesting some juice after her nap. Will plan to continue to assess PO intake and discharge to home with prescriptions for reglan 10 mg TID, zofran 8 mg TID and protonix. Phenergan PRN either PO or rectal suppository for persistent vomiting. Subjective Subjective Interval history since last seen: Enoc slept last night after taking benadryl, phenergan and ambien. She reports that she did not sleep well and awoke every hour. She was very agitated when I visited her, expressing frustration that she was feeling unwell. She reports tightness in her chest which she has had since yesterday. She reports that it hurts everywhere and she was unable to indicate exactly where the discomfort is. She was taking sis of fluid during the night but reported that she was experiencing extreme nause. I consulted with Dr Paiz regarding her status. I also discussed her status with Estefani So, the hospitalist construction flagger who suggested using reglan to control her nause and ativan for symptoms related to cannabinoid hyperemesis if that was supected. I reviewed the amylase and lipase levels with Dr Jara as well. Exam Resp Auscultation: clear to auscultation bilaterally Cardio Rate: regular rate Rhythm: regular rhythm Heart Sounds: murmur systolic II/ GI Palpation: soft and nontender Skin Lesions: no lesions Extrem Right upper extremity: normal to inspection Left upper extremity: normal to inspection Psych Appearance: disheveled Speech and Movement: agitated and restless Mood: angry Affect: irritable affect Attitude: avoids eye contact Other: Enoc often appears to be sleeping, with her eyes closed. I did not disturb her earlier in the morning. She requested that I come and speak to her, however, when I went to see her, she turned her head away when I was speaking to her. She expressed frustration that everyone who come in to her room asks the same questions Objective Last Vital Signs Temp 98.8 F 12/09/21 08:42 Pulse 84 12/09/21 08:42 Resp 20 12/09/21 10:55 BP 116/65 12/09/21 08:42 Pulse Ox 98 12/09/21 10:55 Laboratory Results - last 24 hr 12/08/21 12/08/21 12/09/21 14:27 16:45 06:30 WBC 12.08 H RBC 3.99 Hgb 12.9 Hct 37.3 MCV 94 MCH 32.3 MCHC 34.6 D RDW 11.4 L Plt Count 233 MPV 9.7 Sodium Potassium Chloride Carbon Dioxide Anion Gap BUN Creatinine Estimated GFR/1.73 m2 Glucose Calcium Total Bilirubin AST ALT Alkaline Phosphatase Total Protein Albumin Amylase 114 Lipase COVID-19 Source Nasal/Nares SARS-CoV-2 (PCR) Negative 12/09/21 12/09/21 06:30 06:30 WBC RBC Hgb Hct MCV MCH MCHC RDW Plt Count MPV Sodium 140 Potassium 3.4 L Chloride 106 Carbon Dioxide 23.2 Anion Gap 10.8 BUN 2 L Creatinine 0.4 L Estimated GFR/1.73 m2 >= 60.00 Glucose 164 H Calcium 8.8 Total Bilirubin 0.4 AST 12 L ALT 12 L Alkaline Phosphatase 58 Total Protein 6.8 Albumin 3.6 Amylase 120 H Lipase 922 H COVID-19 Source SARS-CoV-2 (PCR)
[2021-12-09 23:00] VITALS: BP 120/82; PULSE 85; RESP 18; TEMP 37; O2SAT 98
[2021-12-10] MEDS: Metoclopramide 10 MG/2 ML VIAL IVP (02:53)
[2021-12-10] MEDS: Ondansetron O.D.T. 4 MG TABEF 8 MG PO (06:50)
[2021-12-10 07:05] VITALS: BP 107/70; PULSE 77; RESP 16; TEMP 36.6; O2SAT 97
--- NOTE | 2021-12-10 07:57 | W.PM.DS.N ---
Date of service: 12/10/21 Time of Service: 07:57 DS: Diagnosis Discharge Diagnosis (1) Cannabinoid hyperemesis syndrome: Status: Acute (2) Hyperemesis gravidarum: Status: Acute Asessment and Plan: Derrick had excellent effect from IV ativan yesterday. She was able to sleep and her mood was imroved after she awoke. She has not vomited x 24 hours and continues to take small amounts of clear liquids. . Pos. FHTs last evening. This morning she ate some toast and had no vomiting. She took zofran 8 mg ODT this morning and took a shower. At 0745, she was insistent on immediate discharge and requested to sign herself out of the hospital. I had reviewed discharge instructions last evening and recommended taking zofran 8 mg PO TID and Reglan 10 mg PO TID and protonix daily 40 mg. She also has a prescription for po and DC phenergan to take if vomiting recurs. RTO for IOB visit scheduled 12/15 at [facility]. She was encouraged to take morning dose of Reglan when she gets home. Discharge Plan Disposition Patient Disposition: HOME Condition: Stable Discharge Details Reason For Visit: Pancreatitis,Hyperemesis,First Trimester Admit Date/Time: 12/08/21 14:25 Admit Provider: Sarah Ray Attending Provider: Sarah Ray Primary Care Provider: Unknown,Unknown Home Meds and New Rx's Prescriptions: No Action gummy 1 gummy PO BID Qty: 60 0RF Label Comments: Pt states she was not taking. ondansetron 8 mg tablet,disintegrating 8 mg PO Q8H Qty: 20 4RF promethazine 25 mg tablet 25 mg PO Q6H PRN (Reason: nausea and vomiting) Qty: 30 2RF pantoprazole [Protonix] 40 mg tablet,delayed release (DR/EC) 40 mg PO DAILY Qty: 30 4RF metoclopramide HCl [Reglan] 10 mg tablet 10 mg PO TID PRN (Reason: nausea and vomiting) Qty: 90 3RF Bonjesta 20-20 mg tablet,IR,delayed rel,biphasic 1 tab PO BID Qty: 30 0RF Label Comments: Pt states insurance did not cover and she has not been taking this. Discharge Instructions Activity:: Activity as Tolerated Equipment/Supplies:: No Equipment Needed Diet:: As Tolerated Discharge Orders Discharge Orders: Discharge Order (Routine); Ordered 12/10/21 Ordered By: Lesa Flor DS: Summary Time Spent with Patient providing and/or coordinating discharge services: Less than 30 minutes Status at Discharge Functional status at discharge: independent ambulation Overall status at discharge: patient is back to baseline Mental Status: mental status grossly normal Speech and Movement: speech and movement normal Mood: anxious mood Affect: labile affect Exam Psych Mental Status: mental status grossly normal Speech and Movement: speech and movement normal Mood: anxious mood Affect: labile affect DS: Data Vitals/I&O Vitals and I&O: Vital Signs Temperature 98.6 F 12/09/21 23:00 Temperature Source Oral 12/09/21 23:00 Pulse 85 12/09/21 23:00 Pulse Rhythm Regular 12/09/21 19:35 Respiratory Rate 18 12/09/21 23:00 Blood Pressure 120/82 12/09/21 23:00 Pulse Oximetry 98 12/09/21 23:00 Oxygen Delivery Method Room Air 12/09/21 23:00 Oxygen Flow Rate 0 12/09/21 23:00 Pain Level 0 12/08/21 17:08 Intake & Output 12/09/21 12/09/21 12/10/21 11:59 23:59 11:59 Intake Total 3203 / 4406.75 1203.75 / 4406.75 300 / 300 Output Total 3550 / 4000 450 / 4000 1000 / 1000 Balance -347 / 406.75 753.75 / 406.75 -700 / -700 Intake: IV 3203 / 4156.75 953.75 / 4156.75 Oral 250 / 250 300 / 300 Output: Urine 3550 / 4000 450 / 4000 1000 / 1000 Other: Urine Color Pale Yellow Yellow Yellow Urine Appearance Clear Clear Clear Urine Odor None Normal Voiding Methods Toilet Toilet PFSH All Active Problems (Updated 12/09/21 @ 15:38 by Lesa Flor CNM) Hyperemesis gravidarum (Acute) Cannabinoid hyperemesis syndrome (Acute) Acute pancreatitis (Acute) (Acute) Marijuana use (Acute) Daily use, multiple times per day Chronic constipation (Acute) Gastroesophageal reflux disease (Acute) Generalized anxiety disorder (Acute 03/18/14) Pt reports significant anxiety in early/mid teens. Anxiety has improved but still struggles at times. Not interested in counseling or medication. Medical History (Updated 12/09/21 @ 15:38 by Lsea Flor CNM) Abnormal electroencephalogram (12/21/11) Anemia iron infusions Anxiety disorder 9 month inpatient care [place] Dental infection Depression Dysuria Eating disorder (03/18/14) bulemia Fracture of left radius (11/07/08) Low lying placenta nos or without hemorrhage, third trimester Major depressive disorder, single episode, severe, with psychotic behavior (03/18/14) Pain, dental Pancreatitis Pediatric body mass index (BMI) of 5th percentile to less than 85th percentile for age (02/15/16) Rh negative state in antepartum period Substance abuse (04/22/14) smoker with pot and alcohol use Suicidal ideation Family History Father Hepatitis B Substance abuse HIV (human immunodeficiency virus infection) Mother No problems noted. Other Diabetes pat aunt Essential hypertension MGF Personal history of malignant neoplasm MGM-breast Heart disease MGF Hyperlipidemia MGF Mental disorder PGM-anxiety/depression Myocardial infarction MGF Stroke MGF Brother Alcohol abuse Social History Smoking/Tobacco Use Status: Former Tobacco Use tobacco type: cigarettes Quit Date: 12/03/19 Tobacco: How many years used: 4 Counseling given: other Smoking risk assessment performed?: Yes Alcohol Intake: former Year quit: Thou Details: Stop 12/03/2019 with positive UPT Drug use: Daily Substance use type: marijuana Household members: family and other Details: Lives with her parents. 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 Date GA/Weeks # Outcome Route Wgt Sex Labor Lgth Anesthesia Location Prov Complic 07/27/20 39 No Successful vaginal 7 lb 5 oz Male 8 hrs 17 min [facility] Delivery Date: 02/02/21 Last Updated by: Gabi Lucio LPN 2nd degree laceration w/repair; Marito Ding
== END 2021-12-10 08:04 | disposition home or self-care (01) ==
PROVIDERS: Admitting Provider Advanced Practice Midwife; Visit Provider Advanced Practice Midwife
DX: O99.891 Other specified diseases and conditions complicating pregnancy (principal); K85.90 Acute pancreatitis without necrosis or infection, unspecified; O21.1 Hyperemesis gravidarum with metabolic disturbance; O26.611 Liver and biliary tract disorders in pregnancy, first trimester; Z3A.10 10 weeks gestation of pregnancy; K21.00 Gastro-esophageal reflux disease with esophagitis, without bleeding; E86.0 Dehydration; O99.611 Diseases of the digestive system complicating pregnancy, first trimester; O99.321 Drug use complicating pregnancy, first trimester; F12.10 Cannabis abuse, uncomplicated; O99.341 Other mental disorders complicating pregnancy, first trimester; F41.8 Other specified anxiety disorders; K59.09 Other constipation; Z87.891 Personal history of nicotine dependence; Z20.822 Contact with and (suspected) exposure to COVID-19
CPT/HCPCS: 36415; 80053; 83690; 85027; 87635; 96360; 96361; 96365; 76700; 82150; J1200; J2060; J2405; J2765

== ENCOUNTER → 2022-06-02 00:58 | Outpatient (CLI) | payer MEDICAID, SELFPAY ==
--- NOTE | 2022-06-02 07:30 | DI.US_ITS ---
Exam(s) US PELVIS TRANSVAGINAL EXAM: US PELVIS TRANSVAGINAL CLINICAL HISTORY: PROLONGED BLEEDING S/P MAB AND DMPA, NEW SHARP CRAMPING, N92.0,UPT NEGATIVE. TECHNIQUE: Transabdominal and transvaginal pelvic ultrasound was performed using standard protocol. COMPARISON: US US OB AUDI WEIGHT from 07/14/2020 FINDINGS: UTERUS: Position: Retroverted Size: 6 long by 3.5 AP by 5.0 transverse cm Endometrium: 0.2 cm. Normal for patient's menstrual status. Myometrium: Unremarkable. Cervix: Unremarkable. OVARIES: The left ovary was not visualized on this examination. No left adnexal masses are seen. Right: 4.6 x 1.8 x 4.0 cm Cyst or mass: No suspicious cystic or solid masses. There is a 2.8 x 2.3 x 2.1 cm simple follicular cysts. DOPPLER: Color: Blood flow seen to the right ovary. CUL-DE-SAC: Free fluid: There is a trace amount of free fluid adjacent to the fundus of the uterus. Other: None. IMPRESSION: 1. The left ovary was not visualized on this examination. No left adnexal mass is seen. 2. Normal-appearing uterus with endometrial stripe within normal limits. 3. Unremarkable right ovary. DATA REPOSITORY:
== END ==
PROVIDERS: Visit Provider Advanced Practice Midwife
DX: N92.0 Excessive and frequent menstruation with regular cycle (principal)
CPT/HCPCS: 76830; 76856

== ENCOUNTER 2022-10-29 18:19 | Emergency (ER) | payer MEDICAID, SELFPAY ==
[2022-10-29 18:20] VITALS: BP 120/73; PULSE 116; RESP 14; TEMP 36.6; O2SAT 96
--- NOTE | 2022-10-29 18:40 | ED.GENADUL_ITS ---
Discharge Plan Disposition Patient Disposition: Home Discharge Details Clinical Impression: Upper respiratory infection, viral Primary Care Provider: None,None ED Provider: Aleisha Perkins Home Meds and New Rx's Prescriptions: No Action No Known Home Meds Discharge Instructions Instructions: Upper Respiratory Infection (ED) Additional Instructions: By Zyrtec (runny nose), Sudafed (congestion), and Mucinex DM (cough) to treat your symptoms. Substitute Benadryl 50 mg for the Zyrtec at night. This should get rid of the itchiness in your eyes as well as the red splotches on your face. Rest and drink plenty of fluids. Return to ED for high fever, difficulty breathing, or any other concerns. Recheck with your PCP this week if not better in 2 to 3 days. Discharge Data Discharge Date/Time-TO BE ENTERED AT DEPARTURE: 10/29/22 19:18 Medical Decision Making Patient was reassured that she likely has a viral illness. We discussed specific treatments for runny nose, congestion, cough, and clear eye discharge. She will return to ED for high fever, chest pain, or severe difficulty breathing. HPI General Date/Time Provider Initiated Documentation: 10/29/22 18:27 . HPI Narrative: This 22-year-old female patient presents with a chief complaint of URI symptoms that began several days ago. Her eyes have been itching and she has clear discharge from them. She has been coughing as well. She denies any unusual environmental contacts and has no environmental allergies. She reports that her son was sent home from school on Sunday with a cough and fever. She denies fever or shaking chills. She tried Visine which just made her eyes burn more. They are not red. She also tried some Claritin which did not help her runny nose. She says she feels like she is having a little bit of breathing trouble patient that I suspect is related to her nasal congestion. She has no chest pain. There is no pedal edema or calf pain. She denies fever or shaking chills. She has no chest pain. There is no pedal edema or calf pain. Related Data Home Medications Medication Instructions Recorded Confirmed Unknown [No Known Home Meds] 10/29/22 10/29/22 Allergies Allergy/AdvReac Type Severity Reaction Status Date / Time No Known Allergies Allergy Verified 10/29/22 18:25 General Stated Complaint: RespSymp JARED: 4 Review of Systems Constitutional Constitutional: Denies chills, Denies fever(s), Denies headache(s) and Denies weakness Eyes Eyes: Denies diplopia and Reports other (no redness, has CLEAR D/C) ENT Ears, Nose, Mouth, and Throat: Denies otalgia, Denies headache(s), Reports nasal congestion, Reports nasal discharge, Denies neck pain and Denies sore throat Cardiovascular Cardiovascular: Denies chest pain, Denies palpitations and Reports dyspnea (Nasal congestion) Respiratory Respiratory: Reports cough and Reports dyspnea (Nasal congestion) Gastrointestinal Gastrointestinal: Denies abdominal pain, Denies diarrhea, Denies nausea and Denies vomiting Genitourinary Genitourinary: Denies dysuria Musculoskeletal Musculoskeletal: Denies myalgias, Denies muscle weakness, Denies neck pain, Denies numbness and Reports other (edema) Integumentary/Breasts Skin/Breast: Denies change in pigmentation and Denies rash Neurologic Neurologic: Denies headache(s), Denies numbness and Denies weakness Endocrine Endocrine: Denies palpitations PFSH All Active Problems Upper respiratory infection, viral (Acute) Cannabinoid hyperemesis syndrome (Acute) (Acute) Marijuana use (Acute) Daily use, multiple times per day Chronic constipation (Acute) Gastroesophageal reflux disease (Acute) Generalized anxiety disorder (Acute 03/18/14) Pt reports significant anxiety in early/mid teens. Anxiety has improved but still struggles at times. Not interested in counseling or medication. Medical History Abnormal electroencephalogram (12/21/11) Anemia iron infusions Anxiety disorder 9 month inpatient care [place] Dental infection Depression Dysuria Eating disorder (03/18/14) bulemia Fracture of left radius (11/07/08) Low lying placenta nos or without hemorrhage, third trimester Major depressive disorder, single episode, severe, with psychotic behavior (03/18/14) Pain, dental Pancreatitis Pediatric body mass index (BMI) of 5th percentile to less than 85th percentile for age (02/15/16) Rh negative state in antepartum period Substance abuse (04/22/14) smoker with pot and alcohol use Suicidal ideation Family History Father Hepatitis B Substance abuse HIV (human immunodeficiency virus infection) Mother Breast cancer Other Diabetes pat aunt Essential hypertension MGF Personal history of malignant neoplasm MGM-breast Heart disease MGF Hyperlipidemia MGF Mental disorder PGM-anxiety/depression Myocardial infarction MGF Stroke MGF Brother Alcohol abuse Substance abuse Son No problems noted. Social History Smoking/Tobacco Use Status: Current every day Tobacco Type: cigarettes Tobacco: How many years used: 7 Second Hand Exposure: Yes Counseling given: other Smoking risk assessment performed?: Yes Alcohol Intake: current Alcohol Intake frequency: a few times a month Alcohol type: hard liquor Details: Stop 12/03/2019 with positive UPT Drug use: Occasionally Substance use type: marijuana Caregiver/Support person: No Household members: significant other and children Housing: apartment Number of Children: 0 Communication Needs: None Education Level: high school Do you need help understanding health information?: Rarely 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 Pets and animals: Yes Pets and animals: cat(s) Sexually active: Yes Do you think of yourself as: straight/heterosexual Current gender identity: female What is your relationship status?: living with partner How often do you talk on the phone with friends or family?: three or more times per week How often do you get together with friends or relatives?: three or more times per week How often do you attend yarsanism or sikhism services?: decline to answer Do you belong to any clubs or organized social groups?: no Panel score (0-1 are the most socially isolated patients): 2 What type of physical activity do you participate in: none Frequency: does not exercise Vangie/Synagogue: No preference Special vangie needs: No Seatbelt use: always Helmet use: Yes Helmet use: always Drive intox or ride w/intox 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 Date GA/Weeks # Preg Succ Route Wgt Sex Labor Lgth Anesth esia Location Prov Complic 07/27/20 39 No vaginal 3316.894 g Male 8 hrs 17 min socrates Gomes CNM Delivery Date: 07/27/20 Last Updated by: Gabi Lucio LPN 2nd degree laceration w/repair; Marito Ding Exam Const General: no acute distress, well developed, well groomed and not in acute distress Nutritional Appearance: well nourished Orientation: alert and oriented x3 HENMT Head: normocephalic and atraumatic Ears: external ears normal Face and sinus: abnormal facial exam and sinuses nontender Mouth: oropharynx normal and moist mucous membranes Throat: posterior oropharynx normal Eyes Conjunctivae: conjunctivae normal Other: Has clear discharge from the eyes and mild pinkness beneath her eyes Neck Neck: full ROM and supple Chest Chest: normal inspection of the chest Resp Effort & Inspection: normal respiratory effort Auscultation: clear to auscultation bilaterally Cardio Rate: regular rate Rhythm: regular rhythm Heart Sounds: no murmurs and no rubs GI Inspection: normal to inspection Palpation: soft, nontender and other (non distended) Auscultation: normal bowel sounds Skin General skin exam: no rashes or lesions noted and other (pink, warm, dry) Neuro General: patient alert, patient awake and patient oriented x3 Speech: speech normal Motor: other (MARSHALL) Sensory Exam: no sensory deficits noted Extrem General: normal to inspection, full ROM and pedal edema present Psych Mental Status: mental status grossly normal Speech and Movement: speech and movement normal Affect: normal affect Course Vital Signs Vital signs: Vital Signs Temperature 36.6 C 10/29/22 18:20 Pulse 116 H 10/29/22 18:20 Respiratory Rate 14 10/29/22 18:20 Blood Pressure 120/73 10/29/22 18:20 Pulse Oximetry 96 10/29/22 18:20 Temperature 36.6 C 10/29/22 18:20 Temperature Source Skin 10/29/22 18:20 Pulse 116 H 10/29/22 18:20 Respiratory Rate 14 10/29/22 18:20 Respiratory Effort Normal 10/29/22 18:27 Respiratory Depth Normal 10/29/22 18:27 Blood Pressure 120/73 10/29/22 18:20 Blood Pressure Position Sitting 10/29/22 18:20 Pulse Oximetry 96 10/29/22 18:20 Oxygen Delivery Method Room Air 10/29/22 18:20 Oxygen Flow Rate 0 10/29/22 18:20 Pain Level 5 10/29/22 18:20 Lab/Test Results Lab/Test Results: POC Covid, Flu, RSV neg
== END 2022-10-29 19:18 | disposition home or self-care (01) ==
PROVIDERS: Emergency Provider Emergency Medicine
DX: J06.9 Acute upper respiratory infection, unspecified (principal)
CPT/HCPCS: 87426; 99283

== ENCOUNTER 2022-12-21 13:16 | Outpatient (REF) | payer MEDICAID, SELFPAY ==
[2022-12-22 12:56] LABS: Chlamydia Result Negative (Negative); GC Result Negative (Negative)
[2022-12-25 11:12] LABS: Hepatitis C Ab w Rflx HCV PCR Negative (Negative)
[2022-12-25 11:52] LABS: Hepatitis B Surface Ag Negative (Negative)
[2022-12-25 11:57] LABS: Syphilis Serology (RPR) Negative (Negative)
== END 2022-12-21 13:17 | disposition home or self-care (01) ==
LOC: LBN 13:16
PROVIDERS: Visit Provider Physician Assistant Medical
DX: Z11.3 Encounter for screening for infections with a predominantly sexual mode of transmission (principal)
CPT/HCPCS: 86803; 87340; 87491; 87591; 86592; 87480; 87510; 87660

== ENCOUNTER 2022-12-30 11:23 | Outpatient (REF) | payer MEDICAID, SELFPAY ==
[2023-01-01 13:13] LABS: Chlamydia Result Negative (Negative); GC Result Negative (Negative)
== END 2022-12-30 11:24 | disposition home or self-care (01) ==
LOC: LBN 11:23
PROVIDERS: Visit Provider Physician Assistant Medical
DX: N89.8 Other specified noninflammatory disorders of vagina (principal); N76.0 Acute vaginitis
CPT/HCPCS: 87491; 87591; 87480; 87510; 87660

== ENCOUNTER 2023-07-30 11:27 | Outpatient (REF) | payer MEDICAID, SELFPAY ==
[2023-07-31 14:30] LABS: Chlamydia Result Negative (Negative); GC Result Negative (Negative)
== END 2023-07-30 11:28 | disposition home or self-care (01) ==
LOC: LBN 11:27
PROVIDERS: Visit Provider Nurse Practitioner Family
DX: N76.0 Acute vaginitis (principal); Z11.3 Encounter for screening for infections with a predominantly sexual mode of transmission
CPT/HCPCS: 87491; 87591; 87480; 87510; 87660

== ENCOUNTER 2023-09-20 23:06 | Emergency (ER) | payer MEDICAID, SELFPAY ==
[2023-09-20 23:15] VITALS: BP 134/77; PULSE 111; RESP 18; TEMP 36.8; O2SAT 98
--- NOTE | 2023-09-20 23:15 | RT.EKG_ITS ---
APPROVED REPORT Exam: Resting ECG Reason for Exam: chest pain Patient Location: E HR:75 bpm ECG Measurements Heart Rate 75 AXIS SD 141 P 51 QRSd 86 QRS 53 QT 366 T 59 QTc 409 Conclusion Sinus rhythm..., V-rate 60- [address] segment or T wave abnormalities to suggest occlusive TN
[2023-09-20 23:18] VITALS: RESP 18
[2023-09-20 23:45] LABS: Abs Immature Grans 0.05 10^3/uL (0.0-0.06); Absolute Basophil Count 0.04 10^3/uL (0.0-0.2); Absolute Eosinophil Count 0.07 10^3/uL (0.0-0.7); Absolute Lymphocyte Count 2.21 10^3/uL (1.2-3.4); Absolute Monocyte Count 1.18 10^3/uL (0.1-0.8); Absolute Neutrophil Count 8.78 10^3/uL (1.2-6.7); Basophils % 0.3; Eosinophils % 0.6; HCT 41.1 % (36.0-46.0); HGB 13.9 g/dL (11.2-15.7); Immature Grans % 0.4; Lymphocytes % 17.9; MCH 32.6 pg (27.0-33.0); MCHC 33.8 % (32.0-36.0); MCV 96 fL (80-95); MPV 10.3 fL (8.0-11.0); Monocytes % 9.6; Neutrophils % 71.2; Platelet Count 270 10^3/uL (130-400); RBC 4.27 10^6/uL (3.93-5.22); RDW 11.4 % (11.7-14.6); RDW-SD 39.9 fL; WBC 12.33 10^3/uL (4.4-10.8)
--- NOTE | 2023-09-20 23:45 | ED.GENADUL_ITS ---
Discharge Plan Disposition Patient Disposition: Home Condition: Good Discharge Details Clinical Impression: Panic attack Primary Care Provider: Unknown,Unknown ED Provider: Elli Jalloh Home Meds and New Rx's Prescriptions: New lorazepam [Ativan] 1 mg tablet 1 mg PO BID PRNQty: 7 0RF Discharge Instructions Instructions: Panic Attack (ED) Additional Instructions: Follow up with a primary care doctor; a referral was sent, someone should call you to schedule an appointment for next week. You cant take lorazapam twice a day for symptoms. Do not take this with alcohol and do not drive while taking this medication. Return to the emergency department for new or worsening symptoms including new/different/worse chest pain or difficulty breathing, or if your symptoms do not improve with home treatment HPI General Mode of arrival: ambulatory . Date/Time Provider Initiated Documentation: 09/20/23 23:08 . Limitations to Documentation: no limitations . Information obtained by: patient . HPI Narrative: 23yo F presenting with shortness of breath. Initially came to the ED with her child as the child felt warm to the touch; child was given ibuprofen and discharged. Patient subsequently checked in for shortness of breath; she reports that she felt difficulty breathing and pressure in her chest while taking a shower this evening 2 hours prior. She sat down and felt a little better, however her symptoms then returned. Pain is dull, somewhat worse with deep breathing, and she feels like she can't catch her breath. Has a history of anxiety (not currently on medication), denies any prior panic attacks. No recent trauma, surgery, or travel. No hormone exposure. No family history of sudden unexpected . She is otherwise in her usual state of health with no fevers, chills, rash, nausea, vomiting, abdominal pain, syncope, numbness, tingling, weakness, or other concerns. Related Data Home Medications Medication Instructions Recorded Confirmed lorazepam 1 mg tablet (Ativan) 1 mg PO BID PRN #7 tabs 09/21/23 Previous Rx's Medication Instructions Recorded lorazepam 1 mg tablet (Ativan) 1 mg PO BID PRN #7 tabs 09/21/23 Allergies Allergy/AdvReac Type Severity Reaction Status Date / Time No Known Allergies Allergy Verified 10/29/22 18:25 General Stated Complaint: SOB JARED: 4 Review of Systems Narrative: see HPI Exam Narrative Exam Narrative: General: Alert, well appearing, well nourished, appears anxious Head: Normocephalic, atraumatic Neck: Trachea midline, ?Neck supple. Cardiac: ?RRR, no murmurs appreciated Resp: No respiratory distress. CTAB. Abd: ?Soft, non-distended, nontender Extremities: ?No deformities.? No peripheral edema. Neurologic: GCS 15. ? Moves all extremities freely against gravity Course Vital Signs Vital signs: Vital Signs Temperature 36.8 C 09/20/23 23:15 Pulse 111 H 09/20/23 23:15 Respiratory Rate 18 09/20/23 23:15 Blood Pressure 134/77 09/20/23 23:15 Pulse Oximetry 98 09/20/23 23:15 Temperature 36.8 C 09/20/23 23:15 Temperature Source Temporal Artery Scan 09/20/23 23:15 Pulse 111 H 09/20/23 23:15 Respiratory Rate 18 09/20/23 23:18 Respiratory Effort Short of Breath 09/20/23 23:18 Respiratory Depth Normal 09/20/23 23:18 Respiratory Pattern Normal 09/20/23 23:18 Blood Pressure 134/77 09/20/23 23:15 Pulse Oximetry 98 09/20/23 23:15 Pain Level 0 09/20/23 23:15 Lab/Test Results Lab/Test Results: Laboratory Tests Range/Units 09/20/23 23:30 WBC (4.4-10.8) 10^3/uL 12.33 H RBC (3.93-5.22) 10^6/uL 4.27 Hgb (11.2-15.7) g/dL 13.9 Hct (36.0-46.0) % 41.1 MCV (80-95) fL 96 H MCH (27.0-33.0) pg 32.6 MCHC (32.0-36.0) % 33.8 RDW (11.7-14.6) % 11.4 L Plt Count (130-400) 10^3/uL 270 MPV (8.0-11.0) fL 10.3 Immature Gran % 0.4 Neutrophils % 71.2 Lymphocytes % 17.9 Monocytes % 9.6 Eosinophils % 0.6 Basophils % 0.3 Nucleated RBC % (0.0-0.3) % 0.0 Absolute Neutrophils (1.2-6.7) 10^3/uL 8.78 H Absolute Lymphocytes (1.2-3.4) 10^3/uL 2.21 Absolute Monocytes (0.1-0.8) 10^3/uL 1.18 H Absolute Eosinophils (0.0-0.7) 10^3/uL 0.07 Absolute Basophils (0.0-0.2) 10^3/uL 0.04 Medical Decision Making 23yo F presenting with shortness of breath. Initially came to the ED with her child as the child felt warm to the touch; child was given ibuprofen and discharged. Patient subsequently checked in for shortness of breath; she reports that she felt difficulty breathing and pressure in her chest while taking a shower this evening 2 hours prior. Has a history of anxiety (not currently on medication), denies any prior panic attacks. No recent trauma, surgery, or travel. Slightly tachycardiac, vital signs otherwise reassuring. Well appearing on exam, good air movement with clear lungs, O2 sat 100% on room air, SR on monitor. Anxious on exam currently and per nursing did appear quite anxious while child was being evaluated. Panic disorder possible however serious/life threatening causes also possible including pulmonary embolism, ACS, arythmia, electrolyte abnormalites, anemia, pneumothorax, etc. Denies any infectious symptoms, unlikely sepsis. EKG sinus rhythm, appropriate intervals, no ST segment or T wave abnormalities to suggest occlusive GA. CXR independently reviewed, no focal pneumonia or pneumothorax on my view, agree with radiology read below with hyperinflation; consistent with hyperventilation. No wheezing or diminished air movement on exam and pt with no hx of asthma. Labs reviewed as below, CBC with mild leukocytosis and no anemia, CMP reassuring with no electrolyte abnormalities, dimer negative (would not further pursue pulmonary embolism with CT imaging), troponin negative. HEART score 0; would not further pursue acute coronary syndrome with repeat trop or echocardiogram. On reassessment patient reports feeling improved after the lorazapam. HR normalized. Overall clinical picture most consistent with panic attack; with reassuring workup patient appropriate to followup with PCP. She does not currently have a PCP- referal was sent with plan for her to be seen this week. Discharged with small prescription of ativan. Discharged home; discharge instructions and return precautions were reviewed with patient who verbalized understanding. All questions were answerd and she is in full agreement with the plan. Imaging Data Radiologic Study: Imaging: X-Ray Radiologist's impression: IMPRESSION: Hyperinflation of the lungs. Lab Data Lab results reviewed: Yes I reviewed the patient's lab results. Labs: Laboratory Tests Range/Units 09/20/23 23:30 WBC (4.4-10.8) 10^3/uL 12.33 H RBC (3.93-5.22) 10^6/uL 4.27 Hgb (11.2-15.7) g/dL 13.9 Hct (36.0-46.0) % 41.1 MCV (80-95) fL 96 H MCH (27.0-33.0) pg 32.6 MCHC (32.0-36.0) % 33.8 RDW (11.7-14.6) % 11.4 L Plt Count (130-400) 10^3/uL 270 MPV (8.0-11.0) fL 10.3 Immature Gran % 0.4 Neutrophils % 71.2 Lymphocytes % 17.9 Monocytes % 9.6 Eosinophils % 0.6 Basophils % 0.3 Nucleated RBC % (0.0-0.3) % 0.0 Absolute Neutrophils (1.2-6.7) 10^3/uL 8.78 H Absolute Lymphocytes (1.2-3.4) 10^3/uL 2.21 Absolute Monocytes (0.1-0.8) 10^3/uL 1.18 H Absolute Eosinophils (0.0-0.7) 10^3/uL 0.07 Absolute Basophils (0.0-0.2) 10^3/uL 0.04 D-Dimer (<500) ng/mlFEU 232 Sodium (136-145) mmol/L 141 Potassium (3.5-5.1) mmol/L 3.7 Chloride (98-107) mmol/L 105 Carbon Dioxide (21.0-32.0) mmol/L 24.1 Anion Gap (3-11) mmol/L 11.9 H BUN (7-18) mg/dL 14 Creatinine (0.55-1.02) mg/dL 0.8 Est GFR (CKD-EPI 2020) (mL/min/1.73m2) 106.11 Glucose (74-106) mg/dL 112 H Calcium (8.5-10.1) mg/dL 9.5 Total Bilirubin (0.2-1.0) mg/dL 0.3 AST (15-37) U/L 15 ALT (14-59) U/L 16 Alkaline Phosphatase (46-116) U/L 89 Troponin I (< or =60) ng/L < 50 Total Protein (6.4-8.2) g/dL 7.5 Albumin (3.4-5.0) g/dL 4.2 Beta HCG, Quant (1-3) mIU/mL 1 Quality:SDOH Health Related Social Needs: No Data to Display PFSH All Active Problems (Updated 09/21/23 @ 01:12 by Elli Jalloh MD) Panic attack (Acute) Cannabinoid hyperemesis syndrome (Acute) (Acute) Marijuana use (Acute) Daily use, multiple times per day Chronic constipation (Acute) Gastroesophageal reflux disease (Acute) Generalized anxiety disorder (Acute 03/18/14) Pt reports significant anxiety in early/mid teens. Anxiety has improved but still struggles at times. Not interested in counseling or medication. Medical History Abnormal electroencephalogram (12/21/11) Anemia iron infusions Anxiety disorder 9 month inpatient care [facility] Dental infection Depression Dysuria Eating disorder (03/18/14) bulemia Fracture of left radius (11/07/08) Low lying placenta nos or without hemorrhage, third trimester Major depressive disorder, single episode, severe, with psychotic behavior (03/18/14) Pain, dental Pancreatitis Pediatric body mass index (BMI) of 5th percentile to less than 85th percentile for age (02/15/16) Rh negative state in antepartum period Substance abuse (04/22/14) smoker with pot and alcohol use Suicidal ideation Family History Father Hepatitis B Substance abuse HIV (human immunodeficiency virus infection) Mother Breast cancer Other Diabetes pat aunt Essential hypertension MGF Personal history of malignant neoplasm MGM-breast Heart disease MGF Hyperlipidemia MGF Mental disorder PGM-anxiety/depression Myocardial infarction MGF Stroke MGF Brother Alcohol abuse Substance abuse Son No problems noted. Social History Smoking/Tobacco Use Status: Current every day Tobacco Type: cigarettes Tobacco: How many years used: 7 Second Hand Exposure: Yes Counseling given: other Smoking risk assessment performed?: Yes Alcohol Intake: current Alcohol Intake frequency: a few times a month Alcohol type: hard liquor Details: Stop 12/03/2019 with positive UPT Drug use: Daily Substance use type: marijuana Caregiver/Support person: No Household members: significant other and children Housing: apartment Number of Children: 0 Communication Needs: None Education Level: high school Do you need help understanding health information?: Rarely 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 Pets and animals: Yes Pets and animals: cat(s) Sexually active: Yes Do you think of yourself as: straight/heterosexual Current gender identity: female What is your relationship status?: living with partner How often do you talk on the phone with friends or family?: three or more times per week How often do you get together with friends or relatives?: three or more times per week How often do you attend quaker or church services?: decline to answer Do you belong to any clubs or organized social groups?: no Panel score (0-1 are the most socially isolated patients): 2 What type of physical activity do you participate in: none Frequency: does not exercise Vangie/Mosque: No preference Special vangie needs: No Seatbelt use: always Helmet use: Yes Helmet use: always Drive intox or ride w/intox water truck driver: No Do you feel safe at home: Yes Do you feel safe in your relationship?: Yes History History 1 Para 1 Hx # Term Pregnancies 1 Multiple births 0 Hx # Pregnancies 0 Ectopic pregnancies 0 AB induced 0 Hx Number of Living Children 1 AB spontaneous 0 Past Pregnancies Del. Date GA/Weeks # Preg Succ Route Wgt Sex Labor Lgth Anesth esia Location [facility] 07/27/20 39 No vaginal 3316.894 g Male 8 hrs 17 min regional [facility] Delivery Date: 07/27/20 Last Updated by: Gabi Lucio LPN 2nd degree laceration w/repair; Marito GONSALEZ Have you Been Recently Intoxicated or Drunk Within the Last 30 days?: No Have you Ever Experienced Previous Episodes of Alcohol Withdrawal?: No Have you ever Experienced Withdrawal Seizures?: No Have you ever Experienced Delirium Tremens(DT)s?: No Have you ever undergone Alcohol Rehabilitation Treatment (i.e, inpt ot outpatient treatment programs)?: No Have you ever Experienced Blackouts?: No Have you ever Combined Alcohol with other Downers within the last 90 days?: No Have you ever Combined Alcohol with any other Substance of Abuse during the last 90 days?: No Positive Blood Alcohol level on Presentation? [PCS.BAL]: No Evidence of Increased Autonomic Activity (i.e. HR>120, tremor, sweating, agitation, nausea)?: No Result: 0
[2023-09-20] MEDS: LORazepam 1 MG TAB PO (23:47)
[2023-09-21 00:06] LABS: ALT 16 U/L (14-59); AST 15 U/L (15-37); Albumin 4.2 g/dL (3.4-5.0); Alkaline Phosphatase 89 U/L (46-116); Anion Gap 11.9 mmol/L (3-11); BUN 14 mg/dL (7-18); Bilirubin, Total 0.3 mg/dL (0.2-1.0); CO2 24.1 mmol/L (21.0-32.0); CREATININE 0.8 mg/dL (0.55-1.02); Calcium 9.5 mg/dL (8.5-10.1); Chloride 105 mmol/L (98-107); Estimated GFR 106.11 (mL/min/1.73m2); Glucose 112 mg/dL (74-106); HCG Quant, Pregnancy 1 mIU/mL (1-3); Potassium 3.7 mmol/L (3.5-5.1); Sodium 141 mmol/L (136-145); Total Protein 7.5 g/dL (6.4-8.2)
[2023-09-21 00:08] LABS: Troponin I < 50 ng/L (< or =60)
--- NOTE | 2023-09-21 00:15 | DI.RAD_ITS ---
Exam(s) XR CHEST 2V PA LATERAL EXAM: XR CHEST 2V PA LATERAL CLINICAL HISTORY: chest pain TECHNIQUE: 2D digital imaging was performed of the chest. Two images were obtained. PA and lateral views were obtained. COMPARISON: CR CHEST 2 VIEWS PA,LAT from 01/03/2018 FINDINGS: MEDIASTINUM: Normal. HEART: Normal. PULMONARY VASCULATURE: Normal. LUNGS: There is hyperinflation of the lungs which appears unchanged. No focal infiltrates are seen. PLEURAL SPACE: No pleural effusion or pneumothorax. BONE:Within normal limits for the patient's age. OTHER FINDINGS:Normal. IMPRESSION: No acute pulmonary findings. DATA REPOSITORY: RADIATION DOSE DELIVERED:
[2023-09-21 00:16] VITALS: O2SAT 98
[2023-09-21 00:16] LABS: D-Dimer 232 ng/mlFEU (<500)
[2023-09-21 00:25] VITALS: O2SAT 95
[2023-09-21 00:30] VITALS: O2SAT 98
[2023-09-21 00:32] VITALS: BP 107/68; PULSE 70; O2SAT 98
[2023-09-21 00:40] VITALS: O2SAT 96
--- NOTE | 2023-09-21 00:59 | DI.VRAD_ITS ---
PROCEDURE INFORMATION: Exam: XR Chest Exam date and time: 09/21/2023 12:20 AM Age: 23 years old Clinical indication: Pain; Dyspnea; Chest pressure; Additional info: Chest pain TECHNIQUE: Imaging protocol: Radiologic exam of the chest. Views: 2 views. COMPARISON: CR CHEST 2 VIEWS PA,LAT 01/03/2018 4:20 PM FINDINGS: Lungs: Hyperinflated. No consolidation. Pleural spaces: Unremarkable. No pleural effusion. No pneumothorax. Heart/Mediastinum: Unremarkable. No cardiomegaly. Bones/joints: Unremarkable. IMPRESSION: Hyperinflation of the lungs. Dictated and Authenticated by: Marquez Ochoa MD. Ordering:AMADO Calloway MD
[2023-09-21] MEDS: LORazepam 1 MG TAB PO (01:24)
[2023-09-21 01:25] VITALS: PULSE 67; RESP 18; O2SAT 97
--- NOTE | 2023-09-21 18:06 | NUR.NOTE ---
Nursing Note: PT needs PCP to establish care and to reassess anxiety. Tarah, ED
== END 2023-09-21 01:26 | disposition home or self-care (01) ==
PROVIDERS: Emergency Provider Student in an Organized Health Care Education/Training Program
DX: F41.0 Panic disorder [episodic paroxysmal anxiety] (principal); F17.210 Nicotine dependence, cigarettes, uncomplicated
CPT/HCPCS: 80053; 93005; 99284; 71046; 84484; 84702; 85025; 85379; 93010

== ENCOUNTER 2023-10-20 16:25 | Emergency (ER) | payer MEDICAID, SELFPAY ==
[2023-10-20 16:29] VITALS: BP 115/79; PULSE 70; RESP 15; TEMP 37.1; O2SAT 99
[2023-10-20 16:32] VITALS: BP 115/79; PULSE 70; RESP 15; TEMP 37.1; O2SAT 99
--- NOTE | 2023-10-20 17:00 | DI.CT_ITS ---
Exam(s) CT NECK W EXAM: CT NECK W INDICATION: L neck pain sore throat, consider thrmbophlebitis. COMPARISON: No exams were available for comparison TECHNIQUE: FINDINGS: VISUALIZED PARANASAL SINUSES: There is an anterior wall post inflammatory retention cyst in the right maxillary sinus measuring 1 cm. No associated fluid level. No bone destruction. No other sinus fi ndings. NASOPHARYNX: Unremarkable ORODENTAL: Unremarkable. OROPHARYNX: Unremarkable. No masses evident. HYPOPHARYNX: Unremarkable. Valleculae and epiglottis and aryepiglottic folds appear normal. VOCAL CORDS: Unremarkable. No masses evident. Subglottic airway appears unremarkable. THYROID GLAND: Unremarkable. Normal size and no obvious nodules. SALIVARY GLANDS: Unremarkable. No significant findings in the parotid and submandibular glands. LYMPH NODES: There is no adenopathy evident in the neck and supraclavicular regions. OTHER: VISUALIZED LUNG APICES: No significant findings. IMPRESSION: 1. No significant soft tissues findings in the neck. 2. 1 cm post inflammatory retention cysts noted in the anterior wall the right maxillary sinus. No associated fluid level. RADIATION DOSE DELIVERED: 273.59mGy.cm Total DLP DATA REPOSITORY: All CT scans at this facility are submitted to the National Radiology Data Registry (NRDR) Dose Index Registry (DIR) with the [employer] (A[employer]). RADIATION OPTIMIZATION: All CT scans at this facility use at least one of these dose optimization te chniques: automated exposure control; mA and/or kV adjustment per patient size (includes targeted exa ms where dose is matched to clinical indication); or iterative reconstruction.
--- NOTE | 2023-10-20 17:15 | ED.GENADUL_ITS ---
Discharge Plan Disposition Patient Disposition: Home Condition: Improving Discharge Details Chief Complaint: RespSymp Clinical Impression: Pharyngitis Primary Care Provider: Azucena Florian ED Provider: Denny Mckenna Home Meds and New Rx's Prescriptions: No Action buspirone 5 mg tablet 5 mg PO BID Qty: 60 3RF albuterol sulfate 90 mcg/actuation HFA aerosol inhaler 2 inh inhalation Q6H PRN (Reason: shortness of breath or wheezing) Qty: 18 1RF (DME) BreatheRite MDI Spacer Spacer See Rx Instructions .ROUTE .MEDSUPPLY Qty: 1 0RF Rx Instructions: As directed Discharge Instructions Instructions: Pharyngitis (ED) Additional Instructions: Please follow-up with your primary care physician. Please return to the emergency department for any worsening symptoms HPI General Date/Time Provider Initiated Documentation: 10/20/23 16:27 . HPI Narrative: 23-year-old female presents with severe left-sided neck pain over the past 2 days associate with sore throat, pain worse with swallowing Related Data Home Medications Medication Instructions Recorded Confirmed albuterol sulfate 90 mcg/actuation 2 inh inhalation Q6H PRN shortness 09/25/23 10/20/23 aerosol inhaler of breath or wheezing #18 grams buspirone 5 mg tablet 5 mg PO BID #60 tabs 09/25/23 10/20/23 inhalational spacing device #1 ea 09/25/23 10/20/23 (BreatheRite MDI Spacer) Previous Rx's Medication Instructions Recorded albuterol sulfate 90 mcg/actuation 2 inh inhalation Q6H PRN shortness 09/25/23 aerosol inhaler of breath or wheezing #18 grams buspirone 5 mg tablet 5 mg PO BID #60 tabs 09/25/23 inhalational spacing device #1 ea 09/25/23 (BreatheRite MDI Spacer) Allergies Allergy/AdvReac Type Severity Reaction Status Date / Time No Known Allergies Allergy Verified 10/20/23 16:34 General Stated Complaint: RespSymp JARED: 3 Review of Systems Narrative: Review of Systems Constitutional: negative Eyes: negative ENT: Throat pain, neck pain Cardiovascular: negative Respiratory: negative Gastrointestinal: negative : negative Musculoskeletal: negative Skin: negative Neurologic: negative Psych: negative Exam Narrative Exam Narrative: Physical Examination General: alert, awake, cooperative, tearful HEENT: normocephalic, atraumatic; PERRL, EOM intact, conjunctiva normal; no nasal discharge; moist mucous membranes, oral and pharyngeal mucosa normal, tolerating secretions; midline uvula, no oropharyngeal exudate, normal voice no stridor, patient does have tenderness over the left submandibular region as well as along the lateral aspect of her neck with prominent external jugular vein Neck: supple, trachea midline; full ROM Chest: normal to inspection Respiratory: normal respiratory effort, speaking in full sentences, clear to auscultation, no wheezing, rales or rhonchi Cardiac: regular rate, regular rhythm, S1S2 intact, no murmurs rubs or gallops Skin: no lesions, rashes or trauma appreciated Neuro: AAOx3, normal speech, moving all extremities Psych: Tearful, anxious Course Vital Signs Vital signs: Vital Signs Temperature 37.1 C 10/20/23 16:29 Pulse 70 10/20/23 16:29 Respiratory Rate 15 10/20/23 16:29 Blood Pressure 115/79 10/20/23 16:29 Pulse Oximetry 99 10/20/23 16:29 Temperature 37.1 C 10/20/23 16:32 Temperature Source Tympanic 10/20/23 16:32 Pulse 70 10/20/23 16:32 Respiratory Rate 15 10/20/23 16:32 Respiratory Effort Normal 10/20/23 16:32 Blood Pressure 115/79 10/20/23 16:32 Blood Pressure Position Sitting 10/20/23 16:32 Pulse Oximetry 99 10/20/23 16:32 Oxygen Delivery Method Room Air 10/20/23 16:32 Oxygen Flow Rate 0 10/20/23 16:29 Pain Level 6 10/20/23 16:29 Lab/Test Results Lab/Test Results: 10/20/23 16:55 Tonsil - Not Specified Group A Streptococcus Culture - Pending POC Strep Test-SWAPNIL(Rapid) Start: 10/20/23 16:28 Freq: .Rapid Strep Test Status: Active Protocol: Document 10/20/23 16:55 PS (Rec: 10/20/23 16:55 PS [id number]) Strep test-SWAPNIL(Rapid)-POC POC-Strep test-SWAPNIL (Rapid) Negative POC-Strep test-SWAPNIL (Rapid) Negative Medical Decision Making 23-year-old female presents with 2 days of sore throat now with severe left neck discomfort, oropharynx unremarkable midline uvula, tolerate secretions no stri new, no exudate or erythema noted in oropharynx, tenderness to submandibular region left as well as left lateral neck with prominent external jugular vein on examination, afebrile nontoxic however tearful and very anxious, pain out of proportion to examination must consider septic thrombophlebitis versus lymphadenitis versus viral pharyngitis lower suspicion for peritonsillar abscess or retropharyngeal abscess no evidence of Elijah angina at this time. Trial of analgesia anti-inflammatory anxiolysis, basic labs and CT neck with contrast close reassessment. Strep negative on [id number] 19: 32 resting comfortably feeling much better. No acute distress. Normal voice tolerating secretions no respiratory distress. Labs and imaging unremarkable. Quality:SDOH Health Related Social Needs: No Data to Display PFSH All Active Problems (Updated 10/20/23 @ 19:33 by Denny Mckenna MD) Pharyngitis (Acute) Panic attack (Acute) Cannabinoid hyperemesis syndrome (Acute) (Acute) Marijuana use (Acute) Daily use, multiple times per day Chronic constipation (Acute) Gastroesophageal reflux disease (Acute) Generalized anxiety disorder (Acute 03/18/14) Pt reports significant anxiety in early/mid teens. Anxiety has improved but still struggles at times. Not interested in counseling or medication. Medical History Abnormal electroencephalogram (12/21/11) Anemia iron infusions Anxiety disorder 9 month inpatient care [place] Dental infection Depression Dysuria Eating disorder (03/18/14) bulemia Fracture of left radius (11/07/08) Low lying placenta nos or without hemorrhage, third trimester Major depressive disorder, single episode, severe, with psychotic behavior (03/18/14) Pain, dental Pancreatitis Pediatric body mass index (BMI) of 5th percentile to less than 85th percentile for age (02/15/16) Rh negative state in antepartum period Substance abuse (04/22/14) smoker with pot and alcohol use Suicidal ideation Family History Father Hepatitis B Substance abuse HIV (human immunodeficiency virus infection) Mother Breast cancer Other Diabetes pat aunt Essential hypertension MGF Personal history of malignant neoplasm MGM-breast Heart disease MGF Hyperlipidemia MGF Mental disorder PGM-anxiety/depression Myocardial infarction MGF Stroke MGF Brother Alcohol abuse Substance abuse Son No problems noted. Social History Smoking/Tobacco Use Status: Current every day Tobacco Type: cigarettes Tobacco: How many years used: 7 Second Hand Exposure: Yes Counseling given: other Smoking risk assessment performed?: Yes Alcohol Intake: current Alcohol Intake frequency: a few times a month Alcohol type: hard liquor Details: Stop 12/03/2019 with positive UPT Drug use: Daily Substance use type: marijuana Caregiver/Support person: No Household members: significant other and children Housing: apartment Number of Children: 0 Communication Needs: None Education Level: high school Do you need help understanding health information?: Rarely 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 Pets and animals: Yes Pets and animals: cat(s) Sexually active: Yes Do you think of yourself as: straight/heterosexual Current gender identity: female What is your relationship status?: living with partner How often do you talk on the phone with friends or family?: three or more times per week How often do you get together with friends or relatives?: three or more times per week How often do you attend congregational or zoroastrianism services?: decline to answer Do you belong to any clubs or organized social groups?: no Panel score (0-1 are the most socially isolated patients): 2 What type of physical activity do you participate in: none Frequency: does not exercise Vangie/Sabianism: No preference Special vangie needs: No Seatbelt use: always Helmet use: Yes Helmet use: always Drive intox or ride w/intox regional driver: No Do you feel safe at home: Yes Do you feel safe in your relationship?: Yes History History 1 Para 1 Hx # Term Pregnancies 1 Multiple births 0 Hx # Pregnancies 0 Ectopic pregnancies 0 AB induced 0 Hx Number of Living Children 1 AB spontaneous 0 Past Pregnancies Del. Date GA/Weeks # Preg Succ Route Wgt Sex Labor Lgth Anesth esia Location [facility] 07/27/20 39 No vaginal 3316.894 g Male 8 hrs 17 min socrates Gomes CNM Delivery Date: 07/27/20 Last Updated by: Gabi Lucio LPN 2nd degree laceration w/repair; Marito GONSALEZ Have you Been Recently Intoxicated or Drunk Within the Last 30 days?: No Have you Ever Experienced Previous Episodes of Alcohol Withdrawal?: No Have you ever Experienced Withdrawal Seizures?: No Have you ever Experienced Delirium Tremens(DT)s?: No Have you ever undergone Alcohol Rehabilitation Treatment (i.e, inpt ot outpatient treatment programs)?: No Have you ever Experienced Blackouts?: No Have you ever Combined Alcohol with other Downers within the last 90 days?: No Have you ever Combined Alcohol with any other Substance of Abuse during the last 90 days?: No Positive Blood Alcohol level on Presentation? [PCS.BAL]: No Evidence of Increased Autonomic Activity (i.e. HR>120, tremor, sweating, agitation, nausea)?: No Result: 0
[2023-10-20 17:21] LABS: Abs Immature Grans 0.04 10^3/uL (0.0-0.06); Absolute Basophil Count 0.03 10^3/uL (0.0-0.2); Absolute Eosinophil Count 0.23 10^3/uL (0.0-0.7); Absolute Lymphocyte Count 2.38 10^3/uL (1.2-3.4); Absolute Monocyte Count 0.88 10^3/uL (0.1-0.8); Absolute Neutrophil Count 9.74 10^3/uL (1.2-6.7); Basophils % 0.2; Eosinophils % 1.7; HCT 44.3 % (36.0-46.0); HGB 14.9 g/dL (11.2-15.7); Immature Grans % 0.3; Lymphocytes % 17.9; MCH 32.7 pg (27.0-33.0); MCHC 33.6 % (32.0-36.0); MCV 97 fL (80-95); MPV 10.6 fL (8.0-11.0); Monocytes % 6.6; Neutrophils % 73.3; Platelet Count 261 10^3/uL (130-400); RBC 4.56 10^6/uL (3.93-5.22); RDW 11.8 % (11.7-14.6); RDW-SD 42.2 fL; WBC 13.29 10^3/uL (4.4-10.8)
[2023-10-20] MEDS: LORazepam 2 MG/ML VIAL 0.5 MG IVP (17:32)
[2023-10-20 17:34] LABS: INR 1.1 (0.9-1.1); PTT Activated 28.1 sec (23.6-32.8)
[2023-10-20 17:36] LABS: ALT 20 U/L (14-59); AST 21 U/L (15-37); Albumin 4.9 g/dL (3.4-5.0); Alkaline Phosphatase 93 U/L (46-116); BUN 13 mg/dL (7-18); Bilirubin, Total 0.4 mg/dL (0.2-1.0); CREATININE 0.7 mg/dL (0.55-1.02); Calcium 9.8 mg/dL (8.5-10.1); Chloride 104 mmol/L (98-107); Estimated GFR 124.55 (mL/min/1.73m2); Glucose 93 mg/dL (74-106); Potassium 3.9 mmol/L (3.5-5.1); Sodium 141 mmol/L (136-145); Total Protein 8.4 g/dL (6.4-8.2)
[2023-10-20] MEDS: ACETAMINOPHEN 1,000 MG/100 ML BTL 400 MG IVPB (17:38)
[2023-10-20] MEDS: Normal Saline 1,000 ML 1000 ML IV (17:41)
[2023-10-20] MEDS: Dexamethasone 10 MG/ML VIAL IVP (17:42)
[2023-10-20] MEDS: Normal Saline - Diluent 50 ML VIAL IJ (18:00)
[2023-10-20] MEDS: Omnipaque 350 MG/ML 100 ML BTL IJ (18:01)
[2023-10-20] MEDS: Normal Saline Flush 10 ML SYR IVP (18:06)
[2023-10-20 18:17] VITALS: BP 111/64; PULSE 65; TEMP 36.8; O2SAT 100
--- NOTE | 2023-10-20 18:44 | DI.VRAD_ITS ---
PROCEDURE INFORMATION: Exam: CT Neck With Contrast Exam date and time: 10/20/2023 6:07 PM Age: 23 years old Clinical indication: Other: L neck pain sore throat, consider thrmbophlebitis TECHNIQUE: Imaging protocol: Computed tomography of the neck with contrast. Contrast material: OMNIPAQUE 350; Contrast volume: 85 ml; Contrast route: INTRAVENOUS (IV); COMPARISON: CR CERVICAL SP. LIMITED (TRAUMA) 01/03/2018 4:20 PM FINDINGS: Paranasal sinuses: There is a mucous retention cyst in the right maxillary sinus. Pharynx: Unremarkable. No significant tonsillar enlargement. Larynx: Unremarkable. Epiglottis is normal. Prevertebral and retropharyngeal spaces: Unremarkable. Salivary glands: Normal. Glands are normal in size. Thyroid: Normal. No enlarged or calcified nodules. Lymph nodes: Unremarkable. No lymphadenopathy. Trachea: Visualized trachea is unremarkable. Lungs: Unremarkable as visualized. Bones/joints: Unremarkable. No acute fracture. Soft tissues: Unremarkable. No significant soft tissue swelling. IMPRESSION: No collections or thrombophlebitis. Dictated and Authenticated by: Jason Mauro MD. Ordering:CASH Baldwin MD
== END 2023-10-20 20:05 | disposition home or self-care (01) ==
PROVIDERS: Emergency Provider Emergency Medicine; PCP Nurse Practitioner Family
DX: J02.9 Acute pharyngitis, unspecified (principal)
CPT/HCPCS: 70491; 80053; 81025; 87880; 96361; 96374; 96375; 99285; 85025; 85610; 85730; 87081; J0131; J1100; J2060; J3490

== ENCOUNTER 2023-11-26 22:02 | Outpatient (REF) | payer MEDICAID, SELFPAY | END 2023-11-26 22:03 | disposition home or self-care (01) | LOC: LBN 22:02 | PROVIDERS: PCP Nurse Practitioner Family; Visit Provider Nurse Practitioner Family | DX: J02.9 Acute pharyngitis, unspecified (principal) | CPT/HCPCS: 87070 ==

== ENCOUNTER 2023-12-09 08:48 | Emergency (ER) | payer MEDICAID, SELFPAY ==
[2023-12-09 08:50] VITALS: BP 121/69; PULSE 82; RESP 16; TEMP 36.9; O2SAT 100
[2023-12-09 08:58] VITALS: RESP 16; O2SAT 100
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
[2023-12-09] MEDS: Benzocaine 20% Gel 30 GM JAR MM (09:16)
== END 2023-12-09 09:17 | disposition home or self-care (01) ==
LOC: ER 09:19
PROVIDERS: Emergency Provider Physician Assistant; PCP Nurse Practitioner Family
DX: K12.1 Other forms of stomatitis (principal)
CPT/HCPCS: 99283

== ENCOUNTER 2023-12-10 11:07 | Outpatient (REF) | payer MEDICAID, SELFPAY ==
[2023-12-12 13:08] LABS: Chlamydia Result Negative (Negative); GC Result Negative (Negative)
== END 2023-12-10 11:08 | disposition home or self-care (01) ==
LOC: LBN 11:07
PROVIDERS: PCP Nurse Practitioner Family; Visit Provider Nurse Practitioner Family
DX: R30.0 Dysuria (principal)
CPT/HCPCS: 87491; 87591; 87086; 87480; 87510; 87660

== ENCOUNTER 2023-12-24 18:21 | Outpatient (REF) | payer MEDICAID, SELFPAY | END 2023-12-24 18:22 | disposition home or self-care (01) | LOC: LBN 18:21 | PROVIDERS: PCP Nurse Practitioner Family; Visit Provider Nurse Practitioner Family | DX: N76.0 Acute vaginitis (principal) | CPT/HCPCS: 87480; 87510; 87660 ==

== ENCOUNTER 2024-01-25 08:10 | Emergency (ER) | payer MEDICAID, SELFPAY ==
[2024-01-25] VITALS (25 sets, daily range): BP systolic 87–113; BP diastolic 29–58; PULSE 71–116; RESP 13–23; TEMP 36.9–37.7; O2SAT 96–99
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
[2024-01-25 09:30] LABS: Bilirubin Negative (Negative); Blood Trace-intact (Negative); Clarity Clear (Clear); Glucose Negative (Negative); Ketones Negative (Negative); Leukocyte Esterase Negative (Negative); Nitrite Negative (Negative); Urobilinogen 0.2 mg/dL (Up to 0.2); pH 7.5 (5-8)
--- NOTE | 2024-01-25 09:30 | RT.EKG_ITS ---
APPROVED REPORT Exam: Resting ECG Reason for Exam: tachycardia Patient Location: E HR:102 bpm ECG Measurements Heart Rate 102 AXIS OR 152 P 44 QRSd 85 QRS 51 QT 334 T 72 QTc 434 Conclusion Sinus tachycardia...rate> 99 sinus tach, normal axis, normal intervcals, non ischemic
[2024-01-25 09:36] LABS: Bacteria Negative HPF (Negative); C & S Indicated? No; Casts Negative LPF (Negative); Crystals Negative HPF (Negative); Epithelial Cells Rare HPF (Negative); Mucus Negative (Negative); RBC 0-2 HPF (0-2); WBC Negative HPF (0-5)
--- NOTE | 2024-01-25 09:55 | DI.RAD_ITS ---
Exam(s) XR CHEST 2V PA LATERAL EXAM: XR CHEST 2V PA LATERAL CLINICAL HISTORY: fever TECHNIQUE: 2D digital imaging was performed. Two views. COMPARISON: CR,XR XR CHEST 2V PA LATERAL from 09/21/2023 FINDINGS: HEART: Normal size. Aorta: Not dilated. PULMONARY VASCULATURE: Normal. MEDIASTINUM: Unremarkable. LUNGS: Clear. PLEURAL SPACE: No pleural effusion or pneumothorax. BONE:Unremarkable for age. SOFT TISSUES: Unremarkable. IMPRESSION: No acute abnormality. DATA REPOSITORY: RADIATION DOSE DELIVERED:
[2024-01-25] MEDS: Normal Saline 1,000 ML 1000 ML IV (10:18)
[2024-01-25] MEDS: ACETAMINOPHEN 1,000 MG/100 ML BTL 400 MG IVPB (10:18)
[2024-01-25] MEDS: Ketorolac 15 MG/ML VIAL IVP (10:19)
[2024-01-25 10:21] LABS: COVID-19 PCR Negative (Negative); Influenza A PCR Negative (Negative); Influenza B PCR Negative (Negative); RSV PCR Negative (Negative)
[2024-01-25 10:25] LABS: Source Nasopharynx
[2024-01-25 10:29] LABS: ESR 1 mm/hr (0-20)
[2024-01-25 10:30] LABS: Lactate 0.8 mmol/L (0.6-1.4)
--- NOTE | 2024-01-25 10:30 | DI.MRI_ITS ---
Exam(s) MR LUMBAR SPINE WO/W EXAM: MR LUMBAR SPINE WO/W CLINICAL HISTORY: upper lumbar tenderness, neck stiffness, fever. TECHNIQUE: Multiplanar multisequence MRI of the Lumbar Spine was performed. Additional pre and post gadolinium fat suppressed T1 sagittal and axial sequences were performed. CONTRAST MATERIAL: IV Contrast: 12 mL of Dotarem contrast administered. COMPARISON: CR XR CHEST 2V PA LATERAL from 01/25/2024 FINDINGS: Bones: The last intervertebral disc space is designated the L5/S1 level for the numbering purpose of this examination. The vertebral body heights are well maintained. Alignment is satisfactory. The signal characteristics are unremarkable. Cord: The conus tip ends at the T12 level. It is of normal size and signal intensity. T12-L1: No disc herniations or bulges are present. No central spinal canal or neural foraminal stenos is. L1-2: No disc herniations or bulges are present. No central spinal canal or neural foraminal stenosis . L2-3: No disc herniations or bulges are present. No central spinal canal or neural foraminal stenosis . L3-4: No disc herniations or bulges are present. No central spinal canal or neural foraminal stenosis . L4-5: Partial disc desiccation and minimal disc bulging.. No central spinal canal or neural foramina l stenosis. L5-S1: No disc herniations or bulges are present. No central spinal canal or neural foraminal stenosi s. The visualized SI joints and sacrum are well maintained. Soft tissues: The paraspinal soft tissues are unremarkable. There is no evidence of suspicious enhancement. IMPRESSION: Mild disc bulging at L4-5. No evidence of significant spinal stenosis or neuroforaminal narrowing. Normal marrow signal. No areas of abnormal enhancement. DATA REPOSITORY:
[2024-01-25 10:34] LABS: Abs Immature Grans 0.02 10^3/uL (0.0-0.06); Absolute Basophil Count 0.02 10^3/uL (0.0-0.2); Absolute Eosinophil Count 0.04 10^3/uL (0.0-0.7); Absolute Lymphocyte Count 0.68 10^3/uL (1.2-3.4); Absolute Monocyte Count 0.75 10^3/uL (0.1-0.8); Absolute Neutrophil Count 6.98 10^3/uL (1.2-6.7); Basophils % 0.2 %; Eosinophils % 0.5 %; HGB 14.5 g/dL (11.2-15.7); Immature Grans % 0.2 %; MCH 33.1 pg (27.0-33.0); MCHC 33.7 % (32.0-36.0); MCV 98 fL (80-95); MPV 10.8 fL (8.0-11.0); Monocytes % 8.8 %; Neutrophils % 82.3 %; Platelet Count 206 10^3/uL (130-400); RBC 4.38 10^6/uL (3.93-5.22); RDW 11.3 % (11.7-14.6); RDW-SD 40.7 fL; WBC 8.49 10^3/uL (4.4-10.8)
[2024-01-25 10:55] LABS: ALT 21 U/L (14-59); AST 15 U/L (15-37); Albumin 4.3 g/dL (3.4-5.0); Alkaline Phosphatase 82 U/L (46-116); Anion Gap 9.6 mmol/L (3-11); BUN 9 mg/dL (7-18); Bilirubin, Total 0.54 mg/dL (0.2-1.0); C-Reactive Protein < 0.50 mg/dL (<or=0.5); CO2 26.4 mmol/L (21.0-32.0); CREATININE 0.8 mg/dL (0.55-1.02); Calcium 9.3 mg/dL (8.5-10.1); Chloride 101 mmol/L (98-107); Creatine Kinase 44 U/L (26-192); Estimated GFR 106.11 (mL/min/1.73m2); Glucose 87 mg/dL (74-106); Lipase 21 U/L (16-77); Magnesium 1.6 mg/dL (1.8-2.4); Potassium 3.9 mmol/L (3.5-5.1); Sodium 137 mmol/L (136-145); TSH (W/Ref FT4) 0.79 uIU/mL (0.36-3.74); Total Protein 7.6 g/dL (6.4-8.2); Troponin I < 50 ng/L (< or =60)
[2024-01-25] MEDS: Cyclobenzaprine 10 MG TAB PO (10:56)
[2024-01-25 11:10] LABS: Procalcitonin < 0.1 ng/mL
[2024-01-25] MEDS: MAGNESIUM SULFATE 1 GM/100 ML BAG IVINF (11:38)
[2024-01-25] MEDS: Normal Saline Flush 10 ML SYR IVP (13:06)
[2024-01-25] MEDS: Gadoterate meglumine 20 ML SYRINGE 12 ML IVP (13:07)
[2024-01-25] MEDS: Ketorolac 10 MG TAB PO (15:24)
[2024-01-25] MEDS: Acetaminophen 500 MG TAB 1000 MG PO (15:24)
[2024-01-28 14:35] LABS: Lyme Ab w Rflx to Lyme Confirm Positive (Negative)
[2024-01-28 16:21] LABS: Lyme IgG Ab Negative (Negative); Lyme IgM Ab Negative (Negative)
[2024-01-28 17:24] LABS: Anaplasma phagocytophilum Negative (Negative); B. miyamotoi PCR Negative (Negative); Babesia divergens/MO-1 Negative (Negative); Babesia duncani Negative (Negative); Babesia microti Negative (Negative); Ehrlichia chaffeensis Negative (Negative); Ehrlichia ewingii/canis Negative (Negative); Ehrlichia muris eauclairensis Negative (Negative)
== END 2024-01-25 15:34 | disposition home or self-care (01) ==
PROVIDERS: Emergency Provider Physician Assistant; PCP Nurse Practitioner Family
DX: B34.9 Viral infection, unspecified (principal); Z87.891 Personal history of nicotine dependence
CPT/HCPCS: 36415; 72158; 80053; 81025; 82550; 83690; 84145; 85652; 86617; 87040; 87637; 87798; 93005; 96361; 96365; 96375; 99285; 71046; 81003; 81015; 83605; 83735; 84443; 84484; 85025; 86140; 86618; 93010; 99284; J0131; J1885; J3475

== ENCOUNTER 2024-01-26 02:25 | Emergency (ER) | payer MEDICAID, SELFPAY ==
[2024-01-26] VITALS (83 sets, daily range): BP systolic 87–125; BP diastolic 45–84; PULSE 46–98; RESP 12–26; TEMP 37; O2SAT 52–100
--- NOTE | 2024-01-26 02:15 | RT.EKG_ITS ---
APPROVED REPORT Exam: Resting ECG Reason for Exam: SOB Patient Location: E HR:93 bpm ECG Measurements Heart Rate 93 AXIS DC 142 P 60 QRSd 83 QRS 58 QT 340 T -69 QTc 424 Conclusion Sinus rhythm...normal P axis, V-rate 60- [address] changes - There are no significant changes compared to prior EKG performed on 01/25/2024 at 10:26.
--- NOTE | 2024-01-26 03:30 | DI.CT_ITS ---
Exam(s) CT CHEST PE CTA EXAM: CT CHEST PE CTA CLINICAL HISTORY: tachycardia, SOB, +d-dimer. TECHNIQUE: Imaging Protocol: Axial CT angiography was performed with multi-slice acquisition and mu lti-planar reconstructions as well as axial, coronal and sagittal MIP reconstructions. CONTRAST MATERIAL: Intravenous: Omnipaque 350 Contrast volume:100 ml COMPARISON: CT CT ABDOMEN PELVIS W from 07/17/2019 FINDINGS: Evaluation of distal branches limited by respiratory motion. Pulmonary Arteries: No evidence of filling defect to suggest pulmonary emboli. Tracheobronchial tree: No mucous plugging. Mediastinum and Nancy: No dominant adenopathy or fluid collection. Pulmonary parenchyma: No consolidation or dominant measurable mass. Pleura: No effusion or pneumothorax. Heart: The heart is not dilated. No coronary artery calcifications are seen. Aorta: Thoracic aorta non-dilated. No dissection. Upper abdomen: No acute findings. Bones: Unremarkable for age. Tubes, Catheters, and Lines: None Soft tissues: Unremarkable. IMPRESSION: Limited exam due to respiratory motion. No evidence of pulmonary embolism or other acute abnormality . RADIATION DOSE DELIVERED: Total DLP DATA REPOSITORY: All CT scans at this facility are submitted to the National Radiology Data Registry (NRDR) Dose Index Registry (DIR) with the [employer] (ACR). RADIATION OPTIMIZATION: All CT scans at this facility use at least one of these dose optimization te chniques: automated exposure control; mA and/or kV adjustment per patient size (includes targeted exa ms where dose is matched to clinical indication); or iterative reconstruction.
[2024-01-26 03:36] LABS: D-Dimer 663 ng/mlFEU (<500)
[2024-01-26] MEDS: Lactated Ringers 1,000 ML 1000 ML IV (03:57)
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
[2024-01-26] MEDS: Normal Saline - Diluent 50 ML VIAL IJ (04:14)
[2024-01-26] MEDS: Omnipaque 350 MG/ML 100 ML BTL IJ (04:14)
--- NOTE | 2024-01-26 04:36 | NUR.NOTE ---
Nursing Note: pt reports tingling in her throat and sob. lungs clear, no hives or swelling noted. Reported to
--- NOTE | 2024-01-26 06:41 | DI.VRAD_ITS ---
PROCEDURE INFORMATION: Exam: CTA Chest With Contrast Exam date and time: 01/26/2024 4:13 AM Age: 23 years old Clinical indication: Shortness of breath and other: Tachycardia, SOB, +d-dimer TECHNIQUE: Imaging protocol: Computed tomographic angiography of the chest with contrast. Exam focused on the arteries. 3D rendering (Not supervised by radiologist): MIP and/or 3D reconstructed images were created by the technologist. Contrast material: OMNI 350; Contrast volume: 100 ml; Contrast route: INTRAVENOUS (IV); COMPARISON: CR XR CHEST 2V PA LATERAL 01/25/2024 9:49 AM FINDINGS: Limitations: Respiratory motion artifact. Pulmonary arteries: Somewhat limited evaluation of the segmental pulmonary arteries in the lower lungs due to respiratory motion artifact. No pulmonary arterial filling defects identified. Aorta: Unremarkable. No aortic aneurysm. No aortic dissection. Lungs: Unremarkable. No consolidation. No masses. Pleural spaces: Unremarkable. No pneumothorax. No pleural effusion. Heart: Unremarkable. No cardiomegaly. No pericardial effusion. Coronary arteries: No coronary artery calcification noted. Lymph nodes: Unremarkable. No enlarged lymph nodes. Bones/joints: Unremarkable. No acute fracture. Soft tissues: Unremarkable. IMPRESSION: No evidence of pulmonary embolism. Somewhat limited evaluation of the segmental pulmonary arteries. Dictated and Authenticated by: Tiesha Perez MD. Ordering:SHEY Salcedo MD
== END 2024-01-26 07:05 | disposition home or self-care (01) ==
LOC: ER 06:43 → RED 07:05
PROVIDERS: Emergency Provider Emergency Medicine; PCP Nurse Practitioner Family
DX: R00.2 Palpitations (principal); R06.02 Shortness of breath; F41.9 Anxiety disorder, unspecified; Z87.891 Personal history of nicotine dependence
CPT/HCPCS: 36415; 71275; 93005; 96360; 96361; 99285; 85379; 93010; 99284; J3490

== ENCOUNTER 2024-02-23 14:11 | Emergency (ER) | payer MEDICAID, SELFPAY ==
[2024-02-23 14:21] VITALS: BP 125/92; PULSE 95; RESP 20; TEMP 36; O2SAT 100
[2024-02-23] MEDS: clonazePAM 0.5 MG TAB 0.25 MG PO (14:38)
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
[2024-02-23 16:01] VITALS: RESP 16
[2024-02-23 16:03] VITALS: BP 118/72; PULSE 80; RESP 16; TEMP 36.6; O2SAT 100
== END 2024-02-23 16:04 | disposition home or self-care (01) ==
PROVIDERS: Emergency Provider Emergency Medicine; PCP Nurse Practitioner Family
DX: F41.0 Panic disorder [episodic paroxysmal anxiety]
CPT/HCPCS: 99283; 99284

== ENCOUNTER 2024-02-25 09:49 | Emergency (ER) | payer MEDICAID, SELFPAY ==
--- NOTE | 2024-02-25 09:45 | RT.EKG_ITS ---
APPROVED REPORT Exam: Resting ECG Reason for Exam: SOB Patient Location: E HR:80 bpm ECG Measurements Heart Rate 80 AXIS AL 156 P 49 QRSd 81 QRS 50 QT 361 T 56 QTc 416 Conclusion Sinus rhythm...normal P axis, V-rate 60- 99
[2024-02-25 09:55] VITALS: BP 126/66; PULSE 89; RESP 23; TEMP 36.2; O2SAT 98
[2024-02-25 09:59] VITALS: RESP 20
--- NOTE | 2024-02-25 10:08 | ED.GENADUL_ITS ---
Discharge Plan Disposition Patient Disposition: Home Condition: Stable Discharge Details Clinical Impression: Panic attack Primary Care Provider: Azucena Florian ED Provider: Sabrina Edwards Home Meds and New Rx's Prescriptions: New clonazepam 0.25 mg tablet,disintegrating 0.25 mg PO DAILY PRN (Reason: anxiety) 2 Days Qty: 2 0RF Rx Instructions: Take one tablet twice daily as needed for severe anxiety. No Action lorazepam [Ativan] 0.5 mg tablet 0.5 mg PO DAILY PRN (Reason: anxiety) Qty: 7 0RF Discharge Instructions Instructions: Tips to Help You [place] in Uncertain Times, Panic Attack ED Additional Instructions: Please follow up with [facility] to speak with someone about your anxiety. Take the medication as directed. Follow up with primary care provider in 3-5 days. Return to ED sooner if any worsening or concerns. Referrals: [facility] [Provider Group] - 1 day (Call to speak with someone) Azucena Florian NP [Primary Care Provider] - 3 days Discharge Data Discharge Date/Time-TO BE ENTERED AT DEPARTURE: 02/25/24 10:27 HPI General Mode of arrival: ambulatory . Date/Time Provider Initiated Documentation: 02/25/24 09:52 . Limitations to Documentation: no limitations . Information obtained by: patient, RN notes reviewed and old records reviewed . HPI Narrative: 23-year-old female presents to the ER with a chief complaint of anxiety, she reports that she is out of lorazepam 0.5 mg, this is what she usually takes. She was seen here on Sunday for similar was given 0.25 of clonazepam. She usually gets prescribed Ativan from her PCP. She does have a history of major depressive disorder, anemia pancreatitis, eating disorder and anxiety disorder. She does endorse shortness of breath denies any chest pain cough or fever or chills. Related Data Home Medications ?Medication ?Instructions ?Recorded ?Confirmed lorazepam 0.5 mg tablet (Ativan) 0.5 mg PO DAILY PRN anxiety #7 tabs 02/19/24 02/25/24 clonazepam 0.25 mg disintegrating 0.25 mg PO DAILY PRN anxiety 2 02/25/24 tablet days #2 tabs Previous Rx's ?Medication ?Instructions ?Recorded lorazepam 0.5 mg tablet (Ativan) 0.5 mg PO DAILY PRN anxiety #7 tabs 02/19/24 clonazepam 0.25 mg disintegrating 0.25 mg PO DAILY PRN anxiety 2 02/25/24 tablet days #2 tabs Allergies Allergy/AdvReac Type Severity Reaction Status Date / Time No Known Allergies Allergy Verified 02/25/24 10:10 General Stated Complaint: Anxiety JARED: 4 Review of Systems All systems reviewed & are unremarkable except as noted in HPI and below Constitutional Constitutional: Reports as per HPI Psychiatric Psychiatric: Reports as per HPI and Reports anxiety Exam Narrative Exam Narrative: Constitutional: Alert and oriented x3. Appears stated age. Normal body habitus. Head: Normocephalic, no trauma. Eyes: Pupils PERRL, Red reflex noted, EOM's intact. Eyelids symmetrical without lesions, discharge, or swelling. Chest: RRR, Normal S1, S2, distal pulses intact. Resp: Lungs clear to auscultation bilaterally, no wheezes, rales, or rhonchi. Musculoskeletal: Normal gait, Moves all 4 extremities without difficulty. Skin: No suspicious rashes or lesions. Capillary refill less than 2 sec. Neurologic: Cranial nerves II-XII intact. Alert and oriented x 3. Course Vital Signs Vital signs: Vital Signs Temperature 36.2 C L 02/25/24 09:55 Pulse 89 02/25/24 09:55 Respiratory Rate 23 02/25/24 09:55 Blood Pressure 126/66 02/25/24 09:55 Pulse Oximetry 98 02/25/24 09:55 Temperature 36.2 C L 02/25/24 09:55 Temperature Source Temporal Artery Scan 02/25/24 09:55 Pulse 89 02/25/24 09:55 Respiratory Rate 20 02/25/24 09:59 Respiratory Effort Normal, Non-Labored, Short of Breath 02/25/24 09:59 Respiratory Depth Normal 02/25/24 09:59 Respiratory Pattern Normal 02/25/24 09:59 Blood Pressure 126/66 02/25/24 09:55 Blood Pressure Position Sitting 02/25/24 09:55 Pulse Oximetry 98 02/25/24 09:55 Oxygen Delivery Method Room Air 02/25/24 09:55 Oxygen Flow Rate 0 02/25/24 09:55 Pain Level 0 02/25/24 09:55 Medical Decision Making 23-year-old female presents to the ER with a chief complaint of anxiety, she reports that she is out of lorazepam 0.5 mg, this is what she usually takes. She was seen here on Sunday for similar was given 0.25 of clonazepam. She usually gets prescribed Ativan from her PCP. She does have a history of major d epressive disorder, anemia pancreatitis, eating disorder and anxiety disorder. She does endorse shortness of breath denies any chest pain cough or fever or chills. EKG obtained by research staff member in triage, normal sinus rhythm please see official report. Lungs are clear to auscultation bilaterally. Patient given clonazepam 3 tablets here in the department. Instructed follow-up with PCP. This text was generated using [employer] dictation system, please disregard any oddities of phrase or misspellings. Quality:SDOH Health Related Social Needs: No Data to Display PFSH All Active Problems (Updated 02/25/24 @ 10:11 by Sabrina Edwards NP) Panic attack (Acute) Shortness of breath (Acute) Palpitations (Acute) Bipolar disorder (Acute) reported by pt Depression (Chronic) Cannabinoid hyperemesis syndrome (Acute) Marijuana use (Acute) Daily use, multiple times per day Chronic constipation (Acute) Gastroesophageal reflux disease (Acute) Generalized anxiety disorder (Acute 03/18/14) Pt reports significant anxiety in early/mid teens. Anxiety has improved but still struggles at times. Not interested in counseling or medication. Medical History Major depressive disorder, single episode, severe, with psychotic behavior (03/18/14) Anemia iron infusions Rh negative state in antepartum period Pancreatitis Abnormal electroencephalogram (12/21/11) Eating disorder (03/18/14) bulemia Anxiety disorder 9 month inpatient care [place] Family History Father Hepatitis B HIV (human immunodeficiency virus infection) Substance use disorder Depression Alcohol use disorder Mother Breast cancer Other Diabetes pat aunt Essential hypertension MGF Personal history of malignant neoplasm MGM-breast Heart disease MGF Hyperlipidemia MGF Mental disorder PGM-anxiety/depression Myocardial infarction MGF Stroke MGF Brother Alcohol abuse Substance abuse Maternal Grandmother Breast cancer Social History Smoking/Tobacco Use Status: Former Tobacco Use Quit Date: 10/24/23 Tobacco: How many years used: 7 Quit status: considering quitting Second Hand Exposure: Yes Counseling given: other Smoking risk assessment performed?: Yes Alcohol Intake: current Alcohol Intake frequency: 0-2 drinks per day Alcohol type: beer, wine and hard liquor Drug use: Current Sobriety Adopted: No Caregiver/Support person: No Household members: children Housing: apartment Number of Children: 1 Communication Needs: None Education Level: high school Details: 11th grade Do you need help understanding health information?: Never 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 Sexually active: Yes Do you think of yourself as: straight/heterosexual Current gender identity: female How often do you talk on the phone with friends or family?: twice per week How often do you get together with friends or relatives?: once per week How often do you attend caodaism or sikhism services?: decline to answer Do you belong to any clubs or organized social groups?: no Panel score (0-1 are the most socially isolated patients): 1 What type of physical activity do you participate in: none and regular exercise Duration: 30-45 minutes/day Frequency: does not exercise Vangie/Scientologist: No preference Special vangie needs: No Seatbelt use: always Helmet use: Yes Helmet use: always 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 Date GA/Weeks # Preg Succ Route Wgt Sex Labor Lgth Anesth esia Location [facility] 07/27/20 39 No vaginal 3316.894 g Male 8 hrs 17 min regional [facility] Delivery Date: 07/27/20 Last Updated by: Gabi Lucio LPN 2nd degree laceration w/repair; Marito GONSALEZ Have you Been Recently Intoxicated or Drunk Within the Last 30 days?: No Have you Ever Experienced Previous Episodes of Alcohol Withdrawal?: No Have you ever Experienced Withdrawal Seizures?: No Have you ever Experienced Delirium Tremens(DT)s?: No Have you ever undergone Alcohol Rehabilitation Treatment (i.e, inpt ot outpatient treatment programs)?: No Have you ever Experienced Blackouts?: No Have you ever Combined Alcohol with other Downers within the last 90 days?: No Have you ever Combined Alcohol with any other Substance of Abuse during the last 90 days?: No Positive Blood Alcohol level on Presentation? [PCS.BAL]: No Evidence of Increased Autonomic Activity (i.e. HR>120, tremor, sweating, agitation, nausea)?: No Result: 0
[2024-02-25] MEDS: clonazePAM 0.5 MG TAB 0.25 MG PO (10:22)
== END 2024-02-25 10:27 | disposition home or self-care (01) ==
PROVIDERS: Emergency Provider Registered Nurse Emergency; PCP Nurse Practitioner Family
DX: F41.0 Panic disorder [episodic paroxysmal anxiety] (principal); F32.9 Major depressive disorder, single episode, unspecified; F41.9 Anxiety disorder, unspecified; Z87.891 Personal history of nicotine dependence
CPT/HCPCS: 93005; 99283; 93010

== ENCOUNTER 2024-02-29 21:20 | Outpatient (REF) | payer MEDICAID, SELFPAY ==
[2024-02-29 22:15] LABS: Bacteria Rare HPF (Negative); C & S Indicated? C&S Done As Ordered; Casts Negative LPF (Negative); Crystals Negative HPF (Negative); Epithelial Cells Rare HPF (Negative); Mucus Negative (Negative); Other Cells Rare Renal (Negative); RBC Negative HPF (0-2)
[2024-03-02 14:44] LABS: Chlamydia Result Negative (Negative); GC Result Negative (Negative)
[2024-03-03 09:31] LABS: HIV-1/2 Ag & Ab Screen Negative (Negative)
[2024-03-03 09:40] LABS: Hepatitis C Ab w Rflx HCV PCR Negative (Negative)
[2024-03-03 10:32] LABS: Syphilis Serology (RPR) Negative (Negative)
== END 2024-02-29 21:21 | disposition home or self-care (01) ==
LOC: LBN 21:20
PROVIDERS: PCP Nurse Practitioner Family; Visit Provider Physician Assistant Medical
DX: Z11.3 Encounter for screening for infections with a predominantly sexual mode of transmission (principal); N89.9 Noninflammatory disorder of vagina, unspecified
CPT/HCPCS: 86803; 87389; 87491; 87591; 81015; 86592; 87086; 87480; 87510; 87660

== ENCOUNTER 2024-03-02 13:26 | Emergency (ER) | payer MEDICAID, SELFPAY ==
--- NOTE | 2024-03-02 13:30 | RT.EKG_ITS ---
APPROVED REPORT Exam: Resting ECG Reason for Exam: SOB Patient Location: E HR:82 bpm ECG Measurements Heart Rate 82 AXIS WA 144 P 46 QRSd 85 QRS 50 QT 375 T 63 QTc 440 Conclusion Sinus rhythm 82 normal axis no stemi
[2024-03-02 13:34] VITALS: BP 119/83; PULSE 92; RESP 16; TEMP 36.9; O2SAT 96
--- NOTE | 2024-03-02 14:40 | ED.GENADUL_ITS ---
Discharge Plan Disposition Patient Disposition: Home Condition: Stable Discharge Details Clinical Impression: Panic attack Primary Care Provider: Azucena Florian ED Provider: Erika Dumas Home Meds and New Rx's Prescriptions: No Action lorazepam [Ativan] 0.5 mg tablet 0.5 mg PO DAILY PRN (Reason: anxiety) Qty: 7 0RF Discharge Instructions Instructions: Panic Attack ED Additional Instructions: Please follow-up with your primary care physician for reevaluation of ongoing symptoms HPI General Date/Time Provider Initiated Documentation: 03/02/24 13:57 . Limitations to Documentation: no limitations . Information obtained by: patient . HPI Narrative: 23-year-old female with past medical history of bipolar disorder, anxiety disorder presents for evaluation of a panic attack. She reports that she is having symptoms consistent with prior panic attacks that started about 30 minutes ago. She states that it started after she was eating. She is having chest tightness, eye fuzziness, feeling very scared. She states that she did take her prescribed medication of 0.5 mg lorazepam but did not have resolution of her symptoms. Because of that she came to the emergency department. She denies any drug or alcohol use. She denies any suicidal or homicidal ideation. She reports that the symptoms of panic had increased and are making her feel like she is also having a migraine. She reports some frontal headache, nausea and not being able to focus. Related Data Home Medications ?Medication ?Instructions ?Recorded ?Confirmed lorazepam 0.5 mg tablet (Ativan) 0.5 mg PO DAILY PRN anxiety #7 tabs 02/26/24 03/02/24 Previous Rx's ?Medication ?Instructions ?Recorded lorazepam 0.5 mg tablet (Ativan) 0.5 mg PO DAILY PRN anxiety #7 tabs 02/26/24 Allergies Allergy/AdvReac Type Severity Reaction Status Date / Time No Known Allergies Allergy Verified 03/02/24 13:40 General Stated Complaint: GenMedical JARED: 3 Exam Narrative Exam Narrative: Review of Systems: All systems reviewed & are unremarkable except as noted in HPI and below Well-developed crying PERRL, normal conjunctiva, no nystagmus RRR, no murmur Unlabored respiratory effort, CTAB Course Vital Signs Vital signs: Vital Signs Temperature 36.9 C 03/02/24 13:34 Pulse 92 H 03/02/24 13:34 Respiratory Rate 16 03/02/24 13:34 Blood Pressure 119/83 03/02/24 13:34 Pulse Oximetry 96 03/02/24 13:34 Temperature 36.9 C 03/02/24 13:34 Pulse 92 H 03/02/24 13:34 Respiratory Rate 16 03/02/24 13:34 Respiratory Effort Normal 03/02/24 13:39 Blood Pressure 119/83 03/02/24 13:34 Pulse Oximetry 96 03/02/24 13:34 Oxygen Delivery Method Room Air 03/02/24 13:34 Oxygen Flow Rate 0 03/02/24 13:34 Pain Level 4 03/02/24 13:34 Medical Decision Making Emergent evaluation of panic symptoms. At this time the patient has no SI, HI or concerns for decompensated psychiatric illness requiring further psychiatric care. She does have a longstanding history of anxiety and panic. She did take her medication at home without significant improvement. She is also complaining of some symptoms of migraine being exacerbated by this panic attack. I have reviewed her EKG and independently interpreted, sinus 82, normal axis, no acute ischemic changes. I do not believe that her chest tightness is secondary to any cardiopulmonary etiology is more likely secondary to her panic symptoms. Will give oral medications and reassess. After period of observation in the emergency department, her symptoms have been reevaluated and she does feel much better. At this time she feels comfortable going home. I recommended to continue her medication as prescribed and follow- up with her PCP if she is having ongoing or persistent panic symptoms. Quality:SDOH Health Related Social Needs: No Data to Display PFSH All Active Problems (Updated 03/02/24 @ 15:44 by Erika Dumas MD) Panic attack (Acute) Bipolar disorder (Acute) reported by pt Depression (Chronic) Cannabinoid hyperemesis syndrome (Acute) Marijuana use (Acute) Daily use, multiple times per day Chronic constipation (Acute) Gastroesophageal reflux disease (Acute) Generalized anxiety disorder (Acute 03/18/14) Pt reports significant anxiety in early/mid teens. Anxiety has improved but still struggles at times. Not interested in counseling or medication. Medical History Major depressive disorder, single episode, severe, with psychotic behavior (02/24 10/06) Anemia iron infusions Rh negative state in antepartum period Pancreatitis Abnormal electroencephalogram (12/21/11) Eating disorder (03/18/14) bulemia Anxiety disorder 9 month inpatient care [facility] Family History Father Hepatitis B HIV (human immunodeficiency virus infection) Substance use disorder Depression Alcohol use disorder Mother Breast cancer Other Diabetes pat aunt Essential hypertension MGF Personal history of malignant neoplasm MGM-breast Heart disease MGF Hyperlipidemia MGF Mental disorder PGM-anxiety/depression Myocardial infarction MGF Stroke MGF Brother Alcohol abuse Substance abuse Maternal Grandmother Breast cancer Social History Smoking/Tobacco Use Status: Former Tobacco Use Quit Date: 10/24/23 Tobacco: How many years used: 7 Quit status: considering quitting Second Hand Exposure: Yes Counseling given: other Smoking risk assessment performed?: Yes Alcohol Intake: current Alcohol Intake frequency: 0-2 drinks per day Alcohol type: beer, wine and hard liquor Drug use: Current Sobriety Adopted: No Caregiver/Support person: No Household members: children Housing: apartment Number of Children: 1 Communication Needs: None Education Level: high school Details: 11th grade Do you need help understanding health information?: Never 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 Sexually active: Yes Do you think of yourself as: straight/heterosexual Current gender identity: female How often do you talk on the phone with friends or family?: twice per week How often do you get together with friends or relatives?: once per week How often do you attend temple or jew services?: decline to answer Do you belong to any clubs or organized social groups?: no Panel score (0-1 are the most socially isolated patients): 1 What type of physical activity do you participate in: none and regular exercise Duration: 30-45 minutes/day Frequency: does not exercise Vangie/Jain: No preference Special vangie needs: No Seatbelt use: always Helmet use: Yes Helmet use: always Drive intox or ride w/intox 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 Date GA/Weeks # Preg Succ Route Wgt Sex Labor Lgth Anesth esia Location [facility] 07/27/20 39 No vaginal 3316.894 g Male 8 hrs 17 min regional [facility] Delivery Date: 07/27/20 Last Updated by: Gabi Lucio LPN 2nd degree laceration w/repair; Marito Ding
[2024-03-02] MEDS: Ondansetron O.D.T. 4 MG TABEF PO (14:53)
[2024-03-02] MEDS: Ketorolac 10 MG TAB PO (14:53)
[2024-03-02] MEDS: diazePAM 5 MG TAB PO (14:53)
[2024-03-02 15:53] VITALS: BP 103/77; PULSE 72; RESP 18; O2SAT 100
[2024-03-02 15:54] VITALS: BP 103/77; PULSE 72; RESP 18; O2SAT 100
== END 2024-03-02 15:54 | disposition home or self-care (01) ==
PROVIDERS: Emergency Provider Emergency Medicine; PCP Nurse Practitioner Family
DX: F41.0 Panic disorder [episodic paroxysmal anxiety] (principal); R07.9 Chest pain, unspecified; Z87.891 Personal history of nicotine dependence
CPT/HCPCS: 93005; 99284; 93010; 99283

== ENCOUNTER 2024-03-06 13:25 | Emergency (ER) | payer MEDICAID, SELFPAY ==
[2024-03-06 13:26] VITALS: BP 117/83; PULSE 92; RESP 10; TEMP 37; O2SAT 98
--- NOTE | 2024-03-06 13:38 | PDOC.MHCN ---
Date of service: 03/06/24 Time of Service: 13:39 PHQ-9 Over the last 2 weeks, how often have you been bothered by any of the following problems? 1. Little interest or pleasure in doing things: several days 2. Feeling down, depressed, or hopeless: several days 3. Trouble falling or staying asleep, or sleeping too much: nearly every day 4. Feeling tired or having little energy: not at all 5. Poor appetite or overeating: nearly every day 6. Feeling bad about yourself - or that you are a failure or have let yourself and your family down: several days 7. Trouble concentrating on things, such as reading the newspaper or watching television: several days 8. Moving or speaking so slowly that other people could have noticed? - Or the opposite - being so fidgety or restless that you have been moving around a lot more than usual: several days 9. Thoughts that you would be better off or of hurting yourself in some way: not at all Total score: 11 If you checked off any problems, how difficult have these problems made it for you to do your work, take care of things at home, or get along with other people?: extremely difficult Source: Developed by Drs. Matias Dasilva, Sarah Hall, Mark Anthony Jacinto and colleagues, with an educational nathaniel from [employer]. Suicide Severity Rate CSSRS Have you wished you were or wished you could go to sleep and not wake up?: No Have you actually had any thoughts of killing yourself?: No CSSRS3 Have you ever done anything, started to do anything or prepared to do anything to end your life?: Yes CSSRS4 Was this within the past three months?: No Screening Score Total Score: 2 Screening: Positive Mental Health Emergency Note Release [facility] release signed:: Yes Reason for Visit The client is known to [facility] as she was screened by AMANDA Velazquez on . The client reported she has been hospitalized prior about 10 years ago at [facility]. She is followed only by her PCP, Lorraine Castellon (Azucena Florian). The client outreached this am to AMANDA Velazquez stating she believes she needs to go inpatient based on severe panic attacks that she is experiencing. It is important to note that the client's boyfriend overdosed and in front of her. In the last 2 weeks has the pt presented for ES prior to today?: Unknown Client Information Client is: New Well Housed: Yes Non Suicidal Self Injury Current: No History: No Safety Risk/Harm to Self or Others Current Ideation to Harm Self or Others: No Risk: Does risk to harm exist?: No Risk: Low Risk Duty to warn indicated: No Asssessment/Mental Status Appearance: Well groomed Attitude: Cooperative Behavior: Other (rapid shaking of her leg. ) Speech: Normal Affect: Cogruent with mood Mood: Depressed and Anxious Thought process: Goal directed Hallucinations: No Delusions: No Attention: Unremarkable Perception: Not impaired Orientation: Fully orientated Memory: Intact Insight: Good Judgement: Good Neurovegetative Symptoms Sleep: Decrease Appetitie: Decrease Interests: Decrease Energy: Decrease Libido: Not applicable Substance Use: Do you use nicotine?: No Have you used substances in the last 7 days?: No Additional Issues: Assaultive/Threatening Behavior: No Medical Concerns: No Client engaged in active self harm w/weapon: No Threatening to run away: No Child reported abuse/neglect: No Voluntarily presenting for services: Yes Domestic violence is a concern: No Extreme Psychosis or extreme behavior is present: No Impression The client is a 23-year-old, single, female and single mother of a 3 year old boy. 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 The client uses She/Her pronouns. The client completed the 11th grade. All underrepresented identifiers were honored during this assessment. The client engaged in all screening tools including the CSSRS. No CAMS was required for this assessment. She did report a history of an overdose which she did seek medical attention and this was why she was hospitalized. In addition, following that she was placed in residential placements for many years. The client reported that her ex overdosed and as a result of that overdose in front of her. When he was using she became paranoid that she would get high from contact. She shared that she cannot fill her gas tank because she is afraid a crack head has touched it. Her panic attacks have affected her ability to consume food even and even the action of trying to eat makes her feel like she can't breathe. She even threw out all of her silverware due to this fear of contamination. The client reported that her PCP has tried her on a couple of medications including Lexapro without success of managing her symptoms. She is supposed to see a psychiatrist on 03.17 but does not feel she can wait that long. The client reported a history of daily ETOH and THC use. She denied a history of withdrawals, seizures or blackouts. She has had 4 months of sobriety. The client identified her mother as her natural support. She identified her PCP as her only professional support. The client identified her strengths to be putting her makeup on and being a good mother. She identified her needs as help to feel better. The client denied any history of legal or medical issues. The client reported that she is taking her medication, Ativan as prescribed. She does express though that she feels she is relying on that med too much now. The client reported a family history of substance abuse, and legal issues. She denied a family history of mental lilo issues or suicide. Plan/Disposition Recommended Disposition: Hospitalization facilities contacted. Plan: The client is going home to pack a bag and will be going to [facility] to seek treatment. She will remain at [facility] until placed. Person reported agreement to plan: Yes Facilities contacted if Applicable [facility] Not accepted, Other [facility] Not accepted, Other [facility] Not accepted, Other, [facility] Not accepted, Other [facility] Not accepted, Other Reports/communication Outcome discussed with: ED/Personnel
--- NOTE | 2024-03-06 13:53 | W.ED.GENAD ---
Discharge Plan Discharge Details Chief Complaint: PsychEval Primary Care Provider: Azucena Florian ED Provider: Gene Smith Home Meds and New Rx's Prescriptions: No Action lorazepam [Ativan] 0.5 mg tablet 0.5 mg PO DAILY PRN (Reason: anxiety) Qty: 7 0RF Patient Comments: 0900 fluconazole 150 mg tablet 150 mg PO Q72H Patient Comments: TAKE ONE TABLET BY MOUTH EVERY 72 HOURS metronidazole 500 mg tablet 500 mg PO BID Patient Comments: TAKE ONE TABLET BY MOUTH TWO TIMES A DAY FOR 7 DAYS NO ALCOHOL WITH THIS MED HPI General Date/Time Provider Initiated Documentation: 03/06/24 13:53. HPI Narrative: 23 year-old female presents to ED today by POV/ambulating, sent by [facility] for Eval and stay in ED until voluntarily admitted to facility with a chief complaint of panic attacks, depression, states they last a long time with onset chronically. Patient denies any suicidality, denies any intrusive thoughts for self harm, denies HI, denies any partner violence. Quality described as anhedonic- doesn't eat well, states the panic attacks get the best of her, no radiation to fever, cough, chest pain, shortness of breath, nausea, vomiting. Severity is described as severe for her baseline panic attacks. Palliating factors include nothing specific- tried ativan. Provoking factors include nothing specific. Patient not anticoagulated. Related Data Home Medications ?Medication ?Instructions ?Recorded ?Confirmed lorazepam 0.5 mg tablet (Ativan) 0.5 mg PO DAILY PRN anxiety #7 tabs 03/04/24 03/06/24 fluconazole 150 mg tablet 150 mg PO Q72H 03/06/24 03/06/24 metronidazole 500 mg tablet 500 mg PO BID 03/06/24 03/06/24 Previous Rx's ?Medication ?Instructions ?Recorded lorazepam 0.5 mg tablet (Ativan) 0.5 mg PO DAILY PRN anxiety #7 tabs 03/04/24 Allergies Allergy/AdvReac Type Severity Reaction Status Date / Time No Known Allergies Allergy Verified 03/06/24 13:30 General Stated Complaint: PsychEval JARED: 3 Review of Systems All systems reviewed & are unremarkable except as noted in HPI and below Exam Narrative Exam Narrative: GENERAL APPEARANCE: Well-nourished, non-toxic, awake and alert, atraumatic, no acute distress. SKIN: Warm, pink, dry, intact, without rashes/lesions/ulcerations. HEAD: Normocephalic, atraumatic, normal hair distribution for gender/age. EYES: Normal conjunctiva, no exudates on lids/lashes. ENT: Nares patent, no circumoral cyanosis, no facial swelling NECK: Supple, trachea midline, painless cervical ROM. LUNGS/CHEST: Non-labored respirations, normal A/P diameter, symmetrical expansion, no chest wall deformity HEART (CV/PV): No peripheral edema, no JVD. ABDOMEN: Soft, non-distended, no guarding. MSK: Normal ROM, no swelling/deformity to bilateral UEs or LEs, moving all extremities without weakness, no cyanosis, spine midline without tenderness, normal curvature. NEURO: Mental Status AAOx4 - alert to person, place, time, events No facial droop, no forehead involvement. Motor: No focal weakness - strength 5/5 in bilateral UEs and LEs, proximal and distal, symmetric. Sensory: sensation intact to light touch globally. Gait normal: patient ambulated without ataxia into ED room. PSYCH: dysthymic, cooperative, pleasant, appropriate speech, not anxious, not psychotic, denies SI/HI Course Vital Signs Vital signs: Vital Signs Temperature 37.0 C 03/06/24 13:26 Pulse 92 H 03/06/24 13:26 Respiratory Rate 10 L 03/06/24 13:26 Blood Pressure 117/83 03/06/24 13:26 Pulse Oximetry 98 03/06/24 13:26 Temperature 37.0 C 03/06/24 13:26 Temperature Source Oral 03/06/24 13:26 Pulse 92 H 03/06/24 13:26 Respiratory Rate 10 L 03/06/24 13:26 Respiratory Effort Normal 03/06/24 13:32 Blood Pressure 117/83 03/06/24 13:26 Pulse Oximetry 98 03/06/24 13:26 Oxygen Delivery Method Room Air 03/06/24 13:26 Oxygen Flow Rate 0 03/06/24 13:26 Pain Level 0 03/06/24 13:26 Medical Decision Making This dictation utilizes [id number] dictation software and may contain unedited grammatical errors. 23 year-old female presents to ED today by POV/ambulating, sent by [facility] Bridget [facility] for Eval and stay in ED until voluntarily admitted to facility with a chief complaint of panic attacks, depression, states they last a long time with onset chronically. Patient denies any suicidality, denies any intrusive thoughts for self harm, denies HI, denies any partner violence. Quality described as anhedonic- doesn't eat well, states the panic attacks get the best of her, no radiation to fever, cough, chest pain, shortness of breath, nausea, vomiting. Severity is described as severe for her baseline panic attacks. Palliating factors include nothing specific- tried ativan. Provoking factors include nothing specific. Patients' medical history: past history of severe psychotic behavior from acute manic depressive episode. Pertinent exam findings / vital signs include benign cardiopulmonary status, no respiratory distress, tolerating PO intake, calm and not psychotic in provider interview, denies all suicidality. Differential / pathologies of concern include depression, NOT si/hi. Diagnostic studies of: -basic labs held at this time, patient agrees if needed for admission. Interventions of: -Consult with [facility]- likely inappropriate use of ER while patient awaits in-patient stay. Medically cleared, will perform tele-psych for med adjustments ED Course/Assessment/Plan: 23-year-old female denies any suicidality, has not any acute manic episode or psychosis, states that she wishes to be inpatient for mental health medication adjustment, was recommended to present to the ED by [facility] human services, do not suspect there is any acute emergency. Plan to perform a telepsych medication adjustment. Patient signed out to oncoming provider Christen Croft PA-C at shift-change. Findings not consistent with suicidal ideation, psychosis. Disposition of Depression. Patient verbalized understanding of the plan and return to ED criteria and engaged in shared decision making. Medical Records Medical records reviewed: Yes I reviewed the patient's medical records. Quality:[facility] Related Social Needs: No Data to Display [facility] All Active Problems (Updated 03/02/24 @ 15:44 by Erika Dumas MD) Panic attack (Acute) Bipolar disorder (Acute) reported by pt Depression (Chronic) Cannabinoid hyperemesis syndrome (Acute) Marijuana use (Acute) Daily use, multiple times per day Chronic constipation (Acute) Gastroesophageal reflux disease (Acute) Generalized anxiety disorder (Acute 09/24/14) Pt reports significant anxiety in early/mid teens. Anxiety has improved but still struggles at times. Not interested in counseling or medication. Medical History Major depressive disorder, single episode, severe, with psychotic behavior (03/18/14) Anemia iron infusions Rh negative state in antepartum period Pancreatitis Abnormal electroencephalogram (12/21/11) Eating disorder (03/18/14) bulemia Anxiety disorder 9 month inpatient care [place] Family History Father Hepatitis B HIV (human immunodeficiency virus infection) Substance use disorder Depression Alcohol use disorder Mother Breast cancer Other Diabetes pat aunt Essential hypertension MGF Personal history of malignant neoplasm MGM-breast Heart disease MGF Hyperlipidemia MGF Mental disorder PGM-anxiety/depression Myocardial infarction MGF Stroke MGF Brother Alcohol abuse Substance abuse Maternal Grandmother Breast cancer Social History Smoking/Tobacco Use Status: Former Tobacco Use Quit Date: 10/24/23 Tobacco: How many years used: 7 Quit status: considering quitting Second Hand Exposure: Yes Counseling given: other Smoking risk assessment performed?: Yes Alcohol Intake: former Drug use: Current Sobriety Adopted: No Caregiver/Support person: No Household members: children Housing: apartment Number of Children: 1 Communication Needs: None Education Level: high school Details: 11th grade Do you need help understanding health information?: Never 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 Sexually active: Yes Do you think of yourself as: straight/heterosexual Current gender identity: female How often do you talk on the phone with friends or family?: twice per week How often do you get together with friends or relatives?: once per week How often do you attend roman catholic or mormon services?: decline to answer Do you belong to any clubs or organized social groups?: no Panel score (0-1 are the most socially isolated patients): 1 What type of physical activity do you participate in: none and regular exercise Duration: 30-45 minutes/day Frequency: does not exercise Vangie/Lutheran: No preference Special vangie needs: No Seatbelt use: always Helmet use: Yes Helmet use: always Drive intox or ride w/intox jinriksha driver: No Firearms in home: No Do you feel safe at home: Yes Do you feel safe in your relationship?: Yes Would you like helpful sources: No History History 1 Para 1 Hx # Term Pregnancies 1 Multiple births 0 Hx # Pregnancies 0 Ectopic pregnancies 0 AB induced 0 Hx Number of Living Children 1 AB spontaneous 0 Past Pregnancies Del. Date GA/Weeks # Preg Succ Route Wgt Sex Labor Lgth Anesthesia Location Prov Complic 07/27/20 39 No vaginal 3316.894 g Male 8 hrs 17 min [facility] Delivery Date: 07/27/20 Last Updated by: Gabi Lucio LPN 2nd degree laceration w/repair; Marito Ding Sign Out Sign Out Data: Sign Out Comment: Patient sent in by [facility], denies SI/HI, reports panic- voluntary placement, [facility] has been contacted by [facility]. Medically cleared, Tele-psych consult pending- patients whole reason for visit is in-patient med management, perhaps this can be done via tele-psych in community and safety planned home. Last updated by Gene Smith PA at 03/06/24 14:50
[2024-03-06 15:07] LABS: *AMPHETAMINES SCREEN URINE Negative (Negative); *BARBITURATES SCREEN URINE Negative (Negative); *BENZODIAZEPINES SCREEN URINE Negative (Negative); Cannabinoids THC Negative (Negative); Cocaine Screen,Urine Negative (Negative); METHADONE URINE SCREEN Negative (Negative); OPIATES URINE SCREEN Negative (Negative)
[2024-03-06 15:07] LABS: Abs Immature Grans 0.02 10^3/uL (0.0-0.06); Absolute Basophil Count 0.03 10^3/uL (0.0-0.2); Absolute Eosinophil Count 0.11 10^3/uL (0.0-0.7); Absolute Lymphocyte Count 2.41 10^3/uL (1.2-3.4); Absolute Monocyte Count 0.83 10^3/uL (0.1-0.8); Absolute Neutrophil Count 4.49 10^3/uL (1.2-6.7); Basophils % 0.4 %; Eosinophils % 1.4 %; HCT 44.6 % (36.0-46.0); HGB 15.2 g/dL (11.2-15.7); Immature Grans % 0.3 %; Lymphocytes % 30.5 %; MCH 32.8 pg (27.0-33.0); MCHC 34.1 % (32.0-36.0); MCV 96 fL (80-95); MPV 10.8 fL (8.0-11.0); Monocytes % 10.5 %; Neutrophils % 56.9 %; Platelet Count 269 10^3/uL (130-400); RBC 4.63 10^6/uL (3.93-5.22); RDW 11.1 % (11.7-14.6); RDW-SD 39.4 fL; WBC 7.89 10^3/uL (4.4-10.8)
[2024-03-06 15:08] LABS: Tricyclic Antidepressants Negative (Negative)
[2024-03-06 15:38] LABS: ALT 19 U/L (14-59); AST 20 U/L (15-37); Albumin 4.8 g/dL (3.4-5.0); Alkaline Phosphatase 78 U/L (46-116); Anion Gap 7.3 mmol/L (3-11); BUN 8 mg/dL (7-18); Bilirubin, Total 0.48 mg/dL (0.2-1.0); CO2 28.7 mmol/L (21.0-32.0); CREATININE 0.9 mg/dL (0.55-1.02); Calcium 9.8 mg/dL (8.5-10.1); Chloride 103 mmol/L (98-107); Estimated GFR 92.12 (mL/min/1.73m2); Glucose 75 mg/dL (74-106); Potassium 3.9 mmol/L (3.5-5.1); Sodium 139 mmol/L (136-145); TSH (W/Ref FT4) 1.19 uIU/mL (0.36-3.74); Total Protein 8.4 g/dL (6.4-8.2)
[2024-03-06 15:45] LABS: COVID-19 PCR Negative (Negative); Influenza A PCR Negative (Negative); Influenza B PCR Negative (Negative); RSV PCR Negative (Negative); Source NASOPHARYNX
[2024-03-06] MEDS: LORazepam 0.5 MG TAB PO (20:12)
[2024-03-07] MEDS: Acetaminophen 500 MG TAB (07:38)
[2024-03-07 08:01] VITALS: BP 98/66; PULSE 82; RESP 16; TEMP 36.6; O2SAT 96
--- NOTE | 2024-03-07 09:10 | W.EDPROG ---
Date of service: 03/07/24 Time of Service: 08:00 Medical Decision Making In brief, this is a 23-year-old female patient boarding in our emergency department awaiting transfer to [facility] for worsening depression, anxiety. The patient is voluntary, medically cleared, and has been resting comfortably without need for chemical or physical restraint. Transport was arranged for this patient, she was noted to initiate her menstrual cycle, for which she was given a dose of Tylenol as well as a tampon given her preference for this sanitary item over pads. The patient left our facility under the care of the transporting agency, accepted by [facility], and was hemodynamically appropriate, ambulatory, and tolerating p.o. while under my care. Tracie Angulo MD Quality:[facility] Health Related Social Needs: No Data to Display Sign Out Sign Out Data: Sign Out Comment: Patient sent in by [facility], denies SI/HI, reports panic- voluntary placement, [facility] has been contacted by [facility]. Medically cleared, Tele-psych consult pending- patients whole reason for visit is in-patient med management, perhaps this can be done via tele-psych in community and safety planned home. Last updated by Gene Smith PA at 03/06/24 14:50 Sign Out Comment: Patient has been accepted to [place], was excepted today on March 06 at 5 PM. Unfortunately secondary to lack of transportation, patient is pending transportation to [facility] until tomorrow. She has been calm and cooperative and received 0.5 mg of Ativan for some mild anxiety throughout this encounter Last updated by Christen Croft PA at 03/06/24 23:24 Sign Out Comment: Patient stable throughout the night, no interventions needed. Pending transport to [place] this morning. Patient was allowed to have a tampon for her menstrual cycle, as well as Tylenol for headache, and standing Ativan for the ride. Last updated by Gene Lima DO at 03/07/24 07:41 Discharge Plan Discharge Details Chief Complaint: PsychEval Primary Care Provider: Azucena Florian ED Provider: Tracie Angulo Home Meds and New Rx's Prescriptions: No Action lorazepam [Ativan] 0.5 mg tablet 0.5 mg PO DAILY PRN (Reason: anxiety) Qty: 7 0RF Patient Comments: 0900 fluconazole 150 mg tablet 150 mg PO Q72H Patient Comments: completed therapy metronidazole 500 mg tablet 500 mg PO BID Patient Comments: 2 days left of this med
[2024-03-07] MEDS: LORazepam 0.5 MG TAB PO (10:03)
== END 2024-03-07 10:11 ==
PROVIDERS: Physician Assistant; Emergency Provider Emergency Medicine; PCP Nurse Practitioner Family
DX: F32.A Depression, unspecified (principal); F41.9 Anxiety disorder, unspecified; Z87.891 Personal history of nicotine dependence
CPT/HCPCS: 00123; 80053; 80307; 81025; 87637; 96127; 99285; 80320; 84443; 85025

== ENCOUNTER 2024-03-31 12:44 | Emergency (ER) | payer MEDICAID, SELFPAY ==
[2024-03-31 12:51] VITALS: BP 105/72; PULSE 95; RESP 16; TEMP 36.5; O2SAT 98
[2024-03-31 13:04] VITALS: RESP 16
--- NOTE | 2024-03-31 13:12 | W.ED.GENAD ---
Discharge Plan Disposition Patient Disposition: Home Condition: Stable Discharge Details Clinical Impression: Generalized anxiety disorder, Depression Primary Care Provider: Azucena Florian ED Provider: Tracie Angulo Home Meds and New Rx's Prescriptions: No Action gabapentin 300 mg capsule 300 mg PO TID Qty: 90 1RF quetiapine [Seroquel] 25 mg tablet 25 mg PO QHS Qty: 30 1RF lorazepam [Ativan] 0.5 mg tablet 0.5 mg PO DAILY PRN (Reason: anxiety) Qty: 7 0RF Patient Comments: 0900 Discharge Instructions Instructions: Anxiety, Adult ED Additional Instructions: You were seen in the emergency department today for evaluation of anxiety and for questions related to your anxiety medications. In our department you had a physical examination performed, and received a dose of your home medications. We discussed options for emergency department management including consultation to our social workers, laboratory workups, and at this time you feel comfortable managing your anxiety based on your outpatient providers plan, will return home. You can always return to the emergency department, especially if you develop suicidal or homicidal thoughts or feelings, or other concerning symptoms. Ativan can be taken every 6 hours as needed, but if you find you are taking it multiple times per day you need to discuss with your outpatient providers whether or not your medication regimen needs to be changed. Thank you for allowing us to be part of your care. Discharge Data Discharge Date/Time-TO BE ENTERED AT DEPARTURE: 03/31/24 13:23 HPI General Mode of arrival: ambulatory. Date/Time Provider Initiated Documentation: 03/31/24 12:56. Limitations to Documentation: no limitations. Information obtained by: patient and old records reviewed. HPI Narrative: HPI: This is a 23-year-old female patient presenting for evaluation of anxiety. The patient reports that she has a history of anxiety and had a recent admission to the [facility] for worsening anxiety and depression. She reports that she has been managing well since her discharge, but this morning took her Ativan in anticipation of a long day of classes. She reports that several hours later when she was eating lunch she began to feel panic and anxiety. Eating is frequently a trigger for her, states that she has not experienced any other social stressors, or other abnormalities today. Patient reports that she is feeling much better than she did after the initial onset of her anxiety, but she was apprehensive to take a second Ativan and presented largely to discuss treatment options. She reports that she has a history of paradoxical reaction to Benadryl and has avoided hydroxyzine in the past. The patient reports that she is not experiencing suicidal ideation, homicidal ideation, and has not engaged in any self-harm activities. She did recently start smoking cigarettes, drinks occasional caffeinated beverages, denies alcohol or illicit drug use. The patient states that she has adequate outpatient supports and does not feel like she requires any additional resources today. Exam: Gen: Awake and alert, in no apparent distress HEENT: Non-icteric sclera, PERRL Neck: Supple Lungs: No apparent respiratory distress, normal respiratory effort. CV: Appears well perfused, strong distal pulses Abdomen: Non-distended MSK: Moves 4 extremities without apparent limitation in ROM Skin: Visualized skin without rashes, cyanosis. Neuro: Normal Gait, no obvious focal deficits or facial asymmetry. Speaks in full, clear sentences. Psych: Appropriate for situation. MDM: In brief, this is a 23-year-old female patient presenting for evaluation of anxiety. Differential includes but is not limited to primary anxiety disorder, certainly considered medication effects, withdrawal effects, no evidence on history or physical examination to significantly increase my concern for infection, metabolic or electrolyte derangements. The patient has no suicidality or homicidality, is not somnolent or demonstrating symptoms consistent which would increase my concern for inappropriate use of Ativan. ED Course: The patient is desiring of discharge to home, we did have a shared decision-making conversation regarding consultation of [facility] and at this time given the patient's lack of acute psychiatric concerns, her robust outpatient support systems and psychiatric resources, I feel it is reasonable to defer. The patient had a recent inpatient psychiatric admission and does not meet criteria at this time based on my assessment for involuntary hold or inpatient level of care. We discussed timing of subsequent doses of Ativan, and I did provide her with an additional dose here in the emergency department. At this time, the patient has had a full medical evaluation and is safe for discharge to home. They are hemodynamically stable, ambulatory, and tolerating PO. They are understanding of the follow-up plan and return precautions. They left our facility without incident. Tracie Angulo MD Related Data Home Medications ?Medication ?Instructions ?Recorded ?Confirmed gabapentin 300 mg capsule 300 mg PO TID #90 caps 03/24/24 03/31/24 lorazepam 0.5 mg tablet (Ativan) 0.5 mg PO DAILY PRN anxiety #7 tabs 03/24/24 03/31/24 quetiapine 25 mg tablet (Seroquel) 25 mg PO QHS #30 tabs 03/24/24 03/31/24 Previous Rx's ?Medication ?Instructions ?Recorded gabapentin 300 mg capsule 300 mg PO TID #90 caps 03/24/24 lorazepam 0.5 mg tablet (Ativan) 0.5 mg PO DAILY PRN anxiety #7 tabs 03/24/24 quetiapine 25 mg tablet (Seroquel) 25 mg PO QHS #30 tabs 03/24/24 Allergies Allergy/AdvReac Type Severity Reaction Status Date / Time No Known Allergies Allergy Verified 03/31/24 12:58 General Stated Complaint: Anxiety JARED: 3 Course Vital Signs Vital signs: Vital Signs Temperature 36.5 C 03/31/24 12:51 Pulse 95 H 03/31/24 12:51 Respiratory Rate 16 03/31/24 12:51 Blood Pressure 105/72 03/31/24 12:51 Pulse Oximetry 98 03/31/24 12:51 Temperature 36.5 C 03/31/24 12:51 Temperature Source Temporal Artery Scan 03/31/24 12:51 Pulse 95 H 03/31/24 12:51 Respiratory Rate 16 03/31/24 13:04 Respiratory Effort Normal, Non-Labored 03/31/24 13:04 Respiratory Depth Normal 03/31/24 13:04 Respiratory Pattern Normal 03/31/24 13:04 Blood Pressure 105/72 03/31/24 12:51 Blood Pressure Position Sitting 03/31/24 12:51 Pulse Oximetry 98 03/31/24 12:51 Oxygen Delivery Method Room Air 03/31/24 12:51 Oxygen Flow Rate 0 03/31/24 12:51 Pain Level 0 03/31/24 12:51 Medical Decision Making Quality:[facility] Health Related Social Needs: No Data to Display PFSH All Active Problems (Updated 03/31/24 @ 13:13 by Tracie Angulo MD) Bipolar disorder (Acute) reported by pt Depression (Chronic) Cannabinoid hyperemesis syndrome (Acute) Marijuana use (Acute) Daily use, multiple times per day Chronic constipation (Acute) Gastroesophageal reflux disease (Acute) Generalized anxiety disorder (Acute 03/18/14) Pt reports significant anxiety in early/mid teens. Anxiety has improved but still struggles at times. Not interested in counseling or medication. Medical History Major depressive disorder, single episode, severe, with psychotic behavior (03/18/14) Anemia iron infusions Rh negative state in antepartum period Pancreatitis Abnormal electroencephalogram (12/21/11) Eating disorder (03/18/14) bulemia Anxiety disorder 9 month inpatient care [place] Family History Father Hepatitis B HIV (human immunodeficiency virus infection) Substance use disorder Depression Alcohol use disorder Mother Breast cancer Other Diabetes pat aunt Essential hypertension MGF Personal history of malignant neoplasm MGM-breast Heart disease MGF Hyperlipidemia MGF Mental disorder PGM-anxiety/depression Myocardial infarction MGF Stroke MGF Brother Alcohol abuse Substance abuse Maternal Grandmother Breast cancer Social History Smoking/Tobacco Use Status: Former Tobacco Use Quit Date: 10/24/23 Tobacco: How many years used: 7 Quit status: considering quitting Second Hand Exposure: Yes Counseling given: other Smoking risk assessment performed?: Yes Alcohol Intake: former Drug use: Current Sobriety Substance use type: does not use Adopted: No Caregiver/Support person: No Household members: children Housing: apartment Number of Children: 1 Communication Needs: None Education Level: high school Details: 11th grade Do you need help understanding health information?: Never 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 Sexually active: Yes Do you think of yourself as: straight/heterosexual Current gender identity: female How often do you talk on the phone with friends or family?: twice per week How often do you get together with friends or relatives?: once per week How often do you attend episcopal or moravian services?: decline to answer Do you belong to any clubs or organized social groups?: no Panel score (0-1 are the most socially isolated patients): 1 What type of physical activity do you participate in: none and regular exercise Duration: 30-45 minutes/day Frequency: does not exercise Vangie/Rastafari: No preference Special vangie needs: No Seatbelt use: always Helmet use: Yes Helmet use: always Drive intox or ride w/intox dump truck driver: No Firearms in home: No Do you feel safe at home: Yes Do you feel safe in your relationship?: Yes Would you like helpful sources: No History History 1 Para 1 Hx # Term Pregnancies 1 Multiple births 0 Hx # Pregnancies 0 Ectopic pregnancies 0 AB induced 0 Hx Number of Living Children 1 AB spontaneous 0 Past Pregnancies Del. Date GA/Weeks # Preg Succ Route Wgt Sex Labor Lgth Anesthesia Location Prov Complic 07/27/20 39 No vaginal 3316.894 g Male 8 hrs 17 min regional [facility] Delivery Date: 07/27/20 Last Updated by: Gabi Lucio LPN 2nd degree laceration w/repair; Marito Ding
[2024-03-31] MEDS: LORazepam 0.5 MG TAB PO (13:15)
--- NOTE | 2024-04-08 07:12 | NUR.NOTE ---
Accessed Pt chart to obtain V # for the [facility]
== END 2024-03-31 13:23 | disposition home or self-care (01) ==
PROVIDERS: Emergency Provider Emergency Medicine; PCP Nurse Practitioner Family
DX: F41.1 Generalized anxiety disorder (principal); F32.A Depression, unspecified
CPT/HCPCS: 99283

== ENCOUNTER 2024-05-13 10:29 | Emergency (ER) | payer MEDICAID, SELFPAY ==
[2024-05-13 10:33] VITALS: BP 110/72; PULSE 65; RESP 18; O2SAT 99
--- NOTE | 2024-05-13 10:45 | RT.EKG_ITS ---
APPROVED REPORT Exam: Resting ECG Reason for Exam: dizziness Patient Location: E HR:63 bpm ECG Measurements Heart Rate 63 AXIS [place] 150 P 53 QRSd 81 QRS 54 QT 405 T 59 QTc 414 Conclusion Sinus rhythm...normal P axis, V-rate 60- 99 Narrow complex normal sinus rhythm at a rate of 63. Normal axis. Intervals within normal limits. T wave flattening in aVL. Appears similar to prior dated earlier this year. No acute injury pattern. No ST segment abnormalities.
[2024-05-13 11:48] LABS: *AMPHETAMINES SCREEN URINE Negative (Negative); *BARBITURATES SCREEN URINE Negative (Negative); *BENZODIAZEPINES SCREEN URINE Negative (Negative); Cannabinoids THC Negative (Negative); Cocaine Screen,Urine Negative (Negative); METHADONE URINE SCREEN Negative (Negative); OPIATES URINE SCREEN Negative (Negative)
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
[2024-05-13 12:06] LABS: Tricyclic Antidepressants Negative (Negative)
== END 2024-05-13 12:42 | disposition home or self-care (01) ==
PROVIDERS: Emergency Provider Physician Assistant; PCP Nurse Practitioner Family
DX: R42 Dizziness and giddiness (principal); F41.0 Panic disorder [episodic paroxysmal anxiety]; Z63.0 Problems in relationship with spouse or partner; F17.200 Nicotine dependence, unspecified, uncomplicated
CPT/HCPCS: 80307; 81025; 93005; 99283; 93010

== ENCOUNTER 2024-05-23 14:46 | Emergency (ER) | payer MEDICAID, SELFPAY ==
[2024-05-23 14:49] VITALS: BP 134/80; PULSE 93; RESP 18; TEMP 36.3; O2SAT 94
--- NOTE | 2024-05-23 14:59 | ED.GENADUL_ITS ---
Discharge Plan Disposition Patient Disposition: Home Condition: Stable Discharge Details Clinical Impression: Dry tooth socket Primary Care Provider: Azucena Florian ED Provider: Sabrina Edwards Home Meds and New Rx's Prescriptions: No Action gabapentin 300 mg capsule 300 mg PO TID Qty: 90 1RF quetiapine [Seroquel] 25 mg tablet 25 mg PO QHS Qty: 30 1RF lorazepam [Ativan] 0.5 mg tablet 0.5 mg PO DAILY PRN (Reason: anxiety) Qty: 7 0RF Patient Comments: 0900 Discharge Instructions Instructions: Dry Socket Additional Instructions: CALL Your Dentist. They need to see you again. Use the Hurricaine (Benzocaine gel) to the pulled tooth area 3 times a day. You may place it right over the socket. Apply ice pack to your left jaw 3 times daily. Please take Tylenol or Ibuprofen with food every 4-6 hours as needed for pain and swelling. Alternate Tylenol and Ibuprofen. No straws, do not smoke. Referrals: Azucena Florian OCEAN EXPORT AGENT [Primary Care Provider] - 1 week HPI General Mode of arrival: ambulatory . Date/Time Provider Initiated Documentation: 05/23/24 14:49 . Limitations to Documentation: no limitations . Information obtained by: patient, RN notes reviewed and old records reviewed . HPI Narrative: 23-year-old female presents with severe increase in pain to her left lower jaw after having a tooth pulled 2 days ago. Patient has been taking Tylenol with little to no relief at home. She does have some swelling noted to her lower jaw. She has not called her dentist which performed the extraction. Related Data Home Medications ?Medication ?Instructions ?Recorded ?Confirmed quetiapine 25 mg tablet (Seroquel) 25 mg PO QHS #30 tabs 03/24/24 05/23/24 lorazepam 0.5 mg tablet (Ativan) 0.5 mg PO DAILY PRN anxiety #7 tabs 05/12/24 05/23/24 gabapentin 300 mg capsule 300 mg PO TID #90 caps 05/20/24 05/23/24 Previous Rx's ?Medication ?Instructions ?Recorded quetiapine 25 mg tablet (Seroquel) 25 mg PO QHS #30 tabs 03/24/24 lorazepam 0.5 mg tablet (Ativan) 0.5 mg PO DAILY PRN anxiety #7 tabs 05/12/24 gabapentin 300 mg capsule 300 mg PO TID #90 caps 05/20/24 Allergies Allergy/AdvReac Type Severity Reaction Status Date / Time No Known Allergies Allergy Verified 05/23/24 14:51 General Stated Complaint: DentalOral JARED: 4 Review of Systems All systems reviewed & are unremarkable except as noted in HPI and below ENT Ears, Nose, Mouth, and Throat: Reports as per HPI and Reports mouth pain Exam [facility] Face images: 2 1. Swelling Teeth and gingiva: other (Recent pulled left lower molar, suspect dry socket) Course Vital Signs Vital signs: Vital Signs Temperature 36.3 C L 05/23/24 14:49 Pulse 93 H 05/23/24 14:49 Respiratory Rate 18 05/23/24 14:49 Blood Pressure 134/80 05/23/24 14:49 Pulse Oximetry 94 05/23/24 14:49 Temperature 36.3 C L 05/23/24 14:49 Temperature Source Temporal Artery Scan 05/23/24 14:49 Pulse 93 H 05/23/24 14:49 Respiratory Rate 18 05/23/24 14:49 Respiratory Effort Normal, Non-Labored 05/23/24 14:52 Blood Pressure 134/80 05/23/24 14:49 Blood Pressure Position Sitting 05/23/24 14:49 Pulse Oximetry 94 05/23/24 14:49 Oxygen Delivery Method Room Air 05/23/24 14:49 Oxygen Flow Rate 0 05/23/24 14:49 Pain Level 8 05/23/24 14:49 Medical Decision Making 23-year-old female presents with severe increase in pain to her left lower jaw after having a tooth pulled 2 days ago. Patient has been taking Tylenol with little to no relief at home. She does have some swelling noted to her lower jaw. She has not called her dentist which performed the extraction. HurriCaine gel topical ordered, ice pack and a gram of Tylenol. I will instruct patient to call [facility] dental. Will send home with HurriCaine gel to be used 3 times daily as needed. This text was generated using [employer] system, please disregard any oddities of phrase or misspellings. Quality:SDOH Health Related Social Needs: 2 No Data to Display PFSH All Active Problems (Updated 05/23/24 @ 15:08 by Sabrina Edwards NP) Dry tooth socket (Acute) Panic attack (Acute) Bipolar disorder (Acute) reported by pt Depression (Chronic) Cannabinoid hyperemesis syndrome (Acute) Marijuana use (Acute) Daily use, multiple times per day Chronic constipation (Acute) Gastroesophageal reflux disease (Acute) Generalized anxiety disorder (Acute 03/18/14) Pt reports significant anxiety in early/mid teens. Anxiety has improved but still struggles at times. Not interested in counseling or medication. Medical History Major depressive disorder, single episode, severe, with psychotic behavior (03/18/14) Anemia iron infusions Rh negative state in antepartum period Pancreatitis Abnormal electroencephalogram (12/21/11) Eating disorder (03/18/14) bulemia Anxiety disorder 9 month inpatient care [place] Family History Father Hepatitis B HIV (human immunodeficiency virus infection) Substance use disorder Depression Alcohol use disorder Mother Breast cancer Other Diabetes pat aunt Essential hypertension MGF Personal history of malignant neoplasm MGM-breast Heart disease MGF Hyperlipidemia MGF Mental disorder PGM-anxiety/depression Myocardial infarction MGF Stroke MGF Brother Alcohol abuse Substance abuse Maternal Grandmother Breast cancer Social History Smoking/Tobacco Use Status: Current every day Tobacco Type: cigarettes Tobacco: How many years used: 7 Quit status: considering quitting Second Hand Exposure: Yes Counseling given: other Smoking risk assessment performed?: Yes Alcohol Intake: never Drug use: Current Sobriety Substance use type: does not use Adopted: No Caregiver/Support person: No Household members: children Housing: apartment Number of Children: 1 Communication Needs: None Education Level: high school Details: 11th grade Do you need help understanding health information?: Never 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 Sexually active: Yes Do you think of yourself as: straight/heterosexual Current gender identity: female How often do you talk on the phone with friends or family?: twice per week How often do you get together with friends or relatives?: once per week How often do you attend mandaeism or yarsani services?: decline to answer Do you belong to any clubs or organized social groups?: no Panel score (0-1 are the most socially isolated patients): 1 What type of physical activity do you participate in: none and regular exercise Duration: 30-45 minutes/day Frequency: does not exercise Vangie/Pentecostal: No preference Special vangie needs: No Seatbelt use: always Helmet use: Yes Helmet use: always Drive intox or ride w/intox medical van driver: No Firearms in home: No Do you feel safe at home: Yes Do you feel safe in your relationship?: Yes Would you like helpful sources: No History History 2 1 Para 1 Hx # Term Pregnancies 1 Multiple births 0 Hx # Pregnancies 0 Ectopic pregnancies 0 AB induced 0 Hx Number of Living Children 1 AB spontaneous 0 Past Pregnancies Del. Date GA/Weeks # Preg Succ Route Wgt Sex Labor Lgth Anesth esia Location Prov [facility] 07/27/20 39 No vaginal 3316.894 g Male 8 hrs 17 min regional [facility] Delivery Date: 07/27/20 Last Updated by: Gabi Lucio LPN 2nd degree laceration w/repair; Marito Ding
[2024-05-23] MEDS: Benzocaine 20% Gel 30 GM JAR MM (15:09)
[2024-05-23] MEDS: Acetaminophen 500 MG TAB 1000 MG PO (15:09)
[2024-05-23 15:21] VITALS: BP 120/62; PULSE 76; RESP 18; O2SAT 98
== END 2024-05-23 15:22 | disposition home or self-care (01) ==
PROVIDERS: Emergency Provider Registered Nurse Emergency; PCP Nurse Practitioner Family
DX: M27.3 Alveolitis of jaws (principal); F17.210 Nicotine dependence, cigarettes, uncomplicated; Z98.818 Other dental procedure status
CPT/HCPCS: 99283

== ENCOUNTER 2024-06-05 22:52 | Outpatient (REF) | payer MEDICAID, SELFPAY | END 2024-06-05 22:53 | disposition home or self-care (01) | LOC: LBN 22:52 | PROVIDERS: PCP Nurse Practitioner Family; Visit Provider Physician Assistant Medical | DX: N89.8 Other specified noninflammatory disorders of vagina (principal) | CPT/HCPCS: 81003; 87480; 87510; 87660 ==

== ENCOUNTER 2024-06-12 13:22 | Emergency (ER) | payer MEDICAID, SELFPAY ==
--- NOTE | 2024-06-12 13:30 | RT.EKG_ITS ---
APPROVED REPORT Exam: Resting ECG Reason for Exam: Patient Location: E HR:71 bpm ECG Measurements Heart Rate 71 AXIS UT 149 P 60 QRSd 84 QRS 57 QT 377 T 56 QTc 409 Conclusion Sinus rhythm, rate 71 No interval abnormalities No STEMI
[2024-06-12 13:37] VITALS: BP 115/73; PULSE 80; RESP 18; TEMP 36.7; O2SAT 99
--- NOTE | 2024-06-12 14:02 | ED.GENADUL_ITS ---
Discharge Plan Disposition Patient Disposition: Home Condition: Stable Discharge Details Clinical Impression: Chest pain of unknown etiology, Gastroesophageal reflux disease, Generalized anxiety disorder, Depression, Shortness of breath Primary Care Provider: Azucena Florian ED Provider: Tracie Angulo Home Meds and New Rx's Prescriptions: No Action gabapentin 300 mg capsule 300 mg PO TID Qty: 90 1RF quetiapine [Seroquel] 25 mg tablet 25 mg PO QHS Qty: 30 1RF lorazepam [Ativan] 0.5 mg tablet 0.5 mg PO DAILY PRN (Reason: anxiety) Qty: 7 0RF Patient Comments: 0900 Discharge Instructions Instructions: Chest Pain, Adult ED Additional Instructions: You were seen in the emergency department today for evaluation of chest pain and shortness of breath. In our department you have a full physical examination performed, had an EKG that did not show any sign of a heart attack or other abnormalities. Your chest x-ray was normal and with no evidence of pneumonia or other abnormalities that could explain your symptoms. You tested negative for COVID, influenza, and RSV today. As we discussed, there are other conditions that can cause symptoms such as these which we are not able to see on our imaging studies, such as viral infections, pleurisy, costochondritis. It is safe for you to go home and follow-up with your outpatient providers for reassessment. Please use Tylenol and ibuprofen as needed for management of pain, and continue all other home medications as prescribed. Thank you for allowing us to be part of your care. Stand Alone Forms: Work Release HPI General Mode of arrival: ambulatory . Date/Time Provider Initiated Documentation: 06/12/24 13:45 . Limitations to Documentation: no limitations . Information obtained by: patient and old records reviewed . HPI Narrative: HPI: This is a 24-year-old female patient with a past medical history significant for panic disorder and anxiety, depression, and GERD, who is presenting for evaluation of 1 week of shortness of breath on exertion, chest pain. 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 She has not noted any fevers, upper respiratory symptoms, coughing or mucus production. She got her flu shot a few weeks ago. She has been taking her home Ativan but has not tried any other medications for management of the symptoms. She states that she has not experienced symptoms like this in the past and wanted to be sure that she is not having a heart attack. She states that she has not noted any leg swelling, calf tenderness, does not use any hormonal medications, and has no personal cardiac or respiratory history. Exam: Gen: awake and alert, in no apparent distress. Appears well nourished. HEENT: PERRL. External ears and nose normal, mucous membranes moist. Neck: Supple, full range of motion, no observable masses Lungs: No increased work of breathing, lung sounds clear and equal bilaterally without wheezes, rhonchi, or rales. CV: Heart with regular rate and rhythm, no murmurs auscultated. Strong and symmetrical radial pulses. Abdomen: Soft, nondistended MSK: No joint swelling, no redness. Full ROM without limitation, no external traumatic findings. Skin: No rashes or lesions to visualized skin. Normal color, warm, and dry. Neuro: Cranial nerves II-XII intact and symmetrical bilaterally. Symmetrical strength, no reported sensory deficits. ANO x 4 Psych: Appropriate for situation. MDM: This is a 24-year-old female patient presenting for evaluation of chest pain shortness of breath. My differential includes but is not limited to viral upper respiratory infection, pneumonia, bronchitis, pleurisy, costochondritis. The patient is young and without risk factors for ACS, aortic pathology, and arrhythmia. I was able to obtain an EKG, which shows normal sinus rhythm without evidence of ischemia, interval abnormality, or ectopy. The patient has no personal history of thromboembolic disease, and given her low risk status does meet PERC criteria for rule out of pulmonary embolism. She has no focal lung findings to increase my concern for reactive airway disease exacerbation, pulmonary edema, pleural effusion, or pneumothorax. No overlying skin changes to suggest herpes zoster, and no GI symptoms or vomiting to suggest Boerhaave's, esophagitis, GERD/PUD, pancreatitis. The patient is reassuringly hemodynamically appropriate, without hypoxia or tachycardia, and it is reasonable at this time to proceed with chest x-ray and viral swab. At this time I do not see an indication for laboratory studies or advanced imaging. I will provide the patient with a dose of ibuprofen for symptomatic management. ED Course: COVID, influenza, and RSV testing negative, chest x-ray without acute pulmonary abnormalities to explain her symptoms. The patient had a very modest improvement in her symptoms after ibuprofen. At this time based on my examination I am most concerned for benign etiologies of chest pain and shortness of breath such as viral infection, pleurisy, costochondritis, etc. The patient will follow-up with her primary care provider in the next few days to discuss this visit and any symptoms that change, worsen, or persist. At this time, the patient has had a full medical evaluation and is safe for discharge to home. They are hemodynamically stable, ambulatory, and tolerating PO. They are understanding of the follow-up plan and return precautions. They left our facility without incident. Tracie Angulo MD Related Data Home Medications ?Medication ?Instructions ?Recorded ?Confirmed quetiapine 25 mg tablet (Seroquel) 25 mg PO QHS #30 tabs 03/24/24 06/12/24 gabapentin 300 mg capsule 300 mg PO TID #90 caps 05/20/24 06/12/24 lorazepam 0.5 mg tablet (Ativan) 0.5 mg PO DAILY PRN anxiety #7 tabs 06/09/24 06/12/24 Previous Rx's ?Medication ?Instructions ?Recorded quetiapine 25 mg tablet (Seroquel) 25 mg PO QHS #30 tabs 03/24/24 gabapentin 300 mg capsule 300 mg PO TID #90 caps 05/20/24 lorazepam 0.5 mg tablet (Ativan) 0.5 mg PO DAILY PRN anxiety #7 tabs 06/09/24 Allergies Allergy/AdvReac Type Severity Reaction Status Date / Time No Known Allergies Allergy Verified 06/12/24 13:37 General Stated Complaint: Chest Pain JARED: 3 Course Vital Signs Vital signs: Vital Signs Temperature 36.7 C 06/12/24 13:37 Pulse 80 06/12/24 13:37 Respiratory Rate 18 06/12/24 13:37 Blood Pressure 115/73 06/12/24 13:37 Pulse Oximetry 99 06/12/24 13:37 Temperature 36.7 C 06/12/24 13:37 Temperature Source Oral 06/12/24 13:37 Pulse 80 06/12/24 13:37 Respiratory Rate 18 06/12/24 13:37 Blood Pressure 115/73 06/12/24 13:37 Blood Pressure Position Sitting 06/12/24 13:37 Pulse Oximetry 99 06/12/24 13:37 Oxygen Delivery Method Room Air 06/12/24 13:37 Oxygen Flow Rate 0 06/12/24 13:37 Pain Level 4 06/12/24 13:37 Medical Decision Making Quality:SDOH Health Related Social Needs: No Data to Display PFSH All Active Problems (Updated 06/12/24 @ 15:55 by Tracie Angulo MD) Shortness of breath (Acute) Chest pain of unknown etiology (Acute) Dry tooth socket (Acute) Panic attack (Acute) Bipolar disorder (Acute) reported by pt Depression (Chronic) Cannabinoid hyperemesis syndrome (Acute) Marijuana use (Acute) Daily use, multiple times per day Chronic constipation (Acute) Gastroesophageal reflux disease (Acute) Generalized anxiety disorder (Acute 03/18/14) Pt reports significant anxiety in early/mid teens. Anxiety has improved but still struggles at times. Not interested in counseling or medication. Medical History Major depressive disorder, single episode, severe, with psychotic behavior (03/18/14) Anemia iron infusions Rh negative state in antepartum period Pancreatitis Abnormal electroencephalogram (12/21/11) Eating disorder (03/18/14) bulemia Anxiety disorder 9 month inpatient care [place] Family History Father Hepatitis B HIV (human immunodeficiency virus infection) Substance use disorder Depression Alcohol use disorder Mother Breast cancer Other Diabetes pat aunt Essential hypertension MGF Personal history of malignant neoplasm MGM-breast Heart disease MGF Hyperlipidemia MGF Mental disorder PGM-anxiety/depression Myocardial infarction MGF Stroke MGF Brother Alcohol abuse Substance abuse Maternal Grandmother Breast cancer Social History Smoking/Tobacco Use Status: Former Tobacco Use Quit Date: 10/24/23 Tobacco: How many years used: 7 Quit status: considering quitting Second Hand Exposure: Yes Counseling given: other Smoking risk assessment performed?: Yes Alcohol Intake: current Alcohol Intake frequency: 0-2 drinks per day Alcohol type: beer, wine and hard liquor Drug use: Current Sobriety Substance use type: does not use Adopted: No Caregiver/Support person: No Household members: children Housing: apartment Number of Children: 1 Communication Needs: None Education Level: high school Details: 11th grade Do you need help understanding health information?: Never 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 Sexually active: Yes Do you think of yourself as: straight/heterosexual Current gender identity: female How often do you talk on the phone with friends or family?: twice per week How often do you get together with friends or relatives?: once per week How often do you attend methodist or baptism services?: decline to answer Do you belong to any clubs or organized social groups?: no Panel score (0-1 are the most socially isolated patients): 1 What type of physical activity do you participate in: none and regular exercise Duration: 30-45 minutes/day Frequency: does not exercise Vangie/Confucianist: No preference Special vangie needs: No Seatbelt use: always Helmet use: Yes Helmet use: always Drive intox or ride w/intox pedicab driver: No Firearms in home: No Do you feel safe at home: Yes Do you feel safe in your relationship?: Yes Would you like helpful sources: No History History 1 Para 1 Hx # Term Pregnancies 1 Multiple births 0 Hx # Pregnancies 0 Ectopic pregnancies 0 AB induced 0 Hx Number of Living Children 1 AB spontaneous 0 Past Pregnancies Del. Date GA/Weeks # Preg Succ Route Wgt Sex Labor Lgth Anesth esia Location [facility] 07/27/20 39 No vaginal 3316.894 g Male 8 hrs 17 min socrates Gomes CNM Delivery Date: 07/27/20 Last Updated by: Gabi Lucio LPN 2nd degree laceration w/repair; Marito Ding
[2024-06-12] MEDS: Ibuprofen 600 MG TAB PO (14:21)
[2024-06-12 14:48] VITALS: RESP 16
[2024-06-12 15:02] LABS: COVID-19 PCR Negative (Negative); Influenza A PCR Negative (Negative); Influenza B PCR Negative (Negative); RSV PCR Negative (Negative)
[2024-06-12 15:04] LABS: Source Nasopharynx
--- NOTE | 2024-06-12 15:42 | DI.RAD_ITS ---
Exam(s) XR CHEST 2V PA LATERAL EXAM: XR CHEST 2V PA LATERAL CLINICAL HISTORY: CP, SOB. TECHNIQUE: 2D digital imaging was performed. COMPARISON: CR XR CHEST 2V PA LATERAL from 01/25/2024 FINDINGS: 2 views: Heart size is normal. The mediastinum is not widened. Lungs are clear. No infiltrates nor pleural effusions. IMPRESSION: No acute pulmonary findings. DATA REPOSITORY: RADIATION DOSE DELIVERED:
[2024-06-12 16:03] VITALS: BP 107/65; PULSE 65; RESP 14; O2SAT 99
== END 2024-06-12 16:07 | disposition home or self-care (01) ==
PROVIDERS: Emergency Provider Emergency Medicine; PCP Nurse Practitioner Family
DX: R06.02 Shortness of breath (principal); R07.9 Chest pain, unspecified; K21.9 Gastro-esophageal reflux disease without esophagitis; F41.1 Generalized anxiety disorder; F32.A Depression, unspecified; Z87.891 Personal history of nicotine dependence
CPT/HCPCS: 87637; 93005; 99285; 71046; 93010; 99284

== ENCOUNTER 2024-09-13 13:52 | Emergency (ER) | payer MEDICAID, SELFPAY ==
[2024-09-13 13:56] VITALS: BP 101/70; PULSE 70; RESP 16; TEMP 37.2; O2SAT 98
[2024-09-13 13:58] VITALS: BP 101/70; PULSE 70; RESP 16; TEMP 37.2; O2SAT 98
--- NOTE | 2024-09-13 14:19 | ED.GENADUL_ITS ---
Discharge Plan Disposition Patient Disposition: Against Medical Advice Condition: Stable Discharge Details Clinical Impression: Abdominal discomfort, Nausea Primary Care Provider: Azucena Florian ED Provider: Kulwinder Arreguin [place] Meds and New Rx's Prescriptions: New prochlorperazine maleate [Compazine] 10 mg tablet 10 mg PO TID PRN (Reason: nausea and vomiting) Qty: 30 0RF Continued gabapentin 300 mg capsule 300 mg PO TID Qty: 90 1RF lorazepam [Ativan] 0.5 mg tablet 0.5 mg PO DAILY PRN (Reason: anxiety) Qty: 7 0RF Patient Comments: 0900 quetiapine [Seroquel] 25 mg tablet 25 mg PO QHS Qty: 30 1RF Discharge Instructions Additional Instructions: I would recommend following up with your primary care provider if your symptoms continue. If you change your mind or your symptoms severely worsen you can retu rn to the emergency department anytime for reevaluation HPI General Mode of arrival: ambulatory . Date/Time Provider Initiated Documentation: 09/13/24 13:54 . Limitations to Documentation: no limitations . Information obtained by: patient . History of Present Illness 24 year old F presents to the emergency department with the chief complaint of nausea, described as moderate, Patient started experiencing this day(s) (3) and it has been intermittent. No relieving factors improve symptom(s), No exacerbating factors reported . Patient notes denies chest pain, fever/chills and shortness of breath. Related Data Home Medications ?Medication ?Instructions ?Recorded ?Confirmed gabapentin 300 mg capsule 300 mg PO TID #90 caps 05/20/24 09/13/24 lorazepam 0.5 mg tablet (Ativan) 0.5 mg PO DAILY PRN anxiety #7 tabs 09/09/24 09/13/24 quetiapine 25 mg tablet (Seroquel) 25 mg PO QHS #30 tabs 09/09/24 09/13/24 prochlorperazine maleate 10 mg 10 mg PO TID PRN nausea and 09/13/24 tablet (Compazine) vomiting #30 tabs Previous Rx's ?Medication ?Instructions ?Recorded gabapentin 300 mg capsule 300 mg PO TID #90 caps 05/20/24 lorazepam 0.5 mg tablet (Ativan) 0.5 mg PO DAILY PRN anxiety #7 tabs 09/09/24 quetiapine 25 mg tablet (Seroquel) 25 mg PO QHS #30 tabs 09/09/24 prochlorperazine maleate 10 mg 10 mg PO TID PRN nausea and 09/13/24 tablet (Compazine) vomiting #30 tabs Allergies Allergy/AdvReac Type Severity Reaction Status Date / Time No Known Allergies Allergy Verified 09/13/24 13:59 General Stated Complaint: Abd Prob JARED: 3 Review of Systems All systems reviewed & are unremarkable except as noted in HPI and below Constitutional Constitutional: Denies chills, Denies fever(s) and Denies weakness Cardiovascular Cardiovascular: Denies chest pain and Denies dyspnea Respiratory Respiratory: Denies cough and Denies dyspnea Gastrointestinal Gastrointestinal: Reports cramping, Reports nausea and Denies vomiting Neurologic Neurologic: Denies weakness Exam Const General: no acute distress Orientation: alert HENMT Head: normal to inspection Ears: external ears normal General nose exam: external nose normal Mouth: moist mucous membranes Eyes General: appearance normal, both eyes and all related structures Neck Neck: normal visual inspection Resp Effort & Inspection: normal respiratory effort and able to speak in complete sentences Cardio Rate: regular rate GI Palpation: soft, not firm and no guarding Skin General skin exam: no rashes or lesions noted Neuro General: patient alert and patient oriented x3 Extrem General: normal to inspection Psych Mental Status: mental status grossly normal Course Vital Signs Vital signs: Vital Signs Temperature 37.2 C 09/13/24 13:56 Pulse 70 09/13/24 13:56 Respiratory Rate 16 09/13/24 13:56 Blood Pressure 101/70 09/13/24 13:56 Pulse Oximetry 98 09/13/24 13:56 Temperature 37.2 C 09/13/24 13:58 Pulse 70 09/13/24 13:58 Respiratory Rate 16 09/13/24 13:58 Blood Pressure 101/70 09/13/24 13:58 Pulse Oximetry 98 09/13/24 13:58 Pain Level 3 09/13/24 13:58 Comment pain was worse this am 02/0109/13/24 13:58 Lab/Test Results Lab/Test Results: POC- Test(urine) Negative Medical Decision Making 24-year-old female comes in with several days of intermittent lower abdominal cramping along with nausea. Denies any vomiting or fevers. No vaginal bleeding or discharge. She is well-appearing on exam. Her abdomen is soft and nondistended. She has minimal tenderness in the left lower quadrant otherwise no tenderness on abdominal exam. Given location of pain suspect she could have diverticulitis for severe and cyst. She has no severe pain so doubt entities such as ovarian torsion. Will check a UA and urine and also CBC, CMP and lipase and treat her symptoms with Compazine and toradol and reassess. Patient advised he wants to leave as her significant other cannot milk pickup truck driver her child and she has to go pick them up. I advised we do not have results back and depending on the results he may need further imaging. If she leaves before these tests are done there is a chance she could miss potentially serious pathology such as intra-abdominal abscess. She is choosing to leave AGAINST MEDICAL ADVICE and has decision-making capacity. She understands the risk of leaving including potential and permanent disability. She understands to return at any moment if she changes her mind. Differential Diagnosis Differential Diagnosis: Diverticulitis, ovarian cyst Quality:SDOH Health Related Social Needs: No Data to Display PFSH All Active Problems (Updated 09/13/24 @ 14:53 by Kulwinder Arreguin MD) Nausea (Acute) Abdominal discomfort (Acute) Bipolar disorder (Acute) reported by pt Depression (Chronic) Cannabinoid hyperemesis syndrome (Acute) Marijuana use (Acute) Daily use, multiple times per day Chronic constipation (Acute) Gastroesophageal reflux disease (Acute) Generalized anxiety disorder (Acute 03/18/14) Pt reports significant anxiety in early/mid teens. Anxiety has improved but still struggles at times. Not interested in counseling or medication. Medical History Major depressive disorder, single episode, severe, with psychotic behavior (03/18/14) Anemia iron infusions Rh negative state in antepartum period Pancreatitis Abnormal electroencephalogram (12/21/11) Eating disorder (03/18/14) bulemia Anxiety disorder 9 month inpatient care [facility] Family History Father Hepatitis B HIV (human immunodeficiency virus infection) Substance use disorder Depression Alcohol use disorder Mother Breast cancer Other Diabetes pat aunt Essential hypertension MGF Personal history of malignant neoplasm MGM-breast Heart disease MGF Hyperlipidemia MGF Mental disorder PGM-anxiety/depression Myocardial infarction MGF Stroke MGF Brother Alcohol abuse Substance abuse Maternal Grandmother Breast cancer Social History Smoking/Tobacco Use Status: Former Tobacco Use Quit Date: 10/24/23 Tobacco: How many years used: 7 Quit status: considering quitting Second Hand Exposure: Yes Counseling given: other Smoking risk assessment performed?: Yes Alcohol Intake: current Alcohol Intake frequency: 0-2 drinks per day Alcohol type: beer, wine and hard liquor Drug use: Current Sobriety Substance use type: does not use Adopted: No Caregiver/Support person: No Household members: children Housing: apartment Number of Children: 1 Communication Needs: None Education Level: high school Details: 11th grade Do you need help understanding health information?: Never 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 Sexually active: Yes Do you think of yourself as: straight/heterosexual Current gender identity: female How often do you talk on the phone with friends or family?: twice per week How often do you get together with friends or relatives?: once per week How often do you attend methodist or hinduism services?: decline to answer Do you belong to any clubs or organized social groups?: no Panel score (0-1 are the most socially isolated patients): 1 What type of physical activity do you participate in: none and regular exercise Duration: 30-45 minutes/day Frequency: does not exercise Vangie/Temple: No preference Special vangie needs: No Seatbelt use: always Helmet use: Yes Helmet use: always Drive intox or ride w/intox regional company truck driver: No Firearms in home: No Do you feel safe at home: Yes Do you feel safe in your relationship?: Yes Would you like helpful sources: No History History 1 Para 1 Hx # Term Pregnancies 1 Multiple births 0 Hx # Pregnancies 0 Ectopic pregnancies 0 AB induced 0 Hx Number of Living Children 1 AB spontaneous 0 Past Pregnancies Del. Date GA/Weeks # Preg Succ Route Wgt Sex Labor Lgth Anesth esia Location [facility] 07/27/20 39 No vaginal 3316.894 g Male 8 hrs 17 min socrates Gomes CNM Delivery Date: 07/27/20 Last Updated by: Gabi Lucio LPN 2nd degree laceration w/repair; Marito Ding
[2024-09-13 14:21] LABS: Bilirubin Negative (Negative); Blood Negative (Negative); Clarity Clear (Clear); Glucose Negative (Negative); Ketones Negative (Negative); Leukocyte Esterase Negative (Negative); Nitrite Negative (Negative); Specific Gravity 1.025 (1.005-1.025); Urobilinogen 0.2 mg/dL (Up to 0.2); pH 6.5 (5-8)
[2024-09-13] MEDS: Normal Saline 1,000 ML 1000 ML IV (14:31)
[2024-09-13] MEDS: Ketorolac 15 MG/ML VIAL IVP (14:31)
[2024-09-13] MEDS: Prochlorperazine 10 MG/2 ML VIAL IVP (14:31)
[2024-09-13 14:36] VITALS: PULSE 66; RESP 14; O2SAT 100
[2024-09-13 14:37] VITALS: BP 101/64; PULSE 54; PULSE 59; RESP 11; O2SAT 100
[2024-09-13 14:38] LABS: Abs Immature Grans 0.01 10^3/uL (0.0-0.06); Absolute Basophil Count 0.02 10^3/uL (0.0-0.2); Absolute Eosinophil Count 0.12 10^3/uL (0.0-0.7); Absolute Lymphocyte Count 1.87 10^3/uL (1.2-3.4); Absolute Monocyte Count 0.67 10^3/uL (0.1-0.8); Absolute Neutrophil Count 4.33 10^3/uL (1.2-6.7); Basophils % 0.3 %; Eosinophils % 1.7 %; Immature Grans % 0.1 %; Lymphocytes % 26.6 %; MCH 33.2 pg (27.0-33.0); MCHC 34.2 % (32.0-36.0); MCV 97 fL (80-95); MPV 10.6 fL (8.0-11.0); Monocytes % 9.5 %; Neutrophils % 61.8 %; Platelet Count 200 10^3/uL (130-400); RBC 3.91 10^6/uL (3.93-5.22); RDW 11.5 % (11.7-14.6); RDW-SD 40.4 fL; WBC 7.02 10^3/uL (4.4-10.8)
[2024-09-13 14:40] VITALS: PULSE 63; RESP 15; O2SAT 100
[2024-09-13 15:11] LABS: ALT 21 U/L (14-59); AST 21 U/L (15-37); Albumin 3.9 g/dL (3.4-5.0); Alkaline Phosphatase 71 U/L (46-116); Anion Gap 8.5 mmol/L (3-11); BUN 12 mg/dL (7-18); Bilirubin, Total 0.4 mg/dL (0.2-1.0); CO2 28.5 mmol/L (21.0-32.0); CREATININE 0.7 mg/dL (0.55-1.02); Chloride 104 mmol/L (98-107); Estimated GFR 123.78 (mL/min/1.73m2); Glucose 88 mg/dL (74-106); Lipase 58 U/L (<78); Potassium 3.9 mmol/L (3.5-5.1); Sodium 141 mmol/L (136-145); Total Protein 7.2 g/dL (6.4-8.2)
== END 2024-09-13 14:58 | disposition left against medical advice (07) ==
PROVIDERS: Emergency Provider Emergency Medicine; PCP Nurse Practitioner Family
DX: R10.32 Left lower quadrant pain (principal); R11.2 Nausea with vomiting, unspecified; Z87.891 Personal history of nicotine dependence; Z53.29 Procedure and treatment not carried out because of patient's decision for other reasons
CPT/HCPCS: 80053; 83690; 96374; 96375; 99284; 81003; 85025; J0780; J1885

== ENCOUNTER 2024-12-15 10:53 | Emergency (ER) | payer MEDICAID, SELFPAY ==
--- NOTE | 2024-12-15 10:45 | RT.EKG_ITS ---
APPROVED REPORT Exam: Resting ECG Reason for Exam: SOB Patient Location: E HR:70 bpm ECG Measurements Heart Rate 70 AXIS SD 137 P 61 QRSd 85 QRS 64 QT 388 T 66 QTc 420 Conclusion Sinus rhythm...normal P axis, V-rate 60- 99 No Occlusion OK
[2024-12-15 10:59] VITALS: BP 102/69; PULSE 73; RESP 18; TEMP 36.7; O2SAT 97
[2024-12-15 11:24] VITALS: BP 102/69; PULSE 73; RESP 18; TEMP 36.7; O2SAT 97
--- NOTE | 2024-12-15 11:49 | ED.GENADUL_ITS ---
Discharge Plan Disposition Patient Disposition: Home Discharge Details Clinical Impression: Shortness of breath Primary Care Provider: Azucena Florian ED Provider: Elvis Ordaz Home Meds and New Rx's Prescriptions: Continued gabapentin 300 mg capsule 300 mg PO TID Qty: 90 1RF lorazepam [Ativan] 0.5 mg tablet 0.5 mg PO DAILY PRN (Reason: anxiety) Qty: 7 0RF Patient Comments: 0900 quetiapine [Seroquel] 25 mg tablet 25 mg PO QHS Qty: 30 1RF Discharge Instructions Additional Instructions: You were seen in the emergency department for shortness of breath. Your oxygen was within normal limits. You may return to work. As we discussed, please return to the to the emergency department if you develop worsening shortness of breath or chest pain. Please follow-up as needed with your primary care provider. Stand Alone Forms: Work Release Discharge Data Discharge Date/Time-TO BE ENTERED AT DEPARTURE: 12/15/24 12:03 HPI General Date/Time Provider Initiated Documentation: 12/15/24 11:09 . HPI Narrative: MDM This is an overall very well-appearing normothermic and not tachycardic 24-year-old female with history of generalized anxiety disorder and history and physical most consistent with panic attack given reported rapid breathing prehospital. I considered PE however the patient is PERC negative so I did not send a D-dimer. No chest pain to suggest ACS. Patient lacks chest pain and has a nonischemic ECG and no risk factors for coronary artery disease so we will defer troponin testing. She was nauseous but not having any abdominal pain and has a soft nontender abdomen so my suspicion is low for appendicitis cholecystitis diverticulitis. No fevers nor cough to suggest pneumonia. No pain out of proportion to suggest necrotizing soft tissue infection. I considered sepsis however the patient has reassuring vitals and no recent fevers. She is neurologically intact so I am not suspicious for CVA. It seems that her visual changes and hearing changes occurred during her panic attack. These were transient and now resolved. She is neurologically intact and I do not feel that her presentation represents a CVA so do not feel that she would be a candidate for TNK nor would she require neurological consult. She is having no nuchal rigidity to suggest meningitis and no fevers so there is no indication for lumbar puncture. No tonic or clonic activity to suggest seizure so no indication for EEG. Patient and I discussed that she should return to the emergency department if she develops shortness of breath chest pain nausea or vomiting. We discussed return indications including any fever difficulty breathing or abdominal pain. Patient has a PCP and she was discharged with an empiric trial of expectant outpatient management. HPI This is a patient with a history of anxiety presenting with shortness of breath, nausea, and anxiety. The patient arrived at the emergency department on foot. The patient reports experiencing shortness of breath, anxiety, and nausea, which began approximately 1.5 hours prior to arrival. Her anxiety has since improved, but she continues to feel nauseous. She experienced a single episode of vomiting this morning. She also reported chest pain during a severe anxiety episode, but this has since subsided. She does not report any abdominal pain, rashes, or burning sensation during urination. Her vision has improved since arrival, although she did experience flashes and floaters earlier. She felt lightheaded while crossing the street, which led to her taking Ativan after waiting for 25 minutes. This medication alleviated her symptoms to some extent. She does not report any significant stressors outside of work and has been managing her stress well, although she occasionally struggles with slow breathing when stressed. She believes that excessive caffeine intake may have triggered her symptoms this morning, as she consumes the same caffeinated bevera ge daily. Currently, she feels well overall, with only mild nausea and occasional difficulty catching her breath, which resolves within a minute. The patient takes Ativan as needed for panic attacks but has not required it for the past month. Exam General: Well-appearing in no acute distress speaking in complete sentences. Head: Normocephalic, atraumatic. Eye: Extraocular eye movements intact. No conjunctival injection. No scleral icterus. Ear, nose, mouth, throat: Grossly normal inspection. Normal voice, handling secretions normally. Neck: Trachea midline. Cardiovascular: Well-perfused distal extremities. Regular rate and rhythm Respiratory: Nonlabored respiration. Clear lungs bilaterally Gastrointestinal: Nondistended abdomen. Soft nontender. Musculoskeletal: No edema. Moving all 4 extremities spontaneously. Skin: Normal for age and race, grossly normal temperature and turgor. No acute rash. Neurologic: Alert and appropriate, no apparent acute deficits. GCS 15. Cranial nerves II to XII intact grossly. Psychiatric: Mood and manner are appropriate. Grooming and personal hygiene are appropriate. Related Data Home Medications ?Medication ?Instructions ?Recorded ?Confirmed gabapentin 300 mg capsule 300 mg PO TID #90 caps 05/2012/15/24 lorazepam 0.5 mg tablet (Ativan) 0.5 mg PO DAILY PRN a nxiety #7 tabs 09/09/24 12/15/24 quetiapine 25 mg tablet (Seroquel) 25 mg PO QHS #30 ta bs 09/09/24 12/15/24 Previous Rx's ?Medication ?Instructions ?Recorded gabapentin 300 mg capsule 300 mg PO TID #90 caps 05/20 lorazepam 0.5 mg tablet (Ativan) 0.5 mg PO DAILY PRN a nxiety #7 tabs 09/09/24 quetiapine 25 mg tablet (Seroquel) 25 mg PO QHS #30 ta bs 09/09/24 Allergies Allergy/AdvReac Type Severity Reaction Status Date / Time No Known Allergies Allergy Verified 12/15/24 11:06 General Stated Complaint: SOB JARED: 3 Course Vital Signs Vital signs: Vital Signs Temperature 36.7 C 12/15/24 10:59 Pulse 73 12/15/24 10:59 Respiratory Rate 18 12/15/24 10:59 Blood Pressure 102/69 12/15/24 10:59 Pulse Oximetry 97 12/15/24 10:59 Temperature 36.7 C 12/15/24 11:24 Temperature Source Oral 12/15/24 11:24 Pulse 73 12/15/24 11:24 Respiratory Rate 18 12/15/24 11:24 Respiratory Effort Short of Breath 12/15/24 11:23 Respiratory Depth Normal 12/15/24 11:23 Respiratory Pattern Normal 12/15/24 11:23 Blood Pressure 102/69 12/15/24 11:24 Blood Pressure Position Sitting 12/15/24 11:24 Pulse Oximetry 97 12/15/24 11:24 Oxygen Delivery Method Room Air 12/15/24 11:24 Oxygen Flow Rate 0 12/15/24 11:24 Pain Level 0 12/15/24 11:24 PFSH All Active Problems (Updated 12/15/24 @ 11:49 by Elvis Ordaz MD) Shortness of breath (Acute) Bipolar disorder (Acute) reported by pt Depression (Chronic) Cannabinoid hyperemesis syndrome (Acute) Marijuana use (Acute) Daily use, multiple times per day Chronic constipation (Acute) Gastroesophageal reflux disease (Acute) Generalized anxiety disorder (Acute 03/18/14) Pt reports significant anxiety in early/mid teens. Anxiety has improved but still struggles at times. Not interested in counseling or medication. Medical History Major depressive disorder, single episode, severe, with psychotic behavior ( 03/18/14) Anemia iron infusions Rh negative state in antepartum period Pancreatitis Abnormal electroencephalogram (12/21/11) Eating disorder (03/18/14) bulemia Anxiety disorder 9 month inpatient care [facility] Family History Father Hepatitis B HIV (human immunodeficiency virus infection) Substance use disorder Depression Alcohol use disorder Mother Breast cancer Other Diabetes pat aunt Essential hypertension MGF Personal history of malignant neoplasm MGM-breast Heart disease MGF Hyperlipidemia MGF Mental disorder PGM-anxiety/depression Myocardial infarction MGF Stroke MGF Brother Alcohol abuse Substance abuse Maternal Grandmother Breast cancer Social History Smoking/Tobacco Use Status: Former Tobacco Use Quit Date: 10/24/23 Tobacco: How many years used: 7 Quit status: considering quitting Second Hand Exposure: Yes Counseling given: other Smoking risk assessment performed?: Yes Alcohol Intake: current Alcohol Intake frequency: 0-2 drinks per day Alcohol type: beer, wine and hard liquor Drug use: Current Sobriety Substance use type: does not use Adopted: No Caregiver/Support person: No Household members: children Housing: apartment Number of Children: 1 Communication Needs: None Education Level: high school Details: 11th grade Do you need help understanding health information?: Never 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 Sexually active: Yes Do you think of yourself as: straight/heterosexual Current gender identity: female How often do you talk on the phone with friends or family?: twice per week How often do you get together with friends or relatives?: once per week How often do you attend worship or latter-day services?: decline to answer Do you belong to any clubs or organized social groups?: no Panel score (0-1 are the most socially isolated patients): 1 What type of physical activity do you participate in: none and regular exercise Duration: 30-45 minutes/day Frequency: does not exercise Vangie/Restorationism: No preference Special vangie needs: No Seatbelt use: always Helmet use: Yes Helmet use: always 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 Date GA/Weeks # Preg Succ Route Wgt Sex Labor Lgth Anesth esia Location Prov Complic 07/27/20 39 No vaginal 3316.894 g Male 8 hrs 17 min [facility] Delivery Date: 07/27/20 Last Updated by: Gabi Lucio LPN 2nd degree laceration w/repair; Marito Ding
[2024-12-15] MEDS: Ondansetron O.D.T. 4 MG TABEF PO (11:50)
== END 2024-12-15 12:03 | disposition home or self-care (01) ==
LOC: ER 12:09
PROVIDERS: Emergency Provider Emergency Medicine; PCP Nurse Practitioner Family
DX: R06.02 Shortness of breath (principal); F41.9 Anxiety disorder, unspecified; R11.0 Nausea; Z87.891 Personal history of nicotine dependence
CPT/HCPCS: 93005; 99284; 93010

== ENCOUNTER 2025-01-28 09:01 | Emergency (ER) | payer MEDICAID, SELFPAY ==
--- NOTE | 2025-01-28 09:00 | RT.EKG_ITS ---
APPROVED REPORT Exam: Resting ECG Reason for Exam: chest pain, short of breath Patient Location: E HR:73 bpm ECG Measurements Heart Rate 73 AXIS IL 151 P 48 QRSd 81 QRS 47 QT 372 T 55 QTc 411 Conclusion Sinus rhythm...normal P axis, V-rate 60- 99 NO STEMI
[2025-01-28 09:08] VITALS: BP 109/61; PULSE 80; RESP 18; TEMP 36.7; O2SAT 98
[2025-01-28 09:14] VITALS: BP 109/61; PULSE 80; RESP 18; TEMP 36.7; O2SAT 98
--- NOTE | 2025-01-28 09:15 | DI.RAD_ITS ---
Exam(s) XR CHEST 2V PA LATERAL EXAM: XR CHEST 2V PA LATERAL CLINICAL HISTORY: r/o PNA, exposure to legionella TECHNIQUE: 2D digital imaging was performed of the chest. Two images were obtained. PA and lateral views were obtained. COMPARISON: CR XR CHEST 2V PA LATERAL from 06/12/2024 FINDINGS: MEDIASTINUM: Normal. HEART: Normal. PULMONARY VASCULATURE: Normal. LUNGS: Clear. PLEURAL SPACE: No pleural effusion or pneumothorax. BONE:Within normal limits for the patient's age. OTHER FINDINGS:Normal. IMPRESSION: No acute pulmonary findings. DATA REPOSITORY: RADIATION DOSE DELIVERED:
--- NOTE | 2025-01-28 09:36 | W.ED.GENAD ---
Discharge Plan Disposition Patient Disposition: Home Discharge Details Clinical Impression: Viral illness Primary Care Provider: Azucena Florian ED Provider: Ariella Prakash Home Meds and New Rx's Prescriptions: Continued propranolol 10 mg tablet 10 mg PO BID PRN (Reason: anxiety) Qty: 60 1RF Discharge Instructions Additional Instructions: Please call your primary care provider this afternoon to schedule follow-up appointment in the next couple of days for reassessment Your symptoms today are most consistent with a viral illness. However, due to your recent exposure to Legionella, a urine test has been sent out, results should be available in the next couple of days. There is no sign of pneumonia on chest x-ray at this time Please stay well hydrated, drinking plenty of fluids throughout the day. You may use ibuprofen 600 mg every 8 hours and tylenol 650 mg every 8 hours as needed for fever /chills or body aches. Get plenty of rest. Practice good handwashing and wear a mask in public if you are coughing to avoid spreading illness to others. Return to emergency care if you develop difficulty breathing, chest pains, worsening of cough or fever after initial improvement, or if you are very worried and need to be rechecked again immediately. Referrals: Azucena Florian NP [Primary Care Provider, Medicine] HPI General Date/Time Provider Initiated Documentation: 01/28/25 09:14. HPI Narrative: Michelle is a 24-year-old female who presents to the emergency dept for evaluation of mild headache, shortness of breath, mild cough, and chest pain since this morning. Chest discomfort is central and pressure-like. Feels disoriented and woozy. 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 Denies associated fever/chills, congestion, sore throat, heartburn, nausea/vomiting, abdominal pain, change in bowel or bladder function, rashes, leg or calf swelling/redness/tenderness. Fever or chills. Headache rated 4-5/10, untreated, without vision changes, fainting, or vomiting. Ambulates without difficulty. Shortness of breath is described as feeling like she has to take deep breaths to catch her breath. Not on hormonal control. No history of blood clots, cancer, recent surgery, immobility, heart or lung problems, diabetes, or similar episodes. +Tobacco user Related Data Home Medications ?Medication ?Instructions ?Recorded ?Confirmed propranolol 10 mg tablet 10 mg PO BID PRN anxiety #60 tabs 12/22/24 01/28/25 Previous Rx's ?Medication ?Instructions ?Recorded propranolol 10 mg tablet 10 mg PO BID PRN anxiety #60 tabs 12/22/24 Allergies Allergy/AdvReac Type Severity Reaction Status Date / Time No Known Allergies Allergy Verified 01/28/25 09:11 General Stated Complaint: SOB JARED: 3 Exam Narrative Exam Narrative: General Appearance: Patient overall well-appearing, in no acute distress. Vital signs: Within normal limits. No tachycardia, tachypnea, fever, or hypoxia HEENT: Oropharynx clear, no oropharyngeal erythema/exudate. Mucous membranes. No cervical or submandibular lymphadenopathy. Respiratory: Easy work of breathing, lungs clear bilaterally. No cough during exam Cardiac: Normal heart sounds, regular rate and rhythm. Skin: Warm and dry, no rash. Psychiatric: Normal. Course Vital Signs Vital signs: Vital Signs Temperature 36.7 C 01/28/25 09:08 Pulse 80 01/28/25 09:08 Respiratory Rate 18 01/28/25 09:08 Blood Pressure 109/61 01/28/25 09:08 Pulse Oximetry 98 01/28/25 09:08 Temperature 36.7 C 01/28/25 09:14 Temperature Source Tympanic 01/28/25 09:14 Pulse 80 01/28/25 09:14 Respiratory Rate 18 01/28/25 09:14 Respiratory Effort Normal, Non-Labored 01/28/25 09:14 Respiratory Depth Normal 01/28/25 09:14 Respiratory Pattern Normal 01/28/25 09:14 Blood Pressure 109/61 01/28/25 09:14 Pulse Oximetry 98 01/28/25 09:14 Oxygen Delivery Method Room Air 01/28/25 09:14 Oxygen Flow Rate 0 01/28/25 09:14 Medical Decision Making Initial Assessment: 24-year-old female presents with shortness of breath, chest pain, headache, and recent exposure to Legionnaires' disease. No fever, chills, vision changes, or GI symptoms. Reassuring physical exam. Differential Diagnosis includes but is not limited to: Legionnaires disease, pneumonia, viral illness such COVID-19 or flu, seasonal allergies. No red flags concerning for pulmonary embolism or cardiac etiology. Heart score 1, troponins not indicated. PERC negative. No red flags concerning for serious systemic illness or secondary bacterial infection requiring blood work at this time. ED Course: - Ordered chest x-ray - Ordered COVID/flu test - Urine hCG and Legionella ordered I independently interpreted the following tests: EKG reassuring, normal sinus rhythm, rate 73, no changes consistent with acute ischemia, normal intervals. COVID/flu negative. No acute abnormalities noted on chest x-ray. This was confirmed by radiology Final Assessment: Patient presents with symptoms potentially related to Legionnaires' disease versus viral illness. CXR negative, no PNA. Clinical Impression: - Legionnaires' disease exposure - Respiratory illness symptom Disposition: - Discharge home - Follow-Up: Follow-up with PCP for reassessment and test results. Return if symptoms worsen or new symptoms develop. Patient Education: Discussed symptoms of Legionnaires' disease, COVID-19, and influenza. Patient consented to the use of [facility] Imaging Data Radiologic Study: Radiologist's impression: Exam(s) XR CHEST 2V PA LATERAL EXAM: XR CHEST 2V PA LATERAL CLINICAL HISTORY: r/o PNA, exposure to legionella TECHNIQUE: 2D digital imaging was performed of the chest. Two images were obtained. PA and lateral views were obtained. COMPARISON: CR XR CHEST 2V PA LATERAL from 06/12/2024 FINDINGS: MEDIASTINUM: Normal. HEART: Normal. PULMONARY VASCULATURE: Normal. LUNGS: Clear. PLEURAL SPACE: No pleural effusion or pneumothorax. BONE:Within normal limits for the patient's age. OTHER FINDINGS:Normal. IMPRESSION: No acute pulmonary findings. PFSH All Active Problems (Updated 01/28/25 @ 10:42 by Ariella Gallardo) Viral illness (Acute) Paronychia of great toe of left foot (Acute ~01/2025) Bipolar disorder (Acute) reported by pt Depression (Chronic) Cannabinoid hyperemesis syndrome (Acute) Marijuana use (Acute) Daily use, multiple times per day Chronic constipation (Chronic) Gastroesophageal reflux disease (Acute) Generalized anxiety disorder (Chronic 03/18/14) Pt reports significant anxiety in early/mid teens. Anxiety has improved but still struggles at times. Not interested in counseling or medication. Medical History (Updated 01/28/25 @ 10:42 by Ariella Gallardo) Major depressive disorder, single episode, severe, with psychotic behavior (03/18/14) Anemia iron infusions Rh negative state in antepartum period Pancreatitis Abnormal electroencephalogram (12/21/11) Eating disorder (03/18/14) bulemia Anxiety disorder 9 month inpatient care [facility] Family History Father Hepatitis B HIV (human immunodeficiency virus infection) Substance use disorder Depression Alcohol use disorder Mother Breast cancer Other Diabetes pat aunt Essential hypertension MGF Personal history of malignant neoplasm MGM-breast Heart disease MGF Hyperlipidemia MGF Mental disorder PGM-anxiety/depression Myocardial infarction MGF Stroke MGF Brother Alcohol abuse Substance abuse Maternal Grandmother Breast cancer Social History Smoking/Tobacco Use Status: Former Tobacco Use Quit Date: 10/24/23 Tobacco: How many years used: 7 Quit status: considering quitting Second Hand Exposure: Yes Counseling given: other Smoking risk assessment performed?: Yes Alcohol Intake: current Alcohol Intake frequency: 0-2 drinks per day Alcohol type: beer, wine and hard liquor Drug use: Current Sobriety Substance use type: does not use Adopted: No Caregiver/Support person: No Household members: children Housing: apartment Number of Children: 1 Communication Needs: None Education Level: high school Details: 11th grade Do you need help understanding health information?: Never 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 Sexually active: Yes Do you think of yourself as: straight/heterosexual Current gender identity: female How often do you talk on the phone with friends or family?: twice per week How often do you get together with friends or relatives?: once per week How often do you attend religious or orthodoxy services?: decline to answer Do you belong to any clubs or organized social groups?: no Panel score (0-1 are the most socially isolated patients): 1 What type of physical activity do you participate in: none and regular exercise Duration: 30-45 minutes/day Frequency: does not exercise Vangie/Shinto: No preference Special vangie needs: No Seatbelt use: always Helmet use: Yes Helmet use: always Drive 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 Date GA/Weeks # Preg Succ Route Wgt Sex Labor Lgth Anesthesia Location Prov Complic 07/27/20 39 No vaginal 3316.894 g Male 8 hrs 17 min regional [facility] Delivery Date: 07/27/20 Last Updated by: Gabi Lucio LPN 2nd degree laceration w/repair; Martio GONSALEZ Have you Been Recently Intoxicated or Drunk Within the Last 30 days?: No Have you Ever Experienced Previous Episodes of Alcohol Withdrawal?: No Have you ever Experienced Withdrawal Seizures?: No Have you ever Experienced Delirium Tremens(DT)s?: No Have you ever undergone Alcohol Rehabilitation Treatment (i.e, inpt ot outpatient treatment programs)?: No Have you ever Experienced Blackouts?: No Have you ever Combined Alcohol with other Downers within the last 90 days?: No Have you ever Combined Alcohol with any other Substance of Abuse during the last 90 days?: No Result: 0
[2025-01-28 10:51] VITALS: BP 117/57; PULSE 76; RESP 18; O2SAT 99
[2025-01-28] MEDS: Ibuprofen 400 MG TAB PO (10:56)
[2025-01-28 23:08] LABS: Legionella Ag Detection Urine Negative (Negative)
== END 2025-01-28 10:57 | disposition home or self-care (01) ==
PROVIDERS: Emergency Provider Nurse Practitioner Family; PCP Nurse Practitioner Family
DX: B34.9 Viral infection, unspecified (principal)
CPT/HCPCS: 99283 ×2; 81025; 87449; 93005; 71046; 93010

== ENCOUNTER 2025-05-14 07:44 | Emergency (ER) | payer MEDICAID, SELFPAY ==
[2025-05-14 07:49] VITALS: BP 119/81; PULSE 89; RESP 10; TEMP 36.7; O2SAT 98
--- NOTE | 2025-05-14 08:18 | ED.GENADUL_ITS ---
Discharge Plan Disposition Patient Disposition: Home Condition: Stable Discharge Details Clinical Impression: Nausea vomiting and diarrhea, Cough, Acute sore throat, Viral illness, Bloody emesis Primary Care Provider: Azucena Florian ED Provider: Rodriguez Currie Home Meds and New Rx's Prescriptions: New pantoprazole [Protonix] 20 mg tablet,delayed release (DR/EC) 20 mg PO DAILY Qty: 30 0RF ondansetron 4 mg tablet,disintegrating 4 mg PO Q8H PRNQty: 10 0RF Continued propranolol 10 mg tablet 10 mg PO BID PRN (Reason: anxiety) Qty: 60 1RF Discharge Instructions Instructions: Nausea and Vomiting, Adult ED, Sore Throat, Adult ED, GI bleed Additional Instructions: Please drink plenty of clear fluids to stay hydrated. Drink small amounts of fluid frequently. Take nausea medicine as prescribed. Please take tylenol (acetaminophen) 650 mg every 6 hours as needed for pain. Be sure to avoid any other medications that containe tylenol (acetaminophen). Start Protonix as prescribed. Please follow-up with your primary care physician. Call today to arrange timely follow-up to be reassessed next week. Return to the emergency department immediately for any worsening or new concerning symptoms. Stand Alone Forms: Portal Information, Work Release Referrals: Azucena Florian NP [Primary Care Provider, Medicine] Discharge Data Discharge Date/Time-TO BE ENTERED AT DEPARTURE: 05/14/25 09:14 HPI General Mode of arrival: ambulatory . Date/Time Provider Initiated Documentation: 05/14/25 08:05 . Limitations to Documentation: no limitations . Information obtained by: patient . HPI Narrative: 24-year-old female with nausea, vomiting, and diarrhea for the past week, worsening in the last 24 hours. Vomited twice today with some blood tinge. No chronic medical conditions or new medications. 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 Son has a cough; patient has excessive morning mucus causing discomfort during swallowing, relieved by clearing nasal passages. No rashes or swelling, maintains hydration. Severe illness last week with throbbing headaches and extreme fatigue. Received influenza vaccine this year. History of stomach ulcers, concerned about recurrence. Not on NSAIDs or antacids. Related Data Home Medications Medication Instructions Recorded Confirmed propranolol 10 mg tablet 10 mg PO BID PRN anxiety #60 tabs 12/22/24 05/14/25 ondansetron 4 mg disintegrating 4 mg PO Q8H PRN #10 ta bs 05/14/25 tablet pantoprazole 20 mg tablet,delayed 20 mg PO DAILY #30 t abs 05/14/25 release (Protonix) Previous Rx's Medication Instructions Recorded propranolol 10 mg tablet 10 mg PO BID PRN anxiety #60 tabs 12/22/24 ondansetron 4 mg disintegrating 4 mg PO Q8H PRN #10 ta bs 05/14/25 tablet pantoprazole 20 mg tablet,delayed 20 mg PO DAILY #30 t abs 05/14/25 release (Protonix) Allergies Allergy/AdvReac Type Severity Reaction Status Date / Time No Known Allergies Allergy Verified 05/14/25 07:52 General Stated Complaint: Nausea/Vomit/Diar JARED: 3 Review of Systems All systems reviewed & are unremarkable except as noted in HPI and below Constitutional Constitutional: Reports as per HPI Gastrointestinal Gastrointestinal: Reports as per HPI, Denies melena and Denies hematochezia Exam Const General: cooperative and no acute distress [facility] Mouth: moist mucous membranes Throat: uvula midline, no peritonsillar masses and posterior oropharynx abnormal erythema; no cobblstoning, no edema and no exudates Eyes Conjunctivae: normal conjunctivae Sclera: normal sclerae Neck Neck: trachea midline and supple Resp Auscultation: clear to auscultation bilaterally, no rales, no rhonchi and no wheezes Cardio Rate: regular rate and not tachycardic Rhythm: regular rhythm GI Palpation: soft, not firm, no guarding, no masses, not rigid and nontender Skin General skin exam: no rashes or lesions noted Neuro General: patient alert, patient awake, patient oriented x3 and tone normal Extrem General: no edema Psych Appearance: grossly normal Mental Status: mental status grossly normal Course Vital Signs Vital signs: Vital Signs Temperature 36.7 C 05/14/25 07:49 Pulse 89 05/14/25 07:49 Respiratory Rate 10 L 05/14/25 07:49 Blood Pressure 119/81 05/14/25 07:49 Pulse Oximetry 98 05/14/25 07:49 Temperature 36.7 C 05/14/25 07:49 Temperature Source Oral 05/14/25 07:49 Pulse 89 05/14/25 07:49 Respiratory Rate 10 L 05/14/25 07:49 Blood Pressure 119/81 11/20/25 07:49 Blood Pressure Position Sitting 05/14/25 07:49 Pulse Oximetry 98 05/14/25 07:49 Oxygen Delivery Method Room Air 05/14/25 07:49 Oxygen Flow Rate 0 05/14/25 07:49 Medical Decision Making Initial Assessment: 24-year-old with nausea, vomiting, diarrhea, and blood in vomit. History of stomach ulcers. Abdominal exam benign. Hemodynamically stable. Patient also with sore throat and and recent subjective fever. Afebrile now. Differential Diagnosis: - Viral gastroenteritis: Exposure to flu at workplace. Plan: Symptomatic treatment, avoid NSAIDs. - Esophagitis: Blood in vomit likely from esophagitis and vomiting. Plan: Start PPI. - Influenza: Flu at workplace. Plan: Test for influenza, COVID-19, RSV. ED Course: Physical exam performed. Tylenol administered for throat discomfort. Zonfran given for nausea. Protonix initiated. Labs reviewed - covid and flu negative. Patient reassessed and feeling better, requesting discharge. Patient stable. Usual and customary discharge instructions were reviewed. Clinical Impression: Viral gastroenteritis, esophagitis, throat discomfort. Disposition: Follow-Up: Return to work on Sunday if improved. Avoid work if symptoms persist. Follow-up pcp. Return for worsening or new concerning symptoms. Patient Education: Avoid NSAIDs. Rest and stay hydrated. Return to work if symptoms improve. Lab Data Lab results reviewed: Yes I reviewed the patient's lab results. Labs: Laboratory Tests Range/Units 05/14/25 08:25 COVID-19 Source Nasopharynx SARS-CoV-2 (PCR) (Negative) Negative Influenza Type A (PCR) (Negative) Negative Influenza Type B (PCR) (Negative) Negative RSV (PCR) (Negative) Negative PFSH All Active Problems (Updated 05/14/25 @ 08:23 by Rodriguez Currie MD) Bloody emesis (Acute) Viral illness (Acute) Acute sore throat (Acute) Cough (Acute) Nausea vomiting and diarrhea (Acute) Paronychia of great toe of left foot (Acute ~01/2025) Bipolar disorder (Acute) reported by pt Depression (Chronic) Cannabinoid hyperemesis syndrome (Acute) Marijuana use (Acute) Daily use, multiple times per day Chronic constipation (Chronic) Gastroesophageal reflux disease (Acute) Generalized anxiety disorder (Chronic 03/18/14) Pt reports significant anxiety in early/mid teens. Anxiety has improved but still struggles at times. Not interested in counseling or medication. Medical History (Updated 05/14/25 @ 08:23 by Rodriguez Currie MD) Major depressive disorder, single episode, severe, with psychotic behavior (03/18/14) Anemia iron infusions Rh negative state in antepartum period Pancreatitis Abnormal electroencephalogram (12/21/11) Eating disorder (03/18/14) bulemia Anxiety disorder 9 month inpatient care [place] Family History Father Hepatitis B HIV (human immunodeficiency virus infection) Substance use disorder Depression Alcohol use disorder Mother Breast cancer Other Diabetes pat aunt Essential hypertension MGF Personal history of malignant neoplasm MGM-breast Heart disease MGF Hyperlipidemia MGF Mental disorder PGM-anxiety/depression Myocardial infarction MGF Stroke MGF Brother Alcohol abuse Substance abuse Maternal Grandmother Breast cancer Social History Smoking/Tobacco Use Status: Former Tobacco Use Quit Date: 10/24/23 Tobacco: How many years used: 7 Quit status: considering quitting Second Hand Exposure: Yes Counseling given: other Smoking risk assessment performed?: Yes Alcohol Intake: current Alcohol Intake frequency: 0-2 drinks per day Alcohol type: beer, wine and hard liquor Drug use: Current Sobriety Substance use type: does not use Adopted: No Caregiver/Support person: No Household members: children Housing: apartment Number of Children: 1 Communication Needs: None Education Level: high school Details: 11th grade Do you need help understanding health information?: Never 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 Sexually active: Yes Do you think of yourself as: straight/heterosexual Current gender identity: female How often do you talk on the phone with friends or family?: twice per week How often do you get together with friends or relatives?: once per week How often do you attend judaism or jainism services?: decline to answer Do you belong to any clubs or organized social groups?: no Panel score (0-1 are the most socially isolated patients): 1 What type of physical activity do you participate in: none and regular exercise Duration: 30-45 minutes/day Frequency: does not exercise Vangie/Spiritism: No preference Special vangie needs: No Seatbelt use: always Helmet use: Yes Helmet use: always Drive intox or ride w/intox lead driver: No Firearms in home: No Do you feel safe at home: Yes Do you feel safe in your relationship?: Yes Would you like helpful sources: No History History 1 Para 1 Hx # Term Pregnancies 1 Multiple births 0 Hx # Pregnancies 0 Ectopic pregnancies 0 AB induced 0 Hx Number of Living Children 1 AB spontaneous 0 Past Pregnancies Del. Date GA/Weeks # Preg Succ Route Wgt Sex Labor Lgth Anesth esia Location Prov Complic 07/27/20 39 No vaginal 3316.894 g Male 8 hrs 17 min [facility] Delivery Date: 07/27/20 Last Updated by: Gabi Lucio LPN 2nd degree laceration w/repair; Marito Ding
[2025-05-14] MEDS: Ondansetron O.D.T. 4 MG TABEF PO (08:33)
[2025-05-14] MEDS: Acetaminophen 325 MG TAB 650 MG PO (08:34)
[2025-05-14] MEDS: Pantoprazole 40 MG TABCR PO (08:34)
[2025-05-14 09:10] LABS: COVID-19 PCR Negative (Negative); RSV PCR Negative (Negative)
== END 2025-05-14 09:14 | disposition home or self-care (01) ==
PROVIDERS: Emergency Provider Student in an Organized Health Care Education/Training Program; PCP Nurse Practitioner Family
DX: R11.2 Nausea with vomiting, unspecified (principal); J02.9 Acute pharyngitis, unspecified; R05.9 Cough, unspecified; B34.9 Viral infection, unspecified; Z87.891 Personal history of nicotine dependence
CPT/HCPCS: 87637; 99283

== ENCOUNTER 2025-06-12 14:51 | Outpatient (REF) | payer MEDICAID, SELFPAY ==
[2025-06-12 15:58] LABS: RBC 0-2 HPF (0-2); WBC Negative HPF (0-5)
== END 2025-06-12 14:52 | disposition home or self-care (01) ==
LOC: LBN 14:51
PROVIDERS: PCP Nurse Practitioner Family; Visit Provider Physician Assistant Medical
DX: N89.8 Other specified noninflammatory disorders of vagina (principal); R30.0 Dysuria
CPT/HCPCS: 81015; 87086; 87480; 87510; 87660

== ENCOUNTER 2025-06-15 16:13 | Outpatient (REF) | payer MEDICAID, SELFPAY ==
[2025-06-17 11:03] LABS: Chlamydia Result Negative (Negative); GC Result Negative (Negative)
== END 2025-06-15 16:14 | disposition home or self-care (01) ==
LOC: LBN 16:13
PROVIDERS: PCP Nurse Practitioner Family; Visit Provider Nurse Practitioner Family
DX: R30.0 Dysuria (principal); F41.1 Generalized anxiety disorder; N89.8 Other specified noninflammatory disorders of vagina; Z20.2 Contact with and (suspected) exposure to infections with a predominantly sexual mode of transmission
CPT/HCPCS: 87491; 87591; 87086

== ENCOUNTER → 2025-06-17 10:05 | Outpatient (CLI) | payer MEDICAID, SELFPAY ==
--- NOTE | 2025-06-17 | DI.US_ITS ---
Exam(s) US PELVIS TRANSVAGINAL EXAM: US PELVIS TRANSVAGINAL CLINICAL HISTORY: Pelvic and Perineal pain/R10.20 TECHNIQUE: Ultrasound of the pelvis was performed both transabdominal and transvaginal. COMPARISON: US US PELVIS TRANSVAGINAL from 06/02/2022 FINDINGS: UTERUS: Measures 7.8 cm length x 4 cm AP x 5.3 cm wide. There are no uterine fibroids. Endometrial thickness measures 8 mm. There is no fluid in the endometrial canal. CERVIX: There are no obvious nabothian cysts. RIGHT OVARY: Measures 3.3 x 2.5 x 2.1 cm There is a cyst in the right ovary which measures 2.1 x 1.8 x 1.9 cm. LEFT OVARY: Measures 2.6 x 1.2 x 1.6 cm Contains sub cm follicular cysts. CUL-DE-SAC: There is a small amount of fluid in the lower pelvis next to the uterine fundus. IMPRESSION: 1. Normal appearing uterus and age-appropriate endometrium. 2. There is a E 21 x 18 x 19 mm cyst in the right ovary. 3. Small amount of free fluid noted adjacent to the uterine fundus. DATA REPOSITORY:
== END ==
LOC: DI 10:06
PROVIDERS: PCP Nurse Practitioner Family; Visit Provider Physician Assistant Medical
DX: R10.23 Pelvic and perineal pain bilateral (principal)
CPT/HCPCS: 76830; 76856